=== PATIENT | male | born 1975 | race African-American/Black ===

== ENCOUNTER 2024-10-21 19:43 | Observation (INO) | payer MEDICARE, SELFPAY ==
[2024-10-21] VITALS (34 sets, daily range): BP systolic 99–146; BP diastolic 75–107; PULSE 75–194; TEMP 36.8–37.3; O2SAT 89–96; BMI 32.3; BMI 33.3
--- NOTE | 2024-10-21 19:46 | ECG_ITS ---
[facility] Test Date: 2024-10-21 Pat Name: MARVIN SUAREZ Department: Room: 213 Gender: Male Manager Regional: : 1975 Requested By: [id number] Order Number: [id number] Reading MD: PARAMJIT SQUIRES M.D. Measurements Intervals [place] Rate: 92 P: 57 OR: 140 QRS: 151 QRSD: 90 T: 10 QT: 356 QTc: 406 Interpretive Statements 1100 Sinus rhythm 5120 Possible right ventricular hypertrophy 8003 Consistent with pulmonary disease 9150 abnormal ECG No previous ECG available for comparison Electronically Signed On 10-22-2024 14:36:49 EDT by PARAMJIT SQUIRES M.D.
--- NOTE | 2024-10-21 19:58 | ED_ITS ---
HPI - Chest Pain General Chief Complaint: Chest Pain Stated Complaint: CP Time Seen by Provider: 10/21/24 19:54 Source: patient Mode of arrival: ambulance Limitations: no limitations History of Present Illness HPI narrative: past history of HTN and schizophrenia. Recently moved to this area and does not have any of his medication. has not found new doctor. Normally states norvasc and abilify Was asleep and awakened with chest pain 10/10. Pain associated with dyspnea. Pain has decreased to 7/10. No nausea or abdominal pain. also complains of lower back pain but admits this has been ongoing for several months and he has not been treating this Related Data Home Medications ?Medication ?Instructions ?Recorded ?Confirmed No Known Home Medications 10/21/24 10/21/24 Allergies Allergy/AdvReac Type Severity Reaction Status Date / Time No Known Drug Allergies Allergy Verified 10/21/24 19:54 Review of Systems ROS Status of ROS 10 or more systems reviewed and unremark able except as noted in history and below [facility] Medical History (Updated 10/21/24 @ 22:53 by Christopher Colby MD) Smokes ?F17.200 - Nicotine dependence, unspecified, uncomplicated (ICD-10) Hypertension ?I10 - Essential (primary) hypertension (ICD-10) Social History Little interest or pleasure in doing things: not at all Feeling down, depressed, or hopeless: not at all Exam Constitutional Vital Signs, click to edit/add: Last Vital Signs Temp 99.2 F 10/21/24 19:50 Pulse 98 H 10/21/24 22:20 Resp 31 H 10/21/24 22:20 BP 119/90 10/21/24 22:00 Pulse Ox 96 10/21/24 22:20 O2 Del Method Room Air 10/21/24 19:50 Common normals: no apparent distress, average body habitus, oriented x3, no limitations, healthy appearing, alert and well nourished [facility] Common normals: normocephalic and head/scalp atraumatic Eye Common normals: PERRL, EOMs intact bilaterally and conjunctivae normal Respiratory Common normals: normal respiratory effort, no retractions, no use of accessory muscles and clear to auscultation bilaterally Cardio Common normals: regular rate, regular rhythm, S1 normal heart sound and S2 normal heart sound GI Common normals: Normal to inspection, nondistended, normoactive bowel sounds present, soft to palpation and non-tender Extremity Common normals: normal to inspection and full ROM Neuro Common normals: oriented x3, CN's II-XII intact bilaterally, moves all extremities and no focal motor deficits Psych Appearance: grossly normal Course Vital Signs Vital signs: Vital Signs Temperature 99.2 F 10/21/24 19:50 Pulse Rate 122 H 10/21/24 19:50 Respiratory Rate 24 H 10/21/24 19:50 Blood Pressure 141/102 H 10/21/24 19:50 Pulse Oximetry 96 10/21/24 19:50 Oxygen Delivery Method Room Air 10/21/24 19:50 Temperature 99.2 F 10/21/24 19:50 Pulse Rate 98 H 10/21/24 22:20 Respiratory Rate 31 H 10/21/24 22:20 Blood Pressure 119/90 10/21/24 22:00 Pulse Oximetry 96 10/21/24 22:20 Oxygen Delivery Method Room Air 10/21/24 19:50 MDM - Chest Pain MDM Narrative Medical decision making narrative: presents with acute onset of chest pain that awakened him from sleep and associated with dyspnea. Past history of HTN but has been without because he moved to this area several months ago and has not found new PCP. Also complains of lower back pain for several months and history of schizophrenia for which he normally takes Abilify but has been without this as well serial troponin are normal. Cxray per radiologist is neg. RBS elevated. Patient not aware of history of diabetes but he may be diabetic. labs also demonstrate CKD discussed with the hospitalist and patient accepted for admission Lab Data Labs: Lab Results 10/21/24 10/21/24 Range/Units 20:00 21:54 WBC 11.2 H (4.0-11.0) 10^3/uL RBC 6.47 H (4.70-6.10) 10^6/uL Hgb 17.3 (14.0-18.0) g/dL Hct 54.6 H (42.0-54.0) % MCV 84.4 (80.0-94.0) fL MCH 26.7 (25.9-34.0) pg MCHC 31.7 (29.9-35.2) g/dL RDW 14.4 (11.0-15.0) % Plt Count 268 (150-450) 10^3/uL MPV 9.5 (9.5-13.5) fL Neut % (Auto) 49.6 (43.0-75.0) % Lymph % (Auto) 38.4 (20.5-60.0) % Campbell % (Auto) 8.5 (1.7-12.0) % Eos % (Auto) 2.4 (0.9-7.0) % Baso % (Auto) 0.5 (0.2-2.0) % Neut # (Auto) 5.5 (1.4-6.5) 10^3/uL Lymph # (Auto) 4.3 H (1.2-3.8) 10^3/uL Campbell # (Auto) 1.0 H (0.3-0.8) 10^3/uL Eos # (Auto) 0.3 (0.0-0.7) 10^3/uL Baso # (Auto) 0.1 (0.0-0.1) 10^3/uL Abs Immat Gran (auto) 0.07 H (0.00-0.03) 10^3/uL Imm/Tot Granulo (auto) 0.6 H (0.0-0.5) % D-Dimer 0.25 (<=0.59) mg/L FEU Sodium 138 (136-145) mmol/L Potassium 3.7 (3.5-5.1) mmol/L Chloride 101 (98-107) mmol/L Carbon Dioxide 31.7 (21.0-32.0) mmol/L Anion Gap 9.0 BUN 19.0 H (7.0-18.0) mg/dL Creatinine 1.53 H (0.70-1.30) mg/dL Est GFR ( Amer) 58 L (>=60 mL/min/1.73m^2) Est GFR (Non-Af Amer) 48 L (>=60 mL/min/1.73m^2) BUN/Creatinine Ratio 12.4 Glucose 370 H (74-106) mg/dL Calcium 8.7 (8.5-10.1) mg/dL Troponin I High Sens 10.3 11.3 (4.0-76.1) pg/mL NT-Pro-B Natriuret Pep 13.0 (<=900.0) pg/mL Discharge Plan Discharge Chief Complaint: Chest Pain Clinical Impression: Chest pain, Acute hyperglycemia, CRI (chronic renal insufficiency) Patient Disposition: Admitted as Observation Prescriptions / Home Meds: No Action No Known Home Medications Print Language: [place] Referrals: Physician,Non-Staff, MD [Primary Care Provider] - 1 week
[2024-10-21 20:17] LABS: Basophils Absolute Auto 0.1 10^3/uL (0.0-0.1); Basophils Percent Auto 0.5 % (0.2-2.0); Eosinophils Absolute Auto 0.3 10^3/uL (0.0-0.7); Eosinophils Percent Auto 2.4 % (0.9-7.0); Hematocrit 54.6 % (42.0-54.0); Hemoglobin 17.3 g/dL (14.0-18.0); Immature Granulocytes Abs Auto 0.07 10^3/uL (0.00-0.03); Immature Granulocytes Pct Auto 0.6 % (0.0-0.5); Lymphocytes Absolute Auto 4.3 10^3/uL (1.2-3.8); Lymphocytes Percent Auto 38.4 % (20.5-60.0); Mean Corpuscular HGB Conc 31.7 g/dL (29.9-35.2); Mean Corpuscular Hemoglobin 26.7 pg (25.9-34.0); Mean Corpuscular Volume 84.4 fL (80.0-94.0); Mean Platelet Volume 9.5 fL (9.5-13.5); Monocytes Percent Auto 8.5 % (1.7-12.0); Neutrophils Absolute Auto 5.5 10^3/uL (1.4-6.5); Neutrophils Percent Auto 49.6 % (43.0-75.0); Platelet Count 268 10^3/uL (150-450); Red Blood Count 6.47 10^6/uL (4.70-6.10); Red Cell Distribution Width 14.4 % (11.0-15.0); White Blood Count 11.2 10^3/uL (4.0-11.0)
[2024-10-21] MEDS: NITROGLYCERIN 0.4 MG BOTTLE PO (20:24)
[2024-10-21 20:29] LABS: D Dimer 0.25 mg/L FEU (<=0.59)
[2024-10-21 20:38] LABS: BUN Creatinine Ratio 12.4; Calcium 8.7 mg/dL (8.5-10.1); Carbon Dioxide 31.7 mmol/L (21.0-32.0); Chloride 101 mmol/L (98-107); Estimated GFR (African America 58 (>=60 mL/min/1.73m^2); Estimated GFR (Non-African Ame 48 (>=60 mL/min/1.73m^2); Glucose 370 mg/dL (74-106); Potassium 3.7 mmol/L (3.5-5.1); Sodium 138 mmol/L (136-145); Troponin I High Sensitivity 10.3 pg/mL (4.0-76.1)
[2024-10-21] MEDS: MORPHINE SULFATE 4 MG/ML VIAL IV (21:17)
[2024-10-21 22:31] LABS: Troponin I High Sensitivity 11.3 pg/mL (4.0-76.1)
[2024-10-22] VITALS (9 sets, daily range): BP systolic 124–128; BP diastolic 84–86; PULSE 73–87; TEMP 36.6–36.8; O2SAT 91–93
--- NOTE | 2024-10-22 05:00 | ECG_ITS ---
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 Measurements Intervals [place] Rate: 77 P: 28 [place]: 143 QRS: -67 QRSD: 100 T: 87 QT: 367 QTc: 418 Interpretive Statements SINUS RHYTHM INDETERMINATE AXIS PATTERN CONSISTENT WITH PULMONARY DISEASE LEFT ANTERIOR FASCICULAR BLOCK [QRS AXIS <= -45, QR IN I, RS IN II] NONSPECIFIC T-WAVE ABNORMALITY Compared to ECG 10/21/2024 19:46:05 Indeterminate axis now present Left anterior fascicular block now present T-wave abnormality now present Electronically Signed On 10-22-2024 14:39:30 EDT by PARAMJIT SQUIRES M.D.
[2024-10-22 06:15] LABS: Hematocrit 52.9 % (42.0-54.0); Hemoglobin 16.5 g/dL (14.0-18.0); Mean Corpuscular HGB Conc 31.2 g/dL (29.9-35.2); Mean Corpuscular Hemoglobin 26.6 pg (25.9-34.0); Mean Corpuscular Volume 85.2 fL (80.0-94.0); Mean Platelet Volume 10.1 fL (9.5-13.5); Platelet Count 216 10^3/uL (150-450); Red Blood Count 6.21 10^6/uL (4.70-6.10); Red Cell Distribution Width 14.3 % (11.0-15.0); White Blood Count 11.2 10^3/uL (4.0-11.0)
[2024-10-22 06:38] LABS: Alanine Aminotransferase 31 U/L (16-63); Albumin Globulin Ratio 0.9; Alkaline Phosphatase 90 U/L (46-116); Anion Gap 11.2; Aspartate Amino Transferase 12 U/L (15-37); Bilirubin Total 0.2 mg/dL (0.2-1.0); Calcium 8.5 mg/dL (8.5-10.1); Carbon Dioxide 28.9 mmol/L (21.0-32.0); Chloride 103 mmol/L (98-107); Chol HDL Ratio 7.1; Cholesterol 242 mg/dL (<=200); Estimated GFR (African America >60 (>=60 mL/min/1.73m^2); Estimated GFR (Non-African Ame 52 (>=60 mL/min/1.73m^2); Globulin 3.4 g/dL; Glucose 327 mg/dL (74-106); HDL Cholesterol 34 mg/dL (40-60); Potassium 4.1 mmol/L (3.5-5.1); Sodium 139 mmol/L (136-145); Thyroid Stimulating Hormone 2.159 uIU/mL (0.358-3.740); Total Protein 6.4 g/dL (6.4-8.2); Triglycerides 534 mg/dL (<=150); VLDL CHOLESTEROL 106.8 mg/dL
[2024-10-22 06:40] LABS: LDL Cholesterol Direct 137 mg/dL
[2024-10-22 06:48] LABS: Estimated Average Glucose 209 mg/dL; Glycohemoglobin A1C 8.9 % (4.5-6.2)
[2024-10-22 07:58] LABS: Glucometer 341 mg/dL (74-106)
[2024-10-22] MEDS: INSULIN ASPART 300 UNIT/3 ML PEN SUBQ ×2 (08:38→11:34)
[2024-10-22] MEDS: ASPIRIN 81 MG TABLET.DR PO (08:43)
[2024-10-22 09:44] LABS: Troponin I High Sensitivity 10.3 pg/mL (4.0-76.1)
[2024-10-22] MEDS: ARIPIPRAZOLE 5 MG TABLET 10 MG PO (11:33)
[2024-10-22] MEDS: AMLODIPINE BESYLATE 5 MG TABLET PO (11:33)
[2024-10-22] MEDS: LOSARTAN POTASSIUM 50 MG TABLET PO (11:34)
[2024-10-22] MEDS: METFORMIN HCL 500 MG TABLET PO (11:34)
[2024-10-22 11:37] LABS: Glucometer 221 mg/dL (74-106)
--- NOTE | 2024-10-22 12:31 | PC.NURSE ---
discharge instructions given to pt, verbalized understanding. iv discontinued, tele dc'd. [facility] at bedside for transport.
--- NOTE | 2024-10-22 16:39 | PM.HP ---
HPI H&P: HPI History of Present Illness Chief complaint: CP Narrative: HPI and Hospital Course: 49 y o male with hx of HTN,T2 DM, Mental health illness recently moved to [place] from [place] presented to ED for chest pain. Patient was sleeping when he woke up with mid sternal chest discomfort that lasted for a minute or two. He did not have any symptoms associated with it. He denies cough, fever, SOB, dizziness, palpitations with Chest pain. Patient denies family hx of CAD/premature CAD. He smokes cigarettes and Marijuana. Denies illicit drug use other than marijuana. Patient remained CP free during hospital admission. His d dimer was negative. His tropx 3 were also negative. No acute ischemic changes were noted on EKG. Given patient's risk factors including HTN, T2 DM, Current smoking, he is at high risk of CAD and will benefit from Cardiolyte Lexiscan. He is unable to do exercise stress test due to baseline EKG abnormalities and is unable to run on treadmill due to prior knee pain and knee injury. He ambulates using a walker currently. I ordered outpatient Cardiolyte Lexiscan for him which our case management team will try and schedule for the patient. Since he was chest pain free, and he did not have any evidence of acute coronary syndrome, I felt there was no need for him to stay over the weekend to get his stress test inpatient. I explained this to the patient. He was provided exhaustive education on worrisome signs and symptoms and was instructed to return to ED if he developed chest pain again. Medically stable for discharge. He was given information to contact local PCP office to establish care. He was also prescribed one month supply of his home medications to ensure he had his home medications until he established with a new PCP. Discharge Disposition Home Discharge Diagnosis Chest pain likely due to underlying CAD. No evidence of acute coronary syndrome Discharge Status Stable Over 30 minutes spent on patient's eval, assesment, clinical co ordination and discharge planning. Opioid HPI Opioid Management Most Recent Pain and Opioid Data: Last Pain Scale 3 10/22/24 08:00 10/22/24 Last Pain Assessment 10/22/24 12:00 Last ED Pain Assessment 10/21/24 20:07 Last ORT Total Score 6 10/21/24 23:40 10/21/24 Last ORT Risk Category Moderate Risk 10/21/24 23:40 10/21/24 Review of Systems ROS Status of ROS 10 or more systems reviewed and unremarkable except as noted in history and below [facility] Medical History (Updated 10/23/24 @ 23:03 by Shaikh Miesha MD) HLD (hyperlipidemia) ?E78.5 - Hyperlipidemia, unspecified (ICD-10) Type 2 diabetes mellitus ?E11.9 - Type 2 diabetes mellitus without complications (ICD-10) CKD (chronic kidney disease) stage 3, GFR 30-59 ml/min ?N18.30 - Chronic kidney disease, stage 3 unspecified (ICD-10) Diabetes ?E11.9 - Type 2 diabetes mellitus without complications (ICD-10) Schizophrenia ?F20.9 - Schizophrenia, unspecified (ICD-10) Smokes ?F17.200 - Nicotine dependence, unspecified, uncomplicated (ICD-10) Hypertension ?I10 - Essential (primary) hypertension (ICD-10) Social History (Updated 10/21/24 @ 23:59 by Rima Hahn) Within the past year, how often did you have a drink containing alcohol: never Score interpretation: A score less than 4 is consistent with normal alcohol consumption. Smoking status: Current every day smoker Non-prescribed substance use: cannabis (any form) Non-prescribed substance use details: smokes marijuana Previous occupational history: none Highest level of school completed/degree received: 10th grade Are you now , , , , never or living with a partner: never In a typical week, how many times do you talk on the telephone with family, friends, or neighbors: 3 or more times per week How often do you get together with friends or relatives: 3 or more times per week Little interest or pleasure in doing things: not at all Feeling down, depressed, or hopeless: not at all Feel stressed/tense/nervous/anxious/difficulty sleeping: not at all Do you think of yourself as: straight/heterosexual Gender Identity: male Meds Home Medications and Allergies Home Medications ?Medication ?Instructions ?Recorded ?Confirmed ?Type amlodipine 5 mg tablet 5 mg PO DAILY #30 tabs 10/22/24 Rx aripiprazole 10 mg tablet 10 mg PO DAILY #30 tabs 10/22/24 Rx aspirin 81 mg chewable tablet 81 mg PO DAILY #30 tabs 10/22/24 Rx losartan 50 mg tablet 50 mg PO DAILY #30 tabs 10/22/24 Rx metformin 500 mg tablet 500 mg PO BID #60 tabs 10/22/24 Rx rosuvastatin 5 mg tablet 5 mg PO DAILY #30 tabs 10/22/24 Rx Allergies Allergy/AdvReac Type Severity Reaction Status Date / Time No Known Drug Allergies Allergy Verified 10/21/24 19:54 Exam Constitutional Vital Signs, click to edit/add: Last Vital Signs Temp 97.9 F 10/22/24 08:48 Pulse 85 10/22/24 12:00 Resp 16 10/22/24 08:48 BP 124/84 10/22/24 08:48 Pulse Ox 91 L 10/22/24 08:48 O2 Del Method Room Air 10/22/24 08:48 Documenting provider has reviewed patient's vital signs: yes Common normals: no apparent distress and oriented x3 General appearance: cooperative HENMT Common normals: normocephalic and head/scalp atraumatic Head and scalp: normocephalic and atraumatic Eye Common normals: conjunctivae normal and no scleral icterus Conjunctiva: conjunctiva(e) normal Respiratory Common normals: normal respiratory effort and clear to auscultation bilaterally Effort & inspection: able to speak in complete sentences Auscultation: clear to auscultation bilaterally Cardio Common normals: regular rate, S1 normal heart sound and S2 normal heart sound Rate: regular rate Heart sounds: S1 normal and S2 normal GI Common normals: Normal to inspection, nondistended, normoactive bowel sounds present, soft to palpation, non-tender and no hepatosplenomegaly Palpation: soft and no hepatosplenomegaly Extremity Common normals: no clubbing, cyanosis or edema Neuro Common normals: oriented x3, moves all extremities and no focal motor deficits Psych Common normals: mental status grossly normal, denies hallucinations, denies homicidal ideation and denies suicidal ideation Results Labs Labs: Short CBC 10/21/24 10/22/24 Range/Units 20:00 05:38 WBC 11.2 H 11.2 H (4.0-11.0) 10^3/uL Hgb 17.3 16.5 (14.0-18.0) g/dL Hct 54.6 H 52.9 (42.0-54.0) % Plt Count 268 216 (150-450) 10^3/uL BMP 10/21/24 10/22/24 20:00 05:38 Sodium 138 139 Potassium 3.7 4.1 Chloride 101 103 Carbon Dioxide 31.7 28.9 BUN 19.0 H 20.0 H Creatinine 1.53 H 1.43 H Glucose 370 H 327 H Calcium 8.7 8.5 Liver Function 10/22/24 Range/Units 05:38 Total Bilirubin 0.2 (0.2-1.0) mg/dL AST 12 L (15-37) U/L ALT 31 (16-63) U/L Alkaline Phosphatase 90 (46-116) U/L Albumin 3.0 L (3.4-5.0) g/dL Assessment and Plan Assessment and Plan (1) Chest pain: Qualifiers: Chest pain type: unspecified Qualified Code(s): R07.9 - Chest pain, unspecified (2) CKD (chronic kidney disease) stage 3, GFR 30-59 ml/min: Qualifiers: Chronic kidney disease stage 3 subtype: stage 3a (GFR 45-59) Qualified Code(s): N18.31 - Chronic kidney disease, stage 3a (3) Type 2 diabetes mellitus: Qualifiers: Diabetes mellitus intermediate card tender insulin use: without intermediate card tender use Diabetes mellitus complication status: with kidney complications Chronic kidney disease stage: stage 3 (moderate) Chronic kidney disease stage 3 subtype: stage 3a (GFR 45-59) Diabetes mellitus complication detail: with chronic kidney disease Qualified Code(s): E11.22 - Type 2 diabetes mellitus with diabetic chronic kidney disease; N18.31 - Chronic kidney disease, stage 3a (4) Schizophrenia: Qualifiers: Schizophrenia type: unspecified Qualified Code(s): F20.9 - Schizophrenia, unspecified (5) Hypertension: Qualifiers: Hypertension type: primary hypertension Qualified Code(s): I10 - Essential (primary) hypertension (6) HLD (hyperlipidemia): Qualifiers: Hyperlipidemia type: unspecified Qualified Code(s): E78.5 - Hyperlipidemia, unspecified Plan Patient presented with Chest pain that resolved. Negative Cardiac enzymes and no acute EKG changes. No evidence of ACS. Will need work up for underlying CAD. Ordered Cardiolyte Lexiscan due to risk factors including HTN, T2DM, CKD 3A, HLD, Current smoker. Will arrange for outpatient stress test as not possible over the weekend. Patient educated on worrisome signs and symptoms, instructed to return to ED if he develops chest pain again.
--- NOTE | 2024-10-24 14:57 | CM.DCFOLLOWU ---
Person spoke with: Woody How are you feeling? Much better How is your pain? No pain Did you understand your discharge instructions? Yes Do you have any questions about your discharge instructions? No Were you given any prescriptions at discharge? No Were you able to get your prescriptions filled? N/A Do you understand how to take your medications as ordered? Yes Do you have any questions about your follow up appointment and do you plan to keep your follow up appointment? I will call today and schedule Is there anything else that you would like to discuss? No Questions/Comments/Concerns/Other:
== END 2024-10-22 12:52 | disposition home or self-care (01) ==
LOC: ER 22:53 → MS 10-22 09:24
PROVIDERS: Family Medicine; Registered Nurse; Admitting Provider Internal Medicine; Emergency Provider Internal Medicine; Visit Provider Internal Medicine
DX: R07.9 Chest pain, unspecified (principal); F20.9 Schizophrenia, unspecified; R06.00 Dyspnea, unspecified; M54.50 Low back pain, unspecified; E11.65 Type 2 diabetes mellitus with hyperglycemia; F17.210 Nicotine dependence, cigarettes, uncomplicated; I12.9 Hypertensive chronic kidney disease with stage 1 through stage 4 chronic kidney disease, or unspecified chronic kidney disease; E11.22 Type 2 diabetes mellitus with diabetic chronic kidney disease; E78.5 Hyperlipidemia, unspecified; Z79.84 Long term (current) use of oral hypoglycemic drugs; N18.31 Chronic kidney disease, stage 3a
CPT/HCPCS: 36415; 71045; 80048; 80053; 80061; 82948; 83036; 83721; 83880; 84443; 84484; 85025; 85027; 85378; 93005; 96374; 99285; G0378; J2270

== ENCOUNTER 2025-01-01 08:10 | Inpatient (IN) | payer MEDICARE, SELFPAY ==
[2025-01-01] VITALS (108 sets, daily range): BP systolic 133–160; BP diastolic 86–118; PULSE 58–116; TEMP 36.8; O2SAT 94–99; BMI 33.9; BMI 32.7
--- OUTSIDE RECORDS SUMMARY | 2025-01-01 08:16 | XMS_ITS | CCD ---
Author Organization [facility] Care Team Providers Care [employer] Superintendent Name Role Phone Malia Matamoros MD Emergency Provider [phone] NO FAMILY, PHYSICIAN Primary Care Provider Malia Camacho MD Emergency Provider [phone] NO FAMILY, PHYSICIAN Primary Care Provider Franklin Villeda DO Emergency Provider [phone] VENTURA, Anson Admit Provider [phone] Anson Sutton MD Attending Provider [phone] Unavailable Primary Care Provider Unavailabl e NO FAMILY, PHYSICIAN Primary Care Unavailable Anson Sutton Attending Unavailable Anson Sutton Admitting Unavailable Malia Matamoros Attending Unavailable Malia Matamoros Admitting Unavailable NO FAMILY, PHYSICIAN Primary Care Unavailable NO FAMILY, PHYSICIAN Primary Care Unavailable Robbie Nj Attending Unavailab Robbie Landry Admitting Unavailab MUNIRA Moore Consulting Unavailable SHANNAN WEBER Admitting Unavailable SHANNAN WEBER Attending Unavailable PHYSICIANS, [facility] Consulting Yi LYNN Chapa Primary Care Unavailable NÉSTOR MURRAY Attending Unavailable LYNN MANZO Primary Care Unavailable Medications Current Medications Medication Drug Class(es) Dates Sig (Normalized) Sig (Original) ARIPiprazole 10 mg oral tablet (2 sources) Atypical Antipsychotic Start: 09-09-2024 take 1 tablet by mouth once daily Aripiprazole 10 mg Tablet Active 10 MG PO Daily 12 September 09, 2024 1:00am Start: 09-09-2024 Aripiprazole ( Abilify Maintena) 400 mg suspension,extended rel recon Active 400 MG IM Q28D September 09, 2024 1:00am Due on or about 4/3/25 Completed/Discontinued Medications Medication Drug Class(es) Dates Sig (Normalized) Sig (Original) acetaminophen 325 mg oral tablet (3 sources) Start: 09-05-2024 End: 09-06-2024 take 2 tablets by mouth every six hours as needed for pain Acetaminophen (Tylenol) 325 mg tablet Discontinued 650 MG PO Every 6 hours as needed for pain 30 September 05, 2024 1:00am September 06, 2024 1:30am ibuprofen 600 mg oral tablet (3 sources) Nonsteroidal Anti-inflammatory Drug Start: 09-05-2024 End: 09-06-2024 take 1 tablet by mouth every six hours as needed for pain Ibuprofen 600 mg tablet Discontinued 600 MG PO Q6H as needed for pain 02 12September 05, 2024 1:00am September 06, 2024 1:30am lidocaine 0.05 mg/mg medicated patch (5 sources) Antiarrhythmic, Amide Local Anesthetic Start: 09-05-2024 End: 09-06-2024 apply 1 dose topically once daily Lidocaine (Lidoderm) 5 % adhesive patch,medicated Discontinued 1 PATCH TOPICAL Daily September 05, 2024 1:00am September 06, 2024 1:30am leave on most painful area for up to 12 hrs Problems Problem Classification Problem Date Documented Da te Episodic/Chronic Essential hypertension (3 sources) Hypertensive disorder; Translations: [Essential (primary) hypertension] 09-05-2024 Chronic Genitourinary symptoms and ill-defined conditions (3 sources) Difficulty passing urine; Translations: [Other difficulties with micturition] 09-06-2024 Episodic Mood disorders (4 sources) Bipolar I disorder; Translations: [Bipolar disorder, unspecified] Onset: 09-07-2024 09-07-2024 Chronic Spondylosis; intervertebral disc disorders; other back problems (3 sources) Chronic low back pain; Translations: [Chronic bilateral low back pain] 09-05-2024 Episodic Suicide and intentional self-inflicted injury (6 sources) Suicidal thoughts; Translations: [Suicidal ideations] Onset: 09-07-2024 09-06-2024 Episodic Unclassified (2 sources) Low back pain, unspecified; Translations: [Low back pain, unspecified] Onset: 09-05-2024 Unclassified (1 source) Psychiatric Evaluation Onset: 12-09-2024 Unclassified (1 source) Psych Onset: 12-09-2024 Results Test Name Value Interpretation Reference Range Facility BEDSIDE GLUCOSEon 12-14-2024 Glucose [Mass/Vol] 281 mg/dL [address] Comment on above: Performed By: #### D QUINONEZ #### [facility] ([id number]) [address] [facility] [place] [address] VIR BEDSIDE GLUCOSEon 12-13-2024 Glucose [Mass/Vol] 278 mg/dL [address] Comment on above: Performed By: #### D QUINONEZ #### [facility] ([id number]) [address] [place] [address] VIR Glucose [Mass/Vol] 190 mg/dL [address] Comment on above: Performed By: #### D QUINONEZ #### [facility] ([id number]) [facility] [place] [address] VIR Glucose [Mass/Vol] 326 mg/dL [address] Comment on above: Performed By: #### D QUINONEZ #### [facility] ([id number]) [address] [place] [address] VIR Glucose [Mass/Vol] 265 mg/dL [address] Comment on above: Performed By: #### D QUINONEZ #### [facility] ([id number]) [address] [place] [address] VIR BEDSIDE GLUCOSEon 12-12-2024 Glucose [Mass/Vol] 217 mg/dL [address] Comment on above: Performed By: #### D QUINONEZ #### [facility] ([id number]) [address] [place] [address] VIR Glucose [Mass/Vol] 208 mg/dL [address] Comment on above: Performed By: #### D QUINONEZ #### [facility] ([id number]) [address] [place] [address] VIR Glucose [Mass/Vol] 245 mg/dL High -99 [facility] Comment on above: Performed By: #### D QUINONEZ #### [facility] ([id number]) [address] [place] [address] VIR Glucose [Mass/Vol] 264 mg/dL High 65-99 [facility] Comment on above: Performed By: #### U FEN #### [facility] ([id number]) [address] [place] [address] VIR BEDSIDE GLUCOSEon 12-11-2024 Glucose [Mass/Vol] 184 mg/dL High 65-99 [facility] Comment on above: Performed By: #### U FEN #### [facility] ([id number]) [address] [place] [address] VIR Glucose [Mass/Vol] 96 mg/dL Normal 65-99 [facility] Comment on above: Performed By: #### U FEN #### [facility] ([id number]) [address] [place] [address] VIR Glucose [Mass/Vol] 385 mg/dL High 65-99 [facility] Comment on above: Performed By: #### U FEN #### [facility] ([id number]) [address] [place] [address] VIR BEDSIDE GLUCOSE ???BEDG >^500 Critically high [address] [place] [address] Comment on above: Performed By: #### U FEN #### [facility] ([id number]) [address] [place] [address] VIR GLUCOSE RANDOM OR FASTINGon 12-11-2024 Glucose [Mass/Vol] 512 mg/dL Critically high 65-99 [facility] Comment on above: Performed By: #### U FEN #### [facility] ([id number]) [address] [place] [address] VIR LIPID PROFILEon 12-11-2024 Cholesterol [Mass/Vol] 239 mg/dL High 150-200 [facility] Comment on above: Order Comment: Fenta nyl screening cutoff = 5ng/ml This report is intended for use in clinical monitoring or management of patients. Performed By: #### U FEN #### [facility] ([id number]) [facility] [place] [address] VIR Cholesterol in HDL [Mass/Vol] 31 mg/dL Low >39 [facility] Comment on above: Order Comment: Fenta nyl screening cutoff = 5ng/ml This report is intended for use in clinical monitoring or management of patients. Result Comment: HDL <40 mg/dL - High Risk HDL > or = 40mg/dL- Desirable HDL >60 mg/dL - Negative Risk Performed By: #### U FEN #### [facility] ([id number]) [address] [place] [address] VIR CHOLESTEROL:HDL 7.7 High 1.0-5.0 [facility] Comment on above: Order Comment: Fenta nyl screening cutoff = 5ng/ml This report is intended for use in clinical monitoring or management of patients. Performed By: #### U FEN #### [facility] ([id number]) [facility] [place] [address] VIR Triglyceride [Mass/Vol] 452 mg/dL High 27-150 [facility] Comment on above: Order Comment: Fenta nyl screening cutoff = 5ng/ml This report is intended for use in clinical monitoring or management of patients. Performed By: #### U FEN #### [facility] ([id number]) [address] [place] [address] VIR VERY LOW LIPOPROTEIN 90 mg/dL High 0-30 [facility] Comment on above: Order Comment: Fenta nyl screening cutoff = 5ng/ml This report is intended for use in clinical monitoring or management of patients. Performed By: #### U FEN #### [facility] ([id number]) [facility] [place] [address] VIR RDLDL DIRECT LDLon 5 Cholesterol in LDL [Mass/Vol] 138 mg/dL High <=130 [facility] Comment on above: Result Comment: LDL <100 mg/dL - Desirable LDL 130-159 mg/dL - Borderline High Risk LDL >160 mg/dL - High Risk Performed By: #### U FEN #### [facility] ([id number]) [address] [place] [address] VIR ACETAMINOPHEN LEVELon 2024 Acetaminophen [Mass/Vol] ug/mL Low 10.0-30.0 [facility] Comment on above: Order Comment: Refer ence ranges are for therapeutic limits. Performed By: #### A CETA #### [facility] ([id number]) [address] [place] [address] VIR CBC WITH AUTO DIFFERENTIALon 12-09-2024 CELLAVISION DIFFERENTIAL TYPE MANUAL DIFFERENTIAL Normal [facility] Comment on above: Result Comment: This is an appended report. These results have been appended to a previously preliminary verified report. Performed By: #### C BCA #### [facility] ([id number]) [facility] [place] [address] VIR CELLAVISION LYMPHOCYTES ABSOLUTE COUNT (10*3/UL) BY MANUAL COUNT 4.0 10*3/uL High 1.0-3.5 [facility] Comment on above: Result Comment: This is an appended report. These results have been appended to a previously preliminary verified report. Performed By: #### C BCA #### [facility] ([id number]) [address] [place] [address] VIR CELLAVISION LYMPHOCYTES RELATIVE PERCENT BY MANUAL COUNT 35 % Normal [facility] Comment on above: Result Comment: This is an appended report. These results have been appended to a previously preliminary verified report. Performed By: #### C BCA #### [facility] ([id number]) [address] [place] [address] VIR CELLAVISION MONOCYTES ABSOLUTE COUNT (10*3/UL) IN BLOOD BY MANUAL COUNT 0.9 10*3/uL Normal 0.0-0.9 [facility] Comment on above: Result Comment: This is an appended report. These results have been appended to a previously preliminary verified report. Performed By: #### C BCA #### [facility] ([id number]) [address] [place] [address] VIR CELLAVISION MONOCYTES RELATIVE PERCENT BY MANUAL COUNT 8 % Normal [facility] Comment on above: Result Comment: This is an appended report. These results have been appended to a previously preliminary verified report. Performed By: #### C BCA #### [facility] ([id number]) [address] [place] [address] VIR CELLAVISION NEUTROPHILS ABSOLUTE COUNT BY MANUAL COUNT 6.4 10*3/uL Normal 1.5-6.6 [facility] Comment on above: Result Comment: This is an appended report. These results have been appended to a previously preliminary verified report. Performed By: #### C BCA #### [facility] ([id number]) [address] [place] [address] VIR CELLAVISION NEUTROPHILS RELATIVE PERCENT BY MANUAL COUNT 57 % Normal [facility] Comment on above: Result Comment: This is an appended report. These results have been appended to a previously preliminary verified report. Performed By: #### C BCA #### [facility] ([id number]) [address] [place] [address] VIR CELLAVISION NUCLEATED RED BLOOD CELLS IN BLOOD BY LIGHT MICROSCOPY 1 Normal [facility] Comment on above: Result Comment: This is an appended report. These results have been appended to a previously preliminary verified report. Performed By: #### C BCA #### [facility] ([id number]) [address] [place] [address] VIR CELLAVISION RBC MORPHOLOGY Reviewed Normal [facility] Comment on above: Result Comment: This is an appended report. These results have been appended to a previously preliminary verified report. Performed By: #### C BCA #### [facility] ([id number]) [address] [place] [address] VIR Erythrocyte distribution width (RBC) [Ratio] 14.7 % Normal 11.5-15 [facility] Comment on above: Performed By: #### C BCA #### [facility] ([id number]) [address] [place] [address] VIR Hematocrit (Bld) [Volume fraction] 50.9 % High 39-50 [facility] Comment on above: Performed By: #### C BCA #### [facility] ([id number]) [address] [place] [address] VIR Hemoglobin (Bld) [Mass/Vol] 16.4 g/dL Normal 13-17 [facility] Comment on above: Performed By: #### C BCA #### [facility] ([id number]) [address] [place] [address] VIR MCH (RBC) [Entitic mass] 26.6 pg Low 27-34 [facility] Comment on above: Performed By: #### C BCA #### [facility] ([id number]) [address] [place] [address] VIR MCHC (RBC) [Mass/Vol] 32.2 g/dL Normal 32-36 [facility] Comment on above: Performed By: #### C BCA #### [facility] ([id number]) [address] [place] [address] VIR MCV (RBC) [Entitic vol] 83 fL Normal 80-100 [facility] Comment on above: Performed By: #### C BCA #### [facility] ([id number]) [address] [place] [address] VIR Platelet mean volume (Bld) [Entitic vol] 8.0 fL Normal 7-12 [facility] Comment on above: Performed By: #### C BCA #### [facility] ([id number]) [address] [place] [address] VIR Platelets (Bld) [#/Vol] 251 10*3/uL Normal 150-450 [facility] Comment on above: Performed By: #### C BCA #### [facility] ([id number]) [address] [place] [address] VIR RBC COUNT 6.15 X10E12/L High 4.1-5.7 [facility] Comment on above: Performed By: #### C BCA #### [facility] ([id number]) [address] [facility] [place] [address] VIR WBC (Bld) [#/Vol] 11.3 10*3/uL High 4-11 [facility] Comment on above: Performed By: #### C BCA #### [facility] ([id number]) [address] [facility] [place] [address] VIR COMPREHENSIVE METABOLIC PANE Nadir 12-09-2024 Albumin [Mass/Vol] 3.9 g/dL Normal 3.2-5.3 [facility] Comment on above: Performed By: #### C MP #### [facility] ([id number]) [address] [facility] [place] [address] VIR ALP [Catalytic activity/Vol] 95 U/L Normal 39-130 [facility] Comment on above: Performed By: #### C MP #### [facility] ([id number]) [address] [facility] [place] [address] VIR ALT [Catalytic activity/Vol] 26 U/L Normal <=40 [facility] Comment on above: Performed By: #### C MP #### [facility] ([id number]) [address] [facility] [place] [address] VIR Anion gap [Moles/Vol] 7 mmol/L Normal 5-15 [facility] Comment on above: Performed By: #### C MP #### [facility] ([id number]) [address] [place] [address] VIR AST [Catalytic activity/Vol] 16 U/L Normal <=41 [facility] Comment on above: Performed By: #### C MP #### [facility] ([id number]) [address] [place] [address] VIR Bilirubin [Mass/Vol] 0.5 mg/dL Normal 0.3-1.2 [facility] Comment on above: Performed By: #### C MP #### [facility] ([id number]) [facility] [place] [address] VIR Calcium [Mass/Vol] 9.4 mg/dL Normal 8.5-10.5 [facility] Comment on above: Performed By: #### C MP #### [facility] ([id number]) [address] [place] [address] VIR Chloride [Moles/Vol] 101 mmol/L Normal 98-109 [facility] Comment on above: Performed By: #### C MP #### [facility] ([id number]) [address] [place] [address] VIR CO2 [Moles/Vol] 28 mmol/L Normal 22-32 [facility] Comment on above: Performed By: #### C MP #### [facility] ([id number]) [address] [place] [address] VIR Creatinine [Mass/Vol] 1.38 mg/dL High 0.60-1.30 [facility] Comment on above: Result Comment: METH OD TRACEABLE TO IDMS STANDARD Performed By: #### C MP #### [facility] ([id number]) [facility] [place] [address] VIR GFR/1.73 sq M.predicted among non-blacks MDRD (S/P/Bld) [Vol rate/Area] 62 mL/min/{1.73_m2} Normal >=60 [facility] Comment on above: Result Comment: Repo rted eGFR is based on the CKD-EPI 2020 equation that does not use a race coefficient. Performed By: #### C MP #### [facility] ([id number]) [facility] [place] [address] VIR Glucose [Mass/Vol] 378 mg/dL High 65-99 [facility] Comment on above: Performed By: #### C MP #### [facility] ([id number]) [address] [place] [address] VIR Potassium [Moles/Vol] 3.6 mmol/L Normal 3.5-5.0 [facility] Comment on above: Performed By: #### C MP #### [facility] ([id number]) [address] [facility] [place] [address] VIR Protein [Mass/Vol] 7.0 g/dL Normal 6.0-8.0 [facility] Comment on above: Performed By: #### C MP #### [facility] ([id number]) [facility] [place] [address] VIR Sodium [Moles/Vol] 136 mmol/L Normal 134-146 [facility] Comment on above: Performed By: #### C MP #### [facility] ([id number]) [facility] [place] [address] VIR Urea nitrogen [Mass/Vol] 15 mg/dL Normal 5-23 [facility] Comment on above: Performed By: #### C MP #### [facility] ([id number]) [address] [place] [address] VIR DRUG SCREEN, URINEon 025 DRUG SCREEN, URINE DSU DRUG SCREEN, URINE Cancelled Normal [facility] AMPHETAMINE/METHAMP Positive Abnormal Negative [facility] Comment on above: Order Comment: Confi rmation available upon request. Result Comment: AMPH /METH screening cut off = 1000 ng/mL Performed By: #### D QUINONEZ #### [facility] ([id number]) [facility] [place] [address] VIR BARBITURATES Negative Normal Negative [facility] Comment on above: Order Comment: Confi rmation available upon request. Result Comment: Amee iturates screening cut off value = 200 ng/mL Performed By: #### D QUINONEZ #### [facility] ([id number]) [facility] [place] [address] VIR BENZODIAZEPINES Negative Normal Negative [facility] Comment on above: Order Comment: Confi rmation available upon request. Result Comment: Betito odiazepines screening cut off value = 200 ng/mL Performed By: #### D QUINONEZ #### [facility] ([id number]) [address] [place] [address] VIR CANNABINOIDS Positive Abnormal Negative [facility] Comment on above: Order Comment: Confi rmation available upon request. Result Comment: Amber abinoids/THC screening cut off value = 50 ng/mL Performed By: #### D QUINONEZ #### [facility] ([id number]) [address] [place] [address] VIR COCAINE METABOLITE Negative Normal Negative [facility] Comment on above: Order Comment: Confi rmation available upon request. Result Comment: Coca ine screening cut off value = 300 ng/mL Performed By: #### D QUINONEZ #### [facility] ([id number]) [address] [place] [address] VIR ECSTASY Negative Normal Negative [facility] Comment on above: Order Comment: Confi rmation available upon request. Result Comment: Ecst asy screening cut off value = 500 ng/mL Performed By: #### D QUINONEZ #### [facility] ([id number]) [address] [place] [address] VIR METHADONE Negative Normal Negative [facility] Comment on above: Order Comment: Confi rmation available upon request. Result Comment: Meth adone screening cut off value = 300 ng/mL. Performed By: #### D QUINONEZ #### [facility] ([id number]) [address] [place] [address] VIR OPIATES Negative Normal Negative [facility] Comment on above: Order Comment: Confi rmation available upon request. Result Comment: Opia zuri screening cut off value = 300 ng/mL This test is used for the detection of codeine, hydrocodone (>1000 ng/mL), morphine and hydromorphone (>900 ng/mL) in urine. Performed By: #### D QUINONEZ #### [facility] ([id number]) [address] [place] [address] VIR OXYCODONE Negative Normal Negative [facility] Comment on above: Order Comment: Confi rmation available upon request. Result Comment: Oxyc odone screening cut off value = 300 ng/mL This test is used for the detection of oxycodone and oxymorphone in urine. Performed By: #### D QUINONEZ #### [facility] ([id number]) [facility] [place] [address] VIR PHENCYCLIDINE Negative Normal Negative [facility] Comment on above: Order Comment: Confi rmation available upon request. Result Comment: Phen cyclidine screening cut off value = 25 ng/mL Performed By: #### D QUINONEZ #### [facility] ([id number]) [address] [place] [address] VIR ETHANOLon 12-09-2024 Ethanol [Mass/Vol] mg/dL Normal <=0.080 [facility] Comment on above: Result Comment: This report is intended for use in clinical monitoring or management of patients. Performed By: #### A LCO #### [facility] ([id number]) [address] [place] [address] VIR FENTANYL, URINE QUALITATIVEo n 12-09-2024 FENTANYL, URINE QUAL. Negative Normal Negative [facility] Comment on above: Order Comment: Fenta nyl screening cutoff = 5ng/ml This report is intended for use in clinical monitoring or management of patients. Performed By: #### U FEN #### [facility] ([id number]) [address] [place] [address] VIR HEMOGLOBIN A1Con 12-09-2024 Glucose [Mass/Vol] 309 mg/dL Normal [facility] Comment on above: Performed By: #### U FEN #### [facility] ([id number]) [address] [place] [address] VIR HbA1c (Bld) [Mass fraction] 12.4 % High 4.4-5.6 [facility] Comment on above: Result Comment: ADA Guidelines Result HgbA1c Normal : less than 5.7 % Prediabetes : 5.7 % to 6.4 % Diabetes : > 6.4 % Use with caution in patients with abnormal hemoglobin variants as the half-life of red blood cells and in vivo glycation rates are affected. Performed By: #### U FEN #### [facility] ([id number]) [facility] [place] [address] VIR SALICYLATE LEVELon SALICYLATE <^2.5 Normal 2.0-25.0 [facility] Comment on above: Order Comment: Refer ence ranges are for therapeutic limits. Performed By: #### S ALI #### [facility] ([id number]) [address] [place] [address] VIR T4, FREEon 12-09-2024 Free T4 [Mass/Vol] 0.75 ng/dL Normal 0.61-1.60 [facility] Comment on above: Performed By: #### F T4 #### [facility] ([id number]) [address] [place] [address] VIR TSHon 12-09-2024 TSH 3.69 uIU/mL Normal 0.49-4.67 [facility] Comment on above: Performed By: #### T SH #### [facility] ([id number]) [address] [place] [address] VIR URINALYSISon 12-09-2024 Bilirubin Ql (U) Negative Normal Negative [facility] Comment on above: Order Comment: Urine received without preservative. Delays in transport may affect results. Interpret with caution. A clinical correlation is recommended. Performed By: #### U A #### [facility] ([id number]) [facility] [place] [address] VIR BLOOD/HGB Small Abnormal Negative [facility] Comment on above: Order Comment: Urine received without preservative. Delays in transport may affect results. Interpret with caution. A clinical correlation is recommended. Performed By: #### U A #### [facility] ([id number]) [address] [place] [address] VIR Color (U) Yellow Normal Yellow, Colorless [facility] Comment on above: Order Comment: Urine received without preservative. Delays in transport may affect results. Interpret with caution. A clinical correlation is recommended. Performed By: #### U A #### [facility] ([id number]) [address] [place] [address] VIR Glucose Ql (U) >=1000 mg/dL Abnormal Negative, 250 mg/dL [facility] Comment on above: Order Comment: Urine received without preservative. Delays in transport may affect results. Interpret with caution. A clinical correlation is recommended. Performed By: #### U A #### [facility] ([id number]) [facility] [place] [address] VIR Ketones Ql (U) Negative Normal Negative [facility] Comment on above: Order Comment: Urine received without preservative. Delays in transport may affect results. Interpret with caution. A clinical correlation is recommended. Performed By: #### U A #### [facility] ([id number]) [facility] [place] [address] VIR Leukocyte esterase Test strip Ql (U) Negative Normal Negative [facility] Comment on above: Order Comment: Urine received without preservative. Delays in transport may affect results. Interpret with caution. A clinical correlation is recommended. Performed By: #### U A #### [facility] ([id number]) [facility] [place] [address] VIR Nitrite Ql (U) Negative Normal Negative [facility] Comment on above: Order Comment: Urine received without preservative. Delays in transport may affect results. Interpret with caution. A clinical correlation is recommended. Performed By: #### U A #### [facility] ([id number]) [facility] [place] [address] VIR PH,URINE 6.0 Normal 5.0-8.5 [facility] Comment on above: Order Comment: Urine received without preservative. Delays in transport may affect results. Interpret with caution. A clinical correlation is recommended. Performed By: #### U A #### [facility] ([id number]) [address] [place] [address] VIR Protein Ql (U) Negative Normal Negative [facility] Comment on above: Order Comment: Urine received without preservative. Delays in transport may affect results. Interpret with caution. A clinical correlation is recommended. Performed By: #### U A #### [facility] ([id number]) [address] [place] [address] VIR R.B.CELLS 1 Normal 0-5 [facility] Comment on above: Order Comment: Urine received without preservative. Delays in transport may affect results. Interpret with caution. A clinical correlation is recommended. Performed By: #### U A #### [facility] ([id number]) [facility] [place] [address] VIR Specific gravity (U) [Rel density] 1.015 Normal 1.003-1.035 [facility] Comment on above: Order Comment: Urine received without preservative. Delays in transport may affect results. Interpret with caution. A clinical correlation is recommended. Performed By: #### U A #### [facility] ([id number]) [facility] [place] [address] VIR TURBIDITY Clear Normal Clear [facility] Comment on above: Order Comment: Urine received without preservative. Delays in transport may affect results. Interpret with caution. A clinical correlation is recommended. Performed By: #### U A #### [facility] ([id number]) [address] [place] [address] VIR UROBILINOGEN 0.2 eu/dL Normal 0.2 eu/dL, 1.0 eu/dL [facility] Comment on above: Order Comment: Urine received without preservative. Delays in transport may affect results. Interpret with caution. A clinical correlation is recommended. Performed By: #### U A #### [facility] ([id number]) [address] [place] [address] VIR W.B.CELLS 0 Normal 0-5 [facility] Comment on above: Order Comment: Urine received without preservative. Delays in transport may affect results. Interpret with caution. A clinical correlation is recommended. Performed By: #### U A #### [facility] ([id number]) [address] [place] [address] VIR ECG 12 lead ECGon 09-07-2024 ECG 12 lead ECG [facility] [place] [address] [place], [place] [id number] Electrocardiograph Report Signed Patient: Marvin Suarez MR#: [id number] : 1975 Acct:[id number] Age/Sex: 49 / M ADM Date: 09/07/24 Loc: Room: [address] [place] [address] Type: ADM IN Attending Dr: Anson Sutton MD Ordering Provider: Anson Sutton MD Date of Service: 09/07/2411/27/499 ECG/ECG 12 lead ECG: baseline for psych meds Copies to: Test Reason : Blood Pressure : */* mmHG Vent. Rate : 77 BPM Atrial Rate : 77 BPM P-R Int : 130 ms QRS Dur : 92 ms QT Int : 368 ms P-R-T Axes : 38 -70 70 degrees QTcB Int : 416 ms Normal sinus rhythm Left axis deviation Abnormal ECG No previous ECGs available Confirmed by Kody Ley ([id number]) on 09/07/2024 8:01:49 PM Referred By: Electronically Signed By: Kody Ley Transcribed By: MUS Signed By Koyd Ley MD 09/07/242000 Normal [facility] Alanine aminotransferase [En zymatic activity/volume] in Serum or PlasmaOrdered By: Franklin Anand on 09-06-2024 ALT [Catalytic activity/Vol] Alanine aminotransferase [Enzymatic activity/volume] in Serum or Plasma [facility] Albumin [Mass/volume] in Ser um or Plasma by Bromocresol green (BCG) dye binding methoOrdered By: Franklin Anand on 09-06-2024 Albumin BCG dye [Mass/Vol] Albumin [Mass/volume] in Serum or Plasma by Bromocresol green (BCG) dye binding metho 3.5-5.[address] [facility] Alkaline phosphatase [Enzyma tic activity/volume] in Serum or PlasmaOrdered By: Franklin Anand on 09-06-2024 ALP [Catalytic activity/Vol] Alkaline phosphatase [Enzymatic activity/volume] in Serum or Plasma 34-[address] [facility] Amphetamine Screen Ql (U)Ord ered By: PROVIDER TEMP on 09-06-2024 Amphetamines Ql (U) Amphetamines screen High Negativ e [facility] Appearance of UrineOrdered B y: Franklin Anand on 09-06-2024 Appearance (U) Urine appearance Clear [facility] Aspartate aminotransferase [ Enzymatic activity/volume] in Serum or PlasmaOrdered By: Franklin Anand on 09-06-2024 AST [Catalytic activity/Vol] Aspartate aminotransferase [Enzymatic activity/volume] in Serum or Plasma 13-[address] [facility] Bacteria [Presence] in Urine by AutomatedOrdered By: Franklin Aannd on 09-06-2024 Bacteria Auto Ql (U) Bacteria [Presence] in Urine by Automated None Seen [facility] Barbiturates [Presence] in U rine by Screen methodOrdered By: PROVIDER TEMP on 09-06-2024 Barbiturates Screen Ql (U) Barbiturates [Presence] in Urine by Screen method Negative [facility] Basophils Auto (Bld) [#/Vol] Ordered By: Franklin Anand on 09-06-2024 Basophils (Bld) [#/Vol] Automated basoph il count 0.0-0.[address] [facility] Basophils/100 WBC Auto (Bld) Ordered By: Franklin Anand on 09-06-2024 Basophils/100 WBC (Bld) Automated basophil % . [facility] Benzodiazepines Screen Ql (U )Ordered By: PROVIDER TEMP on 09-06-2024 Benzodiazepines Ql (U) Benzodiazepines [Presence] in Urine by Screen method Negative [facility] Benzoylecgonine [Presence] i n Urine by Screen methodOrdered By: PROVIDER TEMP on 09-06-2024 Benzoylecgonine Screen Ql (U) Benzoylecgonine [Presence] in Urine by Screen method Negative [facility] Bilirubin Test strip Ql (U)O rdered By: Franklin Anand on 09-06-2024 Bilirubin Ql (U) Bilirubin.total [Presence] in Urine by Test strip Negative [facility] Bilirubin.total [Mass/volume ] in Serum or PlasmaOrdered By: Franklin Anand on 09-06-2024 Bilirubin [Mass/Vol] Bilirubin.total [Mass/volume] in Serum or Plasma 0.3-1.[address] [facility] Calcium [Mass/volume] in Ser um or PlasmaOrdered By: Franklin Anand on 09-06-2024 Calcium [Mass/Vol] Calcium [Mass/volume ] in Serum or Plasma 8.6-10.[address] [facility] Cannabinoids [Presence] in U rine by Screen methodOrdered By: KOURTNEY MARCELINO on 09-06-2024 Cannabinoids Screen Ql (U) Cannabinoids [Presence] in Urine by Screen method Negative [facility] Comment on above: These are unconfirme d results and should not be used for legal purposes. Drug Cut-Off Concentration: AMPH 1000 ng/mL AMEE 200 ng/mL BETITO 200 ng/mL COCM 300 ng/mL OP 300 ng/mL PCP 25 ng/mL THC 20 ng/mL Carbon dioxide, total [Moles /volume] in Serum or PlasmaOrdered By: Franklin Anand on 09-06-2024 CO2 [Moles/Vol] Carbon dioxide, tota l [Moles/volume] in Serum or Plasma 21.0-31.[address] [facility] Chloride [Moles/volume] in S darrel or PlasmaOrdered By: Franklin Anand on 09-06-2024 Chloride [Moles/Vol] Chloride [Moles/volume] in Serum or Plasma 98-[address] [facility] Cholesterol [Mass/volume] in Serum or PlasmaOrdered By: Anson Sutton on 09-06-2024 Cholesterol [Mass/Vol] Cholesterol [Mass/volume] in Serum or Plasma 140-[address] [facility] Comment on above: Chol less than 200 m g/dl low riskChol 201-239 mg/dl borderline riskChol 240 mg/dl and greater high risk Cholesterol in HDL [Mass/vol ume] in Serum or PlasmaOrdered By: Anson Sutton on 09-06-2024 Cholesterol in HDL [Mass/Vol] Serum or plasma high density lipoprotein (HDL) cholesterol measurement 23-[address] [facility] Comment on above: HDL CHOL ATP-III CLA SSIFICATION Cardiovascular RiskHDL > or equal to 60 mg/dL LOWHDL < 40 mg/dL HIGH Cholesterol in LDL Calc [Mas s/Vol]Ordered By: Anson Sutton on 09-06-2024 Cholesterol in LDL [Mass/Vol] Cholesterol in LDL [Mass/volume] in Serum or Plasma by calculation High 0-[address] [facility] Comment on above: LDL ATP III CLASSIFI CATIONLDL less than 100 mg/dL OptimalLDL 100-129 mg/dL Near or above optimalLDL 130-159 mg/dL Borderline highLDL 160-189 mg/dL HighLDL greater than 189 mg/dL Very high Cholesterol in VLDL Calc [Ma ss/Vol]Ordered By: Anson Sutton on 09-06-2024 Cholesterol in VLDL [Mass/Vol] Cholesterol in VLDL [Mass/volume] in Serum or Plasma by calculation [facility] Color Auto (U)Ordered By: Alexis Anand on 09-06-2024 Color (U) Color of Urine by Auto Yellow [facility] Comprehensive Metabolic Pane nadir 09-06-2024 Albumin [Mass/Vol] 4.4 g/dL Normal 3.5-5.7 [facility] Comment on above: Performed By: #### C MP, ETOH, SCAN CBC #### [facility] [address] Albumin/Globulin [Mass ratio] 1.5 {ratio} Normal [facility] Comment on above: Performed By: #### C MP, ETOH, SCAN CBC #### [facility] [address] [place] [id number] [place] ALP [Catalytic activity/Vol] 64 U/L Normal 34-104 [facility] Comment on above: Performed By: #### C MP, ETOH, SCAN CBC #### [facility] [address] [place] [id number] [place] ALT [Catalytic activity/Vol] 14 U/L Normal 7-52 [facility] Comment on above: Performed By: #### C MP, ETOH, SCAN CBC #### [facility] [address] [place] [id number] [place] Anion gap [Moles/Vol] 12.8 mmol/L Normal 6.0-15.0 [facility] Comment on above: Performed By: #### C MP, ETOH, SCAN CBC #### [facility] [address] [place] [address] [place] AST [Catalytic activity/Vol] 18 U/L Normal 13-39 [facility] Comment on above: Performed By: #### C MP, ETOH, SCAN CBC #### [facility] [address] [place] [address] [place] Bilirubin [Mass/Vol] 0.7 mg/dL Normal 0.3-1.0 [facility] Comment on above: Performed By: #### C MP, ETOH, SCAN CBC #### [facility] [address] [place] [address] [place] Calcium [Mass/Vol] 9.3 mg/dL Normal 8.6-10.3 [facility] Comment on above: Performed By: #### C MP, ETOH, SCAN CBC #### [place] [address] [place] Chloride [Moles/Vol] 104 mmol/L Normal 98-107 [facility] Comment on above: Performed By: #### C MP, ETOH, SCAN CBC #### [place] [address] [place] CO2 [Moles/Vol] 28.1 mmol/L Normal 21.0-31.0 [facility] Comment on above: Performed By: #### C MP, ETOH, SCAN CBC #### [facility] [address] [place] [address] [place] Creatinine [Mass/Vol] 1.20 mg/dL Normal 0.70-1.30 [facility] Comment on above: Performed By: #### C MP, ETOH, SCAN CBC #### [place] [address] [place] Creatinine Clr Calc Pharmacy 75.84 Normal [facility] Comment on above: Result Comment: PERF ORMED BY: [place] [address] PATHOLOGIST MODEL BUILDER CAROLYN HECK M.D. Performed By: #### C MP, ETOH, SCAN CBC #### [facility] [address] [place] [address] [place] GFR/1.73 sq M.predicted MDRD (S/P/Bld) [Vol rate/Area] mL/min/{1.73_m2} Normal [facility] Comment on above: Performed By: #### C MP, ETOH, SCAN CBC #### [facility] [address] [place] [address] [place] Globulin (S) [Mass/Vol] 2.9 g/dL Normal [facility] Comment on above: Performed By: #### C MP, ETOH, SCAN CBC #### [address] Glucose [Mass/Vol] 97 mg/dL Significant change down 70-100 [facility] Comment on above: Result Comment: [facility] Glucose Reference Range is dependent on time and content of last meal. Glucose of more than 200 mg/dL in a nonstressed, ambulatory subject supports the diagnosis of Diabetes Mellitus. ADA recommended reference range Performed By: #### C MP, ETOH, SCAN CBC #### [address] Potassium [Moles/Vol] 3.9 mmol/L Normal 3.5-5.1 [facility] Comment on above: Performed By: #### C MP, ETOH, SCAN CBC #### [place] [address] [place] Protein [Mass/Vol] 7.3 g/dL Normal 6.4-8.9 [facility] Comment on above: Performed By: #### C MP, ETOH, SCAN CBC #### [facility] [address] [place] [address] [place] Sodium [Moles/Vol] 141 mmol/L Normal 136-145 [facility] Comment on above: Performed By: #### C MP, ETOH, SCAN CBC #### [facility] [address] [place] [address] [place] Urea nitrogen [Mass/Vol] 13 mg/dL Normal 7-25 [facility] Comment on above: Performed By: #### C MP, ETOH, SCAN CBC #### [facility] [address] [place] [id number] [place] Creatinine [Mass/volume] in Serum or PlasmaOrdered By: Franklin Anand on 09-06-2024 Creatinine [Mass/Vol] Creatinine [Mass/volume] in Serum or Plasma 0.70-1.[address] [facility] Dipstick and Microscopicon 0 09-06-2024 Appearance (U) Clear Normal Clear [facility] Comment on above: Order Comment: Name Collection Type:: Clean-Voided Midstream Performed By: #### U RDS, ADDONUAPLUS #### [facility] [address] [place] [address] [place] Bacteria,Urine None Seen Normal None Seen [facility] Comment on above: Order Comment: Name Collection Type:: Clean-Voided Midstream Performed By: #### U RDS, ADDONUAPLUS #### [place] [address] [place] Bilirubin,Urine Negative Normal Negative [facility] Comment on above: Order Comment: Name Collection Type:: Clean-Voided Midstream Performed By: #### U RDS, ADDONUAPLUS #### [place] [address] [place] Color (U) Yellow Normal Yellow [facility] Comment on above: Order Comment: Name Collection Type:: Clean-Voided Midstream Performed By: #### U RDS, ADDONUAPLUS #### [facility] [address] [place], [place] [address] [place] Glucose Ql (U) Normal Normal Normal [facility] Comment on above: Order Comment: Name Collection Type:: Clean-Voided Midstream Performed By: #### U RDS, ADDONUAPLUS #### [facility] [address] [place] [id number] [place] Hyaline Casts,Urine None Normal 0-8 [facility] Comment on above: Order Comment: Name Collection Type:: Clean-Voided Midstream Performed By: #### U RDS, ADDONUAPLUS #### [facility] [address] [place] [id number] [place] Ketones Ql (U) Negative Normal Negative [facility] Comment on above: Order Comment: Name Collection Type:: Clean-Voided Midstream Performed By: #### U RDS, ADDONUAPLUS #### [address] Leukocyte esterase Test strip Ql (U) Negative Normal Negative [facility] Comment on above: Order Comment: Name Collection Type:: Clean-Voided Midstream Performed By: #### U RDS, ADDONUAPLUS #### [place] [address] [place] Mucus,Urine 1+ Critically abnormal [facility] Comment on above: Order Comment: Name Collection Type:: Clean-Voided Midstream Result Comment: PERF ORMED BY: [place] [address] PATHOLOGIST [employer]DEL [employer]DER CAROLYN HECK M.D. Performed By: #### U RDS, ADDONUAPLUS #### [address] Nitrite,Urine Negative Normal Negative [facility] Comment on above: Order Comment: Name Collection Type:: Clean-Voided Midstream Performed By: #### U RDS, ADDONUAPLUS #### [place] [address] [place] Occult Blood,Urine 2+ High Negative [facility] Comment on above: Order Comment: Name Collection Type:: Clean-Voided Midstream Result Comment: PERF ORMED BY: [place] [address] PATHOLOGIST MODEL BUILDER CAROLYN HECK M.D. Performed By: #### U RDS, ADDONUAPLUS #### [place] [address] [place] pH (U) 5.5 [pH] Normal 5.0-9.0 [facility] Comment on above: Order Comment: Name Collection Type:: Clean-Voided Midstream Performed By: #### U RDS, ADDONUAPLUS #### [place] [address] [place] Protein (U) [Mass/Vol] 30 mg/dL High Negative [facility] Comment on above: Order Comment: Name Collection Type:: Clean-Voided Midstream Performed By: #### U RDS, ADDONUAPLUS #### [facility] [address] [place] [address] [place] RBC,Urine Innumerable High 0-4 [facility] Comment on above: Order Comment: Name Collection Type:: Clean-Voided Midstream Performed By: #### U RDS, ADDONUAPLUS #### [place] [address] [place] Specificy [place],Urine 1.030 Normal 1.001-1.030 [facility] Comment on above: Order Comment: Name Collection Type:: Clean-Voided Midstream Performed By: #### U RDS, ADDONUAPLUS #### [address] Urobilinogen,Urine Normal Normal Normal [facility] Comment on above: Order Comment: Name Collection Type:: Clean-Voided Midstream Performed By: #### U RDS, ADDONUAPLUS #### [place] [address] [place] WBC,Urine 10-19 High 0-4 [facility] Comment on above: Order Comment: Name Collection Type:: Clean-Voided Midstream Performed By: #### U RDS, ADDONUAPLUS #### [place] [address] [place] Drug Screen,Urineon 09-07-19 25 Amphetamine Screen,Urine Positive High Negative [facility] Comment on above: Performed By: #### U RDS, ADDONUAPLUS #### [place] [address] [place] Barbiturate Screen,Urine Negative Normal Negative [facility] Comment on above: Performed By: #### U RDS, ADDONUAPLUS #### [place] [address] [place] Benzodiazepines Screen,Urine Negative Normal Negative [facility] Comment on above: Performed By: #### U RDS, ADDONUAPLUS #### [place] [address] [place] Cannabinoid Screen,Urine Negative Normal Negative [facility] Comment on above: Result Comment: Thes e are unconfirmed results and should not be used for legal purposes. Drug Cut-Off Concentration: AMPH 1000 ng/mL AMEE 200 ng/mL BETITO 200 ng/mL COCM 300 ng/mL OP 300 ng/mL PCP 25 ng/mL THC 20 ng/mL PERFORMED BY: [place] [address] PATHOLOGIST MODEL BUILDER CAROLYN HECK M.D. Performed By: #### U RDS, ADDONUAPLUS #### [address] Cocaine Screen,Urine Negative Normal Negative [facility] Comment on above: Performed By: #### U RDS, ADDONUAPLUS #### [address] Opiate Screen,Urine Negative Normal Negative [facility] Comment on above: Performed By: #### U RDS, ADDONUAPLUS #### [address] Phencyclidine Screen,Urine Negative Normal Negative [facility] Comment on above: Performed By: #### U RDS, ADDONUAPLUS #### [address] Eosinophils Auto (Bld) [#/Vo l]Ordered By: Franklin Anand on 09-06-2024 Eosinophils (Bld) [#/Vol] Automated eosinophil count 0.0-0.[address] [facility] Eosinophils/100 WBC Auto (Bl d)Ordered By: Franklin Anand on 09-06-2024 Eosinophils/100 WBC (Bld) Automated eosinophil % . [facility] Epithelial cells.squamous [# /area] in Urine sediment by Automated countOrdered By: KOURTNEY MARCELINO on 09-06-2024 Epithelial cells.squamous Auto (Urine sed) [#/Area] Epithelial cells.squamous [#/area] in Urine sediment by Automated count [facility] Erythrocyte distribution wid th Auto (RBC) [Ratio]Ordered By: Franklin Anand on 09-06-2024 Erythrocyte distribution width (RBC) [Ratio] Erythrocyte distribution width [Ratio] by Automated count High 12.0-14.[address] [facility] Erythrocyte morphology findi ng [Identifier] in BloodOrdered By: Franklin Anand on 09-06-2024 RBC morphology finding Nom (Bld) RBC morphology Normal [facility] Erythrocytes [#/area] in Uri ne sediment by Automated countOrdered By: Franklin Anand on 09-06-2024 RBC Auto (Urine sed) [#/Area] Erythrocytes [#/area] in Urine sediment by Automated count High 0-[address] [facility] Ethanol [Mass/volume] in Ser um or PlasmaOrdered By: Franklin Anand on 09-06-2024 Ethanol [Mass/Vol] Ethanol [Mass/volume ] in Serum or Plasma [facility] Comment on above: Test not performed Ethyl Alcohol Profileon Ethanol [Mass/Vol] mg/dL Normal [facility] Comment on above: Performed By: #### C MP, ETOH, SCAN CBC #### [facility] [address] Percent Ethanol Not performed Normal [facility] Comment on above: Result Comment: PERF ORMED BY: [place] [address] PATHOLOGIST MODEL BUILDER CAROLYN HECK M.D. Performed By: #### C MP, ETOH, SCAN CBC #### [facility] [address] [place] [address] Globulin Calc (S) [Mass/Vol] Ordered By: Franklin Anand on 09-06-2024 Globulin (S) [Mass/Vol] Serum globulin measurement by calculation (mass/volume) [facility] Glucose [Mass/volume] in Ser um or PlasmaOrdered By: Franklin Anand on 09-06-2024 Glucose [Mass/Vol] Glucose [Mass/volume ] in Serum or Plasma Significant change down 70-[address] [facility] Comment on above: Delta: 255 on [id number] recommended reference rangeRandom Glucose Reference Range is dependent on time and content of last meal. Glucose of more than 200 mg/dL in a nonstressed, ambulatory subject supports the diagnosis of Diabetes Mellitus. Glucose [Mass/volume] in Uri ne by Test stripOrdered By: Franklin Anand on 09-06-2024 Glucose Test strip (U) [Mass/Vol] Glucose [Mass/volume] in Urine by Test strip Normal [facility] Hematocrit Auto (Bld) [Volum e fraction]Ordered By: Franklin Anand on 09-06-2024 Hematocrit (Bld) [Volume fraction] Hematocrit [Volume Fraction] of Blood by Automated count High 38.8-50.[address] [facility] Hemoglobin Test strip Ql (U) Ordered By: Franklin Anand on 09-06-2024 Hemoglobin Ql (U) Hemoglobin [Presence ] in Urine by Test strip High Negative [facility] Hemoglobin [Mass/volume] in BloodOrdered By: Franklin Anand on 09-06-2024 Hemoglobin (Bld) [Mass/Vol] Hemoglobin [Mass/volume] in Blood High 13.0-17.[address] [facility] Hyaline casts [#/area] in Ur ine sediment by Automated countOrdered By: Franklin Anand on 09-06-2024 Hyaline casts Auto (Urine sed) [#/Area] Hyaline casts [#/area] in Urine sediment by Automated count 0-[address] [facility] Ketones Test strip Ql (U)Ord ered By: Franklin Anand on 09-06-2024 Ketones Ql (U) Ketones [Presence] i n Urine by Test strip Negative [facility] Leukocyte esterase [Presence ] in Urine by Test stripOrdered By: Franklin Anand on 09-06-2024 Leukocyte esterase Test strip Ql (U) Leukocyte esterase [Presence] in Urine by Test strip Negative [facility] Leukocytes [#/area] in Urine sediment by Automated countOrdered By: Franklin Anand on 09-06-2024 WBC Auto (Urine sed) [#/Area] Leukocytes [#/area] in Urine sediment by Automated count High 0-[address] [facility] Leukocytes [#/volume] correc leeroy for nucleated erythrocytes in Blood by Automated counOrdered By: Franklin Anand on 09-06-2024 WBC corrected for nucl RBC Auto (Bld) [#/Vol] Leukocytes [#/volume] corrected for nucleated erythrocytes in Blood by Automated coun High 4.1-10.[address] [facility] Lipid Panelon 09-06-2024 Cholesterol [Mass/Vol] 180 mg/dL Normal 140-200 [facility] Comment on above: Order Comment: Comme nt use ER blood Result Comment: Chol less than 200 mg/dl low risk Chol 201-239 mg/dl borderline risk Chol 240 mg/dl and greater high risk Performed By: #### B MP, CBC, LIPASE, HEPATIC #### [facility] [address] [id number] [place] Cholesterol in HDL [Mass/Vol] 37 mg/dL Normal 23-92 [facility] Comment on above: Order Comment: Comme nt use ER blood Result Comment: HDL CHOL ATP-III CLASSIFICATION Cardiovascular Risk HDL > or equal to 60 mg/dL LOW HDL < 40 mg/dL HIGH Performed By: #### B MP, CBC, LIPASE, HEPATIC #### [facility] [address] [place] [address] [place] Cholesterol.total/Cecilia sterol in HDL [Mass ratio] 4.9 {ratio} Normal <5.0 [facility] Comment on above: Order Comment: Comme nt use ER blood Performed By: #### B MP, CBC, LIPASE, HEPATIC #### [facility] [address] [id number] [place] LDL Cholesterol,Calculated 111 mg/dL High 0-100 [facility] Comment on above: Order Comment: Comme nt use ER blood Result Comment: LDL ATP III CLASSIFICATION LDL less than 100 mg/dL Optimal LDL 100-129 mg/dL Near or above optimal LDL 130-159 mg/dL Borderline high LDL 160-189 mg/dL High LDL greater than 189 mg/dL Very high Performed By: #### B MP, CBC, LIPASE, HEPATIC #### [facility] [address] [place] [address] [place] Triglyceride w/Reflex 162 mg/dL High 0-149 [facility] Comment on above: Order Comment: Comme nt use ER blood Result Comment: TRIG ATP III CLASSIFICATION TRIG less than 150 mg/dL Normal TRIG 150-199 mg/dL Borderline high TRIG 200-500 mg/dL High TRIG greater than 500 mg/dL Very high Standard traceable to the Center for Disease Conrtrol and Prevention (CDC) test method. Performed By: #### B MP, CBC, LIPASE, HEPATIC #### [facility] [address] VLDL CHOLESTEROL 32 mg/dL Normal [facility] Comment on above: Order Comment: Comme nt use ER blood Performed By: #### B MP, CBC, LIPASE, HEPATIC #### [facility] [address] [id number] [place] Lymphocytes Auto (Bld) [#/Vo l]Ordered By: Franklin Anand on 09-06-2024 Lymphocytes (Bld) [#/Vol] Lymphocytes [#/volume] in Blood by Automated count 1.00-4.[address] [facility] Lymphocytes/100 WBC Auto (Bl d)Ordered By: Franklin Anand on 09-06-2024 Lymphocytes/100 WBC (Bld) Lymphocytes/100 leukocytes in Blood by Automated count . [facility] MCH Auto (RBC) [Entitic mass ]Ordered By: Franklin Anand on 09-06-2024 MCH (RBC) [Entitic mass] MCH [Entitic mass] by Automated count Low 27.5-35.[address] [facility] MCHC Auto (RBC) [Mass/Vol]Or dered By: Franklin Anand on 09-06-2024 MCHC (RBC) [Mass/Vol] MCHC [Mass/volume] by Automated count Low 32.5-35.[address] [facility] MCV Auto (RBC) [Entitic vol] Ordered By: Franklin Anand on 09-06-2024 MCV (RBC) [Entitic vol] MCV [Entitic vol ume] by Automated count Low 83.5-[address] [facility] Monocyte distribution width [Entitic volume] in Blood by AutomatedOrdered By: Franklin Anand on 09-06-2024 Monocyte distribution width Auto (Bld) [Entitic vol] Monocyte distribution width [Entitic volume] in Blood by Automated 0.00-20.[address] [facility] Monocytes Auto (Bld) [#/Vol] Ordered By: Franklin Anand on 09-06-2024 Monocytes (Bld) [#/Vol] Automated blood monocyte count High 0.0-0.[address] [facility] Monocytes/100 WBC Auto (Bld) Ordered By: Franklin Anand on 09-06-2024 Monocytes/100 WBC (Bld) Automated monocyte % . [facility] Mucus [Presence] in Urine by AutomatedOrdered By: Franklin Anand on 09-06-2024 Mucus Auto Ql (U) Mucus [Presence] in Urine by Automated Abnormal [facility] Neutrophils Auto (Bld) [#/Vo l]Ordered By: Franklin Anand on 09-06-2024 Neutrophils (Bld) [#/Vol] Neutrophils [#/volume] in Blood by Automated count 1.8-7.[address] [facility] Neutrophils/100 WBC Auto (Bl d)Ordered By: Franklin Anand on 09-06-2024 Neutrophils/100 WBC (Bld) Automated neutrophil % . [facility] Nitrite Test strip Ql (U)Ord ered By: Franklin Anand on 09-06-2024 Nitrite Ql (U) Nitrite [Presence] i n Urine by Test strip Negative [facility] No Panel InformationOrdered By: Franklin Anand on 09-06-2024 Estimated GFR (CKD-EPI) > 60.0 mL/Min [facility] Creatinine Clearance (Chem 75.[address] [facility] Nucleated erythrocytes [Pres ence] in Blood by Automated countOrdered By: Franklin Anand on 09-06-2024 Nucleated RBC Auto Ql (Bld) Nucleated erythrocytes [Presence] in Blood by Automated count 0-0.[address] [facility] Opiates [Presence] in Urine by Screen methodOrdered By: PROVIDER TEMP on 09-06-2024 Opiates Screen Ql (U) Opiates [Presence] in Urine by Screen method Negative [facility] Phencyclidine Screen Ql (U)O rdered By: PROVIDER TEMP on 09-06-2024 Phencyclidine Ql (U) Phencyclidine [Presence] in Urine by Screen method Negative [facility] Platelet adequacy [Presence] in Blood by Light microscopyOrdered By: Franklin Anand on 09-06-2024 Platelets LM Ql (Bld) Platelet adequacy [Presence] in Blood by Light microscopy Normal [facility] Platelet mean volume Auto (B ld) [Entitic vol]Ordered By: Franklin Anand on 09-06-2024 Platelet mean volume (Bld) [Entitic vol] Platelet mean volume [Entitic volume] in Blood by Automated count 6.6-10.[address] [facility] Platelet morphology finding [Identifier] in BloodOrdered By: Franklin Anand on 09-06-2024 Platelet morphology finding Nom (Bld) Platelet morphology finding [Identifier] in Blood Normal [facility] Platelets Auto (Bld) [#/Vol] Ordered By: Franklin Anand on 09-06-2024 Platelets (Bld) [#/Vol] Platelets [#/vol ume] in Blood by Automated count 150-[address] [facility] Potassium [Moles/volume] in Serum or PlasmaOrdered By: Franklin Anand on 09-06-2024 Potassium [Moles/Vol] Potassium [Moles/volume] in Serum or Plasma 3.5-5.[address] [facility] Protein Test strip (U) [Mass /Vol]Ordered By: Franklin Anand on 09-06-2024 Protein (U) [Mass/Vol] Protein [Mass/vol ume] in Urine by Test strip High Negative [facility] Protein [Mass/volume] in Ser um or PlasmaOrdered By: Franklin Anand on 09-06-2024 Protein [Mass/Vol] Protein [Mass/volume ] in Serum or Plasma 6.4-8.[address] [facility] RBC Auto (Bld) [#/Vol]Ordere d By: Franklin Anand on 09-06-2024 RBC (Bld) [#/Vol] Erythrocytes [#/volume] in Blood by Automated count High 3.90-5.[address] [facility] Scan and CBCon 09-06-2024 Basophils (Bld) [#/Vol] 0.1 10*3/uL Normal 0.0-0.2 [facility] Comment on above: Performed By: #### C MP, ETOH, SCAN CBC #### [facility] [address] [place] [address] [place] Basophils/100 WBC (Bld) 0.8 % Normal . T [facility] Comment on above: Performed By: #### C MP, ETOH, SCAN CBC #### [facility] [address] [id number] [place] Eosinophils (Bld) [#/Vol] 0.4 10*3/uL Normal 0.0-0.45 [facility] Comment on above: Performed By: #### C MP, ETOH, SCAN CBC #### [address] Eosinophils/100 WBC (Bld) 3.3 % Normal . [facility] Comment on above: Performed By: #### C MP, ETOH, SCAN CBC #### [address] Erythrocyte distribution width (RBC) [Ratio] 15.3 % High 12.0-14.8 [facility] Comment on above: Performed By: #### C MP, ETOH, SCAN CBC #### [address] Hematocrit (Bld) [Volume fraction] 53.5 % High 38.8-50.0 [facility] Comment on above: Performed By: #### C MP, ETOH, SCAN CBC #### [address] Hemoglobin (Bld) [Mass/Vol] 17.3 g/dL High 13.0-17.0 [facility] Comment on above: Performed By: #### C MP, ETOH, SCAN CBC #### [address] Lymphocytes (Bld) [#/Vol] 4.6 10*3/uL Normal 1.00-4.8 [facility] Comment on above: Performed By: #### C MP, ETOH, SCAN CBC #### [address] Lymphocytes/100 WBC (Bld) 41.5 % Normal . [facility] Comment on above: Performed By: #### C MP, ETOH, SCAN CBC #### [address] MCH (RBC) [Entitic mass] 26.8 pg Low 27.5-35.2 [facility] Comment on above: Performed By: #### C MP, ETOH, SCAN CBC #### [address] MCV (RBC) [Entitic vol] 83.1 fL Low 83.5-101 [facility] Comment on above: Performed By: #### C MP, ETOH, SCAN CBC #### [address] Mean Corpuscular HGB Conc 32.2 g/dL Low 32.5-35.6 [facility] Comment on above: Performed By: #### C MP, ETOH, SCAN CBC #### [address] Monocytes (Bld) [#/Vol] 0.9 10*3/uL High 0.0-0.8 [facility] Comment on above: Performed By: #### C MP, ETOH, SCAN CBC #### [address] Monocytes/100 WBC (Bld) 18.26 % Normal 0.00-20.00 [facility] Comment on above: Performed By: #### C MP, ETOH, SCAN CBC #### [address] Monocytes/100 WBC (Bld) 8.5 % Normal . [facility] Comment on above: Performed By: #### C MP, ETOH, SCAN CBC #### [address] Neutrophils (Bld) [#/Vol] 5.1 10*3/uL Normal 1.8-7.7 [facility] Comment on above: Performed By: #### C MP, ETOH, SCAN CBC #### [address] Neutrophils/100 WBC (Bld) 45.9 % Normal . [facility] Comment on above: Performed By: #### C MP, ETOH, SCAN CBC #### [address] NRBC% 0.3 /100{WBC} Normal 0-0.5 [facility] Comment on above: Performed By: #### C MP, ETOH, SCAN CBC #### [address] Platelet Estimate Normal Normal Normal [facility] Comment on above: Performed By: #### C MP, ETOH, SCAN CBC #### [address] Platelet mean volume (Bld) [Entitic vol] 8.3 fL Normal 6.6-10.1 [facility] Comment on above: Performed By: #### C MP, ETOH, SCAN CBC #### [address] Platelet Morphology Normal Normal Normal [facility] Comment on above: Result Comment: PERF ORMED BY: [place] [address] PATHOLOGIST [employer]DEL BUILDER CAROLYN HECK M.D. Performed By: #### C MP, ETOH, SCAN CBC #### [address] Platelets (Bld) [#/Vol] 270 10*3/uL Normal 150-450 [facility] Comment on above: Performed By: #### C MP, ETOH, SCAN CBC #### [address] RBC (Bld) [#/Vol] 6.45 10*6/uL High 3.90-5.60 [facility] Comment on above: Performed By: #### C MP, ETOH, SCAN CBC #### [address] RBC morphology finding Nom (Bld) Normal Normal Normal [facility] Comment on above: Performed By: #### C MP, ETOH, SCAN CBC #### [address] WBC (Bld) [#/Vol] 11.1 10*3/uL High 4.1-10.5 [facility] Comment on above: Performed By: #### C MP, ETOH, SCAN CBC #### [address] Serum or plasma albumin/glob ulin mass ratioOrdered By: Franklin Anand on 09-06-2024 Albumin/Globulin [Mass ratio] Serum or plasma albumin/globulin mass ratio [facility] Serum or plasma anion gap de terminationOrdered By: Franklin Anand on 09-06-2024 Anion gap [Moles/Vol] Serum or plasma an ion gap determination 6.0-15.[address] [facility] Serum or plasma total choles terol/high density lipoprotein (HDL) cholesterol mass ratOrdered By: Anson Sutton on 09-06-2024 Cholesterol.total/Cecilia sterol in HDL [Mass ratio] Serum or plasma total cholesterol/high density lipoprotein (HDL) cholesterol mass rat <5.[address] [facility] Sodium [Moles/volume] in Ser um or PlasmaOrdered By: Franklin Anand on 09-06-2024 Sodium [Moles/Vol] Sodium [Moles/volume ] in Serum or Plasma 136-[address] [facility] Specific gravity Test strip (U) [Rel density]Ordered By: Franklin Anand on 09-06-2024 Specific gravity (U) [Rel density] Specific gravity of Urine by Test strip 1.001-1.[address] [facility] Thyroid Stim Hormone w/Rflxo n 09-06-2024 Thyroid Stim Hormone w/Rflx 2.94 u[iU]/mL Normal 0.45-5.33 [facility] Comment on above: Order Comment: Comme nt use ER blood Performed By: #### B MP, CBC, LIPASE, HEPATIC #### [address] Thyrotropin [Units/volume] i n Serum or PlasmaOrdered By: Anson Sutton on 09-06-2024 TSH Qn Thyrotropin [Units/volume] in Serum or Plasma 0.45-5.[address] [facility] Triglyceride [Mass/volume] i n Serum or PlasmaOrdered By: Anson Sutton on 09-06-2024 Triglyceride [Mass/Vol] Triglyceride [Mass/volume] in Serum or Plasma High 0-[address] [facility] Comment on above: TRIG ATP III CLASSIF ICATIONTRIG less than 150 mg/dL NormalTRIG 150-199 mg/dL Borderline highTRIG 200-500 mg/dL High TRIG greater than 500 mg/dL Very highStandard traceable to the Center for Disease Conrtrol and Prevention (CDC) test method. Urea nitrogen [Mass/volume] in Serum or PlasmaOrdered By: Franklin Anand on 09-06-2024 Urea nitrogen [Mass/Vol] Urea nitrogen [Mass/volume] in Serum or Plasma 7-[address] [facility] Urobilinogen Test strip (U) [Mass/Vol]Ordered By: Franklin Anand on 09-06-2024 Urobilinogen (U) [Mass/Vol] Urobilinogen [Mass/volume] in Urine by Test strip Normal [facility] Vitamin D 25 Hydroxy Totalon 09-06-2024 Vitamin D 25 Hydroxy Total 11.3 ng/mL Low 30-100 [facility] Comment on above: Order Comment: Comme nt use ER blood Result Comment: ETIENNE MIN D STATUS 25(OH)VITAMIN D RANGE (ng/mL) Deficient <20 Insufficient 20 to <30 Sufficient 30 to 100 Reference: Glenn Stoddard, Ronaldo MIR, et al. Evaluation,treatment, and prevention of vitamin D deficiency; an Endocrine Society clinical practice guideline. JCEM. 2010; 96(7):1911-. PERFORMED BY: [place] [address] PATHOLOGIST MODEL BUILDER CAROLYN HECK M.D. Performed By: #### B MP, CBC, LIPASE, HEPATIC #### [address] Vitamin D+Metabolites [Mass/ volume] in Serum or PlasmaOrdered By: Anson Sutton on 09-06-2024 Vitamin D+Metabolites [Mass/Vol] Vitamin D+Metabolites [Mass/volume] in Serum or Plasma Low 30-[address] [facility] Comment on above: VITAMIN D STATUS 25( [place])VITAMIN D RANGE (ng/mL) Deficient <20 Insufficient 20 to <30Sufficient 30 to 100Reference: Glenn Stoddard, Ronaldo MIR et al. Evaluation,treatment, and prevention of vitamin D deficiency; an Endocrine Society clinical practice guideline. JCEM. 2010; 96(7):1911-30. WBC Auto (Bld) [#/Vol]Ordere d By: Franklin Anand on 09-06-2024 WBC (Bld) [#/Vol] Leukocytes [#/volume ] in Blood by Automated count High 4.1-10.[address] [facility] pH Test strip (U)Ordered By: Franklin Anand on 09-06-2024 pH (U) pH of Urine by Test strip 5.0-9.[address] [facility] Alanine aminotransferase [En zymatic activity/volume] in Serum or PlasmaOrdered By: Malia Matamoros on 09-05-2024 ALT [Catalytic activity/Vol] Alanine aminotransferase [Enzymatic activity/volume] in Serum or Plasma 7-[address] [facility] Albumin [Mass/volume] in Ser um or Plasma by Bromocresol green (BCG) dye binding methoOrdered By: Malia Matamoros on 09-05-2024 Albumin BCG dye [Mass/Vol] Albumin [Mass/volume] in Serum or Plasma by Bromocresol green (BCG) dye binding metho 3.5-5.[address] [facility] Alkaline phosphatase [Enzyma tic activity/volume] in Serum or PlasmaOrdered By: Malia Matamoros on 09-05-2024 ALP [Catalytic activity/Vol] Alkaline phosphatase [Enzymatic activity/volume] in Serum or Plasma 34-[address] [facility] Aspartate aminotransferase [ Enzymatic activity/volume] in Serum or PlasmaOrdered By: Malia Matamoros on 09-05-2024 AST [Catalytic activity/Vol] Aspartate aminotransferase [Enzymatic activity/volume] in Serum or Plasma 13-[address] [facility] Basic Metabolic Panelon 0 Anion gap [Moles/Vol] 14.2 mmol/L Normal 6.0-15.0 e [facility] Comment on above: Performed By: #### B MP, CBC, LIPASE, HEPATIC #### [facility] [address] Calcium [Mass/Vol] 9.0 mg/dL Normal 8.6-10.3 [facility] Comment on above: Performed By: #### B MP, CBC, LIPASE, HEPATIC #### [facility] [address] [place] [address] [place] Chloride [Moles/Vol] 103 mmol/L Normal 98-107 [facility] Comment on above: Performed By: #### B MP, CBC, LIPASE, HEPATIC #### [facility] [address] CO2 [Moles/Vol] 27.5 mmol/L Normal 21.0-31.0 [facility] Comment on above: Performed By: #### B MP, CBC, LIPASE, HEPATIC #### [facility] [address] [place] [address] [place] Creatinine [Mass/Vol] 1.29 mg/dL Normal 0.70-1.30 [facility] Comment on above: Performed By: #### B MP, CBC, LIPASE, HEPATIC #### [place] [address] [place] Creatinine Clr Calc Pharmacy 70.24 Normal [facility] Comment on above: Performed By: #### B MP, CBC, LIPASE, HEPATIC #### [place] [address] [place] GFR/1.73 sq M.predicted MDRD (S/P/Bld) [Vol rate/Area] mL/min/{1.73_m2} Normal [facility] Comment on above: Performed By: #### B MP, CBC, LIPASE, HEPATIC #### [address] Glucose [Mass/Vol] 255 mg/dL High 70-100 [facility] Comment on above: Result Comment: [place] Glucose Reference Range is dependent on time and content of last meal. Glucose of more than 200 mg/dL in a nonstressed, ambulatory subject supports the diagnosis of Diabetes Mellitus. ADA recommended reference range Performed By: #### B MP, CBC, LIPASE, HEPATIC #### [facility] [address] [place] [address] [place] Potassium [Moles/Vol] 3.7 mmol/L Normal 3.5-5.1 [facility] Comment on above: Performed By: #### B MP, CBC, LIPASE, HEPATIC #### [place] [address] [place] Sodium [Moles/Vol] 141 mmol/L Normal 136-145 [facility] Comment on above: Performed By: #### B MP, CBC, LIPASE, HEPATIC #### [facility] [address] Urea nitrogen [Mass/Vol] 17 mg/dL Normal 7-25 [facility] Comment on above: Performed By: #### B MP, CBC, LIPASE, HEPATIC #### [facility] [address] Basophils Auto (Bld) [#/Vol] Ordered By: Malia Matamoros on 09-05-2024 Basophils (Bld) [#/Vol] Automated basoph il count 0.0-0.[address] [facility] Basophils/100 WBC Auto (Bld) Ordered By: Malia Matamoros on 09-05-2024 Basophils/100 WBC (Bld) Automated basophil % . [facility] Bilirubin.direct [Mass/volum e] in Serum or PlasmaOrdered By: Malia Matamoros on 09-05-2024 Bilirubin.direct [Mass/Vol] Bilirubin.direct [Mass/volume] in Serum or Plasma Low 0.03-0.[address] [facility] Comment on above: If the DBIL is less than 0.1, IBIL is not able to becalculated. Bilirubin.total [Mass/volume ] in Serum or PlasmaOrdered By: Malia Matamoros on 09-05-2024 Bilirubin [Mass/Vol] Bilirubin.total [Mass/volume] in Serum or Plasma 0.3-1.[address] [facility] Calcium [Mass/volume] in Ser um or PlasmaOrdered By: Malia Matamoros on 09-05-2024 Calcium [Mass/Vol] Calcium [Mass/volume ] in Serum or Plasma 8.6-10.[address] [facility] Carbon dioxide, total [Moles /volume] in Serum or PlasmaOrdered By: Malia Matamoros on 09-05-2024 CO2 [Moles/Vol] Carbon dioxide, tota l [Moles/volume] in Serum or Plasma 21.0-31.[address] [facility] Chloride [Moles/volume] in S darrel or PlasmaOrdered By: Malia Matamoros on 09-05-2024 Chloride [Moles/Vol] Chloride [Moles/volume] in Serum or Plasma 98-[address] [facility] Complete Blood Count Auto Di ffon 09-05-2024 Basophils (Bld) [#/Vol] 0.1 10*3/uL Normal 0.0-0.2 [facility] Comment on above: Result Comment: PERF ORMED BY: [place] [address] PATHOLOGIST MODEL BUILDER CAROLYN HECK M.D. Performed By: #### B MP, CBC, LIPASE, HEPATIC #### [address] Basophils/100 WBC (Bld) 1.1 % Normal . T johanna [facility] Comment on above: Performed By: #### B MP, CBC, LIPASE, HEPATIC #### [address] Eosinophils (Bld) [#/Vol] 0.2 10*3/uL Normal 0.0-0.45 [facility] Comment on above: Performed By: #### B MP, CBC, LIPASE, HEPATIC #### [address] Eosinophils/100 WBC (Bld) 1.8 % Normal . [facility] Comment on above: Performed By: #### B MP, CBC, LIPASE, HEPATIC #### [address] Erythrocyte distribution width (RBC) [Ratio] 15.5 % High 12.0-14.8 [facility] Comment on above: Performed By: #### B MP, CBC, LIPASE, HEPATIC #### [address] Hematocrit (Bld) [Volume fraction] 50.4 % High 38.8-50.0 [facility] Comment on above: Performed By: #### B MP, CBC, LIPASE, HEPATIC #### [address] Hemoglobin (Bld) [Mass/Vol] 16.4 g/dL Normal 13.0-17.0 [facility] Comment on above: Performed By: #### B MP, CBC, LIPASE, HEPATIC #### [address] Lymphocytes (Bld) [#/Vol] 3.2 10*3/uL Normal 1.00-4.8 [facility] Comment on above: Performed By: #### B MP, CBC, LIPASE, HEPATIC #### [address] Lymphocytes/100 WBC (Bld) 27.9 % Normal . [facility] Comment on above: Performed By: #### B MP, CBC, LIPASE, HEPATIC #### [address] MCH (RBC) [Entitic mass] 26.9 pg Low 27.5-35.2 [facility] Comment on above: Performed By: #### B MP, CBC, LIPASE, HEPATIC #### [address] MCV (RBC) [Entitic vol] 82.8 fL Low 83.5-101 [facility] Comment on above: Performed By: #### B MP, CBC, LIPASE, HEPATIC #### [address] Mean Corpuscular HGB Conc 32.5 g/dL Normal 32.5-35.6 [facility] Comment on above: Performed By: #### B MP, CBC, LIPASE, HEPATIC #### [address] Monocytes (Bld) [#/Vol] 0.9 10*3/uL High 0.0-0.8 [facility] Comment on above: Performed By: #### B MP, CBC, LIPASE, HEPATIC #### [address] Monocytes/100 WBC (Bld) 16.39 % Normal 0.00-20.00 [facility] Comment on above: Performed By: #### B MP, CBC, LIPASE, HEPATIC #### [address] Monocytes/100 WBC (Bld) 7.8 % Normal . T [facility] Comment on above: Performed By: #### B MP, CBC, LIPASE, HEPATIC #### [address] Neutrophils (Bld) [#/Vol] 7.0 10*3/uL Normal 1.8-7.7 [facility] Comment on above: Performed By: #### B MP, CBC, LIPASE, HEPATIC #### [address] Neutrophils/100 WBC (Bld) 61.4 % Normal . [facility] Comment on above: Performed By: #### B MP, CBC, LIPASE, HEPATIC #### [address] NRBC% 0.1 /100{WBC} Normal 0-0.5 [facility] Comment on above: Performed By: #### B MP, CBC, LIPASE, HEPATIC #### [address] Platelet mean volume (Bld) [Entitic vol] 8.0 fL Normal 6.6-10.1 [facility] Comment on above: Performed By: #### B MP, CBC, LIPASE, HEPATIC #### [address] Platelets (Bld) [#/Vol] 237 10*3/uL Normal 150-450 [facility] Comment on above: Performed By: #### B MP, CBC, LIPASE, HEPATIC #### [address] RBC (Bld) [#/Vol] 6.09 10*6/uL High 3.90-5.60 [facility] Comment on above: Performed By: #### B MP, CBC, LIPASE, HEPATIC #### [address] WBC (Bld) [#/Vol] 11.4 10*3/uL High 4.1-10.5 [facility] Comment on above: Performed By: #### B MP, CBC, LIPASE, HEPATIC #### [facility] [address] Creatinine [Mass/volume] in Serum or PlasmaOrdered By: Malia Matamoros on 09-05-2024 Creatinine [Mass/Vol] Creatinine [Mass/volume] in Serum or Plasma 0.70-1.[address] [facility] Eosinophils Auto (Bld) [#/Vo l]Ordered By: Malia Matamoros on 09-05-2024 Eosinophils (Bld) [#/Vol] Automated eosinophil count 0.0-0.[address] [facility] Eosinophils/100 WBC Auto (Bl d)Ordered By: Malia Matamoros on 09-05-2024 Eosinophils/100 WBC (Bld) Automated eosinophil % . [facility] Erythrocyte distribution wid th Auto (RBC) [Ratio]Ordered By: Malia Matamoros on 09-05-2024 Erythrocyte distribution width (RBC) [Ratio] Erythrocyte distribution width [Ratio] by Automated count High 12.0-14.[address] [facility] Globulin Calc (S) [Mass/Vol] Ordered By: Malia Matamoros on 09-05-2024 Globulin (S) [Mass/Vol] Serum globulin measurement by calculation (mass/volume) [facility] Glucose [Mass/volume] in Ser um or PlasmaOrdered By: Malia Matamoros on 09-05-2024 Glucose [Mass/Vol] Glucose [Mass/volume ] in Serum or Plasma High 70-[address] [facility] Comment on above: ADA recommended refe rence rangeRandom Glucose Reference Range is dependent on time and content of last meal. Glucose of more than 200 mg/dL in a nonstressed, ambulatory subject supports the diagnosis of Diabetes Mellitus. Hematocrit Auto (Bld) [Volum e fraction]Ordered By: Malia Matamoros on 09-05-2024 Hematocrit (Bld) [Volume fraction] Hematocrit [Volume Fraction] of Blood by Automated count High 38.8-50.[address] [facility] Hemoglobin [Mass/volume] in BloodOrdered By: Malia Matamoros on 09-05-2024 Hemoglobin (Bld) [Mass/Vol] Hemoglobin [Mass/volume] in Blood 13.0-17.[address] [facility] Hepatic Panelon 09-05-2024 Albumin [Mass/Vol] 4.1 g/dL Normal 3.5-5.7 [facility] Comment on above: Performed By: #### B MP, CBC, LIPASE, HEPATIC #### [address] Albumin/Globulin [Mass ratio] 1.5 {ratio} Normal [facility] Comment on above: Performed By: #### B MP, CBC, LIPASE, HEPATIC #### [facility] [address] ALP [Catalytic activity/Vol] 62 U/L Normal 34-104 [facility] Comment on above: Performed By: #### B MP, CBC, LIPASE, HEPATIC #### [address] ALT [Catalytic activity/Vol] 13 U/L Normal 7-52 [facility] Comment on above: Performed By: #### B MP, CBC, LIPASE, HEPATIC #### [address] AST [Catalytic activity/Vol] 17 U/L Normal 13-39 [facility] Comment on above: Performed By: #### B MP, CBC, LIPASE, HEPATIC #### [address] Bilirubin [Mass/Vol] 0.3 mg/dL Normal 0.3-1.0 [facility] Comment on above: Performed By: #### B MP, CBC, LIPASE, HEPATIC #### [address] Bilirubin,Indirect 0.3 mg/dL Normal [facility] Comment on above: Performed By: #### B MP, CBC, LIPASE, HEPATIC #### [address] Bilirubin.indirect [Mass/Vol] 0.00 mg/dL Low 0.03-0.18 [facility] Comment on above: Result Comment: If t he DBIL is less than 0.1, IBIL is not able to be calculated. Performed By: #### B MP, CBC, LIPASE, HEPATIC #### [address] Globulin (S) [Mass/Vol] 2.7 g/dL Normal T he [facility] Comment on above: Performed By: #### B MP, CBC, LIPASE, HEPATIC #### [facility] [address] Protein [Mass/Vol] 6.8 g/dL Normal 6.4-8.9 [facility] Comment on above: Performed By: #### B MP, CBC, LIPASE, HEPATIC #### [facility] [address] Leukocytes [#/volume] correc leeroy for nucleated erythrocytes in Blood by Automated counOrdered By: Malia Matamoros on 09-05-2024 WBC corrected for nucl RBC Auto (Bld) [#/Vol] Leukocytes [#/volume] corrected for nucleated erythrocytes in Blood by Automated coun High 4.1-10.[address] [facility] Lipaseon 09-05-2024 Lipase [Catalytic activity/Vol] 68.0 U/L Normal 11.0-82.0 [facility] Comment on above: Result Comment: PERF ORMED BY: [place] [address] PATHOLOGIST MODEL BUILDER CAROLYN HECK M.D. Performed By: #### B MP, CBC, LIPASE, HEPATIC #### [address] Lipase [Enzymatic activity/v olume] in Serum or PlasmaOrdered By: Malia Matamoros on 09-05-2024 Lipase [Catalytic activity/Vol] Lipase [Enzymatic activity/volume] in Serum or Plasma 11.0-82.[address] [facility] Lymphocytes Auto (Bld) [#/Vo l]Ordered By: Malia Matamoros on 09-05-2024 Lymphocytes (Bld) [#/Vol] Lymphocytes [#/volume] in Blood by Automated count 1.00-4.[address] [facility] Lymphocytes/100 WBC Auto (Bl d)Ordered By: Malia Matamoros on 09-05-2024 Lymphocytes/100 WBC (Bld) Lymphocytes/100 leukocytes in Blood by Automated count . [facility] MCH Auto (RBC) [Entitic mass ]Ordered By: Malia Matamoros on 09-05-2024 MCH (RBC) [Entitic mass] MCH [Entitic mass] by Automated count Low 27.5-35.[address] [facility] MCHC Auto (RBC) [Mass/Vol]Or dered By: Malia Matamoros on 09-05-2024 MCHC (RBC) [Mass/Vol] MCHC [Mass/volume] by Automated count 32.5-35.[address] [facility] MCV Auto (RBC) [Entitic vol] Ordered By: Malia Matamoros on 09-05-2024 MCV (RBC) [Entitic vol] MCV [Entitic vol ume] by Automated count Low 83.5-[address] [facility] Monocyte distribution width [Entitic volume] in Blood by AutomatedOrdered By: Malia Matamoros on 09-05-2024 Monocyte distribution width Auto (Bld) [Entitic vol] Monocyte distribution width [Entitic volume] in Blood by Automated 0.00-20.[address] [facility] Monocytes Auto (Bld) [#/Vol] Ordered By: Malia Matamoros on 09-05-2024 Monocytes (Bld) [#/Vol] Automated blood monocyte count High 0.0-0.[address] [facility] Monocytes/100 WBC Auto (Bld) Ordered By: Malia Matamoros on 09-05-2024 Monocytes/100 WBC (Bld) Automated monocyte % . [facility] Neutrophils Auto (Bld) [#/Vo l]Ordered By: Malia Matamoros on 09-05-2024 Neutrophils (Bld) [#/Vol] Neutrophils [#/volume] in Blood by Automated count 1.8-7.[address] [facility] Neutrophils/100 WBC Auto (Bl d)Ordered By: Malia Matamoros on 09-05-2024 Neutrophils/100 WBC (Bld) Automated neutrophil % . [facility] No Panel InformationOrdered By: Malia Matamoros on 09-05-2024 Estimated GFR (CKD-EPI) > 60.0 mL/Min [facility] Creatinine Clearance (Chem 70.[address] [facility] Nucleated erythrocytes [Pres ence] in Blood by Automated countOrdered By: Malia Matamoros on 09-05-2024 Nucleated RBC Auto Ql (Bld) Nucleated erythrocytes [Presence] in Blood by Automated count 0-0.[address] [facility] Platelet mean volume Auto (B ld) [Entitic vol]Ordered By: Malia Matamoros on 09-05-2024 Platelet mean volume (Bld) [Entitic vol] Platelet mean volume [Entitic volume] in Blood by Automated count 6.6-10.[address] [facility] Platelets Auto (Bld) [#/Vol] Ordered By: Malia Matamoros on 09-05-2024 Platelets (Bld) [#/Vol] Platelets [#/vol ume] in Blood by Automated count 150-[address] [facility] Potassium [Moles/volume] in Serum or PlasmaOrdered By: Malia Matamoros on 09-05-2024 Potassium [Moles/Vol] Potassium [Moles/volume] in Serum or Plasma 3.5-5.[address] [facility] Protein [Mass/volume] in Ser um or PlasmaOrdered By: Malia Matamoros on 09-05-2024 Protein [Mass/Vol] Protein [Mass/volume ] in Serum or Plasma 6.4-8.[address] [facility] RBC Auto (Bld) [#/Vol]Ordere d By: Malia Matamoros on 09-05-2024 RBC (Bld) [#/Vol] Erythrocytes [#/volume] in Blood by Automated count High 3.90-5.[address] [facility] Serum or plasma albumin/glob ulin mass ratioOrdered By: Malia Matamoros on 09-05-2024 Albumin/Globulin [Mass ratio] Serum or plasma albumin/globulin mass ratio [facility] Serum or plasma anion gap de terminationOrdered By: Malia Matamoros on 09-05-2024 Anion gap [Moles/Vol] Serum or plasma an ion gap determination 6.0-15.[address] [facility] Serum or plasma non-glucuron idated bilirubin measurement (mass/volume)Ordered By: Malia Matamoros on 09-05-2024 Bilirubin.indirect [Mass/Vol] Serum or plasma non-glucuronidated bilirubin measurement (mass/volume) [facility] Sodium [Moles/volume] in Ser um or PlasmaOrdered By: Malia Matamoros on 09-05-2024 Sodium [Moles/Vol] Sodium [Moles/volume ] in Serum or Plasma 136-[address] [facility] Urea nitrogen [Mass/volume] in Serum or PlasmaOrdered By: Malia Matamoros on 09-05-2024 Urea nitrogen [Mass/Vol] Urea nitrogen [Mass/volume] in Serum or Plasma 01-[address] [facility] WBC Auto (Bld) [#/Vol]Ordere d By: Malia Matamoros on 09-05-2024 WBC (Bld) [#/Vol] Leukocytes [#/volume ] in Blood by Automated count High 4.1-10.[address] [facility] Vital Signs Date Time Vital Sign Value Performing Clinician Faci lity 09-09-2024 07:30-0500 Body temperature 98.2 [degF] Malia Matamoros MD Work Phone: [facility] 09-09-2024 07:30-0500 Diastolic blood pressure 109 mm[Hg] Malia Matamoros MD Work Phone: [facility] 09-09-2024 07:30-0500 Heart rate 70 /min Malia Matamoros MD Work Phone: [facility] 09-09-2024 07:30-0500 Respiratory rate 20 /min Malia Matamoros MD Work Phone: [facility] 09-09-2024 07:30-0500 SaO2% (BldA) [Mass fraction] 96 % Malia Matamoros MD Work Phone: [facility] 09-09-2024 07:30-0500 Systolic blood pressure 168 mm[Hg] Malia Matamoros MD Work Phone: [facility] 09-07-2024 13:54-0500 Body height 165.1 cm Malia Matamoros MD Work Phone: [facility] 09-07-2024 03:24-0500 Body weight 90.46 kg Malia Matamoros MD Work Phone: [facility] 09-07-2024 00:13-0500 Body temperature 98.6 [degF] Malia Matamoros MD Work Phone: [facility] 09-07-2024 00:13-0500 Diastolic blood pressure 84 mm[Hg] Malia Matamoros MD Work Phone: [facility] 09-07-2024 00:13-0500 Heart rate 63 /min Malia Matamoros MD Work Phone: [facility] 09-07-2024 00:13-0500 Respiratory rate 20 /min Malia Matamoros MD Work Phone: [facility] 09-07-2024 00:13-0500 SaO2% (BldA) [Mass fraction] 96 % Malia Matamoros MD Work Phone: [facility] 09-07-2024 00:13-0500 Systolic blood pressure 134 mm[Hg] Malia Matamoros MD Work Phone: [facility] 09-06-2024 16:10-0500 Body height 165.1 cm Malia Matamoros MD Work Phone: [facility] 09-06-2024 16:10-0500 Body weight 91.8 kg Malia Matamoros MD Work Phone: [facility] 09-06-2024 05:00-0500 Diastolic blood pressure 71 mm[Hg] Malai Matamoros MD Work Phone: [facility] 09-06-2024 05:00-0500 Heart rate 75 /min Malia Matamoros MD Work Phone: [facility] 09-06-2024 05:00-0500 Respiratory rate 18 /min Malia Matamoros MD Work Phone: [facility] 09-06-2024 05:00-0500 SaO2% (BldA) [Mass fraction] 97 % Malia Matamoros MD Work Phone: [facility] 09-05-2024 23:24-0500 Body temperature 98.7 [degF] Malia Matamoros MD Work Phone: [facility] 09-05-2024 23:22-0500 Body height 165.1 cm Malia Matamoros MD Work Phone: [facility] 09-05-2024 23:22-0500 Body weight 91 kg Malia Matamoros MD Work Phone: [facility] Encounters Encounter Date Encounter Type Care Provider Facility Start: 12-15-2024 End: 12-15-2024 Emergency department patient visit LYNN MANZO [facility] Start: 12-14-2024 End: 12-14-2024 Emergency department patient visit NÉSTOR MURRAY [facility] Start: 12-09-2024 End: 12-14-2024 Evaluation and management of inpatient MUNIRA CHATMAN [facility] Start: 11-15-2024 End: 11-15-2024 Patient encounter procedure Leelee Centeno [facility] - Food [facility] Start: 09-13-2024 ambulatory PHYSICIAN NO FAMILY Fac ility:[facility] Start: 09-07-2024 Non-patient / Non-visit Malia Matamoros MD Work Phone: [facility] Work Phone: Start: 09-07-2024 End: 09-09-2024 Evaluation and management of inpatient Malia Matamoros MD Work Phone: [address] Work Phone: Start: 09-05-2024 End: 09-06-2024 Emergency department patient visit Malia Matamoros MD Work Phone: [facility] Work Phone: Plan of Treatment Date Care Activity Detail Author Start: 03-06-2025 Influenza vaccination Influenza Vaccine [facility] Start: 02-13-2025 End: 02-13-2025 Patient encounter procedure 02/13/2025 4:00 PM EDT Office Visit [facility] [address] [place] [address] Sarah Angulo, SENIOR PROGRAM MANAGER-LINE APPLIANCE ASSEMBLER [address] [place] [address] [facility] Start: 09-09-[address] [facility] Start: 09-07-2024 Hospital admission [facility] Start: 09-07-[address] [facility] Start: 09-06-[address] [facility] Start: 2023 Administration of varicella zoster vaccine Zoster (Shingles) Vaccine (1 of 2) [facility] Start: 1992 DTaP,Tdap and Td Vaccines (1 - Tdap) DTaP,Tdap and Td Vaccines (1 - Tdap) [facility] Start: 1991 Adult BMI Screening Adult BMI Screening [facility] Start: 1985 Depression Screening Depression Screening [facility] Start: 1985 Tobacco Screening Tobacco Screening [facility] Patient Education [facility] Work Phone: Patient referral [facility] Work Phone: Immunizations Immunization Date Immunization Notes Care Provider Fa cility 09-08-2024 influenza, seasonal, injectable, preservative free Malia Matamoros MD Work Phone: [facility] Payers Date Payer Category Payer Medicare [id number] 2024 Private Health Insurance [id number] 2024 Self-pay 2024 Medicaid [id number] 1975 Unknown [id number] [id number] 1973 Unknown [id number] [id number]. [id number] 1973 Unknown [id number] [id number]. [id number] Unknown [id number] [id number] Unknown [id number] [id number] Unknown [id number] [id number] Social History Date Type Detail Facility Start: 09-05-2024 End: 09-06-2024 Tobacco smoking status NHIS Smoker (finding) [facility] Start: 05-23-2024 End: 09-06-2024 Sex Male (finding) [facility] Start: 1975 Sex Assigned At Male F [facility] Start: 09-07-2024 Tobacco smoking status NHIS Current Heavy tobacco smoker [facility] Tobacco smoking status [facility] Tobacco smoking consumption unknown [facility] Start: 1975 Sex assigned at Not on file P [facility] Gender identity Not on file [facility] Goals Date Patient Goal Desired Activity /State Functional Status Date Assessment Result Facility 09-09-2024 Functional status Patient at Baseline [facility] Work Phone: Mental Status Date Assessment Result Facility 09-09-2024 Cognitive function Cognitive Sta tus Patient at Baseline [facility] Work Phone: Clinical Notes 09-06-2024 to 11-15-2024 Leelee Centeno - 11/15/2024 1:59 PM EDT Note Date & Type Note Facility 11-15-2024 History of Presen t illness Narrative Patient visited the [facility] and received food on 11/15/24. Leelee Jacobo [facility] documented in this encounter [facility] 09-09-2024 Discharge summary Note Date/Time September 09, 2024 1:11 pm [facility] [address] [place] [address] Discharge Summary Signed Patient: Marvin Suarez MR#: [id number] : 1975 Acct:[id number] Age/Sex: 49 / M Adm Date: 5 Loc: Room: [address] [place] [address]: Anson Sutton MD Copies to: Anson Sutton MD NO FAMILY PHYSICIAN~ Providers Date of Discharge: 09/09/24 Discharging Provider: Anson Sutton Primary Care Provider: PHYSICIAN NO FAMILY Discharge Diagnosis (1) Bipolar 1 disorder: (2) Suicidal ideation: Final Diagnosis Final Discharge Diagnosis: Bipolar 1 disorder Summary Hospital Course Hospital course: Mr. Suarez is a 49 year old male with a reported history of bipolar disorder and schizophrenia presents for inpatient admission due to suicidal ideation. Reportedly, patient was having auditory hallucinations with command to cut himself. Patient has been visiting from [place]. Came here to visit about6 weeks ago. He has been off his medications. Patient admits to THC use and doing ice the day prior to admission; UDS positive for amphetamines. At the time of interview, he presented anxious and depressed. He rates his anxiety and depression 4/10. He states that this usually manifests racing thoughts. He denies any AVH or HI. He does report some suicidal ideation. Patientstates that he was previously on Abilify 10 mg daily, but he has not been takingthis. Discussed possibility of long-acting medication and he is interested in this. Past Psych History: bipolar disorder, schizophrenia Previous Psych Hospitalizations: last hospitalization 4-5 years ago Past Suicide attempts: denies suicide attempts, but reports suicidal ideation Family Psych History: patient denies Past Psych Meds: Abilify 10 mg Alcohol and drug use: Patient admits to THC use and doing ice the day prior to admission; UDS positive for amphetamines Living Situation: lives alone Employment: unemployed Patient was restarted on Abilify. He received Abilify Maintena during his hospitalization. He attended groups and socialize with peers appropriately. His hallucinations gradually improved during his hospitalization. His sleep andappetite were normal. He started to become more future oriented and started to deny any hallucinations, paranoid thoughts, or suicidal thoughts. On the day ofdischarge, he reported that he was doing better. He liked the medication and thought that it was working well for him. He stated that he would follow-up with outpatient services and continue his medications. Condition Condition at Discharge: Stable Status at Discharge Cognitive/behavioral status at discharge: Mental Status Exam: Appearance: grossly normal Mental Status: mental status grossly normal Mood: Euthymic mood Affect: Normal affect Speech and Movement: speech normal, movement normal Attitude: cooperative Thought Process: normal Thought Content: Denied hallucinations, no homicidality and no suicidality Insight: Good Judgment: Good Functional status at discharge: uses cane/walker Overall status at discharge: patient is back to baseline Time Spent with Patient Time spent providing/coordinating discharge services (# min): 30 Discharge Plan Discharge Plan Patient Disposition: Home Activity: No Activity Restriction Diet: Regular Additional Instructions: Important Contact Information You can call [facility] at [phone] any time day or night if you have emergent questions or question regarding discharge instructions. If at any time you are feeling an increase inyour psychiatric symptoms, call your physician or behavioral healthcare provider. If any time you have thoughts of harming yourself or others contact one of the following: Call (available 26/01) Crisis Text Line (available 26/01) text 4HOPE to [phone] [facility] Hope Line (available 8 a.m. Midnight) call [phone] ([phone]) Regular Diet No Activity Restrictions Received Abilify Maintena 400mg Injection on 09/08/24. Next dose is due on 10/06/24. Instructions: Bipolar disorder - Discharge instructions, [facility] Instructions, Know your Meds Prescriptions: New aripiprazole 10 mg Tablet 10 mg PO DAILY 12 Days Qty: 12 0RF Abilify Maintena 400 mg suspension,extended rel recon 400 mg IM Q28D Qty: 1 0RF Rx Instructions: Due on or about 10/06/24 Follow Up: [facility] [Other] (Follow-up with the [facility] on Thursday at 9am. The [facility] accepts walk-ins. You will need your insurance information and proof of income. ) [facility] [Other] (Call for any medical needs) Exam Physical Exam Vital Signs: Temp Pulse Resp BP Pulse Ox O2 Del Method 98.2 F 70 20 168/109 H 96 Room Air 09/09/24 07:30 09/09/24 07:30 09/09/24 07:30 09/09/24 07:30 09/09/24 07:30 09/09/24 08:11 Documented By: Anson Sutton MD 09/09/24 1215 Signed By: <Electronically signed by Anson Sutton MD> 09/09/24 1419 [facility] Work Phone: 1(644) 228-832703-07-[address] [address] Discharge Summary Signed Patient: Marvin Suarez MR#: [id number] 330 : 1975 Acct:[id number] Age/Sex: 49 / M Adm Date: 5 Loc: Room: [address] [place] [address]: Anson Sutton MD Copies to: Anson Sutton MD NO FAMILY PHYSICIAN~ Providers Date of Discharge: 09/09/24 Discharging Provider: Anson Sutton Primary Care Provider: PHYSICIAN NO FAMILY Discharge Diagnosis (1) Bipolar 1 disorder: (2) Suicidal ideation: Final Diagnosis Final Discharge Diagnosis: Bipolar 1 disorder Summary Hospital Course Hospital course: Mr. Suarez is a 49 year old male with a reported history of bipolar disorder and schizophrenia presents for inpatient admission due to suicidal ideation. Reportedly, patient was having auditory hallucinations with command to cut himself. Patient has been visiting from [place]. Came here to visit about6 weeks ago. He has been off his medications. Patient admits to THC use and doing ice the day prior to admission; UDS positive for amphetamines. At the time of interview, he presented anxious and depressed. He rates his anxiety and depression 4/10. He states that this usually manifests racing thoughts. He denies any AVH or HI. He does report some suicidal ideation. Patientstates that he was previously on Abilify 10 mg daily, but he has not been takingthis. Discussed possibility of long-acting medication and he is interested in this. Past Psych History: bipolar disorder, schizophrenia Previous Psych Hospitalizations: last hospitalization 4-5 years ago Past Suicide attempts: denies suicide attempts, but reports suicidal ideation Family Psych History: patient denies Past Psych Meds: Abilify 10 mg Alcohol and drug use: Patient admits to THC use and doing ice the day prior to admission; UDS positive for amphetamines Living Situation: lives alone Employment: unemployed Patient was restarted on Abilify. He received Abilify Maintena during his hospitalization. He attended groups and socialize with peers appropriately. His hallucinations gradually improved during his hospitalization. His sleep andappetite were normal. He started to become more future oriented and started to deny any hallucinations, paranoid thoughts, or suicidal thoughts. On the day ofdischarge, he reported that he was doing better. He liked the medication and thought that it was working well for him. He stated that he would follow-up with outpatient services and continue his medications. Condition Condition at Discharge: Stable Status at Discharge Cognitive/behavioral status at discharge: Mental Status Exam: Appearance: grossly normal Mental Status: mental status grossly normal Mood: Euthymic mood Affect: Normal affect Speech and Movement: speech normal, movement normal Attitude: cooperative Thought Process: normal Thought Content: Denied hallucinations, no homicidality and no suicidality Insight: Good Judgment: Good Functional status at discharge: uses cane/walker Overall status at discharge: patient is back to baseline Time Spent with Patient Time spent providing/coordinating discharge services (# min): 30 Discharge Plan Discharge Plan Patient Disposition: Home Activity: No Activity Restriction Diet: Regular Additional Instructions: Important Contact Information You can call [facility] at [phone] any timeday or night if you have emergent questions or question regarding discharge instructions. If at anytime you are feeling an increase inyour psychiatric symptoms, call your physician or behavioral healthcare provider. If any time you have thoughts of harming yourself or others contact one of the following: Call 8-8 (available 26/01) Crisis Text Line (available 26/01) text 4HOPE to [phone] [facility] Hope Line (available 8 a.m. Midnight) call [phone] ([phone]) Regular Diet No Activity Restrictions Received Abilify Maintena 400mg Injection on 09/08/24. Next dose is due on 10/06/24. Instructions: Bipolar disorder - Discharge instructions, [facility] Instructions, Know your Meds Prescriptions: New aripiprazole 10 mg Tablet 10 mg PO DAILY 12 Days Qty: 12 0RF Abilify Maintena 400 mg suspension,extended rel recon 400 mg IM Q28D Qty: 1 0RF Rx Instructions: Due on or about 10/06/24 Follow Up: [facility] [Other] (Follow-up with the [facility] on Thursday at 9am. The [facility] accepts walk-ins. You will need your insurance information and proof of income. ) [facility] [Other] (Call for any medical needs) Exam Physical Exam Vital Signs: Temp Pulse Resp BP Pulse Ox O2 Del Method 98.2 F 70 20 168/109 H 96 Room Air 09/09/24 07:30 09/09/24 07:30 09/09/24 07:30 09/09/24 07:30 09/09/24 07:30 09/09/24 08:11 Documented By: Anson Sutton MD 09/09/245 Signed By: 09/09/[address] [facility]03-06-2025 Progress note Author Anson Sutton [facility] Note Date/Time September 08, 2024 12:5 0pm [facility] [address] [place] [address] Psychiatry Progress Note Signed Patient: Marvin Suarez MR#: [id number] 330 : 1975 Acct:[id number] Age/Sex: 49 / M Adm Date: 5 Loc: 1S Room: [address] [place] [address] Type : ADM IN Attending Dr: Anson Sutton MD Copies to: ~ Date of Service: 09/08/2024 Subjective Subjective Narrative: Mr. Suarez states that he is ok . He states that his appetite and sleep were also ok . Reports depression and anxiety are 3/10. Patient received dose of IM Abilify Maintena 400 mg this morning. Denies any HI, SI, AVH. Mental Status Exam Mental Status: mental status grossly normal Mood: depressed mood Affect: constricted affect Speech and Movement: speech and movement normal and speech clear Attitude: cooperative Thought Process: normal Thought Content: denies AVH, HI, SI Insight: improving Judgment: improving Patient was personally seen by me on the day of the encounter. I reviewed the history and performed the silva elements of the physical examination. I formulated the plan of care and confirmed this with the medical student as notedbelow. Exam Physical Exam Vital Signs: Temp Pulse Resp BP Pulse Ox O2 Del Method 98.0 F 73 18 135/87 95 Room Air 09/07/24 20:25 09/07/24 20:25 09/07/24 20:25 09/07/24 20:25 09/07/24 20:25 09/07/24 20:25 Assessment/Plan Assessment/Plan (1) Bipolar 1 disorder: (2) Suicidal ideation: Plan Patient presents with suicidal ideation and stimulant use. Improving. Continue Abilify 10 mg IM Abilify maintena 400 mg received this morning Vitamin D low at 11.3, recommend supplementation Continue to monitor mental status Encourage group participation and medication compliance Risk, benefits, and alternatives explained Documented By: Anson Sutton MD 09/08/2427 Signed By: <Electronically signed by Anson Sutton MD> 09/08/24 1353 [facility] Work Phone: 1(466) 744-401303-06-2025 [place] [address] Psychiatry Progress Note Signed Patient: Marvin Suarez MR#: [id number] 330 : 1975 Acct:[id number] Age/Sex: 49 / M Adm Date: 5 Loc: Room: [address] [place] [address] Type : ADM IN Attending Dr: Anson Sutton MD Copies to: ~ Date of Service: 09/08/2024 Subjective Subjective Narrative: Mr. Suarez states that he is ok . He states that his appetite and sleep were also ok . Reports depression and anxiety are 3/10. Patient received dose of IM Abilify Maintena 400 mg this morning. Deniesany HI, SI, AVH. Mental Status Exam Mental Status: mental status grossly normal Mood: depressed mood Affect: constricted affect Speech and Movement: speech and movement normal and speech clear Attitude: cooperative Thought Process: normal Thought Content: denies AVH, HI, SI Insight: improving Judgment: improving Patient was personally seen by me on the day of the encounter. I reviewed the history and performedthe silva elements of the physical examination. I formulated the plan of care and confirmed this withthe medical student as notedbelow. Exam Physical Exam Vital Signs: Temp Pulse Resp BP Pulse Ox O2 Del Method 98.0 F 73 18 135/87 95 Room Air 09/07/24 20:25 09/07/24 20:25 09/07/24 20:25 09/07/24 20:25 09/07/24 20:25 09/07/24 20:25 Assessment/Plan Assessment/Plan (1) Bipolar 1 disorder: (2) Suicidal ideation: Plan Patient presents with suicidal ideation and stimulant use. Improving. Continue Abilify 10 mg IM Abilify maintena 400 mg received this morning Vitamin D low at 11.3, recommend supplementation Continue to monitor mental status Encourage group participation and medication compliance Risk, benefits, and alternatives explained Documented By: Anson Sutton MD 09/08/24 0927 Signed By: 09/08/[address] [facility]03-05-2025 History and physical note Author Anson Sutton [facility] Note Date/Time September 07, 2024 2:48 pm [facility] [address] [place] [address] Psychiatry H&P Signed Patient: Marvin Suarez MR#: [id number] 330 : 1975 Acct:[id number] Age/Sex: 49 / M Adm Date: 5 Loc: Room: [address] [place] [address] Type: ADM IN Attending Dr: Anson Sutton MD Copies to: Anson Sutton MD NO FAMILY PHYSICIAN~ Date of Service: 09/07/2024 HPI History of Present Illness History of present illness: Mr. Suarez is a 49 year old male with a reported history of bipolar disorder and schizophrenia presents for inpatient admission due to suicidal ideation. Reportedly, patient was having auditory hallucinations with command to cut himself. Patient has been visiting from [place]. Came here to visit about6 weeks ago. He has been off his medications. Patient admits to THC use and doing ice the day prior to admission; UDS positive for amphetamines. At the time of interview, he presented anxious and depressed. He rates his anxiety and depression 4/10. He states that this usually manifests racing thoughts. He denies any AVH or HI. He does report some suicidal ideation. Patient states that he was previously on Abilify 10 mg daily, but he has not been taking this. Discussed possibility of long-acting medication and he is interested in this. Past Psych History: bipolar disorder, schizophrenia Previous Psych Hospitalizations: last hospitalization 4-5 years ago Past Suicide attempts: denies suicide attempts, but reports suicidal ideation Family Psych History: patient denies Past Psych Meds: Abilify 10 mg Alcohol and drug use: Patient admits to THC use and doing ice the day prior to admission; UDS positive for amphetamines Living Situation: lives alone Employment: unemployed Review of Systems: Constitutional: Denies chills and Denies fever(s) Eyes: Denies change in vision ENT: Denies abnormal hearing Cardiovascular: Denies chest pain Respiratory: Denies chest congestion and Denies cough Gastrointestinal: Denies change in bowel habits Genitourinary: Denies dysuria Musculoskeletal: Denies pain or paresthesias Integumentary/Breasts: Denies dry skin Neurologic: Denies abnormal gait and Denies abnormal movements Psychiatric: Reports depression, anxiety, and suicidal ideation Physical exam: General: not in any acute distress Skin: intact HEENT: head atraumatic, face symmetrical. Pulm: breathing normally without excessive effort Cardio: heart is regular Abdomen: Normal inspection Musculoskeletal: Moves all extremities, normal strength all extremities. Neuro: Pt alert, oriented x3 CN: Normal olfaction CNII: Visual clark intact CNIII,IV,: EOM intact, no nystagmus. CNV: Sensation intact to light touch. CNVII: Raises eyebrows, smile/frown, puff out cheeks symmetrically. CNVIII: Hearing intact bilaterally. CNIX,X: Voice normal, soft palate elevation normal, symmetrical. CNXI: Shoulder shrug strong, equal bilaterally. CNXII: Tongue protrusion midline Mental Status Exam: Mental Status: mental status grossly normal Mood: depressed mood Affect: constricted affect Speech and Movement: speech and movement normal and speech clear Attitude: cooperative Thought Process: normal Thought Content: denies AVH, HI, reported SI Insight: limited Judgment: limited Patient was personally seen by me on the day of the encounter. I reviewed the history and performed the silva elements of the physical examination. I formulated the plan of care and confirmed this with the medical student as notedbellizzy. [facility] Medical History (Updated 09/07/24 @ 10:31 by Janeen Coker) Bipolar 1 disorder HTN (hypertension) Social History Smoking Status: Heavy tobacco smoker Tobacco Type: cigarettes Substance Use Type: Unknown, Marijuana, Amphetamines and Methamphetamine Social History Comments: came to [place] 2 months ago to visit, is highly unhappy where he lives, feels unsafe. Meds Medications and Allergies Allergies No Known Allergies Allergy (Verified 09/06/24 16:12) Home Medications No known home meds 09/07/24 [History Confirmed 09/07/24] Exam Physical Exam Vital Signs: Temp Pulse Resp BP Pulse Ox O2 Del Method 97.9 F 69 20 127/85 95 Room Air 09/07/24 07:30 09/07/24 07:30 09/07/24 07:30 09/07/24 07:30 09/07/24 07:30 09/07/24 07:30 Results - Psychiatry Labs 09/06/24 21:32 09/06/24 21:32 Psychiatry Labs: 09/06/24 09/06/24 17:44 21:32 RBC 6.45 H Hgb 17.3 H Hct 53.5 H MCV 83.1 L MCH 26.8 L MCHC 32.2 L RDW 15.3 H Plt Count 270 MPV 8.3 Sodium 141 Potassium 3.9 Chloride 104 Carbon Dioxide 28.1 Anion Gap 12.8 BUN 13 Creatinine 1.20 Calcium 9.3 Total Bilirubin 0.7 AST 18 ALT 14 Alkaline Phosphatase 64 Total Protein 7.3 Albumin 4.4 Urine Color Yellow Urine Appearance Clear Urine pH 5.5 Ur Specific [place] 1.030 Urine Protein 30 H Urine Glucose (UA) Normal Urine Ketones Negative Urine Occult Blood 2+ H Urine Nitrite Negative Ur Leukocyte Esterase Negative Urine RBC Innumerable H Urine WBC 10-19 H Assessment/Plan (1) Bipolar 1 disorder: (2) Suicidal ideation: Plan Patient presents with suicidal ideation and stimulant use. Restart Abilify 10 mg Given patients noncompliance with medications, discussed long acting injectable.Patient would be willing. Vitamin D low at 11.3, recommend supplementation EKG completed TSH normal Continue to monitor mental status Encourage group participation and medication compliance Risk, benefits, and alternatives explained Documented By: Anson Sutton MD 09/07/24 0953 Signed By: <Electronically signed by Anson Sutton MD> 09/07/24 7005 [facility] Work Phone: 1(193) 432-446303-05-2025 History and physical [address] [address] Psychiatry H&P Signed Patient: Marvin Suarez MR#: [id number] 330 : 1975 Acct:[id number] Age/Sex: 49 / M Adm Date: 5 Loc: 1S Room: [address] [place] [address] Type: ADM IN Attending Dr: Anson Sutton MD Copies to: Anson Sutton MD NO FAMILY PHYSICIAN~ Date of Service: 09/07/2024 HPI History of Present Illness History of present illness: Mr. Suarez is a 49 year old male with a reported history of bipolar disorder and schizophrenia presents for inpatient admission due to suicidal ideation. Reportedly, patient was having auditory hallucinations with command to cut himself. Patient has been visiting from [place]. Came here to visit about6 weeks ago. He has been off his medications. Patient admits to THC use and doing ice the day prior to admission; UDS positive for amphetamines. At the time of interview, he presented anxious and depressed. He rates his anxiety and depression 4/10. He states that this usually manifests racing thoughts. He denies any AVH or HI. He does report some suicidal ideation. Patient states that he was previously on Abilify 10 mg daily, but he has notbeen taking this. Discussed possibility of long-acting medication and he is interested in this. Past Psych History: bipolar disorder, schizophrenia Previous Psych Hospitalizations: last hospitalization 4-5 years ago Past Suicide attempts: denies suicide attempts, but reports suicidal ideation Family Psych History: patient denies Past Psych Meds: Abilify 10 mg Alcohol and drug use: Patient admits to THC use and doing ice the day prior to admission; UDS positive for amphetamines Living Situation: lives alone Employment: unemployed Review of Systems: Constitutional: Denies chills and Denies fever(s) Eyes: Denies change in vision ENT: Denies abnormal hearing Cardiovascular: Denies chest pain Respiratory: Denies chest congestion and Denies cough Gastrointestinal: Denies change in bowel habits Genitourinary: Denies dysuria Musculoskeletal: Denies pain or paresthesias Integumentary/Breasts: Denies dry skin Neurologic: Denies abnormal gait and Denies abnormal movements Psychiatric: Reports depression, anxiety, and suicidal ideation Physical exam: General: not in any acute distress Skin: intact HEENT: head atraumatic, face symmetrical. Pulm: breathing normally without excessive effort Cardio: heart is regular Abdomen: Normal inspection Musculoskeletal: Moves all extremities, normal strength all extremities. Neuro: Pt alert, oriented x3 CN: Normal olfaction CNII: Visual clark intact CNIII,IV,: EOM intact, no nystagmus. CNV: Sensation intact to light touch. CNVII: Raises eyebrows, smile/frown, puff out cheeks symmetrically. CNVIII: Hearing intact bilaterally. CNIX,X: Voice normal, soft palate elevation normal, symmetrical. CNXI: Shoulder shrug strong, equal bilaterally. CNXII: Tongue protrusion midline Mental Status Exam: Mental Status: mental status grossly normal Mood: depressed mood Affect: constricted affect Speech and Movement: speech and movement normal and speech clear Attitude: cooperative Thought Process: normal Thought Content: denies AVH, HI, reported SI Insight: limited Judgment: limited Patient was personally seen by me on the day of the encounter. I reviewed the history and performedthe silva elements of the physical examination. I formulated the plan of care and confirmed this withthe medical student as notedbelow. [facility] Medical History (Updated 09/07/24 @ 10:31 by Janeen Coker) Bipolar 1 disorder HTN (hypertension) Social History Smoking Status: Heavy tobacco smoker Tobacco Type: cigarettes Substance Use Type: Unknown, Marijuana, Amphetamines and Methamphetamine Social History Comments: came to [place] 2 months ago to visit, is highly unhappy where he lives, feels unsafe. Meds Medications and Allergies Allergies No Known Allergies Allergy (Verified 09/06/24 16:12) Home Medications No known home meds 09/07/24 [History Confirmed 09/07/24] Exam Physical Exam Vital Signs: Temp Pulse Resp BP Pulse Ox O2 Del Method 97.9 F 69 20 127/85 95 Room Air 09/07/24 07:30 09/07/24 07:30 09/07/24 07:30 09/07/24 07:30 09/07/24 07:30 09/07/24 07:30 Results - Psychiatry Labs 09/06/24 21:32 09/06/24 21:32 Psychiatry Labs: 09/06/24 09/06/24 17:44 21:32 RBC 6.45 H Hgb 17.3 H Hct 53.5 H MCV 83.1 L MCH 26.8 L MCHC 32.2 L RDW 15.3 H Plt Count 270 MPV 8.3 Sodium 141 Potassium 3.9 Chloride 104 Carbon Dioxide 28.1 Anion Gap 12.8 BUN 13 Creatinine 1.20 Calcium 9.3 Total Bilirubin 0.7 AST 18 ALT 14 Alkaline Phosphatase 64 Total Protein 7.3 Albumin 4.4 Urine Color Yellow Urine Appearance Clear Urine pH 5.5 Ur Specific [place] 1.030 Urine Protein 30 H Urine Glucose (UA) Normal Urine Ketones Negative Urine Occult Blood 2+ H Urine Nitrite Negative Ur Leukocyte Esterase Negative Urine RBC Innumerable H Urine WBC 10-19 H Assessment/Plan (1) Bipolar 1 disorder: (2) Suicidal ideation: Plan Patient presents with suicidal ideation and stimulant use. Restart Abilify 10 mg Given patients noncompliance with medications, discussed long acting injectable.Patient would be willing. Vitamin D low at 11.3, recommend supplementation EKG completed TSH normal Continue to monitor mental status Encourage group participation and medication compliance Risk, benefits, and alternatives explained Documented By: Anson Sutton MD 09/07/24 0913 Signed By: 09/07/[address] [facility]03-05-2025 Evaluation note* Diagnosis Onset Date Resolution Status Admit Date Bipolar 1 disorder acute September 07, 2024 12:39am Suicidal ideation acute September 072024 12:39am [facility] Work Phone: 1(697) 589-595503-04-2025 Hospital Discharge instructions Additional Instructions Please return to emergency department for any new or worrisome symptoms including any numbness, weakness, tingling, worsening pain, difficulty urinating, chest pain, shortness of breath. Follow-up with your family physician within the next 3 to 5 days.[facility] Work Phone: Discharge summary Author Anson Sutton [facility] Note Date/Time September 09, 2024 1:11 pm [facility] [address] [place], [place] [id number] Discharge Summary Signed Patient: Marvin Suarez MR#: [id number] 330 : 1975 Acct:[id number] Age/Sex: 49 / M Adm Date: 5 Loc: 1S Room: [address] [place] [address]: Anson Sutton MD Copies to: Anson Sutton MD NO FAMILY PHYSICIAN~ Providers Date of Discharge: 09/09/24 Discharging Provider: Anson Sutton Primary Care Provider: PHYSICIAN NO FAMILY Discharge Diagnosis (1) Bipolar 1 disorder: (2) Suicidal ideation: Final Diagnosis Final Discharge Diagnosis: Bipolar 1 disorder Summary Hospital Course Hospital course: Mr. Suarez is a 49 year old male with a reported history of bipolar disorder and schizophrenia presents for inpatient admission due to suicidal ideation. Reportedly, patient was having auditory hallucinations with command to cut himself. Patient has been visiting from [place]. Came here to visit about6 weeks ago. He has been off his medications. Patient admits to THC use and doing ice the day prior to admission; UDS positive for amphetamines. At the time of interview, he presented anxious and depressed. He rates his anxiety and depression 4/10. He states that this usually manifests racing thoughts. He denies any AVH or HI. He does report some suicidal ideation. Patientstates that he was previously on Abilify 10 mg daily, but he has not been takingthis. Discussed possibility of long-acting medication and he is interested in this. Past Psych History: bipolar disorder, schizophrenia Previous Psych Hospitalizations: last hospitalization 4-5 years ago Past Suicide attempts: denies suicide attempts, but reports suicidal ideation Family Psych History: patient denies Past Psych Meds: Abilify 10 mg Alcohol and drug use: Patient admits to THC use and doing ice the day prior to admission; UDS positive for amphetamines Living Situation: lives alone Employment: unemployed Patient was restarted on Abilify. He received Abilify Maintena during his hospitalization. He attended groups and socialize with peers appropriately. His hallucinations gradually improved during his hospitalization. His sleep andappetite were normal. He started to become more future oriented and started to deny any hallucinations, paranoid thoughts, or suicidal thoughts. On the day ofdischarge, he reported that he was doing better. He liked the medication and thought that it was working well for him. He stated that he would follow-up with outpatient services and continue his medications. Condition Condition at Discharge: Stable Status at Discharge Cognitive/behavioral status at discharge: Mental Status Exam: Appearance: grossly normal Mental Status: mental status grossly normal Mood: Euthymic mood Affect: Normal affect Speech and Movement: speech normal, movement normal Attitude: cooperative Thought Process: normal Thought Content: Denied hallucinations, no homicidality and no suicidality Insight: Good Judgment: Good Functional status at discharge: uses cane/walker Overall status at discharge: patient is back to baseline Time Spent with Patient Time spent providing/coordinating discharge services (# min): 30 Discharge Plan Discharge Plan Patient Disposition: Home Activity: No Activity Restriction Diet: Regular Additional Instructions: Important Contact Information You can call [facility] at [phone] any time day or night if you have emergent questions or question regarding discharge instructions. If at any time you are feeling an increase inyour psychiatric symptoms, call your physician or behavioral healthcare provider. If any time you have thoughts of harming yourself or others contact one of the following: Call 8-8 (available 26/01) Crisis Text Line (available 26/01) [place] 4HOPE [place] [phone] [facility] Hope Line (available 8 a.m. Midnight) call [phone] ([phone]) Regular Diet No Activity Restrictions Received Abilify Maintena 400mg Injection on 09/08/24. Next dose is due on 10/06/24. Instructions: Bipolar disorder - Discharge instructions, [facility] Instructions, Know your Meds Prescriptions: New aripiprazole 10 mg Tablet 10 mg PO DAILY 12 Days Qty: 12 0RF Abilify Maintena 400 mg suspension,extended rel recon 400 mg IM Q28D Qty: 1 0RF Rx Instructions: Due on or about 10/06/24 Follow Up: [facility] [Other] (Follow-up with the [facility] on Thursday at 9am. [facility] accepts walk-ins. You will need your insurance information and proof of income. ) [facility] [Other] (Call for any medical needs) Exam Physical Exam Vital Signs: Temp Pulse Resp BP Pulse Ox O2 Del Method 98.2 F 70 20 168/109 H 96 Room Air 09/09/24 07:30 09/09/24 07:30 09/09/24 07:30 09/09/24 07:30 09/09/24 07:30 09/09/24 08:11 Documented By: Anson Sutton MD 09/09/24 1215 Signed By: <Electronically signed by Anson Sutton MD> 09/09/24 1411 [facility] Work Phone: Evaluation noteNo assessment information available [facility] Work Phone: Evaluation note* Diagnosis Onset Date Resolution Status Admit Date Suicidal ideation acute September 072024 12:39am [facility] Work Phone: History and physical note Author Anson Sutton [facility] Note Date/Time September 07, 2024 2:48 pm [facility] [address] [place] [address] Psychiatry H&P Signed Patient: Marvin Suarez MR#: [id number] 330 : 1975 Acct:[id number] Age/Sex: 49 / M Adm Date: 5 Loc: Room: [address] [place] [address] Type: ADM IN Attending Dr: Anson Sutton MD Copies to: Anson Sutton MD NO FAMILY PHYSICIAN~ Date of Service: 09/07/2024 HPI History of Present Illness History of present illness: Mr. Suarez is a 49 year old male with a reported history of bipolar disorder and schizophrenia presents for inpatient admission due to suicidal ideation. Reportedly, patient was having auditory hallucinations with command to cut himself. Patient has been visiting from [place]. Came here to visit about6 weeks ago. He has been off his medications. Patient admits to THC use and doing ice the day prior to admission; UDS positive for amphetamines. At the time of interview, he presented anxious and depressed. He rates his anxiety and depression 4/10. He states that this usually manifests racing thoughts. He denies any AVH or HI. He does report some suicidal ideation. Patient states that he was previously on Abilify 10 mg daily, but he has not been taking this. Discussed possibility of long-acting medication and he is interested in this. Past Psych History: bipolar disorder, schizophrenia Previous Psych Hospitalizations: last hospitalization 4-5 years ago Past Suicide attempts: denies suicide attempts, but reports suicidal ideation Family Psych History: patient denies Past Psych Meds: Abilify 10 mg Alcohol and drug use: Patient admits to THC use and doing ice the day prior to admission; UDS positive for amphetamines Living Situation: lives alone Employment: unemployed Review of Systems: Constitutional: Denies chills and Denies fever(s) Eyes: Denies change in vision ENT: Denies abnormal hearing Cardiovascular: Denies chest pain Respiratory: Denies chest congestion and Denies cough Gastrointestinal: Denies change in bowel habits Genitourinary: Denies dysuria Musculoskeletal: Denies pain or paresthesias Integumentary/Breasts: Denies dry skin Neurologic: Denies abnormal gait and Denies abnormal movements Psychiatric: Reports depression, anxiety, and suicidal ideation Physical exam: General: not in any acute distress Skin: intact HEENT: head atraumatic, face symmetrical. Pulm: breathing normally without excessive effort Cardio: heart is regular Abdomen: Normal inspection Musculoskeletal: Moves all extremities, normal strength all extremities. Neuro: Pt alert, oriented x3 CN: Normal olfaction CNII: Visual clark intact CNIII,IV,: EOM intact, no nystagmus. CNV: Sensation intact to light touch. CNVII: Raises eyebrows, smile/frown, puff out cheeks symmetrically. CNVIII: Hearing intact bilaterally. CNIX,X: Voice normal, soft palate elevation normal, symmetrical. CNXI: Shoulder shrug strong, equal bilaterally. CNXII: Tongue protrusion midline Mental Status Exam: Mental Status: mental status grossly normal Mood: depressed mood Affect: constricted affect Speech and Movement: speech and movement normal and speech clear Attitude: cooperative Thought Process: normal Thought Content: denies AVH, HI, reported SI Insight: limited Judgment: limited Patient was personally seen by me on the day of the encounter. I reviewed the history and performed the silva elements of the physical examination. I formulated the plan of care and confirmed this with the medical student as faisal. [facility] Medical History (Updated 09/07/24 @ 10:31 by Janeen Coker) Bipolar 1 disorder HTN (hypertension) Social History Smoking Status: Heavy tobacco smoker Tobacco Type: cigarettes Substance Use Type: Unknown, Marijuana, Amphetamines and Methamphetamine Social History Comments: came to [place] 2 months ago to visit, is highly unhappy where he lives, feels unsafe. Meds Medications and Allergies Allergies No Known Allergies Allergy (Verified 09/06/24 16:12) Home Medications No known home meds 09/07/24 [History Confirmed 09/07/24] Exam Physical Exam Vital Signs: Temp Pulse Resp BP Pulse Ox O2 Del Method 97.9 F 69 20 127/85 95 Room Air 09/07/24 07:30 09/07/24 07:30 09/07/24 07:30 09/07/24 07:30 09/07/24 07:30 09/07/24 07:30 Results - Psychiatry Labs 09/06/24 21:32 09/06/24 21:32 Psychiatry Labs: 09/06/24 09/06/24 17:44 21:32 RBC 6.45 H Hgb 17.3 H Hct 53.5 H MCV 83.1 L MCH 26.8 L MCHC 32.2 L RDW 15.3 H Plt Count 270 MPV 8.3 Sodium 141 Potassium 3.9 Chloride 104 Carbon Dioxide 28.1 Anion Gap 12.8 BUN 13 Creatinine 1.20 Calcium 9.3 Total Bilirubin 0.7 AST 18 ALT 14 Alkaline Phosphatase 64 Total Protein 7.3 Albumin 4.4 Urine Color Yellow Urine Appearance Clear Urine pH 5.5 Ur Specific [place] 1.030 Urine Protein 30 H Urine Glucose (UA) Normal Urine Ketones Negative Urine Occult Blood 2+ H Urine Nitrite Negative Ur Leukocyte Esterase Negative Urine RBC Innumerable H Urine WBC 10-19 H Assessment/Plan (1) Bipolar 1 disorder: (2) Suicidal ideation: Plan Patient presents with suicidal ideation and stimulant use. Restart Abilify 10 mg Given patients noncompliance with medications, discussed long acting injectable.Patient would be willing. Vitamin D low at 11.3, recommend supplementation EKG completed TSH normal Continue to monitor mental status Encourage group participation and medication compliance Risk, benefits, and alternatives explained Documented By: Anson Sutton MD 09/07/24 0913 Signed By: <Electronically signed by Anson Sutton MD> 09/07/24 1541 [facility] Work Phone: Hospital Discharge instructions Additional Instructions Important Contact Information You can call [facility] at [phone] any time day or night if you have emergent questions or question regarding discharge instructions. If at any time you are feeling an increase in your psychiatric symptoms, call your physician or behavioral healthcare provider. If any time you have thoughts of harming yourself or others contact one of the following: Call 98-8 (available 26/01) Crisis Text Line (available 26/01) text 4HOPE to [phone] [facility] Hope Line (available 8 a.m. Midnight) call [phone] ([phone]) Regular Diet No Activity Restrictions Received Abilify Maintena 400mg Injection on 09/08/24. Next dose is due on 10/06/24.[facility] Work Phone: InstructionsNot on filedocumented in this encounter [facility] Author Anson Sutton [facility] Note Date/Time September 08, 2024 12:5 0pm [facility] [address] [place] [address] Psychiatry Progress Note Signed Patient: Marvin Suarez MR#: [id number] 330 : 1975 Acct:[id number] Age/Sex: 49 / M Adm Date: 5 Loc: 1S Room: [address] [place] [address] Type : ADM IN Attending Dr: Anson Sutton MD Copies to: ~ Date of Service: 09/08/2024 Subjective Subjective Narrative: Mr. Suarez states that he is ok . He states that his appetite and sleep were also ok . Reports depression and anxiety are 3/10. Patient received dose of IM Abilify Maintena 400 mg this morning. Denies any HI, SI, AVH. Mental Status Exam Mental Status: mental status grossly normal Mood: depressed mood Affect: constricted affect Speech and Movement: speech and movement normal and speech clear Attitude: cooperative Thought Process: normal Thought Content: denies AVH, HI, SI Insight: improving Judgment: improving Patient was personally seen by me on the day of the encounter. I reviewed the history and performed the silva elements of the physical examination. I formulated the plan of care and confirmed this with the medical student as notedbelow. Exam Physical Exam Vital Signs: Temp Pulse Resp BP Pulse Ox O2 Del Method 98.0 F 73 18 135/87 95 Room Air 09/07/24 20:25 09/07/24 20:25 09/07/24 20:25 09/07/24 20:25 09/07/24 20:25 09/07/24 20:25 Assessment/Plan Assessment/Plan (1) Bipolar 1 disorder: (2) Suicidal ideation: Plan Patient presents with suicidal ideation and stimulant use. Improving. Continue Abilify 10 mg IM Abilify maintena 400 mg received this morning Vitamin D low at 11.3, recommend supplementation Continue to monitor mental status Encourage group participation and medication compliance Risk, benefits, and alternatives explained Documented By: Anson Sutton MD 09/08/24 0927 Signed By: <Electronically signed by Anson Sutton MD> 09/08/24 1350 [facility] Work Phone: Chief Complaint and Reason for Visit Chief Complaint Admit Date back pain September 05, 2024 11:1 7pm Chief Complaint Admit Date back pain September 05, 2024 11:1 7pm mhp September 07, 2024 12:3 9am Reason for Visit Admit Date Suicidal ideation September 07, 2024 12:3 9am Chief Complaint Admit Date back pain September 05, 2024 11:1 7pm mhp September 07, 2024 12:3 9am mhp September 07, 2024 9:13 am Reason for Visit Admit Date Bipolar 1 disorder September 07, 2024 12:3 9am Suicidal ideation September 07, 2024 12:3 9am Advance Directives No Advanced Directives Records Found Advance Directive Response Recorded Date/ Time Advance Directives No September 05 11:29pm Advance Directive Response Recorded Date/ Time Advance Directives No September 06 12:29am Summary Purpose Family History No Family History Records FoundNo Family History Records FoundNo Family History Records Found Additional Source Comments Care Teams (unrecognized sec tion and content) Team Status: Active Member Role Status Dates PHYSICIAN NO FAMILY Primary Care Provider Active Team Status: Inactive Member Role Status Dates Malia Matamoros MD Emergency Provider Active Start: September 05, 2024 End: September 06, 2024 PHYSICIAN NO FAMILY Primary Care Provider Active Start: September 05, 2024 End: September 06, 2024 Team Status: Active Member Role Status Dates PHYSICIAN NO FAMILY Primary Care Provider Active Start: September 07, 2024 Franklin Anand DO Emergency Provider Active Sta rt: September 07, 2024 Anson Sutton MD Admit Provider, Attending Provider Active Start: September 07, 2024 Team Status: Inactive Member Role Status Dates PHYSICIAN NO FAMILY Primary Care Provider Active Start: September 07, 2024 End: September 09, 2024 Franklin Anand DO Emergency Provider Active Sta rt: September 07, 2024 End: September 09, 2024 Anson Sutton MD Admit Provider, Bill buitrago Provider Active Start: September 07, 2024 End: September 09, 2024 Team Status: Active Member Role Status Dates PHYSICIAN NO FAMILY Primary Care Provider Active Start: September 07, 2024 Franklin Anand DO Emergency Provider Active Sta rt: September 07, 2024 Anson Sutton MD Admit Provider, Bill buitrago Provider, Other Provider Active Start: September 07, 2024 Goals (unrecognized section and content) Goals may be documented in a n alternate sectionGoals may be documented in an alternate sectionNot on filedocumented as of this encounter (unrecognized sect ion and content) No Status Records FoundNo Status Records FoundNo Status Records Found INFORMATION SOURCE (unrecogn ized section and content) DATE CREATED AUTHOR 12/03/2024 [facility] DATE CREATED AUTHOR AUTHOR'S ORGANIZ ATION 12/16/2024 [facility] DATE CREATED AUTHOR AUTHOR'S ORGANIZ ATION 12/17/2024 [facility] FOR RECORDS PERTAINING TO PATIENTS WHO ARE OR HAVE BEEN ENROLLED IN A CHEMICAL DEPENDENCY/SUBSTANCEABUSE PROGRAM, SOME INFORMATION MAY BE OMITTED. This clinical summary was aggregated from multiple sources. Caution should be exercised in using it in the provision of clinical care. This summary normalizes information from multiple sources, and as a consequence, information in this document may materially change the coding, format and clinical context of patient data. In addition, data may be omitted in some cases. CLINICAL DECISIONS SHOULD BE BASED ON THE PRIMARY CLINICAL RECORDS. [facility] [employer] provides no warranty or guarantee of the accuracy or completeness of information in this document.
--- NOTE | 2025-01-01 08:21 | ECG_ITS ---
The [facility] Test Date: 2025-01-01 Pat Name: MARVIN SUAREZ Department: Room: - Gender: Male Cell Tender: : 1975 Requested By: [id number] Order Number: [id number] Reading MD: PARAMJIT SQUIRES M.D. Measurements Intervals [place] Rate: 86 P: 43 LA: 148 QRS: 192 QRSD: 92 T: 68 QT: 364 QTc: 408 Interpretive Statements 1100 Sinus rhythm 7300 Indeterminate axis 8003 Consistent with pulmonary disease 9150 abnormal ECG Compared to ECG 10/22/2024 04:32:49 Left anterior fascicular block no longer present T-wave abnormality no longer present Electronically Signed On 01-01-2025 14:00:09 EDT by PARAMJIT SQUIRES M.D.
--- NOTE | 2025-01-01 08:23 | CT_ITS ---
The [address] [address] Patient Name: MARVIN SUAREZ MRN: [id number] date: 1975 Sex: M Assigned Patient Location: ED.MAIN Current Patient Location: ED.MAIN Accession/Order Number: [id number] Exam Date: 01/01/2025 10:03 Report Date: 01/01/2025 10:07 At the request of: ISA ZENG MD Procedure: CT head/brain wo con CT BRAIN WITHOUT CONTRAST: CLINICAL HISTORY: Right hand numbness COMPARISON: None TECHNIQUE: Contiguous axial unenhanced images were obtained through the brain. This CT exam was performed using one or more following dose reduction techniques: Automated exposure control, adjustment of the mA and/or kV according to patient size, or use of iterative reconstruction technique. FINDINGS: There is no evidence of midline shift, intra or extra-axial fluid collection, hemorrhage or CT evidence acute large vascular distribution stroke. Left caudate head/anterior internal capsule hypoattenuation noted suggestive of a stroke, age-indeterminate possibly subacute. Left frontal lobe and posterior MCA distribution stroke along left parietal lobe also likely subacute in age. Right lens not visualized, correlate with surgical history. Visualized paranasal sinuses are clear. No calvarial fractures. The soft tissue swelling identified near the calvarial vertex. CT/CT head/brain wo con IMPRESSION: Hypoattenuation involving the left MCA distribution of the caudate head, left frontal lobe and left parietal lobe suggestive areas of possible subacute stroke, age-indeterminate.. No acute hemorrhage or midline shift. Impression dictated by: Kenny Sanz M.D. 01/01/2025 10:07 AM Dictation Location: [place] [address] Electronically authenticated by: [id number] Y Date: 01/01/2025 10:07
--- NOTE | 2025-01-01 08:24 | CT_ITS ---
The [address] [address] Patient Name: MARVIN SUAREZ MRN: [id number] date: 1975 Sex: M Assigned Patient Location: ED.MAIN Current Patient Location: ED.MAIN Accession/Order Number: [id number] Exam Date: 01/01/2025 10:09 Report Date: 01/01/2025 10:12 At the request of: ISA ZENG MD Procedure: CT cervical spine wo con CT CERVICAL SPINE WITHOUT CONTRAST: CLINICAL HISTORY: Right hand numbness COMPARISON: None TECHNIQUE: Contiguous axial unenhanced images were obtained through the cervical spine. This CT exam was performed using one or more following dose reduction techniques: Automated exposure control, adjustment of the mA and/or kV according to patient size, or use of iterative reconstruction technique. FINDINGS: Straightening of the normal cervical lordosis. There is no evidence of acute fracture or malalignment. There is mild disc space narrowing and endplate osteophytosis notably from C5 through C7. CT/CT cervical spine wo con IMPRESSION: Mild degenerative changes C5-C7. Negative acute fracture malalignment. Impression dictated by: Kenny Sanz M.D. 01/01/2025 10:12 AM Dictation Location: [place] [address] Electronically authenticated by: [id number] Y Date: 01/01/2025 10:12
--- NOTE | 2025-01-01 08:24 | ED.GENADUL1 ---
HPI HPI - General Adult General Chief complaint: Extremity Problem, Nontraumatic Stated complaint: RT HAND PAIN AND NUMBNESS Time Seen by Provider: 01/01/25 08:12 Source: patient Mode of arrival: ambulance History of Present Illness HPI narrative: 49-year-old male presents for numbness in his right hand which he has had for 9 days. It is his whole hand but not including the wrist. Nowhere else on his body is numb. He does not complain of a headache. He has never had this symptom before and it has been continuous. He does not complain of any weakness in the hand. Related Data Previous Rx's �Medication �Instructions �Recorded amlodipine 5 mg tablet 5 mg PO DAILY #30 tabs 10/22/24 aripiprazole 10 mg tablet 10 mg PO DAILY #30 tabs 10/22/24 metformin 500 mg tablet 500 mg PO BID #60 tabs 10/22/24 rosuvastatin 5 mg tablet 5 mg PO DAILY #30 tabs 10/22/24 Allergies Allergy/AdvReac Type Severity Reaction Status Date / Time No Known Drug Allergies Allergy Verified 01/01/25 08:11 Opioid HPI Opioid Management Most Recent Opioid Data: Last Pain Scale 3 10/22/24, 08:00 Last ORT Total Score 6 10/21/24, 23:40 Last ORT Risk Category Moderate Risk 10/21/24, 23:40 Review of Systems ROS Narrative A ten point review of systems is negative except as noted above. [facility] Medical History (Updated 01/01/25 @ 12:05 by Rehan Rodarte MD) CRI (chronic renal insufficiency) �N18.9 - Chronic kidney disease, unspecified (ICD-10) Acute hyperglycemia �R73.9 - Hyperglycemia, unspecified (ICD-10) HLD (hyperlipidemia) �E78.5 - Hyperlipidemia, unspecified (ICD-10) Type 2 diabetes mellitus �E11.9 - Type 2 diabetes mellitus without complications (ICD-10) CKD (chronic kidney disease) stage 3, GFR 30-59 ml/min �N18.30 - Chronic kidney disease, stage 3 unspecified (ICD-10) Diabetes �E11.9 - Type 2 diabetes mellitus without complications (ICD-10) Schizophrenia �F20.9 - Schizophrenia, unspecified (ICD-10) Smokes �F17.200 - Nicotine dependence, unspecified, uncomplicated (ICD-10) Hypertension �I10 - Essential (primary) hypertension (ICD-10) Social History (Updated 10/21/24 @ 23:59 by Rima Hahn) Within the past year, how often did you have a drink containing alcohol: never Score interpretation: A score less than 4 is consistent with normal alcohol consumption. Smoking status: Current every day smoker Non-prescribed substance use: cannabis (any form) Non-prescribed substance use details: smokes marijuana Previous occupational history: none Highest level of school completed/degree received: 10th grade Are you now , , , , never or living with a partner: never In a typical week, how many times do you talk on the telephone with family, friends, or neighbors: 3 or more times per week How often do you get together with friends or relatives: 3 or more times per week Little interest or pleasure in doing things: not at all Feeling down, depressed, or hopeless: not at all Feel stressed/tense/nervous/anxious/difficulty sleeping: not at all Do you think of yourself as: straight/heterosexual Gender Identity: male Exam Narrative Exam Narrative: Nurses note and vital signs reviewed and patient is not hypoxic. General: The patient appears well and in no apparent distress. Patient is resting comfortably on cart. Skin: Warm, dry, no pallor noted. There is no rash noted. Head: Normocephalic, atraumatic Eye: Normal conjunctiva, no drainage Ears, Nose, Mouth, and Throat: oral mucosa is moist. Nares patent. Cardiovascular: Regular Rate and Rhythm Respiratory: Patient is in no distress, no accessory muscle use, lungs are clear to auscultation, no wheezing, rales or rhonchi Back: non-tender, no CVA tenderness bilaterally to percussion. GI: Soft and nontender Musculoskeletal: The patient has no evidence of calf tenderness, no pitting edema, symmetrical pulses noted bilaterally Neurological: A&O x4, normal speech; hand grasp is symmetric and intact as is wrist flexion and extension. Biceps and tricep strength 5 out of 5 and symmetric as well. Cranial nerves II through XII intact. Psychiatric: Cooperative NIH score is 1 Constitutional Vital Signs, click to edit/add: Last Vital Signs Temp 98.2 F 01/01/25 08:14 Pulse 81 01/01/25 09:20 Resp 23 H 01/01/25 08:14 BP 154/118 H 01/01/25 09:02 Pulse Ox 96 01/01/25 09:20 O2 Del Method Room Air 01/01/25 08:14 Course Vital Signs Vital signs: Vital Signs Blood Pressure 156/118 H 01/01/25 08:10 Temperature 98.2 F 01/01/25 08:14 Pulse Rate 81 01/01/25 09:20 Respiratory Rate 23 H 01/01/25 08:14 Blood Pressure 154/118 H 01/01/25 09:02 Pulse Oximetry 96 01/01/25 09:20 Oxygen Delivery Method Room Air 01/01/25 08:14 Medical Decision Making MDM Narrative Medical decision making narrative: The patient presents with right hand numbness and CT indicates subacute stroke. CTA head and neck showed no significant vascular stenosis and shows incidental finding of MCA aneurysm. Case is discussed with stroke team from [facility] who recommends admission here with echo and MRI to be performed. They recommended keeping his systolic blood pressure less than 140. The patient has a history of hypertension and states he ran out of his blood pressure medicine a few days ago. He was given IV labetalol here. Treatment diagnosis and disposition were discussed with the patient. Differential Diagnosis Differential Diagnosis: Stroke, paresthesia, intracerebral hemorrhage Lab Data Lab results reviewed: Yes I reviewed the patient's lab results Labs: Lab Results 01/01/25 Range/Units 08:25 WBC 10.7 (4.0-11.0) 10^3/uL RBC 6.29 H (4.70-6.10) 10^6/uL Hgb 17.1 (14.0-18.0) g/dL Hct 53.1 (42.0-54.0) % MCV 84.4 (80.0-94.0) fL MCH 27.2 (25.9-34.0) pg MCHC 32.2 (29.9-35.2) g/dL RDW 13.2 (11.0-15.0) % Plt Count 258 (150-450) 10^3/uL MPV 9.2 L (9.5-13.5) fL Neut % (Auto) 60.1 (43.0-75.0) % Lymph % (Auto) 28.7 (20.5-60.0) % [place] % (Auto) 8.6 (1.7-12.0) % Eos % (Auto) 1.9 (0.9-7.0) % Baso % (Auto) 0.3 (0.2-2.0) % Neut # (Auto) 6.5 (1.4-6.5) 10^3/uL Lymph # (Auto) 3.1 (1.2-3.8) 10^3/uL [place] # (Auto) 0.9 H (0.3-0.8) 10^3/uL Eos # (Auto) 0.2 (0.0-0.7) 10^3/uL Baso # (Auto) 0.0 (0.0-0.1) 10^3/uL Abs Immat Gran (auto) 0.04 H (0.00-0.03) 10^3/uL Imm/Tot Granulo (auto) 0.4 (0.0-0.5) % Sodium 142 (136-145) mmol/L Potassium 3.2 L (3.5-5.1) mmol/L Chloride 101 (98-107) mmol/L Carbon Dioxide 31.5 (21.0-32.0) mmol/L Anion Gap 12.7 BUN 9.0 (7.0-18.0) mg/dL Creatinine 1.31 H (0.70-1.30) mg/dL Est GFR ( Amer) >60 (>=60 mL/min/1.73m^2) Est GFR (Non-Af Amer) 58 L (>=60 mL/min/1.73m^2) BUN/Creatinine Ratio 6.9 Glucose 242 H (74-106) mg/dL Calcium 8.9 (8.5-10.1) mg/dL Imaging Data CT scan - head: Radiologist's impression: ITS Impressions Head CT 01/01/25 08:23 IMPRESSION: Hypoattenuation involving the left MCA distribution of the caudate head, left frontal lobe and left parietal lobe suggestive areas of possible subacute stroke, age-indeterminate.. No acute hemorrhage or midline shift. Impression dictated by: Kenny Sanz M.D. 01/01/2025 10:07 AM Dictation Location: [place] [address] Electronically authenticated by: [id number] Y Date: 01/01/2025 10:[address] 01/01/25 08:24 IMPRESSION: Mild degenerative changes C5-C7. Negative acute fracture malalignment. Impression dictated by: Kenny Sanz M.D. 01/01/2025 10:12 AM Dictation Location: [employer] Electronically authenticated by: [id number] Y Date: 01/01/2025 10:12 Head CTA 01/01/25 08:58 IMPRESSION: Negative for large vessel occlusion or hemodynamically significant stenosis. 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 Impression dictated by: Kenny Sanz M.D. 01/01/2025 10:40 AM Dictation Location: [employer] Electronically authenticated by: [id number] Y Date: 01/01/2025 10:40 Neck CTA 01/01/25 08:58 IMPRESSION: Negative for large vessel occlusion or hemodynamically significant stenosis. 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 Impression dictated by: Kenny Sanz M.D. 01/01/2025 10:40 AM Dictation Location: [employer] Electronically authenticated by: [id number] Y Date: 01/01/2025 10:40 ECG Data Attestation: I personally reviewed and interpreted this ECG as follows: (EKG on my interpretation shows sinus rhythm with a rate of 86 and no acute) Critical Care Time Critical Care Time Critical Care Time: Yes Total Critical Care Time: 40 Attestation: Due to the high probability of sudden and clinically significant deterioration in the patient's condition he/she required the highest level of my preparedness to intervene urgently I provided critical care time including documentation time, medication orders and management, reevaluation, vital sign assessment, ordering and reviewing of lab tests, ordering and reviewing of x-ray studies, and admission orders. Aggregate critical care time is 40 minutes including only time during which I was engaged in work directly related to his/her care and did not include time spent treating other patients simultaneously. Discharge Plan Discharge Chief Complaint: Extremity Problem, Nontraumatic Clinical Impression: CVA (cerebrovascular accident) Patient Disposition: Admitted As Inpatient Time of Disposition Decision: 12:04 Condition: Fair
[2025-01-01 08:35] LABS: Basophils Percent Auto 0.3 % (0.2-2.0); Eosinophils Absolute Auto 0.2 10^3/uL (0.0-0.7); Eosinophils Percent Auto 1.9 % (0.9-7.0); Hematocrit 53.1 % (42.0-54.0); Hemoglobin 17.1 g/dL (14.0-18.0); Immature Granulocytes Abs Auto 0.04 10^3/uL (0.00-0.03); Immature Granulocytes Pct Auto 0.4 % (0.0-0.5); Lymphocytes Absolute Auto 3.1 10^3/uL (1.2-3.8); Lymphocytes Percent Auto 28.7 % (20.5-60.0); Mean Corpuscular HGB Conc 32.2 g/dL (29.9-35.2); Mean Corpuscular Hemoglobin 27.2 pg (25.9-34.0); Mean Corpuscular Volume 84.4 fL (80.0-94.0); Mean Platelet Volume 9.2 fL (9.5-13.5); Monocytes Absolute Auto 0.9 10^3/uL (0.3-0.8); Monocytes Percent Auto 8.6 % (1.7-12.0); Neutrophils Absolute Auto 6.5 10^3/uL (1.4-6.5); Neutrophils Percent Auto 60.1 % (43.0-75.0); Platelet Count 258 10^3/uL (150-450); Red Blood Count 6.29 10^6/uL (4.70-6.10); Red Cell Distribution Width 13.2 % (11.0-15.0); White Blood Count 10.7 10^3/uL (4.0-11.0)
[2025-01-01 08:48] LABS: Anion Gap 12.7; BUN Creatinine Ratio 6.9; Calcium 8.9 mg/dL (8.5-10.1); Carbon Dioxide 31.5 mmol/L (21.0-32.0); Chloride 101 mmol/L (98-107); Estimated GFR (African America >60 (>=60 mL/min/1.73m^2); Estimated GFR (Non-African Ame 58 (>=60 mL/min/1.73m^2); Glucose 242 mg/dL (74-106); Potassium 3.2 mmol/L (3.5-5.1); Sodium 142 mmol/L (136-145)
--- NOTE | 2025-01-01 08:58 | CT_ITS ---
The [address] [address] Patient Name: MARVIN SUAREZ MRN: [id number] date: 1975 Sex: M Assigned Patient Location: ED.MAIN Current Patient Location: ED.MAIN Accession/Order Number: [id number] Exam Date: 01/01/2025 10:32 Report Date: 01/01/2025 10:40 At the request of: ISA ZENG MD Procedure: CT angio neck CT ANGIOGRAM HEAD AND NECK PERFORMED WITH INTRAVENOUS CONTRAST : CLINICAL HISTORY: Abnormal CT brain COMPARISON: CT head 01/01/2025 TECHNIQUE: CT angiogram images through the head and neck. Evaluation degree of ICA narrowing was performed utilizing NASCET criteria. The common. This CT exam was performed using one or more following dose reduction techniques: Automated exposure control, adjustment of the mA and/or kV according to patient size, or use of iterative reconstruction technique. FINDINGS: Bovine arch. Question flow-related artifact versus distal intimal thickening descending aorta. Aorta is otherwise unremarkable caliber. Carotid arteries are patent with mild plaque both bifurcations. No significant narrowing prior NASCET criteria. Intracranial ICAs are patent. ACAs and MCAs are patent. Left MCA trifurcation aneurysm 6 x 5 mm in size neck measuring 2 mm. Tapered appearance involving the distal MCA vessels to left frontal lobe corresponding to the subacute infarct on recent CT. Similar tapering left posterior MCA vessels corresponding to left parietal subacute infarct. Otherwise no large vessel occlusion. Vertebral arteries are patent and codominant. Intradural vertebral arteries are patent. Basilar artery, basilar artery is patent. Posterior cerebral arteries are patent. CT/CT angio head IMPRESSION: Negative for large vessel occlusion or hemodynamically significant stenosis. 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 Impression dictated by: Kenny Sanz M.D. 01/01/2025 10:40 AM Dictation Location: [place] [address] Electronically authenticated by: [id number] Y Date: 01/01/2025 10:40
--- NOTE | 2025-01-01 08:58 | CT_ITS ---
The [address] [address] Patient Name: MARVIN SUAREZ MRN: [id number] date: 1975 Sex: M Assigned Patient Location: ED.MAIN Current Patient Location: ED.MAIN Accession/Order Number: [id number] Exam Date: 01/01/2025 10:32 Report Date: 01/01/2025 10:40 At the request of: ISA ZENG MD Procedure: CT angio neck CT ANGIOGRAM HEAD AND NECK PERFORMED WITH INTRAVENOUS CONTRAST : CLINICAL HISTORY: Abnormal CT brain COMPARISON: CT head 01/01/2025 TECHNIQUE: CT angiogram images through the head and neck. Evaluation degree of ICA narrowing was performed utilizing NASCET criteria. The common. This CT exam was performed using one or more following dose reduction techniques: Automated exposure control, adjustment of the mA and/or kV according to patient size, or use of iterative reconstruction technique. FINDINGS: Bovine arch. Question flow-related artifact versus distal intimal thickening descending aorta. Aorta is otherwise unremarkable caliber. Carotid arteries are patent with mild plaque both bifurcations. No significant narrowing prior NASCET criteria. Intracranial ICAs are patent. ACAs and MCAs are patent. Left MCA trifurcation aneurysm 6 x 5 mm in size neck measuring 2 mm. Tapered appearance involving the distal MCA vessels to left frontal lobe corresponding to the subacute infarct on recent CT. Similar tapering left posterior MCA vessels corresponding to left parietal subacute infarct. Otherwise no large vessel occlusion. Vertebral arteries are patent and codominant. Intradural vertebral arteries are patent. Basilar artery, basilar artery is patent. Posterior cerebral arteries are patent. CT/CT angio neck IMPRESSION: Negative for large vessel occlusion or hemodynamically significant stenosis. 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 Impression dictated by: Kenny Sanz M.D. 01/01/2025 10:40 AM Dictation Location: [place] [address] Electronically authenticated by: [id number] Y Date: 01/01/2025 10:40
--- NOTE | 2025-01-01 12:06 | XR_ITS ---
The [place] [id number] Patient Name: MARVIN SUAREZ MRN: [id number] date: 1975 Sex: M Assigned Patient Location: ER Current Patient Location: ED.MAIN Accession/Order Number: [id number] Exam Date: 01/01/2025 13:01 Report Date: 01/01/2025 13:03 At the request of: ISA ZENG MD Procedure: XR chest 1V PA CHEST: CLINICAL HISTORY: cva COMPARISON: 10/21/2024 Low lung volumes. Taking this into account, cardiomediastinal is unremarkable size. No airspace disease, effusion or pneumothorax.. XR/XR chest 1V IMPRESSION: Negative acute pleural-parenchymal disease Impression dictated by: Kenny Sanz M.D. 01/01/2025 1:03 PM Dictation Location: [place] [address] Electronically authenticated by: [id number] Y Date: 01/01/2025 13:03
[2025-01-01] MEDS: ASPIRIN 325 MG TABLET PO (12:19)
[2025-01-01] MEDS: LABETALOL HCL 100 MG/20 ML MDV IVP (12:19)
--- OUTSIDE RECORDS SUMMARY | 2025-01-01 13:34 | XMS_ITS | CCD ---
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 Role Phone Malia Matamoros MD Emergency Provider NO FAMILY, PHYSICIAN Primary Care Provider Malia Camacho MD Emergency Provider NO FAMILY, PHYSICIAN Primary Care Provider Franklin Villeda DO Emergency Provider Herman VENTURA, Anson Admit Provider Anson Sutton MD Attending Provider [phone] Unavailable Primary Care Provider Unavailabl e NO FAMILY, PHYSICIAN Primary Care Unavailable Anson Sutton Attending Unavailable Anson Sutton Admitting Unavailable Malia Matamoros Attending Unavailable Malia Matamoros Admitting Unavailable NO FAMILY, PHYSICIAN Primary Care Unavailable NO FAMILY, PHYSICIAN Primary Care Unavailable Robbie Nj Attending Unavailab Robbie Landry Admitting Unavailab MUNIRA Moore Consulting Unavailable SHANNAN WEBER Admitting Unavailable SHANNAN WEBER Attending Unavailable PHYSICIANS, [facility] Consulting Yi LYNN Chapa Primary Care Unavailable [...] BEDSIDE GLUCOSEon 12-14-2024 Glucose [Mass/Vol] 281 mg/dL [address] Comment on above: Performed By: #### D QUINONEZ #### [facility] ([id number]) [address] [place] [address] VIR BEDSIDE GLUCOSEon 12-13-2024 Glucose [Mass/Vol] 278 mg/dL [address] Comment on above: Performed By: #### D QUINONEZ #### [facility] ([id number]) [address] [place] [address] VIR Glucose [Mass/Vol] 190 mg/dL [address] Comment on above: Performed By: #### D QUINONEZ #### [facility] ([id number]) [facility] [place] [address] VIR Glucose [Mass/Vol] 326 mg/dL [address] Comment on above: Performed By: #### D QUINONEZ #### [facility] ([id number]) [address] [place] [address] VIR Glucose [Mass/Vol] 265 mg/dL [address] Comment on above: Performed By: #### D QUINONEZ #### [facility] ([id number]) [address] [place] [address] VIR BEDSIDE GLUCOSEon 12-12-2024 Glucose [Mass/Vol] 217 mg/dL [address] Comment on above: Performed By: #### D QUINONEZ #### [facility] ([id number]) [address] [place] [address] VIR Glucose [Mass/Vol] 208 mg/dL [address] Comment on above: Performed By: #### D QUINONEZ #### [facility] ([id number]) [address] [place] [address] VIR Glucose [Mass/Vol] 245 mg/dL High -99 [facility] Comment on above: Performed By: #### D QUINONEZ #### [facility] ([id number]) [address] [place] [address] VIR Glucose [Mass/Vol] 264 mg/dL High 65-99 [facility] Comment on above: Performed By: #### U FEN #### [facility] ([id number]) [address] [place] [address] VIR BEDSIDE GLUCOSEon 12-11-2024 Glucose [Mass/Vol] 184 mg/dL High 65-99 [facility] Comment on above: Performed By: #### U FEN #### [facility] ([id number]) [address] [place] [address] VIR Glucose [Mass/Vol] 96 mg/dL Normal 65-99 [facility] Comment on above: Performed By: #### U FEN #### [facility] ([id number]) [address] [place] [address] VIR Glucose [Mass/Vol] 385 mg/dL High 65-99 [facility] Comment on above: Performed By: #### U FEN #### [facility] ([id number]) [address] [place] [address] VIR BEDSIDE GLUCOSE ???BEDG >^500 Critically high [address] [place] [address] Comment on above: Performed By: #### U FEN #### [facility] ([id number]) [address] [place] [address] VIR GLUCOSE RANDOM OR FASTINGon 12-11-2024 Glucose [Mass/Vol] 512 mg/dL Critically high 65-99 [facility] Comment on above: Performed By: #### U FEN #### [facility] ([id number]) [address] [place] [address] VIR LIPID PROFILEon 12-11-2024 Cholesterol [Mass/Vol] 239 mg/dL High 150-200 [facility] Comment on above: Order Comment: Fenta nyl screening cutoff = 5ng/ml This report is intended for use in clinical monitoring or management of patients. Performed By: #### U FEN #### [facility] ([id number]) [facility] [place] [address] VIR Cholesterol in HDL [Mass/Vol] 31 mg/dL Low >39 [facility] Comment on above: Order Comment: Fenta nyl screening cutoff = 5ng/ml This report is intended for use in clinical monitoring or management of patients. Result Comment: HDL <40 mg/dL - High Risk HDL > or = 40mg/dL- Desirable HDL >60 mg/dL - Negative Risk Performed By: #### U FEN #### [facility] ([id number]) [address] [place] [address] VIR CHOLESTEROL:HDL 7.7 High 1.0-5.0 [facility] Comment on above: Order Comment: Fenta nyl screening cutoff = 5ng/ml This report is intended for use in clinical monitoring or management of patients. Performed By: #### U FEN #### [facility] ([id number]) [facility] [place] [address] VIR Triglyceride [Mass/Vol] 452 mg/dL High 27-150 P [facility] Comment on above: Order Comment: Fenta nyl screening cutoff = 5ng/ml This report is intended for use in clinical monitoring or management of patients. Performed By: #### U FEN #### [facility] ([id number]) [address] [place] [address] VIR VERY LOW LIPOPROTEIN 90 mg/dL High 0-[address] [facility] Comment on above: Order Comment: Fenta nyl screening cutoff = 5ng/ml This report is intended for use in clinical monitoring or management of patients. Performed By: #### U FEN #### [facility] ([id number]) [facility] [place] [address] VIR RDLDL DIRECT LDLon 5 Cholesterol in LDL [Mass/Vol] 138 mg/dL High <=130 [facility] Comment on above: Result Comment: LDL <100 mg/dL - Desirable LDL 130-159 mg/dL - Borderline High Risk LDL >160 mg/dL - High Risk Performed By: #### U FEN #### [facility] ([id number]) [address] [place] [address] VIR ACETAMINOPHEN LEVELon 2024 Acetaminophen [Mass/Vol] ug/mL Low 10.0-30.0 [facility] Comment on above: Order Comment: Refer ence ranges are for therapeutic limits. Performed By: #### A CETA #### [facility] ([id number]) [address] [place] [address] VIR CBC WITH AUTO DIFFERENTIALon 12-09-2024 CELLAVISION DIFFERENTIAL TYPE MANUAL DIFFERENTIAL Normal [facility] Comment on above: Result Comment: This is an appended report. These results have been appended to a previously preliminary verified report. Performed By: #### C BCA #### [facility] ([id number]) [facility] [place] [address] VIR CELLAVISION LYMPHOCYTES ABSOLUTE COUNT (10*3/UL) BY MANUAL COUNT 4.0 10*3/uL High 1.0-3.5 [facility] Comment on above: Result Comment: This is an appended report. These results have been appended to a previously preliminary verified report. Performed By: #### C BCA #### [facility] ([id number]) [address] [place] [address] VIR CELLAVISION LYMPHOCYTES RELATIVE PERCENT BY MANUAL COUNT 35 % Normal [facility] Comment on above: Result Comment: This is an appended report. These results have been appended to a previously preliminary verified report. Performed By: #### C BCA #### [facility] ([id number]) [address] [place] [address] VIR CELLAVISION MONOCYTES ABSOLUTE COUNT (10*3/UL) IN BLOOD BY MANUAL COUNT 0.9 10*3/uL Normal 0.0-0.9 [facility] Comment on above: Result Comment: This is an appended report. These results have been appended to a previously preliminary verified report. Performed By: #### C BCA #### [facility] ([id number]) [address] [facility] [place] [address] VIR CELLAVISION MONOCYTES RELATIVE PERCENT BY MANUAL COUNT 8 % Normal [facility] Comment on above: Result Comment: This is an appended report. These results have been appended to a previously preliminary verified report. Performed By: #### C BCA #### [facility] ([id number]) [address] [facility] [place] [address] VIR CELLAVISION NEUTROPHILS ABSOLUTE COUNT BY MANUAL COUNT 6.4 10*3/uL Normal 1.5-6.6 [facility] Comment on above: Result Comment: This is an appended report. These results have been appended to a previously preliminary verified report. Performed By: #### C BCA #### [facility] ([id number]) [address] [facility] [place] [address] VIR CELLAVISION NEUTROPHILS RELATIVE PERCENT BY MANUAL COUNT 57 % Normal [facility] Comment on above: Result Comment: This is an appended report. These results have been appended to a previously preliminary verified report. Performed By: #### C BCA #### [facility] ([id number]) [address] [facility] [place] [address] VIR CELLAVISION NUCLEATED RED BLOOD CELLS IN BLOOD BY LIGHT MICROSCOPY 1 Normal [facility] Comment on above: Result Comment: This is an appended report. These results have been appended to a previously preliminary verified report. Performed By: #### C BCA #### [facility] ([id number]) [address] [facility] [place] [address] VIR CELLAVISION RBC MORPHOLOGY Reviewed Normal [facility] Comment on above: Result Comment: This is an appended report. These results have been appended to a previously preliminary verified report. Performed By: #### C BCA #### [facility] ([id number]) [address] [facility] [address] VIR Erythrocyte distribution width (RBC) [Ratio] 14.7 % Normal 11.5-15 [facility] Comment on above: Performed By: #### C BCA #### [facility] ([id number]) [address] [place] [address] VIR Hematocrit (Bld) [Volume fraction] 50.9 % High 39-50 [facility] Comment on above: Performed By: #### C BCA #### [facility] ([id number]) [address] [place] [address] VIR Hemoglobin (Bld) [Mass/Vol] 16.4 g/dL Normal 13-17 [facility] Comment on above: Performed By: #### C BCA #### [facility] ([id number]) [address] [place] [address] VIR MCH (RBC) [Entitic mass] 26.6 pg Low 27-34 [facility] Comment on above: Performed By: #### C BCA #### [facility] ([id number]) [address] [place] [address] VIR MCHC (RBC) [Mass/Vol] 32.2 g/dL Normal 32-36 [facility] Comment on above: Performed By: #### C BCA #### [facility] ([id number]) [address] [place] [address] VIR MCV (RBC) [Entitic vol] 83 fL Normal 80-100 [facility] Comment on above: Performed By: #### C BCA #### [facility] ([id number]) [address] [place] [address] VIR Platelet mean volume (Bld) [Entitic vol] 8.0 fL Normal 7-12 [facility] Comment on above: Performed By: #### C BCA #### [facility] ([id number]) [address] [place] [address] VIR Platelets (Bld) [#/Vol] 251 10*3/uL Normal 150-450 [facility] Comment on above: Performed By: #### C BCA #### [facility] ([id number]) [address] [facility] [place] [address] VIR RBC COUNT 6.15 X10E12/L High 4.1-5.7 [facility] Comment on above: Performed By: #### C BCA #### [facility] ([id number]) [address] [place] [address] VIR WBC (Bld) [#/Vol] 11.3 10*3/uL High 4-11 [facility] Comment on above: Performed By: #### C BCA #### [facility] ([id number]) [address] [place] [address] VIR COMPREHENSIVE METABOLIC PANE Nadir 12-09-2024 Albumin [Mass/Vol] 3.9 g/dL Normal 3.2-5.3 [facility] Comment on above: Performed By: #### C MP #### [facility] ([id number]) [address] [place] [address] VIR ALP [Catalytic activity/Vol] 95 U/L Normal 39-130 [facility] Comment on above: Performed By: #### C MP #### [facility] ([id number]) [address] [place] [address] VIR ALT [Catalytic activity/Vol] 26 U/L Normal <=40 [facility] Comment on above: Performed By: #### C MP #### [facility] ([id number]) [address] [place] [address] VIR Anion gap [Moles/Vol] 7 mmol/L Normal 5-15 [facility] Comment on above: Performed By: #### C MP #### [facility] ([id number]) [address] [facility] [place] [address] VIR AST [Catalytic activity/Vol] 16 U/L Normal <=41 [facility] Comment on above: Performed By: #### C MP #### [facility] ([id number]) [address] [facility] [place] [address] VIR Bilirubin [Mass/Vol] 0.5 mg/dL Normal 0.3-1.[address] [facility] Comment on above: Performed By: #### C MP #### [facility] ([id number]) [facility] [place] [address] VIR Calcium [Mass/Vol] 9.4 mg/dL Normal 8.5-10.5 [facility] Comment on above: Performed By: #### C MP #### [facility] ([id number]) [address] [place] [address] VIR Chloride [Moles/Vol] 101 mmol/L Normal 98-[address] [facility] Comment on above: Performed By: #### C MP #### [facility] ([id number]) [address] [place] [address] VIR CO2 [Moles/Vol] 28 mmol/L Normal 22-32 [facility] Comment on above: Performed By: #### C MP #### [facility] ([id number]) [address] [place] [address] VIR Creatinine [Mass/Vol] 1.38 mg/dL High 0.60-1.30 [facility] Comment on above: Result Comment: METH OD TRACEABLE TO IDMS STANDARD Performed By: #### C MP #### [facility] ([id number]) [facility] [place] [address] VIR GFR/1.73 sq M.predicted among non-blacks MDRD (S/P/Bld) [Vol rate/Area] 62 mL/min/{1.73_m2} Normal >=60 [facility] Comment on above: Result Comment: Repo rted eGFR is based on the CKD-EPI 2020 equation that does not use a race coefficient. Performed By: #### C MP #### [facility] ([id number]) [facility] [place] [address] VIR Glucose [Mass/Vol] 378 mg/dL High 65-99 [facility] Comment on above: Performed By: #### C MP #### [facility] ([id number]) [address] [place] [address] VIR Potassium [Moles/Vol] 3.6 mmol/L Normal 3.5-5.0 [facility] Comment on above: Performed By: #### C MP #### [facility] ([id number]) [address] [place] [address] VIR Protein [Mass/Vol] 7.0 g/dL Normal 6.0-8.0 [facility] Comment on above: Performed By: #### C MP #### [facility] ([id number]) [facility] [place] [address] VIR Sodium [Moles/Vol] 136 mmol/L Normal 134-146 [facility] Comment on above: Performed By: #### C MP #### [facility] ([id number]) [facility] [place] [address] VIR Urea nitrogen [Mass/Vol] 15 mg/dL Normal 5-23 [facility] Comment on above: Performed By: #### C MP #### [facility] ([id number]) [address] [place] [address] VIR DRUG SCREEN, URINEon 025 DRUG SCREEN, URINE DSU DRUG SCREEN, URINE Cancelled Normal [facility] AMPHETAMINE/METHAMP Positive Abnormal Negative [facility] Comment on above: Order Comment: Confi rmation available upon request. Result Comment: AMPH /METH screening cut off = 1000 ng/mL Performed By: #### D QUINONEZ #### [facility] ([id number]) [facility] [place] [address] VIR BARBITURATES Negative Normal Negative [facility] Comment on above: Order Comment: Confi rmation available upon request. Result Comment: Amee iturates screening cut off value = 200 ng/mL Performed By: #### D QUINONEZ #### [facility] ([id number]) [facility] [place] [address] VIR BENZODIAZEPINES Negative Normal Negative [facility] Comment on above: Order Comment: Confi rmation available upon request. Result Comment: Betito odiazepines screening cut off value = 200 ng/mL Performed By: #### D QUINONEZ #### [facility] ([id number]) [address] [place] [address] VIR CANNABINOIDS Positive Abnormal Negative [facility] Comment on above: Order Comment: Confi rmation available upon request. Result Comment: Amber abinoids/THC screening cut off value = 50 ng/mL Performed By: #### D QUINONEZ #### [facility] ([id number]) [address] [place] [address] VIR COCAINE METABOLITE Negative Normal Negative [facility] Comment on above: Order Comment: Confi rmation available upon request. Result Comment: Coca ine screening cut off value = 300 ng/mL Performed By: #### D QUINONEZ #### [facility] ([id number]) [address] [place] [address] VIR ECSTASY Negative Normal Negative [facility] Comment on above: Order Comment: Confi rmation available upon request. Result Comment: Ecst asy screening cut off value = 500 ng/mL Performed By: #### D QUINONEZ #### [facility] ([id number]) [address] [place] [address] VIR METHADONE Negative Normal Negative [facility] Comment on above: Order Comment: Confi rmation available upon request. Result Comment: Meth adone screening cut off value = 300 ng/mL. Performed By: #### D QUINONEZ #### [facility] ([id number]) [address] [place] [address] VIR OPIATES Negative Normal Negative [facility] Comment on above: Order Comment: Confi rmation available upon request. Result Comment: Opia zuri screening cut off value = 300 ng/mL This test is used for the detection of codeine, hydrocodone (>1000 ng/mL), morphine and hydromorphone (>900 ng/mL) in urine. Performed By: #### D QUINONEZ #### [facility] ([id number]) [address] [place] [address] VIR OXYCODONE Negative Normal Negative [facility] Comment on above: Order Comment: Confi rmation available upon request. Result Comment: Oxyc odone screening cut off value = 300 ng/mL This test is used for the detection of oxycodone and oxymorphone in urine. Performed By: #### D QUINONEZ #### [facility] ([id number]) [facility] [place] [address] VIR PHENCYCLIDINE Negative Normal Negative [facility] Comment on above: Order Comment: Confi rmation available upon request. Result Comment: Phen cyclidine screening cut off value = 25 ng/mL Performed By: #### D QUINONEZ #### [facility] ([id number]) [address] [place] [address] VIR ETHANOLon 12-09-2024 Ethanol [Mass/Vol] mg/dL Normal <=0.080 [facility] Comment on above: Result Comment: This report is intended for use in clinical monitoring or management of patients. Performed By: #### A LCO #### [facility] ([id number]) [address] [place] [address] VIR FENTANYL, URINE QUALITATIVEo n 12-09-2024 FENTANYL, URINE QUAL. Negative Normal Negative [facility] Comment on above: Order Comment: Fenta nyl screening cutoff = 5ng/ml This report is intended for use in clinical monitoring or management of patients. Performed By: #### U FEN #### [facility] ([id number]) [address] [place] [address] VIR HEMOGLOBIN A1Con 12-09-2024 Glucose [Mass/Vol] 309 mg/dL Normal [facility] Comment on above: Performed By: #### U FEN #### [facility] ([id number]) [address] [place] [address] VIR HbA1c (Bld) [Mass fraction] 12.4 % High 4.4-5.6 [facility] Comment on above: Result Comment: ADA Guidelines Result HgbA1c Normal : less than 5.7 % Prediabetes : 5.7 % to 6.4 % Diabetes : > 6.4 % Use with caution in patients with abnormal hemoglobin variants as the half-life of red blood cells and in vivo glycation rates are affected. Performed By: #### U FEN #### [facility] ([id number]) [facility] [place] [address] VIR SALICYLATE LEVELon SALICYLATE <^2.5 Normal 2.0-25.0 [facility] Comment on above: Order Comment: Refer ence ranges are for therapeutic limits. Performed By: #### S ALI #### [facility] ([id number]) [address] [place] [address] VIR T4, FREEon 12-09-2024 Free T4 [Mass/Vol] 0.75 ng/dL Normal 0.61-1.60 [facility] Comment on above: Performed By: #### F T4 #### [facility] ([id number]) [address] [place] [address] VIR TSHon 12-09-2024 TSH 3.69 uIU/mL Normal 0.49-4.67 [facility] Comment on above: Performed By: #### T SH #### [facility] ([id number]) [address] [place] [address] VIR URINALYSISon 12-09-2024 Bilirubin Ql (U) Negative Normal Negative [facility] Comment on above: Order Comment: Urine received without preservative. Delays in transport may affect results. Interpret with caution. A clinical correlation is recommended. Performed By: #### U A #### [facility] ([id number]) [facility] [place] [address] VIR BLOOD/HGB Small Abnormal Negative [facility] Comment on above: Order Comment: Urine received without preservative. Delays in transport may affect results. Interpret with caution. A clinical correlation is recommended. Performed By: #### U A #### [facility] ([id number]) [address] [place] [address] VIR Color (U) Yellow Normal Yellow, Colorless [facility] Comment on above: Order Comment: Urine received without preservative. Delays in transport may affect results. Interpret with caution. A clinical correlation is recommended. Performed By: #### U A #### [facility] ([id number]) [address] [place] [address] VIR Glucose Ql (U) >=1000 mg/dL Abnormal Negative, 250 mg/dL [facility] Comment on above: Order Comment: Urine received without preservative. Delays in transport may affect results. Interpret with caution. A clinical correlation is recommended. Performed By: #### U A #### [facility] ([id number]) [facility] [place] [address] VIR Ketones Ql (U) Negative Normal Negative [facility] Comment on above: Order Comment: Urine received without preservative. Delays in transport may affect results. Interpret with caution. A clinical correlation is recommended. Performed By: #### U A #### [facility] ([id number]) [facility] [place] [address] VIR Leukocyte esterase Test strip Ql (U) Negative Normal Negative [facility] Comment on above: Order Comment: Urine received without preservative. Delays in transport may affect results. Interpret with caution. A clinical correlation is recommended. Performed By: #### U A #### [facility] ([id number]) [facility] [place] [address] VIR Nitrite Ql (U) Negative Normal Negative [facility] Comment on above: Order Comment: Urine received without preservative. Delays in transport may affect results. Interpret with caution. A clinical correlation is recommended. Performed By: #### U A #### [facility] ([id number]) [facility] [place] [address] VIR PH,URINE 6.0 Normal 5.0-8.5 [facility] Comment on above: Order Comment: Urine received without preservative. Delays in transport may affect results. Interpret with caution. A clinical correlation is recommended. Performed By: #### U A #### [facility] ([id number]) [address] [place] [address] VIR Protein Ql (U) Negative Normal Negative [facility] Comment on above: Order Comment: Urine received without preservative. Delays in transport may affect results. Interpret with caution. A clinical correlation is recommended. Performed By: #### U A #### [facility] ([id number]) [address] [place] [address] VIR R.B.CELLS 1 Normal 0-5 [facility] Comment on above: Order Comment: Urine received without preservative. Delays in transport may affect results. Interpret with caution. A clinical correlation is recommended. Performed By: #### U A #### [facility] ([id number]) [facility] [place] [address] VIR Specific gravity (U) [Rel density] 1.015 Normal 1.003-1.035 [facility] Comment on above: Order Comment: Urine received without preservative. Delays in transport may affect results. Interpret with caution. A clinical correlation is recommended. Performed By: #### U A #### [facility] ([id number]) [facility] [place] [address] VIR TURBIDITY Clear Normal Clear [facility] Comment on above: Order Comment: Urine received without preservative. Delays in transport may affect results. Interpret with caution. A clinical correlation is recommended. Performed By: #### U A #### [facility] ([id number]) [address] [place] [address] VIR UROBILINOGEN 0.2 eu/dL Normal 0.2 eu/dL, 1.0 eu/dL [facility] Comment on above: Order Comment: Urine received without preservative. Delays in transport may affect results. Interpret with caution. A clinical correlation is recommended. Performed By: #### U A #### [facility] ([id number]) [address] [place] [address] VIR W.B.CELLS 0 Normal 0-5 [facility] Comment on above: Order Comment: Urine received without preservative. Delays in transport may affect results. Interpret with caution. A clinical correlation is recommended. Performed By: #### U A #### [facility] ([id number]) [address] [place] [address] VIR ECG 12 lead ECGon 09-07-2024 ECG 12 lead ECG [facility] [place] [address] [place], [place] [id number] Electrocardiograph Report Signed Patient: Marvin Suarez MR#: [id number] : 1975 Acct:[id number] Age/Sex: 49 / M ADM Date: 09/07/24 Loc: Room: [address] [place] [address] Type: ADM IN Attending Dr: Anson Sutton [...] previous ECGs available Confirmed by Kody Ley ([id number]) on 09/07/2024 8:01:49 PM Referred By: Electronically Signed By: Kody Ley Transcribed By: MUS Signed By Kody Ley MD 09/07/242000 Normal [facility] Alanine aminotransferase [En zymatic activity/volume] in Serum or PlasmaOrdered By: Franklin Anand on 09-06-2024 ALT [Catalytic activity/Vol] Alanine aminotransferase [Enzymatic activity/volume] in Serum or Plasma [facility] Albumin [Mass/volume] in Ser um or Plasma by Bromocresol green (BCG) dye binding methoOrdered By: Franklin Anand on 09-06-2024 Albumin BCG dye [Mass/Vol] Albumin [Mass/volume] in Serum or Plasma by Bromocresol green (BCG) dye binding metho 3.5-5.7 [facility] Alkaline phosphatase [Enzyma tic activity/volume] in Serum or PlasmaOrdered By: Franklin Anand on 09-06-2024 ALP [Catalytic activity/Vol] Alkaline phosphatase [Enzymatic activity/volume] in Serum or Plasma 34-104 [facility] Amphetamine Screen Ql (U)Ord ered By: PROVIDER TEMP on 09-06-2024 Amphetamines Ql (U) Amphetamines screen High Negativ e [facility] Appearance of UrineOrdered B y: Franklin Anand on 09-06-2024 Appearance (U) Urine appearance Clear [facility] Aspartate aminotransferase [ Enzymatic activity/volume] in Serum or PlasmaOrdered By: Franklin Anand on 09-06-2024 AST [Catalytic activity/Vol] Aspartate aminotransferase [Enzymatic activity/volume] in Serum or Plasma 13-39 [facility] Bacteria [Presence] in Urine by AutomatedOrdered By: Franklin Anand on 09-06-2024 Bacteria Auto Ql (U) Bacteria [Presence] in Urine by Automated None Seen [facility] Barbiturates [Presence] in U rine by Screen methodOrdered By: PROVIDER TEMP on 09-06-2024 Barbiturates Screen Ql (U) Barbiturates [Presence] in Urine by Screen method Negative [facility] Basophils Auto (Bld) [#/Vol] Ordered By: Franklin Anand on 09-06-2024 Basophils (Bld) [#/Vol] Automated basoph il count 0.0-0.2 [facility] Basophils/100 WBC Auto (Bld) Ordered By: Franklin Anand on 09-06-2024 Basophils/100 WBC (Bld) Automated basophil % . [facility] Benzodiazepines Screen Ql (U )Ordered By: PROVIDER TEMP on 09-06-2024 Benzodiazepines Ql (U) Benzodiazepines [Presence] in Urine by Screen method Negative [facility] Benzoylecgonine [Presence] i n Urine by Screen methodOrdered By: PROVIDER TEMP on 09-06-2024 Benzoylecgonine Screen Ql (U) Benzoylecgonine [Presence] in Urine by Screen method Negative [facility] Bilirubin Test strip Ql (U)O rdered By: Franklin Anand on 09-06-2024 Bilirubin Ql (U) Bilirubin.total [Presence] in Urine by Test strip Negative [facility] Bilirubin.total [Mass/volume ] in Serum or PlasmaOrdered By: Franklin Anand on 09-06-2024 Bilirubin [Mass/Vol] Bilirubin.total [Mass/volume] in Serum or Plasma 0.3-1.0 [facility] Calcium [Mass/volume] in Ser um or PlasmaOrdered By: Franklin Anand on 09-06-2024 Calcium [Mass/Vol] Calcium [Mass/volume ] in Serum or Plasma 8.6-10.3 [facility] Cannabinoids [Presence] in U rine by Screen methodOrdered By: KOURTNEY MARCELINO on 09-06-2024 Cannabinoids Screen Ql (U) Cannabinoids [Presence] in Urine by Screen method Negative [facility] Comment on above: These are unconfirme d [...] l [Moles/volume] in Serum or Plasma 21.0-31.0 [facility] Chloride [Moles/volume] in S darrel or PlasmaOrdered By: Franklin Anand on 09-06-2024 Chloride [Moles/Vol] Chloride [Moles/volume] in Serum or Plasma 98-107 [facility] Cholesterol [Mass/volume] in Serum or PlasmaOrdered By: Anson Sutton on 09-06-2024 Cholesterol [Mass/Vol] Cholesterol [Mass/volume] in Serum or Plasma 140-200 [facility] Comment on above: Chol less than 200 m g/dl low riskChol 201-239 mg/dl borderline riskChol 240 mg/dl and greater high risk Cholesterol in HDL [Mass/vol ume] in Serum or PlasmaOrdered By: Anson Sutton on 09-06-2024 Cholesterol in HDL [Mass/Vol] Serum or plasma high density lipoprotein (HDL) cholesterol measurement 23-92 [facility] Comment on above: HDL CHOL ATP-III CLA SSIFICATION Cardiovascular RiskHDL > or equal to 60 mg/dL LOWHDL < 40 mg/dL HIGH Cholesterol in LDL Calc [Mas s/Vol]Ordered By: Anson Sutton on 09-06-2024 Cholesterol in LDL [Mass/Vol] Cholesterol in LDL [Mass/volume] in Serum or Plasma by calculation High 0-100 [facility] Comment on above: LDL ATP III CLASSIFI CATIONLDL less than 100 mg/dL OptimalLDL 100-129 mg/dL Near or above optimalLDL 130-159 mg/dL Borderline highLDL 160-189 mg/dL HighLDL greater than 189 mg/dL Very high Cholesterol in VLDL Calc [Ma ss/Vol]Ordered By: Anson Sutton on 09-06-2024 Cholesterol in VLDL [Mass/Vol] Cholesterol in VLDL [Mass/volume] in Serum or Plasma by calculation [facility] Color Auto (U)Ordered By: Alexis Anand on 09-06-2024 Color (U) Color of Urine by Auto Yellow [facility] Comprehensive Metabolic Pane nadir 09-06-2024 Albumin [Mass/Vol] 4.4 g/dL Normal 3.5-5.7 [facility] Comment on above: Performed By: #### C MP, ETOH, SCAN CBC #### [facility] [address] Albumin/Globulin [Mass ratio] 1.5 {ratio} Normal [facility] Comment on above: Performed By: #### C MP, ETOH, SCAN CBC #### [facility] [address] [place] [id number] [place] ALP [Catalytic activity/Vol] 64 U/L Normal 34-104 [facility] Comment on above: Performed By: #### C MP, ETOH, SCAN CBC #### [facility] [address] [place] [phone] [place] ALT [Catalytic activity/Vol] 14 U/L Normal 7-52 [facility] Comment on above: Performed By: #### C MP, ETOH, SCAN CBC #### [facility] [address] [place] [phone] [place] Anion gap [Moles/Vol] 12.8 mmol/L Normal 6.0-15.0 [facility] Comment on above: Performed By: #### C MP, ETOH, SCAN CBC #### [facility] [address] [place] [address] [place] AST [Catalytic activity/Vol] 18 U/L Normal 13-39 [facility] Comment on above: Performed By: #### C MP, ETOH, SCAN CBC #### [facility] [address] [place] [address] [place] Bilirubin [Mass/Vol] 0.7 mg/dL Normal 0.3-1.0 [facility] Comment on above: Performed By: #### C MP, ETOH, SCAN CBC #### [facility] [address] [place] [address] [place] Calcium [Mass/Vol] 9.3 mg/dL Normal 8.6-10.3 [facility] Comment on above: Performed By: #### C MP, ETOH, SCAN CBC #### [place] [address] [place] Chloride [Moles/Vol] 104 mmol/L Normal 98-107 [facility] Comment on above: Performed By: #### C MP, ETOH, SCAN CBC #### [place] [address] [place] CO2 [Moles/Vol] 28.1 mmol/L Normal 21.0-31.0 [facility] Comment on above: Performed By: #### C MP, ETOH, SCAN CBC #### [facility] [address] [place] [address] [place] Creatinine [Mass/Vol] 1.20 mg/dL Normal 0.70-1.30 [facility] Comment on above: Performed By: #### C MP, ETOH, SCAN CBC #### [place] [address] [place] Creatinine Clr Calc Pharmacy 75.84 Normal [facility] Comment on above: Result Comment: PERF ORMED BY: [place] [address] PATHOLOGIST AUDITOR/QUALITY CAROLYN HECK M.D. Performed By: #### C MP, ETOH, SCAN CBC #### [facility] [address] [place] [address] [place] GFR/1.73 sq M.predicted MDRD (S/P/Bld) [Vol rate/Area] mL/min/{1.73_m2} Normal [facility] Comment on above: Performed By: #### C MP, ETOH, SCAN CBC #### [facility] [address] [place] [address] [place] Globulin (S) [Mass/Vol] 2.9 g/dL Normal [facility] Comment on above: Performed By: #### C MP, ETOH, SCAN CBC #### [address] Glucose [Mass/Vol] 97 mg/dL Significant change down 70-100 [facility] Comment on above: Result Comment: [facility] Glucose Reference Range is dependent on time and content of last meal. Glucose of more than 200 mg/dL in a nonstressed, ambulatory subject supports the diagnosis of Diabetes Mellitus. ADA recommended reference range Performed By: #### C MP, ETOH, SCAN CBC #### [address] Potassium [Moles/Vol] 3.9 mmol/L Normal 3.5-5.1 [facility] Comment on above: Performed By: #### C MP, ETOH, SCAN CBC #### [place] [address] [place] Protein [Mass/Vol] 7.3 g/dL Normal 6.4-8.9 [facility] Comment on above: Performed By: #### C MP, ETOH, SCAN CBC #### [facility] [address] [place] [address] [place] Sodium [Moles/Vol] 141 mmol/L Normal 136-145 [facility] Comment on above: Performed By: #### C MP, ETOH, SCAN CBC #### [facility] [address] [place] [address] [place] Urea nitrogen [Mass/Vol] 13 mg/dL Normal 7-25 [facility] Comment on above: Performed By: #### C MP, ETOH, SCAN CBC #### [facility] [address] [place] [phone] [place] Creatinine [Mass/volume] in Serum or PlasmaOrdered By: Franklin Anand on 09-06-2024 Creatinine [Mass/Vol] Creatinine [Mass/volume] in Serum or Plasma 0.70-1.30 [facility] Dipstick and Microscopicon 0 09-06-2024 Appearance (U) Clear Normal Clear [facility] Comment on above: Order Comment: Name Collection Type:: Clean-Voided Midstream Performed By: #### U RDS, ADDONUAPLUS #### [facility] [address] [place] [address] [place] Bacteria,Urine None Seen Normal None Seen [facility] Comment on above: Order Comment: Name Collection Type:: Clean-Voided Midstream Performed By: #### U RDS, ADDONUAPLUS #### [place] [address] [place] Bilirubin,Urine Negative Normal Negative [facility] Comment on above: Order Comment: Name Collection Type:: Clean-Voided Midstream Performed By: #### U RDS, ADDONUAPLUS #### [place] [address] [place] Color (U) Yellow Normal Yellow [facility] Comment on above: Order Comment: Name Collection Type:: Clean-Voided Midstream Performed By: #### U RDS, ADDONUAPLUS #### [facility] [address] [place], [place] [id number] [place] Glucose Ql (U) Normal Normal Normal [facility] Comment on above: Order Comment: Name Collection Type:: Clean-Voided Midstream Performed By: #### U RDS, ADDONUAPLUS #### [facility] [address] [place] [phone] [place] Hyaline Casts,Urine None Normal 0-8 [facility] Comment on above: Order Comment: Name Collection Type:: Clean-Voided Midstream Performed By: #### U RDS, ADDONUAPLUS #### [facility] [address] [place] [phone] [place] Ketones Ql (U) Negative Normal Negative [facility] Comment on above: Order Comment: Name Collection Type:: Clean-Voided Midstream Performed By: #### U RDS, ADDONUAPLUS #### [address] Leukocyte esterase Test strip Ql (U) Negative Normal Negative [facility] Comment on above: Order Comment: Name Collection Type:: Clean-Voided Midstream Performed By: #### U RDS, ADDONUAPLUS #### [place] [address] [place] Mucus,Urine 1+ Critically abnormal [facility] Comment on above: Order Comment: Name Collection Type:: Clean-Voided Midstream Result Comment: PERF ORMED BY: [place] [address] PATHOLOGIST AUDITOR/QUALITY CAROLYN HECK M.D. Performed By: #### U RDS, ADDONUAPLUS #### [address] Nitrite,Urine Negative Normal Negative [facility] Comment on above: Order Comment: Name Collection Type:: Clean-Voided Midstream Performed By: #### U RDS, ADDONUAPLUS #### [place] [address] [place] Occult Blood,Urine 2+ High Negative [facility] Comment on above: Order Comment: Name Collection Type:: Clean-Voided Midstream Result Comment: PERF ORMED BY: [place] [address] PATHOLOGIST AUDITOR/QUALITY CAROLYN HECK M.D. Performed By: #### U RDS, ADDONUAPLUS #### [place] [address] [place] pH (U) 5.5 [pH] Normal 5.0-9.0 [facility] Comment on above: Order Comment: Name Collection Type:: Clean-Voided Midstream Performed By: #### U RDS, ADDONUAPLUS #### [place] [address] [place] Protein (U) [Mass/Vol] 30 mg/dL High Negative [facility] Comment on above: Order Comment: Name Collection Type:: Clean-Voided Midstream Performed By: #### U RDS, ADDONUAPLUS #### [facility] [address] [place] [address] [place] RBC,Urine Innumerable High 0-4 [facility] Comment on above: Order Comment: Name Collection Type:: Clean-Voided Midstream Performed By: #### U RDS, ADDONUAPLUS #### [place] [address] [place] Specificy [place],Urine 1.030 Normal 1.001-1.030 [facility] Comment on above: Order Comment: Name Collection Type:: Clean-Voided Midstream Performed By: #### U RDS, ADDONUAPLUS #### [address] Urobilinogen,Urine Normal Normal Normal [facility] Comment on above: Order Comment: Name Collection Type:: Clean-Voided Midstream Performed By: #### U RDS, ADDONUAPLUS #### [place] [address] [place] WBC,Urine 10-19 High 0-4 [facility] Comment on above: Order Comment: Name Collection Type:: Clean-Voided Midstream Performed By: #### U RDS, ADDONUAPLUS #### [place] [address] [place] Drug Screen,Urineon 09-07-19 25 Amphetamine Screen,Urine Positive High Negative [facility] Comment on above: Performed By: #### U RDS, ADDONUAPLUS #### [place] [address] [place] Barbiturate Screen,Urine Negative Normal Negative [facility] Comment on above: Performed By: #### U RDS, ADDONUAPLUS #### [place] [address] [place] Benzodiazepines Screen,Urine Negative Normal Negative [facility] Comment on above: Performed By: #### U RDS, ADDONUAPLUS #### [place] [address] [place] Cannabinoid Screen,Urine Negative Normal Negative [facility] Comment on above: Result Comment: Thes e are unconfirmed results and should not be used for legal purposes. Drug Cut-Off Concentration: AMPH 1000 ng/mL AMEE 200 ng/mL BETITO 200 ng/mL COCM 300 ng/mL OP 300 ng/mL PCP 25 ng/mL THC 20 ng/mL PERFORMED BY: [place] [address] PATHOLOGIST AUDITOR/QUALITY CAROLYN HECK M.D. Performed By: #### U RDS, ADDONUAPLUS #### [address] Cocaine Screen,Urine Negative Normal Negative [facility] Comment on above: Performed By: #### U RDS, ADDONUAPLUS #### [address] Opiate Screen,Urine Negative Normal Negative [facility] Comment on above: Performed By: #### U RDS, ADDONUAPLUS #### [address] Phencyclidine Screen,Urine Negative Normal Negative [facility] Comment on above: Performed By: #### U RDS, ADDONUAPLUS #### [address] Eosinophils Auto (Bld) [#/Vo l]Ordered By: Franklin Anand on 09-06-2024 Eosinophils (Bld) [#/Vol] Automated eosinophil count 0.0-0.45 [facility] Eosinophils/100 WBC Auto (Bl d)Ordered By: Franklin Anand on 09-06-2024 Eosinophils/100 WBC (Bld) Automated eosinophil % . [facility] Epithelial cells.squamous [# /area] in Urine sediment by Automated countOrdered By: KOURTNEY MARCELINO on 09-06-2024 Epithelial cells.squamous Auto (Urine sed) [#/Area] Epithelial cells.squamous [#/area] in Urine sediment by Automated count [facility] Erythrocyte distribution wid th Auto (RBC) [Ratio]Ordered By: Franklin Anand on 09-06-2024 Erythrocyte distribution width (RBC) [Ratio] Erythrocyte distribution width [Ratio] by Automated count High 12.0-14.8 [facility] Erythrocyte morphology findi ng [Identifier] in BloodOrdered By: Franklin Anand on 09-06-2024 RBC morphology finding Nom (Bld) RBC morphology Normal [facility] Erythrocytes [#/area] in Uri ne sediment by Automated countOrdered By: Franklin Anand on 09-06-2024 RBC Auto (Urine sed) [#/Area] Erythrocytes [#/area] in Urine sediment by Automated count High 0-4 [facility] Ethanol [Mass/volume] in Ser um or PlasmaOrdered By: Franklin Anand on 09-06-2024 Ethanol [Mass/Vol] Ethanol [Mass/volume ] in Serum or Plasma [facility] Comment on above: Test not performed Ethyl Alcohol Profileon Ethanol [Mass/Vol] mg/dL Normal [facility] Comment on above: Performed By: #### C MP, ETOH, SCAN CBC #### [facility] [address] Percent Ethanol Not performed Normal [facility] Comment on above: Result Comment: PERF ORMED BY: [place] [address] PATHOLOGIST AUDITOR/QUALITY CAROLYN HECK M.D. Performed By: #### C MP, ETOH, SCAN CBC #### [facility] [address] [place] [address] Globulin Calc (S) [Mass/Vol] Ordered By: Franklin Anand on 09-06-2024 Globulin (S) [Mass/Vol] Serum globulin measurement by calculation (mass/volume) [facility] Glucose [Mass/volume] in Ser um or PlasmaOrdered By: Franklin Anand on 09-06-2024 Glucose [Mass/Vol] Glucose [Mass/volume ] in Serum or Plasma Significant change down 70-100 [facility] Comment on above: Delta: 255 on 25-2338ADA [...] [Mass/volume] in Urine by Test strip Normal [facility] Hematocrit Auto (Bld) [Volum e fraction]Ordered By: Franklin Anand on 09-06-2024 Hematocrit (Bld) [Volume fraction] Hematocrit [Volume Fraction] of Blood by Automated count High 38.8-50.0 [facility] Hemoglobin Test strip Ql (U) Ordered By: Franklin Anand on 09-06-2024 Hemoglobin Ql (U) Hemoglobin [Presence ] in Urine by Test strip High Negative [facility] Hemoglobin [Mass/volume] in BloodOrdered By: Franklin Anand on 09-06-2024 Hemoglobin (Bld) [Mass/Vol] Hemoglobin [Mass/volume] in Blood High 13.0-17.0 [facility] Hyaline casts [#/area] in Ur ine sediment by Automated countOrdered By: Franklin Anand on 09-06-2024 Hyaline casts Auto (Urine sed) [#/Area] Hyaline casts [#/area] in Urine sediment by Automated count 0-8 [facility] Ketones Test strip Ql (U)Ord ered By: Franklin Anand on 09-06-2024 Ketones Ql (U) Ketones [Presence] i n Urine by Test strip Negative [facility] Leukocyte esterase [Presence ] in Urine by Test stripOrdered By: Franklin Anand on 09-06-2024 Leukocyte esterase Test strip Ql (U) Leukocyte esterase [Presence] in Urine by Test strip Negative [facility] Leukocytes [#/area] in Urine sediment by Automated countOrdered By: Franklin Anand on 09-06-2024 WBC Auto (Urine sed) [#/Area] Leukocytes [#/area] in Urine sediment by Automated count High 0-4 [facility] Leukocytes [#/volume] correc leeroy for nucleated erythrocytes in Blood by Automated counOrdered By: Franklin Anand on 09-06-2024 WBC corrected for nucl RBC Auto (Bld) [#/Vol] Leukocytes [#/volume] corrected for nucleated erythrocytes in Blood by Automated coun High 4.1-10.5 [facility] Lipid Panelon 09-06-2024 Cholesterol [Mass/Vol] 180 mg/dL Normal 140-200 [facility] Comment on above: Order Comment: Comme nt use ER blood Result Comment: Chol less than 200 mg/dl low risk Chol 201-239 mg/dl borderline risk Chol 240 mg/dl and greater high risk Performed By: #### B MP, CBC, LIPASE, HEPATIC #### [facility] [address] [place] [phone] [place] Cholesterol in HDL [Mass/Vol] 37 mg/dL Normal 23-92 [facility] Comment on above: Order Comment: Comme nt use ER blood Result Comment: HDL CHOL ATP-III CLASSIFICATION Cardiovascular Risk HDL > or equal to 60 mg/dL LOW HDL < 40 mg/dL HIGH Performed By: #### B MP, CBC, LIPASE, HEPATIC #### [facility] [address] [place] [address] [place] Cholesterol.total/Cecilia sterol in HDL [Mass ratio] 4.9 {ratio} Normal <5.0 [facility] Comment on above: Order Comment: Comme nt use ER blood Performed By: #### B MP, CBC, LIPASE, HEPATIC #### [facility] [address] [place] [phone] [place] LDL Cholesterol,Calculated 111 mg/dL High 0-100 [facility] Comment on above: Order Comment: Comme nt use ER blood Result Comment: LDL ATP III CLASSIFICATION LDL less than 100 mg/dL Optimal LDL 100-129 mg/dL Near or above optimal LDL 130-159 mg/dL Borderline high LDL 160-189 mg/dL High LDL greater than 189 mg/dL Very high Performed By: #### B MP, CBC, LIPASE, HEPATIC #### [facility] [address] [place] [address] [place] Triglyceride w/Reflex 162 mg/dL High 0-149 [facility] Comment on above: Order Comment: Comme nt use ER blood Result Comment: TRIG ATP III CLASSIFICATION TRIG less than 150 mg/dL Normal TRIG 150-199 mg/dL Borderline high TRIG 200-500 mg/dL High TRIG greater than 500 mg/dL Very high Standard traceable to the Center for Disease Conrtrol and Prevention (CDC) test method. Performed By: #### B MP, CBC, LIPASE, HEPATIC #### [facility] [address] VLDL CHOLESTEROL 32 mg/dL Normal [facility] Comment on above: Order Comment: Comme nt use ER blood Performed By: #### B MP, CBC, LIPASE, HEPATIC #### [facility] [address] [place] [id number] [place] Lymphocytes Auto (Bld) [#/Vo l]Ordered By: Franklin Anand on 09-06-2024 Lymphocytes (Bld) [#/Vol] Lymphocytes [#/volume] in Blood by Automated count 1.00-4.8 [facility] Lymphocytes/100 WBC Auto (Bl d)Ordered By: Franklin Anand on 09-06-2024 Lymphocytes/100 WBC (Bld) Lymphocytes/100 leukocytes in Blood by Automated count . [facility] MCH Auto (RBC) [Entitic mass ]Ordered By: Franklin Anand on 09-06-2024 MCH (RBC) [Entitic mass] MCH [Entitic mass] by Automated count Low 27.5-35.2 [facility] MCHC Auto (RBC) [Mass/Vol]Or dered By: Franklin Anand on 09-06-2024 MCHC (RBC) [Mass/Vol] MCHC [Mass/volume] by Automated count Low 32.5-35.6 [facility] MCV Auto (RBC) [Entitic vol] Ordered By: Franklin Anand on 09-06-2024 MCV (RBC) [Entitic vol] MCV [Entitic vol ume] by Automated count Low 83.5-101 [facility] Monocyte distribution width [Entitic volume] in Blood by AutomatedOrdered By: Franklin Anand on 09-06-2024 Monocyte distribution width Auto (Bld) [Entitic vol] Monocyte distribution width [Entitic volume] in Blood by Automated 0.00-20.00 [facility] Monocytes Auto (Bld) [#/Vol] Ordered By: Franklin Anand on 09-06-2024 Monocytes (Bld) [#/Vol] Automated blood monocyte count High 0.0-0.8 [facility] Monocytes/100 WBC Auto (Bld) Ordered By: Franklin Anand on 09-06-2024 Monocytes/100 WBC (Bld) Automated monocyte % . [facility] Mucus [Presence] in Urine by AutomatedOrdered By: Franklin Anand on 09-06-2024 Mucus Auto Ql (U) Mucus [Presence] in Urine by Automated Abnormal [facility] Neutrophils Auto (Bld) [#/Vo l]Ordered By: Franklin Anand on 09-06-2024 Neutrophils (Bld) [#/Vol] Neutrophils [#/volume] in Blood by Automated count 1.8-7.7 [facility] Neutrophils/100 WBC Auto (Bl d)Ordered By: Franklin Anand on 09-06-2024 Neutrophils/100 WBC (Bld) Automated neutrophil % . [facility] Nitrite Test strip Ql (U)Ord ered By: Franklin Anand on 09-06-2024 Nitrite Ql (U) Nitrite [Presence] i n Urine by Test strip Negative [facility] No Panel InformationOrdered By: Fraknlin Anand on 09-06-2024 Estimated GFR (CKD-EPI) > 60.0 mL/Min [facility] Creatinine Clearance (Chem 75.84 [facility] Nucleated erythrocytes [Pres ence] in Blood by Automated countOrdered By: Franklin Anand on 09-06-2024 Nucleated RBC Auto Ql (Bld) Nucleated erythrocytes [Presence] in Blood by Automated count 0-0.5 [facility] Opiates [Presence] in Urine by Screen methodOrdered By: PROVIDER TEMP on 09-06-2024 Opiates Screen Ql (U) Opiates [Presence] in Urine by Screen method Negative [facility] Phencyclidine Screen Ql (U)O rdered By: PROVIDER TEMP on 09-06-2024 Phencyclidine Ql (U) Phencyclidine [Presence] in Urine by Screen method Negative [facility] Platelet adequacy [Presence] in Blood by Light microscopyOrdered By: Franklin Anand on 09-06-2024 Platelets LM Ql (Bld) Platelet adequacy [Presence] in Blood by Light microscopy Normal [facility] Platelet mean volume Auto (B ld) [Entitic vol]Ordered By: Franklin Anand on 09-06-2024 Platelet mean volume (Bld) [Entitic vol] Platelet mean volume [Entitic volume] in Blood by Automated count 6.6-10.1 [facility] Platelet morphology finding [Identifier] in BloodOrdered By: Franklin Anand on 09-06-2024 Platelet morphology finding Nom (Bld) Platelet morphology finding [Identifier] in Blood Normal [facility] Platelets Auto (Bld) [#/Vol] Ordered By: Franklin Anand on 09-06-2024 Platelets (Bld) [#/Vol] Platelets [#/vol ume] in Blood by Automated count 150-450 [facility] Potassium [Moles/volume] in Serum or PlasmaOrdered By: Franklin Anand on 09-06-2024 Potassium [Moles/Vol] Potassium [Moles/volume] in Serum or Plasma 3.5-5.1 [facility] Protein Test strip (U) [Mass /Vol]Ordered By: Franklin Anand on 09-06-2024 Protein (U) [Mass/Vol] Protein [Mass/vol ume] in Urine by Test strip High Negative [facility] Protein [Mass/volume] in Ser um or PlasmaOrdered By: Franklin Anand on 09-06-2024 Protein [Mass/Vol] Protein [Mass/volume ] in Serum or Plasma 6.4-8.9 [facility] RBC Auto (Bld) [#/Vol]Ordere d By: Franklin Anand on 09-06-2024 RBC (Bld) [#/Vol] Erythrocytes [#/volume] in Blood by Automated count High 3.90-5.60 [facility] Scan and CBCon 09-06-2024 Basophils (Bld) [#/Vol] 0.1 10*3/uL Normal 0.0-0.2 [facility] Comment on above: Performed By: #### C MP, ETOH, SCAN CBC #### [facility] [address] [place] [address] [place] Basophils/100 WBC (Bld) 0.8 % Normal . [facility] Comment on above: Performed By: #### C MP, ETOH, SCAN CBC #### [facility] [address] [place] [id number] [place] Eosinophils (Bld) [#/Vol] 0.4 10*3/uL Normal 0.0-0.45 [facility] Comment on above: Performed By: #### C MP, ETOH, SCAN CBC #### [address] Eosinophils/100 WBC (Bld) 3.3 % Normal . [facility] Comment on above: Performed By: #### C MP, ETOH, SCAN CBC #### [address] Erythrocyte distribution width (RBC) [Ratio] 15.3 % High 12.0-14.8 [facility] Comment on above: Performed By: #### C MP, ETOH, SCAN CBC #### [address] Hematocrit (Bld) [Volume fraction] 53.5 % High 38.8-50.0 [facility] Comment on above: Performed By: #### C MP, ETOH, SCAN CBC #### [address] Hemoglobin (Bld) [Mass/Vol] 17.3 g/dL High 13.0-17.0 [facility] Comment on above: Performed By: #### C MP, ETOH, SCAN CBC #### [address] Lymphocytes (Bld) [#/Vol] 4.6 10*3/uL Normal 1.00-4.8 [facility] Comment on above: Performed By: #### C MP, ETOH, SCAN CBC #### [address] Lymphocytes/100 WBC (Bld) 41.5 % Normal . [facility] Comment on above: Performed By: #### C MP, ETOH, SCAN CBC #### [address] MCH (RBC) [Entitic mass] 26.8 pg Low 27.5-35.2 [facility] Comment on above: Performed By: #### C MP, ETOH, SCAN CBC #### [address] MCV (RBC) [Entitic vol] 83.1 fL Low 83.5-101 [facility] Comment on above: Performed By: #### C MP, ETOH, SCAN CBC #### [address] Mean Corpuscular HGB Conc 32.2 g/dL Low 32.5-35.6 [facility] Comment on above: Performed By: #### C MP, ETOH, SCAN CBC #### [address] Monocytes (Bld) [#/Vol] 0.9 10*3/uL High 0.0-0.8 [facility] Comment on above: Performed By: #### C MP, ETOH, SCAN CBC #### [address] Monocytes/100 WBC (Bld) 18.26 % Normal 0.00-20.00 [facility] Comment on above: Performed By: #### C MP, ETOH, SCAN CBC #### [address] Monocytes/100 WBC (Bld) 8.5 % Normal . [facility] Comment on above: Performed By: #### C MP, ETOH, SCAN CBC #### [address] Neutrophils (Bld) [#/Vol] 5.1 10*3/uL Normal 1.8-7.7 [facility] Comment on above: Performed By: #### C MP, ETOH, SCAN CBC #### [address] Neutrophils/100 WBC (Bld) 45.9 % Normal . [facility] Comment on above: Performed By: #### C MP, ETOH, SCAN CBC #### [address] NRBC% 0.3 /100{WBC} Normal 0-0.5 [facility] Comment on above: Performed By: #### C MP, ETOH, SCAN CBC #### [address] Platelet Estimate Normal Normal Normal [facility] Comment on above: Performed By: #### C MP, ETOH, SCAN CBC #### [address] Platelet mean volume (Bld) [Entitic vol] 8.3 fL Normal 6.6-10.1 [facility] Comment on above: Performed By: #### C MP, ETOH, SCAN CBC #### [address] Platelet Morphology Normal Normal Normal [facility] Comment on above: Result Comment: PERF ORMED BY: [place] [address] PATHOLOGIST AUDITOR/QUALITY CAROLYN HECK M.D. Performed By: #### C MP, ETOH, SCAN CBC #### [address] Platelets (Bld) [#/Vol] 270 10*3/uL Normal 150-450 [facility] Comment on above: Performed By: #### C MP, ETOH, SCAN CBC #### [address] RBC (Bld) [#/Vol] 6.45 10*6/uL High 3.90-5.60 [facility] Comment on above: Performed By: #### C MP, ETOH, SCAN CBC #### [address] RBC morphology finding Nom (Bld) Normal Normal Normal [facility] Comment on above: Performed By: #### C MP, ETOH, SCAN CBC #### [address] WBC (Bld) [#/Vol] 11.1 10*3/uL High 4.1-10.5 [facility] Comment on above: Performed By: #### C MP, ETOH, SCAN CBC #### [address] Serum or plasma albumin/glob ulin mass ratioOrdered By: Franklin Anand on 09-06-2024 Albumin/Globulin [Mass ratio] Serum or plasma albumin/globulin mass ratio [facility] Serum or plasma anion gap de terminationOrdered By: Franklin Anand on 09-06-2024 Anion gap [Moles/Vol] Serum or plasma an ion gap determination 6.0-15.0 [facility] Serum or plasma total choles terol/high density lipoprotein (HDL) cholesterol mass ratOrdered By: Anson Sutton on 09-06-2024 Cholesterol.total/Cecilia sterol in HDL [Mass ratio] Serum or plasma total cholesterol/high density lipoprotein (HDL) cholesterol mass rat <5.0 [facility] Sodium [Moles/volume] in Ser um or PlasmaOrdered By: Franklin Anand on 09-06-2024 Sodium [Moles/Vol] Sodium [Moles/volume ] in Serum or Plasma 136-145 [facility] Specific gravity Test strip (U) [Rel density]Ordered By: Franklin Anand on 09-06-2024 Specific gravity (U) [Rel density] Specific gravity of Urine by Test strip 1.001-1.030 [facility] Thyroid Stim Hormone w/Rflxo n 09-06-2024 Thyroid Stim Hormone w/Rflx 2.94 u[iU]/mL Normal 0.45-5.33 [facility] Comment on above: Order Comment: Comme nt use ER blood Performed By: #### B MP, CBC, LIPASE, HEPATIC #### [address] Thyrotropin [Units/volume] i n Serum or PlasmaOrdered By: Anson Sutton on 09-06-2024 TSH Qn Thyrotropin [Units/volume] in Serum or Plasma 0.45-5.33 [facility] Triglyceride [Mass/volume] i n Serum or PlasmaOrdered By: Anson Sutton on 09-06-2024 Triglyceride [Mass/Vol] Triglyceride [Mass/volume] in Serum or Plasma High 0-149 [facility] Comment on above: TRIG ATP III CLASSIF ICATIONTRIG less than 150 mg/dL NormalTRIG 150-199 mg/dL Borderline highTRIG 200-500 mg/dL High TRIG greater than 500 mg/dL Very highStandard traceable to the Center for Disease Conrtrol and Prevention (CDC) test method. Urea nitrogen [Mass/volume] in Serum or PlasmaOrdered By: Franklin Anand on 09-06-2024 Urea nitrogen [Mass/Vol] Urea nitrogen [Mass/volume] in Serum or Plasma 7-25 [facility] Urobilinogen Test strip (U) [Mass/Vol]Ordered By: Franklin Anand on 09-06-2024 Urobilinogen (U) [Mass/Vol] Urobilinogen [Mass/volume] in Urine by Test strip Normal [facility] Vitamin D 25 Hydroxy Totalon 09-06-2024 Vitamin D 25 Hydroxy Total 11.3 ng/mL Low 30-100 [facility] Comment on above: Order Comment: Comme nt use ER blood Result Comment: ETIENNE MIN D STATUS 25(OH)VITAMIN D RANGE (ng/mL) Deficient <20 Insufficient 20 to <30 Sufficient 30 to 100 Reference: Glenn Stoddard, Ronaldo MIR, et al. Evaluation,treatment, and prevention of vitamin D deficiency; an Endocrine Society clinical practice guideline. JCEM. 2010; 96(7):1911-. PERFORMED BY: [place] [address] PATHOLOGIST AUDITOR/QUALITY CAROLYN HECK M.D. Performed By: #### B MP, CBC, LIPASE, HEPATIC #### [address] Vitamin D+Metabolites [Mass/ volume] in Serum or PlasmaOrdered By: Anson Sutton on 09-06-2024 Vitamin D+Metabolites [Mass/Vol] Vitamin D+Metabolites [Mass/volume] in Serum or Plasma Low 30-100 [facility] Comment on above: VITAMIN D STATUS 25( [...] in Blood by Automated count High 4.1-10.5 [facility] pH Test strip (U)Ordered By: Franklin Anand on 09-06-2024 pH (U) pH of Urine by Test strip 5.0-9.0 [facility] Alanine aminotransferase [En zymatic activity/volume] in Serum or PlasmaOrdered By: Malia Matamoros on 09-05-2024 ALT [Catalytic activity/Vol] Alanine aminotransferase [Enzymatic activity/volume] in Serum or Plasma 7-52 [facility] Albumin [Mass/volume] in Ser um or Plasma by Bromocresol green (BCG) dye binding methoOrdered By: Malia Matamoros on 09-05-2024 Albumin BCG dye [Mass/Vol] Albumin [Mass/volume] in Serum or Plasma by Bromocresol green (BCG) dye binding metho 3.5-5.7 [facility] Alkaline phosphatase [Enzyma tic activity/volume] in Serum or PlasmaOrdered By: Malia Matamoros on 09-05-2024 ALP [Catalytic activity/Vol] Alkaline phosphatase [Enzymatic activity/volume] in Serum or Plasma 34-104 [facility] Aspartate aminotransferase [ Enzymatic activity/volume] in Serum or PlasmaOrdered By: Malia Matamoros on 09-05-2024 AST [Catalytic activity/Vol] Aspartate aminotransferase [Enzymatic activity/volume] in Serum or Plasma 13-39 [facility] Basic Metabolic Panelon 0 Anion gap [Moles/Vol] 14.2 mmol/L Normal 6.0-15.0 [facility] Comment on above: Performed By: #### B MP, CBC, LIPASE, HEPATIC #### [facility] [address] Calcium [Mass/Vol] 9.0 mg/dL Normal 8.6-10.3 [facility] Comment on above: Performed By: #### B MP, CBC, LIPASE, HEPATIC #### [facility] [address] [place] [address] [place] Chloride [Moles/Vol] 103 mmol/L Normal 98-107 [facility] Comment on above: Performed By: #### B MP, CBC, LIPASE, HEPATIC #### [facility] [address] CO2 [Moles/Vol] 27.5 mmol/L Normal 21.0-31.0 [facility] Comment on above: Performed By: #### B MP, CBC, LIPASE, HEPATIC #### [facility] [address] [place] [address] [place] Creatinine [Mass/Vol] 1.29 mg/dL Normal 0.70-1.30 [facility] Comment on above: Performed By: #### B MP, CBC, LIPASE, HEPATIC #### [place] [address] [place] Creatinine Clr Calc Pharmacy 70.24 Normal [facility] Comment on above: Performed By: #### B MP, CBC, LIPASE, HEPATIC #### [place] [address] [place] GFR/1.73 sq M.predicted MDRD (S/P/Bld) [Vol rate/Area] mL/min/{1.73_m2} Normal [facility] Comment on above: Performed By: #### B MP, CBC, LIPASE, HEPATIC #### [address] Glucose [Mass/Vol] 255 mg/dL High 70-100 [facility] Comment on above: Result Comment: [place] Glucose Reference Range is dependent on time and content of last meal. Glucose of more than 200 mg/dL in a nonstressed, ambulatory subject supports the diagnosis of Diabetes Mellitus. ADA recommended reference range Performed By: #### B MP, CBC, LIPASE, HEPATIC #### [facility] [address] [place] [address] [place] Potassium [Moles/Vol] 3.7 mmol/L Normal 3.5-5.1 [facility] Comment on above: Performed By: #### B MP, CBC, LIPASE, HEPATIC #### [place] [address] [place] Sodium [Moles/Vol] 141 mmol/L Normal 136-145 [facility] Comment on above: Performed By: #### B MP, CBC, LIPASE, HEPATIC #### [facility] [address] Urea nitrogen [Mass/Vol] 17 mg/dL Normal 7-25 [facility] Comment on above: Performed By: #### B MP, CBC, LIPASE, HEPATIC #### [facility] [address] Basophils Auto (Bld) [#/Vol] Ordered By: Malia Matamoros on 09-05-2024 Basophils (Bld) [#/Vol] Automated basoph il count 0.0-0.2 [facility] Basophils/100 WBC Auto (Bld) Ordered By: Malia Matamoros on 09-05-2024 Basophils/100 WBC (Bld) Automated basophil % . [facility] Bilirubin.direct [Mass/volum e] in Serum or PlasmaOrdered By: Malia Matamoros on 09-05-2024 Bilirubin.direct [Mass/Vol] Bilirubin.direct [Mass/volume] in Serum or Plasma Low 0.03-0.18 [facility] Comment on above: If the DBIL is less than 0.1, IBIL is not able to becalculated. Bilirubin.total [Mass/volume ] in Serum or PlasmaOrdered By: Malia Matamoros on 09-05-2024 Bilirubin [Mass/Vol] Bilirubin.total [Mass/volume] in Serum or Plasma 0.3-1.0 [facility] Calcium [Mass/volume] in Ser um or PlasmaOrdered By: Malia Matamoros on 09-05-2024 Calcium [Mass/Vol] Calcium [Mass/volume ] in Serum or Plasma 8.6-10.3 [facility] Carbon dioxide, total [Moles /volume] in Serum or PlasmaOrdered By: Malia Matamoros on 09-05-2024 CO2 [Moles/Vol] Carbon dioxide, tota l [Moles/volume] in Serum or Plasma 21.0-31.0 [facility] Chloride [Moles/volume] in S darrel or PlasmaOrdered By: Malia Matamoros on 09-05-2024 Chloride [Moles/Vol] Chloride [Moles/volume] in Serum or Plasma 98-107 [facility] Complete Blood Count Auto Di ffon 09-05-2024 Basophils (Bld) [#/Vol] 0.1 10*3/uL Normal 0.0-0.2 [facility] Comment on above: Result Comment: PERF ORMED BY: [place] [address] PATHOLOGIST AUDITOR/QUALITY CAROLYN HECK M.D. Performed By: #### B MP, CBC, LIPASE, HEPATIC #### [address] Basophils/100 WBC (Bld) 1.1 % Normal . [facility] Comment on above: Performed By: #### B MP, CBC, LIPASE, HEPATIC #### [address] Eosinophils (Bld) [#/Vol] 0.2 10*3/uL Normal 0.0-0.45 [facility] Comment on above: Performed By: #### B MP, CBC, LIPASE, HEPATIC #### [address] Eosinophils/100 WBC (Bld) 1.8 % Normal . [facility] Comment on above: Performed By: #### B MP, CBC, LIPASE, HEPATIC #### [address] Erythrocyte distribution width (RBC) [Ratio] 15.5 % High 12.0-14.8 [facility] Comment on above: Performed By: #### B MP, CBC, LIPASE, HEPATIC #### [address] Hematocrit (Bld) [Volume fraction] 50.4 % High 38.8-50.0 [facility] Comment on above: Performed By: #### B MP, CBC, LIPASE, HEPATIC #### [address] Hemoglobin (Bld) [Mass/Vol] 16.4 g/dL Normal 13.0-17.0 [facility] Comment on above: Performed By: #### B MP, CBC, LIPASE, HEPATIC #### [address] Lymphocytes (Bld) [#/Vol] 3.2 10*3/uL Normal 1.00-4.8 [facility] Comment on above: Performed By: #### B MP, CBC, LIPASE, HEPATIC #### [address] Lymphocytes/100 WBC (Bld) 27.9 % Normal . [facility] Comment on above: Performed By: #### B MP, CBC, LIPASE, HEPATIC #### [address] MCH (RBC) [Entitic mass] 26.9 pg Low 27.5-35.2 [facility] Comment on above: Performed By: #### B MP, CBC, LIPASE, HEPATIC #### [address] MCV (RBC) [Entitic vol] 82.8 fL Low 83.5-101 [facility] Comment on above: Performed By: #### B MP, CBC, LIPASE, HEPATIC #### [address] Mean Corpuscular HGB Conc 32.5 g/dL Normal 32.5-35.6 [facility] Comment on above: Performed By: #### B MP, CBC, LIPASE, HEPATIC #### [address] Monocytes (Bld) [#/Vol] 0.9 10*3/uL High 0.0-0.8 [facility] Comment on above: Performed By: #### B MP, CBC, LIPASE, HEPATIC #### [address] Monocytes/100 WBC (Bld) 16.39 % Normal 0.00-20.00 [facility] Comment on above: Performed By: #### B MP, CBC, LIPASE, HEPATIC #### [address] Monocytes/100 WBC (Bld) 7.8 % Normal . [facility] Comment on above: Performed By: #### B MP, CBC, LIPASE, HEPATIC #### [address] Neutrophils (Bld) [#/Vol] 7.0 10*3/uL Normal 1.8-7.7 [facility] Comment on above: Performed By: #### B MP, CBC, LIPASE, HEPATIC #### [address] Neutrophils/100 WBC (Bld) 61.4 % Normal . [facility] Comment on above: Performed By: #### B MP, CBC, LIPASE, HEPATIC #### [address] NRBC% 0.1 /100{WBC} Normal 0-0.5 [facility] Comment on above: Performed By: #### B MP, CBC, LIPASE, HEPATIC #### [address] Platelet mean volume (Bld) [Entitic vol] 8.0 fL Normal 6.6-10.1 [facility] Comment on above: Performed By: #### B MP, CBC, LIPASE, HEPATIC #### [address] Platelets (Bld) [#/Vol] 237 10*3/uL Normal 150-450 [facility] Comment on above: Performed By: #### B MP, CBC, LIPASE, HEPATIC #### [address] RBC (Bld) [#/Vol] 6.09 10*6/uL High 3.90-5.60 [facility] Comment on above: Performed By: #### B MP, CBC, LIPASE, HEPATIC #### [address] WBC (Bld) [#/Vol] 11.4 10*3/uL High 4.1-10.5 [facility] Comment on above: Performed By: #### B MP, CBC, LIPASE, HEPATIC #### [facility] [address] Creatinine [Mass/volume] in Serum or PlasmaOrdered By: Malia Matamoros on 09-05-2024 Creatinine [Mass/Vol] Creatinine [Mass/volume] in Serum or Plasma 0.70-1.30 [facility] Eosinophils Auto (Bld) [#/Vo l]Ordered By: Malia Matamoros on 09-05-2024 Eosinophils (Bld) [#/Vol] Automated eosinophil count 0.0-0.45 [facility] Eosinophils/100 WBC Auto (Bl d)Ordered By: Malia Matamoros on 09-05-2024 Eosinophils/100 WBC (Bld) Automated eosinophil % . [facility] Erythrocyte distribution wid th Auto (RBC) [Ratio]Ordered By: Malia Matamoros on 09-05-2024 Erythrocyte distribution width (RBC) [Ratio] Erythrocyte distribution width [Ratio] by Automated count High 12.0-14.8 [facility] Globulin Calc (S) [Mass/Vol] Ordered By: Malia Matamoros on 09-05-2024 Globulin (S) [Mass/Vol] Serum globulin measurement by calculation (mass/volume) [facility] Glucose [Mass/volume] in Ser um or PlasmaOrdered By: Malia Matamoros on 09-05-2024 Glucose [Mass/Vol] Glucose [Mass/volume ] in Serum or Plasma High 70-100 [facility] Comment on above: ADA recommended refe rence rangeRandom Glucose Reference Range is dependent on time and content of last meal. Glucose of more than 200 mg/dL in a nonstressed, ambulatory subject supports the diagnosis of Diabetes Mellitus. Hematocrit Auto (Bld) [Volum e fraction]Ordered By: Malia Matamoros on 09-05-2024 Hematocrit (Bld) [Volume fraction] Hematocrit [Volume Fraction] of Blood by Automated count High 38.8-50.0 [facility] Hemoglobin [Mass/volume] in BloodOrdered By: Malia Matamoros on 09-05-2024 Hemoglobin (Bld) [Mass/Vol] Hemoglobin [Mass/volume] in Blood 13.0-17.0 [facility] Hepatic Panelon 09-05-2024 Albumin [Mass/Vol] 4.1 g/dL Normal 3.5-5.7 [facility] Comment on above: Performed By: #### B MP, CBC, LIPASE, HEPATIC #### [address] Albumin/Globulin [Mass ratio] 1.5 {ratio} Normal [facility] Comment on above: Performed By: #### B MP, CBC, LIPASE, HEPATIC #### [facility] [address] ALP [Catalytic activity/Vol] 62 U/L Normal 34-104 [facility] Comment on above: Performed By: #### B MP, CBC, LIPASE, HEPATIC #### [address] ALT [Catalytic activity/Vol] 13 U/L Normal 7-52 [facility] Comment on above: Performed By: #### B MP, CBC, LIPASE, HEPATIC #### [address] AST [Catalytic activity/Vol] 17 U/L Normal 13-39 [facility] Comment on above: Performed By: #### B MP, CBC, LIPASE, HEPATIC #### [address] Bilirubin [Mass/Vol] 0.3 mg/dL Normal 0.3-1.0 [facility] Comment on above: Performed By: #### B MP, CBC, LIPASE, HEPATIC #### [address] Bilirubin,Indirect 0.3 mg/dL Normal [facility] Comment on above: Performed By: #### B MP, CBC, LIPASE, HEPATIC #### [address] Bilirubin.indirect [Mass/Vol] 0.00 mg/dL Low 0.03-0.18 [facility] Comment on above: Result Comment: If t he DBIL is less than 0.1, IBIL is not able to be calculated. Performed By: #### B MP, CBC, LIPASE, HEPATIC #### [address] Globulin (S) [Mass/Vol] 2.7 g/dL Normal [facility] Comment on above: Performed By: #### B MP, CBC, LIPASE, HEPATIC #### [facility] [address] Protein [Mass/Vol] 6.8 g/dL Normal 6.4-8.9 [facility] Comment on above: Performed By: #### B MP, CBC, LIPASE, HEPATIC #### [facility] [address] Leukocytes [#/volume] correc leeroy for nucleated erythrocytes in Blood by Automated counOrdered By: Malia Matamoros on 09-05-2024 WBC corrected for nucl RBC Auto (Bld) [#/Vol] Leukocytes [#/volume] corrected for nucleated erythrocytes in Blood by Automated coun High 4.1-10.5 [facility] Lipaseon 09-05-2024 Lipase [Catalytic activity/Vol] 68.0 U/L Normal 11.0-82.0 [facility] Comment on above: Result Comment: PERF ORMED BY: [place] [address] PATHOLOGIST AUDITOR/QUALITY CAROLYN HECK M.D. Performed By: #### B MP, CBC, LIPASE, HEPATIC #### [address] Lipase [Enzymatic activity/v olume] in Serum or PlasmaOrdered By: Malia Matamoros on 09-05-2024 Lipase [Catalytic activity/Vol] Lipase [Enzymatic activity/volume] in Serum or Plasma 11.0-82.0 [facility] Lymphocytes Auto (Bld) [#/Vo l]Ordered By: Malia Matamoros on 09-05-2024 Lymphocytes (Bld) [#/Vol] Lymphocytes [#/volume] in Blood by Automated count 1.00-4.8 [facility] Lymphocytes/100 WBC Auto (Bl d)Ordered By: Malia Matamoros on 09-05-2024 Lymphocytes/100 WBC (Bld) Lymphocytes/100 leukocytes in Blood by Automated count . [facility] MCH Auto (RBC) [Entitic mass ]Ordered By: Malia Matamoros on 09-05-2024 MCH (RBC) [Entitic mass] MCH [Entitic mass] by Automated count Low 27.5-35.2 [facility] MCHC Auto (RBC) [Mass/Vol]Or dered By: Malia Matamoros on 09-05-2024 MCHC (RBC) [Mass/Vol] MCHC [Mass/volume] by Automated count 32.5-35.6 [facility] MCV Auto (RBC) [Entitic vol] Ordered By: Malia Matamoros on 09-05-2024 MCV (RBC) [Entitic vol] MCV [Entitic vol ume] by Automated count Low 83.5-101 [facility] Monocyte distribution width [Entitic volume] in Blood by AutomatedOrdered By: Malia Matamoros on 09-05-2024 Monocyte distribution width Auto (Bld) [Entitic vol] Monocyte distribution width [Entitic volume] in Blood by Automated 0.00-20.00 [facility] Monocytes Auto (Bld) [#/Vol] Ordered By: Malia Matamoros on 09-05-2024 Monocytes (Bld) [#/Vol] Automated blood monocyte count High 0.0-0.8 [facility] Monocytes/100 WBC Auto (Bld) Ordered By: Malia Matamoros on 09-05-2024 Monocytes/100 WBC (Bld) Automated monocyte % . [facility] Neutrophils Auto (Bld) [#/Vo l]Ordered By: Malia Matamoros on 09-05-2024 Neutrophils (Bld) [#/Vol] Neutrophils [#/volume] in Blood by Automated count 1.8-7.7 [facility] Neutrophils/100 WBC Auto (Bl d)Ordered By: Malia Matamoros on 09-05-2024 Neutrophils/100 WBC (Bld) Automated neutrophil % . [facility] No Panel InformationOrdered By: Malia Matamoros on 09-05-2024 Estimated GFR (CKD-EPI) > 60.0 mL/Min [facility] Creatinine Clearance (Chem 70.24 [facility] Nucleated erythrocytes [Pres ence] in Blood by Automated countOrdered By: Malia Matamoros on 09-05-2024 Nucleated RBC Auto Ql (Bld) Nucleated erythrocytes [Presence] in Blood by Automated count 0-0.5 [facility] Platelet mean volume Auto (B ld) [Entitic vol]Ordered By: Malia Matamoros on 09-05-2024 Platelet mean volume (Bld) [Entitic vol] Platelet mean volume [Entitic volume] in Blood by Automated count 6.6-10.1 [facility] Platelets Auto (Bld) [#/Vol] Ordered By: Malia Matamoros on 09-05-2024 Platelets (Bld) [#/Vol] Platelets [#/vol ume] in Blood by Automated count 150-450 [facility] Potassium [Moles/volume] in Serum or PlasmaOrdered By: Malia Matamoros on 09-05-2024 Potassium [Moles/Vol] Potassium [Moles/volume] in Serum or Plasma 3.5-5.1 [facility] Protein [Mass/volume] in Ser um or PlasmaOrdered By: Malia Matamroos on 09-05-2024 Protein [Mass/Vol] Protein [Mass/volume ] in Serum or Plasma 6.4-8.9 [facility] RBC Auto (Bld) [#/Vol]Ordere d By: Malia Matamoros on 09-05-2024 RBC (Bld) [#/Vol] Erythrocytes [#/volume] in Blood by Automated count High 3.90-5.60 [facility] Serum or plasma albumin/glob ulin mass ratioOrdered By: Malia Matamoros on 09-05-2024 Albumin/Globulin [Mass ratio] Serum or plasma albumin/globulin mass ratio [facility] Serum or plasma anion gap de terminationOrdered By: Malia Matamoros on 09-05-2024 Anion gap [Moles/Vol] Serum or plasma an ion gap determination 6.0-15.0 [facility] Serum or plasma non-glucuron idated bilirubin measurement (mass/volume)Ordered By: Malia Matamoros on 09-05-2024 Bilirubin.indirect [Mass/Vol] Serum or plasma non-glucuronidated bilirubin measurement (mass/volume) [facility] Sodium [Moles/volume] in Ser um or PlasmaOrdered By: Malia Matamoros on 09-05-2024 Sodium [Moles/Vol] Sodium [Moles/volume ] in Serum or Plasma 136-145 [facility] Urea nitrogen [Mass/volume] in Serum or PlasmaOrdered By: Malia Matamoros on 09-05-2024 Urea nitrogen [Mass/Vol] Urea nitrogen [Mass/volume] in Serum or Plasma 01-27 [facility] WBC Auto (Bld) [#/Vol]Ordere d By: Malia Matamoros on 09-05-2024 WBC (Bld) [#/Vol] Leukocytes [#/volume ] in Blood by Automated count High 4.1-10.5 [facility] Vital Signs Date Time Vital Sign Value Performing Clinician Faci lity 09-09-2024 07:30-0500 Body temperature 98.2 [degF] Malia Matamoros MD Work Phone: [facility] 09-09-2024 07:30-0500 Diastolic blood pressure 109 mm[Hg] Malia Matamoros MD Work Phone: [facility] 09-09-2024 07:30-0500 Heart rate 70 /min Malia Matamoros MD Work Phone: [facility] 09-09-2024 07:30-0500 Respiratory rate 20 /min Malia Matamoros MD Work Phone: [facility] 09-09-2024 07:30-0500 SaO2% (BldA) [Mass fraction] 96 % Malia Matamoros MD Work Phone: [facility] 09-09-2024 07:30-0500 Systolic blood pressure 168 mm[Hg] Malia Matamoros MD Work Phone: [facility] 09-07-2024 13:54-0500 Body height 165.1 cm Malia Matamoros MD Work Phone: [facility] 09-07-2024 03:24-0500 Body weight 90.46 kg Malia Matamoros MD Work Phone: [facility] 09-07-2024 00:13-0500 Body temperature 98.6 [degF] Malia Matamoros MD Work Phone: [facility] 09-07-2024 00:13-0500 Diastolic blood pressure 84 mm[Hg] Malia Matamoros MD Work Phone: [facility] 09-07-2024 00:13-0500 Heart rate 63 /min Malia Matamoros MD Work Phone: [facility] 09-07-2024 00:13-0500 Respiratory rate 20 /min Malia Matamoros MD Work Phone: [facility] 09-07-2024 00:13-0500 SaO2% (BldA) [Mass fraction] 96 % Malia Matamoros MD Work Phone: [facility] 09-07-2024 00:13-0500 Systolic blood pressure 134 mm[Hg] Malia Matamoros MD Work Phone: [facility] 09-06-2024 16:10-0500 Body height 165.1 cm Malia Matamoros MD Work Phone: [facility] 09-06-2024 16:10-0500 Body weight 91.8 kg Malia Matamoros MD Work Phone: [facility] 09-06-2024 05:00-0500 Diastolic blood pressure 71 mm[Hg] Malia Matamoros MD Work Phone: [facility] 09-06-2024 05:00-0500 Heart rate 75 /min Malia Matamoros MD Work Phone: [facility] 09-06-2024 05:00-0500 Respiratory rate 18 /min Malia Matamoros MD Work Phone: [facility] 09-06-2024 05:00-0500 SaO2% (BldA) [Mass fraction] 97 % Malia Matamoros MD Work Phone: [facility] 09-05-2024 23:24-0500 Body temperature 98.7 [degF] Malia Matamoros MD Work Phone: [facility] 09-05-2024 23:22-0500 Body height 165.1 cm Malia Matamoros MD Work Phone: [facility] 09-05-2024 23:22-0500 Body weight 91 kg Malia Matamoros MD Work Phone: [facility] Encounters Encounter Date Encounter Type Care Provider Facility Start: 12-15-2024 End: 12-15-2024 Emergency department patient visit LYNN MANZO [facility] Start: 12-14-2024 End: 12-14-2024 Emergency department patient visit NÉTSOR MURRAY [facility] Start: 12-09-2024 End: 12-14-2024 Evaluation and management of inpatient MUNIRA CHATMAN [facility] Start: 11-15-2024 End: 11-15-2024 Patient encounter procedure Leelee Centeno [facility] Start: 09-13-2024 ambulatory PHYSICIAN NO FAMILY Fac ility:[facility] Start: 09-07-2024 Non-patient / Non-visit Malia Matamoros MD Work Phone: [facility] Work Phone: Start: 09-07-2024 End: 09-09-2024 Evaluation and management of inpatient Malia Matamoros MD Work Phone: [address] Work Phone: Start: 09-05-2024 End: 09-06-2024 Emergency department patient visit Malia Matamoros MD Work Phone: [facility] Work Phone: Plan of Treatment Date Care Activity Detail Author Start: 03-06-2025 Influenza vaccination Influenza Vaccine [facility] Start: 02-13-2025 End: 02-13-2025 Patient encounter procedure 02/13/2025 4:00 PM EDT Office Visit [facility] [address] [place] [address] Sarah Angulo, [employer] OPERATOR [address] [place] [address] [facility] Start: 09-09-2024 [facility] Start: 09-07-2024 Hospital admission [facility] Start: 09-07-2024 [facility] Start: 09-06-2024 [facility] Start: 2023 Administration of varicella zoster vaccine Zoster (Shingles) Vaccine (1 of 2) [facility] Start: 1992 DTaP,Tdap and Td Vaccines (1 - Tdap) DTaP,Tdap and Td Vaccines (1 - Tdap) [facility] Start: 1991 Adult BMI Screening Adult BMI Screening [facility] Start: 1985 Depression Screening Depression Screening [facility] Start: 1985 Tobacco Screening Tobacco Screening [facility] Patient Education [facility] Work Phone: Patient referral [facility] Work Phone: Immunizations Immunization Date Immunization Notes Care Provider Fa cility 09-08-2024 influenza, seasonal, injectable, preservative free Malia Matamoros MD Work Phone: [facility] Payers Date Payer Category Payer Medicare [id number] 2024 Private Health Insurance [id number] 2024 Self-pay 2024 Medicaid [id number] 1975 Unknown [id number] 2.16. [id number] 1975 Unknown [id number] 2.16. [id number] 1975 Unknown [id number] 2.16. [id number] Unknown [id number] 2.16.8 [id number] Unknown [id number] [id number] Unknown [id number] [id number] Social History Date Type Detail Facility Start: 09-05-2024 End: 09-06-2024 Tobacco smoking status NHIS Smoker (finding) [facility] Start: 05-23-2024 End: 09-06-2024 Sex Male (finding) [facility] Start: 1975 Sex Assigned At Male F [facility] Start: 09-07-2024 Tobacco smoking status NHIS Current Heavy tobacco smoker [facility] Tobacco smoking status [facility] Tobacco smoking consumption unknown [facility] Start: 1975 Sex assigned at Not on file P [facility] Gender identity Not on file [facility] Goals Date Patient Goal Desired Activity /State Functional Status Date Assessment Result Facility 09-09-2024 Functional status Patient at Baseline [facility] Work Phone: Mental Status Date Assessment Result Facility 09-09-2024 Cognitive function Cognitive Sta tus Patient at Baseline [facility] Work Phone: Clinical Notes 09-06-2024 to 11-15-2024 Leelee Centeno - 11/15/2024 1:59 PM EDT Note Date & Type Note Facility 11-15-2024 History of Presen t illness Narrative Patient visited the [facility] and received food on 11/15/24. Leelee Jacobo [facility] documented in this encounter [facility] 09-09-2024 Discharge summary Note Date/Time September 09, 2024 1:11 pm [facility] [address] [place] [address] Discharge Summary Signed Patient: Marvin Suarez MR#: [id number] 330 : 1975 Acct:[id number] Age/Sex: 49 / M Adm Date: 5 Loc: Room: [address] [place] [address]: Anson Sutton MD Copies to: [...] cut himself. Patient has been visiting from [place]. Came here to visit about6 weeks ago. [...] Instructions: Important Contact Information You can call [facility] at [phone] any time day or night if you have emergent questions or question regarding discharge instructions. If at any time you are feeling an increase inyour psychiatric symptoms, call your physician or behavioral healthcare provider. If any time you have thoughts of harming yourself or others contact one of the following: Call (available 26/01) Crisis Text Line (available 26/01) text 4HOPE to [phone] [facility] Hope Line (available 8 a.m. Midnight) call [phone] ([phone]) Regular Diet No Activity Restrictions Received Abilify Maintena 400mg Injection on 09/08/24. Next dose is due on 10/06/24. Instructions: Bipolar disorder - Discharge instructions, [facility] Inst[facility], Know your Meds Prescriptions: New aripiprazole 10 mg Tablet 10 mg PO DAILY 12 Days Qty: 12 0RF Abilify Maintena 400 mg suspension,extended rel recon 400 mg IM Q28D Qty: 1 0RF Rx Instructions: Due on or about 10/06/24 Follow Up: [facility] [Other] (Follow-up with the [facility] on Thursday at 9am. The [facility] accepts walk-ins. You will need your insurance information and proof of income. ) [facility] [Other] (Call for any medical needs) Exam Physical Exam Vital Signs: Temp Pulse Resp BP Pulse Ox O2 Del Method 98.2 F 70 20 168/109 H 96 Room Air 09/09/24 07:30 09/09/24 07:30 09/09/24 07:30 09/09/24 07:30 09/09/24 07:30 09/09/24 08:11 Documented By: Anson Sutton MD 09/09/24 1215 Signed By: <Electronically signed by Anson Sutton MD> 09/09/24 1417 [facility] Work Phone: 1(873) 127-414603-07-[address] [address] Discharge Summary Signed Patient: Marvin Suarez MR#: [id number] 330 : 1975 Acct:[id number] Age/Sex: 49 / M Adm Date: 5 Loc: Room: [address] [place] [address]: Anson Sutton MD Copies to: [...] cut himself. Patient has been visiting from [place]. Came here to visit about6 weeks ago. [...] Instructions: Important Contact Information You can call [facility] at [phone] any timeday or night if you have emergent questions or question regarding discharge instructions. If at anytime you are feeling an increase inyour psychiatric symptoms, call your physician or behavioral healthcare provider. If any time you have thoughts of harming yourself or others contact one of the following: Call 8-8 (available 26/01) Crisis Text Line (available 26/01) text 4HOPE to [phone] [facility] Hope Line (available 8 a.m. Midnight) call [phone] ([phone]) Regular Diet No Activity Restrictions Received Abilify Maintena 400mg Injection on 09/08/24. Next dose is due on 10/06/24. Instructions: Bipolar disorder - Discharge instructions, [facility] Instructions, Know your Meds Prescriptions: New aripiprazole 10 mg Tablet 10 mg PO DAILY 12 Days Qty: 12 0RF Abilify Maintena 400 mg suspension,extended rel recon 400 mg IM Q28D Qty: 1 0RF Rx Instructions: Due on or about 10/06/24 Follow Up: [facility] [Other] (Follow-up with the [facility] on Thursday at 9am. The [facility] accepts walk-ins. You will need your insurance information and proof of income. ) [facility] [Other] (Call for any medical needs) Exam Physical Exam Vital Signs: Temp Pulse Resp BP Pulse Ox O2 Del Method 98.2 F 70 20 168/109 H 96 Room Air 09/09/24 07:30 09/09/24 07:30 09/09/24 07:30 09/09/24 07:30 09/09/24 07:30 09/09/24 08:11 Documented By: Anson Sutton MD 09/09/245 Signed By: 09/09/24 1411 [facility]03-06-2025 Progress note Author Anson Sutton [facility] Note Date/Time September 08, 2024 12:5 0pm [facility] [address] [place] [address] Psychiatry Progress Note Signed Patient: Marvin Suarez MR#: [id number] 330 : 1975 Acct:[id number] Age/Sex: 49 / M Adm Date: 5 Loc: 1S Room: [address] [place] [address] Type : ADM IN Attending Dr: Anson [...] <Electronically signed by Anson Sutton MD> 09/08/24 1356 [facility] Work Phone: 1(578) 829-668403-06-2025 [place] [address] Psychiatry Progress Note Signed Patient: Marvin Suarez MR#: [id number] 330 : 1975 Acct:[id number] Age/Sex: 49 / M Adm Date: 5 Loc: Room: [address] [place] [address] Type : ADM IN Attending Dr: Anson [...] MD 09/08/24 0927 Signed By: 09/08/24 1350 [facility]03-05-2025 History and physical note Author Anson Sutton [facility] Note Date/Time September 07, 2024 2:48 pm [facility] [address] [place] [address] Psychiatry H&P Signed Patient: Marvin Suarez MR#: [id number] 330 : 1975 Acct:[id number] Age/Sex: 49 / M Adm Date: 5 Loc: Room: [address] [place] [address] Type: ADM IN Attending Dr: Anson Sutton [...] cut himself. Patient has been visiting from [place]. Came here to visit about6 weeks ago. [...] this with the medical student as notedbellizzy. [facility] Medical History (Updated 09/07/24 @ 10:31 by Janeen Coker) Bipolar 1 disorder HTN (hypertension) Social History Smoking Status: Heavy tobacco smoker Tobacco Type: cigarettes Substance Use Type: Unknown, Marijuana, Amphetamines and Methamphetamine Social History Comments: came to [place] 2 months ago to visit, is highly [...] Appearance Clear Urine pH 5.5 Ur Specific [place] 1.030 Urine Protein 30 H Urine Glucose [...] explained Documented By: Anson Sutton MD 09/07/24 0965 Signed By: <Electronically signed by Anson Sutton MD> 09/07/24 9570 [facility] Work Phone: 1(307) 771-966303-05-2025 History and physical [address] [address] Psychiatry H&P Signed Patient: Marvin Suarez MR#: [id number] 330 : 1975 Acct:[id number] Age/Sex: 49 / M Adm Date: 5 Loc: 1S Room: [address] [place] [address] Type: ADM IN Attending Dr: Anson Sutton [...] cut himself. Patient has been visiting from [place]. Came here to visit about6 weeks ago. [...] confirmed this withthe medical student as notedbelow. [facility] Medical History (Updated 09/07/24 @ 10:31 by Janeen Coker) Bipolar 1 disorder HTN (hypertension) Social History Smoking Status: Heavy tobacco smoker Tobacco Type: cigarettes Substance Use Type: Unknown, Marijuana, Amphetamines and Methamphetamine Social History Comments: came to [place] 2 months ago to visit, is highly [...] Appearance Clear Urine pH 5.5 Ur Specific [place] 1.030 Urine Protein 30 H Urine Glucose [...] MD 09/07/24 0913 Signed By: 09/07/24 1548 [facility]03-05-2025 Evaluation note* Diagnosis Onset Date Resolution Status Admit Date Bipolar 1 disorder acute September 07, 2024 12:39am Suicidal ideation acute September 072024 12:39am [facility] Work Phone: 1(937) 959-687703-04-2025 Hospital Discharge instructions Additional Instructions Please return to emergency department for any new or worrisome symptoms including any numbness, weakness, tingling, worsening pain, difficulty urinating, chest pain, shortness of breath. Follow-up with your family physician within the next 3 to 5 days.[facility] Work Phone: Discharge summary Author Anson Sutton [facility] Note Date/Time September 09, 2024 1:11 pm [facility] [address] [place], [place] [id number] Discharge Summary Signed Patient: Marvin Suarez MR#: [id number] 330 : 1975 Acct:[id number] Age/Sex: 49 / M Adm Date: 5 Loc: 1S Room: [address] [place] [address]: Anson Sutton MD Copies to: [...] cut himself. Patient has been visiting from [place]. Came here to visit about6 weeks ago. [...] Instructions: Important Contact Information You can call [facility] at [phone] any time day or night if you have emergent questions or question regarding discharge instructions. If at any time you are feeling an increase inyour psychiatric symptoms, call your physician or behavioral healthcare provider. If any time you have thoughts of harming yourself or others contact one of the following: Call 8-8 (available 26/01) Crisis Text Line (available 26/01) text 4HOPE to [phone] [facility] Hope Line (available 8 a.m. Midnight) call [phone] ([phone]) Regular Diet No Activity Restrictions Received Abilify Maintena 400mg Injection on 09/08/24. Next dose is due on 10/06/24. Instructions: Bipolar disorder - Discharge instructions, [facility], Know your Meds Prescriptions: New aripiprazole 10 mg Tablet 10 mg PO DAILY 12 Days Qty: 12 0RF Abilify Maintena 400 mg suspension,extended rel recon 400 mg IM Q28D Qty: 1 0RF Rx Instructions: Due on or about 10/06/24 Follow Up: [facility] [Other] (Follow-up with the [facility] on Thursday at 9am. The [facility] accepts walk-ins. You will need your insurance information and proof of income. ) [facility] [Other] (Call for any medical needs) Exam Physical Exam Vital Signs: Temp Pulse Resp BP Pulse Ox O2 Del Method 98.2 F 70 20 168/109 H 96 Room Air 09/09/24 07:30 09/09/24 07:30 09/09/24 07:30 09/09/24 07:30 09/09/24 07:30 09/09/24 08:11 Documented By: Anson Sutton MD 09/09/24 1215 Signed By: <Electronically signed by Anson Sutton MD> 09/09/24 1411 [facility] Work Phone: Evaluation noteNo assessment information available [facility] Work Phone: Evaluation note* Diagnosis Onset Date Resolution Status Admit Date Suicidal ideation acute September 072024 12:39am [facility] Work Phone: History and physical note Author Anson Sutton [facility] Note Date/Time September 07, 2024 2:48 pm [facility] [address] [place] [address] Psychiatry H&P Signed Patient: Marvin Suarez MR#: [id number] 330 : 1975 Acct:[id number] Age/Sex: 49 / M Adm Date: 5 Loc: Room: [address] [place] [address] Type: ADM IN Attending Dr: Anson Sutton [...] cut himself. Patient has been visiting from [place]. Came here to visit about6 weeks ago. [...] this with the medical student as faisal. [facility] Medical History (Updated 09/07/24 @ 10:31 by Janeen Coker) Bipolar 1 disorder HTN (hypertension) Social History Smoking Status: Heavy tobacco smoker Tobacco Type: cigarettes Substance Use Type: Unknown, Marijuana, Amphetamines and Methamphetamine Social History Comments: came to [place] 2 months ago to visit, is highly [...] Appearance Clear Urine pH 5.5 Ur Specific [place] 1.030 Urine Protein 30 H Urine Glucose [...] <Electronically signed by Anson Sutton MD> 09/07/24 1546 [facility] Work Phone: Hospital Discharge instructions Additional Instructions Important Contact Information You can call [facility] at [phone] any time day or night if you have emergent questions or question regarding discharge instructions. If at any time you are feeling an increase in your psychiatric symptoms, call your physician or behavioral healthcare provider. If any time you have thoughts of harming yourself or others contact one of the following: Call 98-8 (available 26/01) Crisis Text Line (available 26/01) text 4HOPE to [phone] [facility] Hope Line (available 8 a.m. Midnight) call [phone] ([phone]) Regular Diet No Activity Restrictions Received Abilify Maintena 400mg Injection on 09/08/24. Next dose is due on 10/06/24.[facility] Work Phone: InstructionsNot on filedocumented in this encounter [facility] Author Anson Sutton [facility] Note Date/Time September 08, 2024 12:5 0pm [facility] [address] [place] [address] Psychiatry Progress Note Signed Patient: Marvin Suarez MR#: [id number] 330 : 1975 Acct:[id number] Age/Sex: 49 / M Adm Date: 5 Loc: 1S Room: [address] [place] [address] Type : ADM IN Attending Dr: Anson [...] signed by Anson Sutton MD> 09/08/24 1350 [facility] Work Phone: Chief Complaint and Reason for [...] and content) DATE CREATED AUTHOR 12/03/2024 [facility] DATE CREATED AUTHOR AUTHOR'S ORGANIZ ATION 12/16/2024 [facility] DATE CREATED AUTHOR AUTHOR'S ORGANIZ ATION 12/17/2024 [facility] FOR RECORDS PERTAINING TO PATIENTS WHO ARE [...] BE BASED ON THE PRIMARY CLINICAL RECORDS. [facility] [employer] provides no warranty or guarantee of the accuracy or completeness of information in this document.
[2025-01-01 15:02] LABS: Magnesium 1.6 mg/dL (1.8-2.4)
[2025-01-01] MEDS: CARVEDILOL 6.25 MG TABLET PO ×2 (15:03→21:04)
[2025-01-01] MEDS: 0.9 % SODIUM CHLORIDE 1,000 ML 75 ML IV (15:07)
[2025-01-01 15:09] LABS: Troponin I High Sensitivity 8.8 pg/mL (4.0-76.1)
[2025-01-01] MEDS: AMLODIPINE BESYLATE 5 MG TABLET PO (16:13)
[2025-01-01] MEDS: ARIPIPRAZOLE 5 MG TABLET 10 MG PO (16:13)
[2025-01-01 17:50] LABS: Glucometer 280 mg/dL (74-106)
[2025-01-01] MEDS: INSULIN ASPART 300 UNIT/3 ML PEN SUBQ ×2 (17:51→21:42)
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
[2025-01-01] MEDS: POTASSIUM CHLORIDE 10 MEQ ER TABLET PO (21:04)
[2025-01-01] MEDS: MAGNESIUM OXIDE 400 MG TABLET PO (21:04)
[2025-01-01 21:26] LABS: Glucometer 152 mg/dL (74-106)
[2025-01-02] VITALS (62 sets, daily range): BP systolic 115–134; BP diastolic 69–101; PULSE 54–72; TEMP 36.5–36.7; O2SAT 95–96
[2025-01-02] MEDS: 0.9 % SODIUM CHLORIDE 1,000 ML 75 ML IV (03:45)
[2025-01-02 04:45] LABS: Bilirubin Urine NEGATIVE (NEGATIVE); Blood Urine SMALL (NEGATIVE); Clarity Urine CLEAR (CLEAR); Color Urine YELLOW (YELLOW); Glucose Urine UA NEGATIVE (NEGATIVE); Ketones Urine NEGATIVE (NEGATIVE); Leukocyte Esterase Urine NEGATIVE (NEGATIVE); Nitrite Urine NEGATIVE (NEGATIVE); Protein Urine TRACE mg/dL (NEG/TRACE); Specific Gravity Urine 1.025 (1.005-1.025)
[2025-01-02 04:56] LABS: Amphetamine Screen Urine POSITIVE (NEGATIVE); Barbiturates Screen Urine NEGATIVE (NEGATIVE); Benzodiazepines Screen Urine NEGATIVE (NEGATIVE); Buprenorphine Screen Urine NEGATIVE (NEGATIVE); Cannabinoid Screen Urine POSITIVE (NEGATIVE); Cocaine Screen Urine NEGATIVE (NEGATIVE); Methadone Screen Urine NEGATIVE (NEGATIVE); Methamphetamines Screen Urine POSITIVE (NEGATIVE); Opiate Screen Urine NEGATIVE (NEGATIVE); Oxycodone Screen Urine NEGATIVE (NEGATIVE); Phencyclidine Screen Urine NEGATIVE (NEGATIVE); Tricyclic Antidepressant Urine NEGATIVE (NEGATIVE)
[2025-01-02 05:04] LABS: Bacteria Urine TRACE #/HPF (NONE SEEN); Cast Seen? NONE SEEN #/LPF (NONE SEEN); Crystals Seen? None Seen #/HPF (None Seen); Mucus Urine TRACE (NONE SEEN); RBC Urine 0-2 #/HPF (0-2); Squamous Epithelial Cell Urine FEW #/LPF (NONE/RARE); WBC Urine 0-2 #/HPF (NONE SEEN)
[2025-01-02 05:50] LABS: Basophils Percent Auto 0.4 % (0.2-2.0); Eosinophils Absolute Auto 0.3 10^3/uL (0.0-0.7); Eosinophils Percent Auto 3.2 % (0.9-7.0); Hematocrit 48.5 % (42.0-54.0); Hemoglobin 15.5 g/dL (14.0-18.0); Immature Granulocytes Abs Auto 0.06 10^3/uL (0.00-0.03); Immature Granulocytes Pct Auto 0.6 % (0.0-0.5); Lymphocytes Absolute Auto 3.8 10^3/uL (1.2-3.8); Lymphocytes Percent Auto 36.7 % (20.5-60.0); Mean Corpuscular Hemoglobin 27.1 pg (25.9-34.0); Mean Corpuscular Volume 84.9 fL (80.0-94.0); Mean Platelet Volume 9.8 fL (9.5-13.5); Monocytes Absolute Auto 0.8 10^3/uL (0.3-0.8); Neutrophils Absolute Auto 5.2 10^3/uL (1.4-6.5); Neutrophils Percent Auto 51.1 % (43.0-75.0); Platelet Count 243 10^3/uL (150-450); Red Blood Count 5.71 10^6/uL (4.70-6.10); Red Cell Distribution Width 13.3 % (11.0-15.0); White Blood Count 10.2 10^3/uL (4.0-11.0)
--- NOTE | 2025-01-02 06:00 | CA_ITS ---
Patient Name: MARVIN SUAREZ MR#: [id number] : 1975 Exam Date: 01/02/2025 Ordering Doctor: DR AGUSTIN GOMEZ . ECHOCARDIOGRAM REPORT PROCEDURE: CA ECHO DOPPLER COMPLETE INDICATIONS: CVA, , smoker, chronic kidney disease, diabetes, hypertension COMPARISON: None. DESCRIPTION: COMPLETE ECHOCARDIOGRAM Real-time transthoracic echocardiography with 2D, M-mode, spectral and color flow Doppler performed. QUALITY: Technical quality was good. LEFT VENTRICLE: Normal chamber size. Thickened septal wall. Moderate concentric hypertrophy. Systolic function is normal. LV EF: Normal left ventricular ejection fraction, (65-70%). DIASTOLIC: Diastolic function is indeterminate. ATRIAL SEPTUM: Visually appears intact by color Doppler. LEFT ATRIUM: Normal chamber size. RIGHT ATRIUM: Normal chamber size. RIGHT VENTRICLE: Normal chamber size. Normal systolic function. TRICUSPID VALVE: Normal mobility and thickness. No stenosis with no regurgitation. Unable to assess right-sided pressures due to lack of measurable tricuspid regurgitation. MITRAL VALVE: Normal mobility and thickness. No evidence of mitral valve stenosis. There is no mitral annular calcification. No mitral regurgitation. AORTIC VALVE: Normal trileaflet appearance. Thickened aortic valve. Normal leaflet mobility. No evidence of aortic valve stenosis. No aortic regurgitation. AORTIC ROOT: Normal diameter and appearance. PULMONIC VALVE: Normal thickness and mobility. No stenosis. No regurgitation. PERICARDIUM: No evidence of pericardial effusion. IVC: Collapses with inspiration. IVC is normal in size. PLEURA: CONCLUSION: 1. Moderate concentric left ventricular hypertrophy with normal systolic function. LVEF is estimated at 65 to 70%. 2. Normal right ventricular size and systolic function. 3. No significant valvular dysfunction. 4. Unable to assess right-sided pressures due to lack of measurable tricuspid regurgitation. Adult Echocardiography Procedure Report Left Ventricle LVEDD (3.7 - 5.6 cm): 4.77 cm LVESD (2.2 - 4.0 cm): 2.79 cm LVIVS thickness (0.6 - 1.2 cm): 1.48 cm LVPW thickness (0.5 - 1.0 cm): 0.90 cm e': 0.09 m/s E - e': 7.60 LVOT Max Gradient: 5.08 mm[Hg] LVOT Area (cm2): 1.13 m/s Peak Velocity (LVOT): 1.13 m/s LVOT Diameter 2.27 cm Left Ventricular Ejection Fraction: 65-70 % Left Atrium LA Volume Index (2D A2C): 23.02 ml/m2 Left Atrium Systolic Dimension: 3.60 cm Mitral Valve MV E to A Ratio: 1.09 Mitral Valve A-Wave Peak Velocity: 0.64 m/s Mitral Valve E-Wave Peak Velocity: 0.70 m/s Right Ventricle Aorta AO Root Diam: 3.41 cm Aortic Valve AoV Area (Peak Bryce): 4.23 cm2, 4.23 cm2 Peak Velocity(Antegrade Flow): 1.08 m/s Peak Gradient(Antegrade Flow): 4.68 mm[Hg] Tricuspid Valve Pulmonic Valve Mean Gradient: 1.94 mm[Hg] Mean Velocity: 0.65 m/s Peak Velocity: 1.01 m/s, 1.01 m/s Peak Gradient: 4.10 mm[Hg], 4.10 mm[Hg] Right Atrium Right Atrium Systolic Pressure: 24.57 ml, 24.57 ml Dictated by: Kody Sebastian M.D. on 01/02/2025 at 17:20 Approved by: Kody Sebastian M.D. on 01/02/2025 at 17:25
--- NOTE | 2025-01-02 06:00 | MR_ITS ---
The [address] [address] Patient Name: MARVIN SUAREZ MRN: [id number] date: 1975 Sex: M Assigned Patient Location: [place] Current Patient Location: [place] Accession/Order Number: [id number] Exam Date: 01/02/2025 11:05 Report Date: 01/02/2025 11:16 At the request of: AGUSTIN GOMEZ MD Procedure: MR head/brain wo con EXAMINATION: MRI OF THE BRAIN WITHOUT CONTRAST CLINICAL HISTORY: Acute onset right-sided weakness COMPARISON: 01/01/2025 CT TECHNIQUE: Multiecho, multiplanar imaging of the brain was performed without enhancement. There is motion artifact. The ventricles are normal in size and position. Areas of increased T2 and FLAIR signal are present within the left frontal, parietal and occipital cortex. There is also increased signal at the caudate head and periventricular white matter on the left side. These sites show associated restricted diffusion compatible with recent infarction. Restricted diffusion also traverses the splenium of the corpus callosum which may also be ischemic. There are no extra-axial collections or significant mass effect. Mild maxillary mucosal thickening is present, left greater than right. MR/MR head/brain wo con IMPRESSION: RECENT MULTIFOCAL INFARCTS ON THE LEFT AND INVOLVING THE SPLENIUM OF THE CORPUS CALLOSUM. Impression dictated by: Henna Huston M.D. 01/02/2025 11:16 AM Dictation Location: [place] [address] Electronically authenticated by: [id number] Y Date: 01/02/2025 11:16
[2025-01-02 06:01] LABS: Anion Gap 12.6; BUN Creatinine Ratio 11.8; Calcium 8.4 mg/dL (8.5-10.1); Carbon Dioxide 30.3 mmol/L (21.0-32.0); Chloride 105 mmol/L (98-107); Estimated GFR (African America >60 (>=60 mL/min/1.73m^2); Estimated GFR (Non-African Ame >60 (>=60 mL/min/1.73m^2); Glucose 219 mg/dL (74-106); Potassium 3.9 mmol/L (3.5-5.1); Sodium 144 mmol/L (136-145)
--- NOTE | 2025-01-02 06:45 | P.PN_ITS ---
Exam Constitutional Vital Signs, click to edit/add: Last Vital Signs Temp 97.7 F 01/02/25 06:00 Pulse 61 01/02/25 06:00 Resp 14 01/02/25 06:00 BP 134/101 H 01/02/25 06:00 Pulse Ox 95 01/02/25 06:00 O2 Del Method Room Air 01/02/25 06:00 Progress Note: Objective Labs Labs: Short CBC 01/01/25 01/02/25 Range/Units 08:25 05:17 WBC 10.7 10.2 (4.0-11.0) 10^3/uL Hgb 17.1 15.5 (14.0-18.0) g/dL Hct 53.1 48.5 (42.0-54.0) % Plt Count 258 243 (150-450) 10^3/uL BMP 01/01/25 01/02/25 08:25 05:17 Sodium 142 144 Potassium 3.2 L 3.9 Chloride 101 105 Carbon Dioxide 31.5 30.3 BUN 9.0 13.0 Creatinine 1.31 H 1.10 Glucose 242 H 219 H Calcium 8.9 8.4 L Urine 01/02/25 Range/Units 04:30 Urine Color Yellow (YELLOW) Urine Clarity Clear (CLEAR) Urine pH 6.0 (5.0-9.0) Ur Specific [place] 1.025 (1.005-1.025) Urine Protein Trace (NEG/TRACE) mg/dL Urine Glucose (UA) Negative (NEGATIVE) mg/dL Progress Note: A&P Assessment and Plan (1) CVA (cerebrovascular accident): (2) CRI (chronic renal insufficiency): (3) Acute hyperglycemia: (4) HLD (hyperlipidemia): Qualifiers: Hyperlipidemia type: unspecified Qualified Code(s): E78.5 - Hyperlipidemia, unspecified (5) Type 2 diabetes mellitus: Qualifiers: Diabetes mellitus long term care pharmacist insulin use: without care home use Diabetes mellitus complication status: with kidney complications Diabetes mellitus complication detail: with chronic kidney disease Chronic kidney disease stage: stage 3 (moderate) Chronic kidney disease stage 3 subtype: stage 3a (GFR 45-59) Qualified Code(s): E11.22 - Type 2 diabetes mellitus with diabetic chronic kidney disease; N18.31 - Chronic kidney disease, stage 3a (6) CKD (chronic kidney disease) stage 3, GFR 30-59 ml/min: Qualifiers: Chronic kidney disease stage 3 subtype: stage 3a (GFR 45-59) Qualified Code(s): N18.31 - Chronic kidney disease, stage 3a (7) Diabetes: (8) Schizophrenia: Qualifiers: Schizophrenia type: unspecified Qualified Code(s): F20.9 - Schizophrenia, unspecified (9) Smokes: (10) Hypertension: Qualifiers: Hypertension type: primary hypertension Qualified Code(s): I10 - Essential (primary) hypertension Plan Admission findings: Sinus tachycardia, uncontrolled hypertension, mild respiratory distress secondary to subacute stroke, CTA head and neck was negative, no progression of symptoms while he has been in the emergency room or up on the medical surgical floor Subacute stroke-MRI scan in the morning, aspirin started tonight as recommended by telestroke team, check echocardiogram as well Uncontrolled hypertension-adding back his home medications plus low-dose carvedilol Poorly controlled diabetes mellitus-insulin sliding scale plus starting his home medications Schizophrenia-maintain home medications Hypercholesterolemia restarting home medications Hypomagnesemia-supplement Hypokalemia-supplement Admission status: Patient mated to the inpatient service, medically necessary treatment is more than likely going to span 2 midnights. So inpatient status �
--- NOTE | 2025-01-02 08:15 | CM.NOTE ---
Rounds made with Dr. Britt, awaiting MRI and echo. Possible discharge to home this afternoon after testing completed. Pt will need to f/u with neurology. Pt does not have PCP but would like to follow with a PCP in [place]. Med surg edge stitcher will contact Dr. Xiong's office to see if will accept pt for follow up.
[2025-01-02] MEDS: CARVEDILOL 6.25 MG TABLET 12.5 MG PO (08:22)
[2025-01-02] MEDS: POTASSIUM CHLORIDE 10 MEQ ER TABLET PO (08:22)
[2025-01-02] MEDS: MAGNESIUM OXIDE 400 MG TABLET PO (08:22)
[2025-01-02] MEDS: ASPIRIN 81 MG TABLET.DR 162 MG PO (08:22)
[2025-01-02] MEDS: AMLODIPINE BESYLATE 5 MG TABLET PO (08:22)
[2025-01-02] MEDS: INSULIN ASPART 300 UNIT/3 ML PEN SUBQ ×2 (08:22→11:32)
[2025-01-02] MEDS: ARIPIPRAZOLE 5 MG TABLET 10 MG PO (08:22)
[2025-01-02 08:30] LABS: Glucometer 214 mg/dL (74-106)
--- NOTE | 2025-01-02 09:33 | P.DS_ITS ---
DS: Providers Provider Date of admission: 01/01/25 13:22 Primary care physician: Non-Staff Physician, Consults: 01/01/25 11:23 Consult to Telestroke Routine Reason for consultation: Right hand numbness 01/01/25 14:34 Consult to Pharmacy Routine Consulting Provider: Reason for consultation: Please [place] me when Med Rec is Updated Has provider been notified: No Occupational Therapy Eval and Treat Routine Reason for consultation: Only if needed for Rehab Has provider been notified: No Physical Therapy Eval and Treat Routine Reason for consultation: Eval and Treat Has provider been notified: No DS: Diagnosis Discharge Diagnosis (1) CVA (cerebrovascular accident): (2) CRI (chronic renal insufficiency): (3) Acute hyperglycemia: (4) HLD (hyperlipidemia): Qualifiers: Hyperlipidemia type: unspecified Qualified Code(s): E78.5 - Hyperlipidemia, unspecified (5) Type 2 diabetes mellitus: Qualifiers: Diabetes mellitus termite helper insulin use: without group home use Diabetes mellitus complication status: with kidney complications Diabetes mellitus complication detail: with chronic kidney disease Chronic kidney disease stage: stage 3 (moderate) Chronic kidney disease stage 3 subtype: stage 3a (GFR 45-59) Qualified Code(s): E11.22 - Type 2 diabetes mellitus with diabetic chronic kidney disease; N18.31 - Chronic kidney disease, stage 3a (6) CKD (chronic kidney disease) stage 3, GFR 30-59 ml/min: Qualifiers: Chronic kidney disease stage 3 subtype: stage 3a (GFR 45-59) Qualified Code(s): N18.31 - Chronic kidney disease, stage 3a (7) Diabetes: (8) Schizophrenia: Qualifiers: Schizophrenia type: unspecified Qualified Code(s): F20.9 - Schizophrenia, unspecified (9) Smokes: (10) Hypertension: Qualifiers: Hypertension type: primary hypertension Qualified Code(s): I10 - Essential (primary) hypertension Plan Admission findings: Sinus tachycardia, uncontrolled hypertension, mild respiratory distress secondary to subacute stroke, CTA head and neck was negative, no progression of symptoms while he has been in the emergency room or up on the medical surgical floor Subacute stroke-neurological evaluation improving at the time of discharge Uncontrolled hypertension-much improved from admission at discharge Poorly controlled diabetes mellitus-improving Schizophrenia-maintain home medications Hypercholesterolemia restarting home medications Hypomagnesemia-supplement Hypokalemia-supplement Methamphetamine use-encouraged abstinence Admission status: Patient admitted the inpatient service, medically necessary treatment is more than likely going to span 2 midnights. So inpatient status DS: Summary Hospital Course Hospital Course: Patient admitted from the ER with acute onset of right sided hand weakness. No dysarthria no right leg weakness this mostly focused on the right hand, CT shows subacute stroke, MRI scan and echocardiogram are pending, assuming those showed no significant change from expected he can be discharged home in improving condition. Medications see list. Follow-up with his PCP closely for improved blood pressure and diabetes control. Time Spent with Patient Time attestation: Total time spent providing and/or coordinating discharge services: Exam Constitutional Vital Signs, click to edit/add: Last Vital Signs Temp 97.7 F 01/02/25 06:00 Pulse 67 01/02/25 07:54 Resp 17 01/02/25 07:50 BP 125/100 H 01/02/25 07:38 Pulse Ox 95 01/02/25 06:00 O2 Del Method Room Air 01/02/25 06:00 Documenting provider has reviewed patient's vital signs: yes Common normals: no apparent distress Chest Common normals: inspection of chest normal Respiratory Common normals: normal respiratory effort and no retractions Cardio Common normals: regular rate, regular rhythm and no murmurs GI Common normals: Normal to inspection, nondistended, normoactive bowel sounds present and soft to palpation Extremity Common normals: normal to inspection (Decreased fisher quahog strength right sided, patient right-handed) DS: Data Data Completed and Pending Labs on day of discharge: Labs from last 24 hours 01/02/25 01/02/25 01/02/25 08:19 05:17 04:30 WBC 10.2 RBC 5.71 Hgb 15.5 Hct 48.5 MCV 84.9 MCH 27.1 MCHC 32.0 RDW 13.3 Plt Count 243 MPV 9.8 Neut % (Auto) 51.1 Lymph % (Auto) 36.7 Wallace % (Auto) 8.0 Eos % (Auto) 3.2 Baso % (Auto) 0.4 Neut # (Auto) 5.2 Lymph # (Auto) 3.8 Wallace # (Auto) 0.8 Eos # (Auto) 0.3 Baso # (Auto) 0.0 Abs Immat Gran (auto) 0.06 H Imm/Tot Granulo (auto) 0.6 H Sodium 144 Potassium 3.9 Chloride 105 Carbon Dioxide 30.3 Anion Gap 12.6 BUN 13.0 Creatinine 1.10 Est GFR ( Amer) >60 Est GFR (Non-Af Amer) >60 BUN/Creatinine Ratio 11.8 Glucose 219 H Calcium 8.4 L Magnesium Troponin I High Sens NT-Pro-B Natriuret Pep Urine Color Yellow Urine Clarity Clear Urine pH 6.0 Ur Specific Rozel 1.025 Urine Protein Trace Urine Glucose (UA) Negative Urine Ketones Negative Urine Occult Blood Small A Urine Nitrite Negative Urine Bilirubin Negative Urine Urobilinogen 1.0 Ur Leukocyte Esterase Negative Urine RBC 0-2 Urine WBC 0-2 A Ur Squamous Epith Cells Few A Urine Crystals None seen Urine Bacteria Trace A Urine Casts None seen Urine Mucus Trace A Urine Opiates Screen Negative Ur Buprenorphine Scrn Negative Ur Oxycodone Screen Negative Urine Methadone Screen Negative Ur Barbiturates Screen Negative U Tricyclic Antidepress Negative Ur Phencyclidine Scrn Negative Ur Amphetamines Screen Positive A U Methamphetamines Scrn Positive A U Benzodiazepines Scrn Negative Urine Cocaine Screen Negative U Cannabinoids Screen Positive A POC Glucose 214 H 01/01/25 01/01/25 01/01/25 21:24 17:39 08:25 WBC RBC Hgb Hct MCV MCH MCHC RDW Plt Count MPV Neut % (Auto) Lymph % (Auto) Wallace % (Auto) Eos % (Auto) Baso % (Auto) Neut # (Auto) Lymph # (Auto) Wallace # (Auto) Eos # (Auto) Baso # (Auto) Abs Immat Gran (auto) Imm/Tot Granulo (auto) Sodium Potassium Chloride Carbon Dioxide Anion Gap BUN Creatinine Est GFR ( Amer) Est GFR (Non-Af Amer) BUN/Creatinine Ratio Glucose Calcium Magnesium 1.6 L Troponin I High Sens 8.8 NT-Pro-B Natriuret Pep 41.0 Urine Color Urine Clarity Urine pH Ur Specific [place]ozel Urine Protein Urine Glucose (UA) Urine Ketones Urine Occult Blood Urine Nitrite Urine Bilirubin Urine Urobilinogen Ur Leukocyte Esterase Urine RBC Urine WBC Ur Squamous Epith Cells Urine Crystals Urine Bacteria Urine Casts Urine Mucus Urine Opiates Screen Ur Buprenorphine Scrn Ur Oxycodone Screen Urine Methadone Screen Ur Barbiturates Screen U Tricyclic Antidepress Ur Phencyclidine Scrn Ur Amphetamines Screen U Methamphetamines Scrn U Benzodiazepines Scrn Urine Cocaine Screen U Cannabinoids Screen POC Glucose 152 H 280 H Discharge Plan Discharge Disposition: Home, Self-Care Condition: Fair Discharge Medications: New aspirin 81 mg Tablet,Delayed Release (Dr/Ec) 162 mg PO QD Qty: 60 11RF carvedilol [Coreg] 12.5 mg tablet 12.5 mg PO BID Qty: 60 11RF Rx Instructions: must administer with a meal/food Continued metformin 500 mg tablet 500 mg PO BID Qty: 60 0RF amlodipine 5 mg tablet 5 mg PO DAILY Qty: 30 0RF aripiprazole 10 mg tablet 10 mg PO DAILY Qty: 30 0RF rosuvastatin 5 mg tablet 5 mg PO DAILY Qty: 30 0RF Print Language: Israeli Forms: Portal Instructions
[2025-01-02 11:31] LABS: Glucometer 187 mg/dL (74-106)
--- NOTE | 2025-01-02 12:11 | CM.NOTE ---
Important Message From Medicare discussed with pt, pt verbalizes understanding and signs paper. Original given to pt and copy placed in pt's chart.
--- NOTE | 2025-01-02 13:18 | SWNOTE1 ---
Pt's nurse let SW and I know pt will need transportation home. I stopped by pt's room to ask if he will be able to let himself inside the home, pt voiced yes. Called [employer] to set up transportation and they can pickup between 2-2:30. SW notified nurse of pickup time.
--- NOTE | 2025-01-02 13:44 | PC.NURSE ---
discharge instructions reviewed with pt, verbalized understanding. belongings packed by pt. awaiting ride.
--- NOTE | 2025-01-04 14:46 | CM.DCFOLLOWU ---
01/04-1st attempt. No answer
--- NOTE | 2025-01-05 10:54 | CM.DCFOLLOWU ---
2nd attempt 01/05/25, no answer
--- NOTE | 2025-01-09 11:19 | CM.DCFOLLOWU ---
3rd attempt 01/09/25, no answer
== END 2025-01-02 13:56 | disposition home or self-care (01) | DRG 66 ==
LOC: ER 13:01 → MS 13:32
PROVIDERS: Admitting Provider Family Medicine; Emergency Provider Emergency Medicine; Visit Provider Family Medicine
DX: I63.9 Cerebral infarction, unspecified (principal); E11.65 Type 2 diabetes mellitus with hyperglycemia; E11.22 Type 2 diabetes mellitus with diabetic chronic kidney disease; N18.31 Chronic kidney disease, stage 3a; F20.9 Schizophrenia, unspecified; I12.9 Hypertensive chronic kidney disease with stage 1 through stage 4 chronic kidney disease, or unspecified chronic kidney disease; F17.200 Nicotine dependence, unspecified, uncomplicated; E78.00 Pure hypercholesterolemia, unspecified; E83.42 Hypomagnesemia; E87.6 Hypokalemia; F15.90 Other stimulant use, unspecified, uncomplicated; Z79.899 Other long term (current) drug therapy; Z79.84 Long term (current) use of oral hypoglycemic drugs; R20.0 Anesthesia of skin; I67.1 Cerebral aneurysm, nonruptured; F31.9 Bipolar disorder, unspecified; R29.701 NIHSS score 1
CPT/HCPCS: 36415; 70450; 70496; 70498; 70551; 71045; 72125; 80048; 80307; 81001; 82948; 83735; 83880; 84484; 85025; 87040; 93005; 93270; 93306; 94667; 94668; 94761; 96374; 97161; 97165; 99285; J1290; Q9967

== ENCOUNTER 2025-02-02 10:02 | Observation (INO) | payer MEDICARE, MEDICAID, SELFPAY ==
[2025-02-02] VITALS (26 sets, daily range): BP systolic 127–152; BP diastolic 85–116; PULSE 59–141; TEMP 36.6–37.3; O2SAT 92–98; BMI 32.3; BMI 33.2
--- NOTE | 2025-02-02 10:06 | CT_ITS ---
The [address] [address] Patient Name: MARVIN SUAREZ MRN: [id number] date: 1975 Sex: M Assigned Patient Location: ED.MAIN Current Patient Location: ED.MAIN Accession/Order Number: [id number] Exam Date: 02/02/2025 10:36 Report Date: 02/02/2025 10:38 At the request of: KWAKU OGDEN MD Procedure: CT head/brain wo con CT head/brain wo con 02/02/2025 10:25 AM SIGNS AND SYMPTOMS: ^numbness hx of stroke ( 2 days old numbness of rt TECHNIQUE:Multi-detector CT axial slices of the brain were obtained without IV contrast. CT was performed with one or more of the following dose reduction techniques: Automated exposure control, adjustment of the mA and/or kV according to patient size, or use of iterative reconstruction technique. COMPARISON: 01/02/2025 FINDINGS: There is no shift of the midline structures, acute intracranial bleeding, mass effects, or evidence of acute ischemia. Areas of cortical edema are redemonstrated in the left MCA territory most notably in the posterior left parietal lobe consistent with a subacute ischemic infarct. Atherosclerotic changes are noted in the intracranial segments of the internal carotid arteries and V4 segments of the vertebral arteries. The ventricular system is normal in size. The brainstem and the cerebellum are unremarkable. The visualized intraorbital contents, the visualized paranasal sinuses, and the infratemporal soft tissues show no acute abnormality. The osseous structures in the skull base and the calvarium show no abnormality. CT/CT head/brain wo con IMPRESSION: No acute intracranial pathology. Areas of cortical edema are redemonstrated in the left MCA territory most notably in the posterior left parietal lobe consistent with a subacute ischemic infarct. Impression dictated by: Ramirez Coleman M.D. 02/02/2025 10:38 AM Dictation Location: [place] [address] Electronically authenticated by: [id number] Y Date: 02/02/2025 10:38
--- NOTE | 2025-02-02 10:06 | ECG_ITS ---
The [facility] Test Date: 2025-02-02 Pat Name: MARVIN SUAREZ Department: Room: - Gender: Male First Officer: : 1975 Requested By: Order Number: [id number] Reading MD: PARAMJIT SQUIRES M.D. Measurements Intervals [place] Rate: 83 P: 33 UT: 138 QRS: 167 QRSD: 92 T: 60 QT: 374 QTc: 414 Interpretive Statements 1100 Sinus rhythm 7300 Indeterminate axis 8003 Consistent with pulmonary disease 9150 abnormal ECG Compared to ECG 01/01/2025 08:13:05 No significant changes Electronically Signed On 02-02-2025 21:02:21 EDT by PARAMJIT SQUIRES M.D.
--- NOTE | 2025-02-02 10:08 | ED_ITS ---
HPI HPI - General Adult General Chief complaint: Extremity Problem, Nontraumatic Stated complaint: ARM NUMBNESS Time Seen by Provider: 02/02/25 10:03 Source: patient Mode of arrival: ambulance Limitations: no limitations History of Present Illness HPI narrative: The patient have history of hypertension and diabetes type 2 with a recent history of almost 1 month ago being diagnosed with a stroke, patient is coming to the ER with a complaint of weakness in the right upper extremity that got worse over the last 3 days. Will be evaluated the patient almost a month ago for the same problem it was for right hand weakness 2 but according to the patient this is getting worse. There was no difficulty speaking no headache no nausea no vomiting no other complaint. No history of recent fall or trauma But he mentioned that exactly 3 days ago which is Thursday morning he woke up to find that his left arm is more weak, he mentioned that the numbness at that time was only limited to the right hand now it is limited to the right elbow Related Data Previous Rx's ?Medication ?Instructions ?Recorded amlodipine 5 mg tablet 5 mg PO DAILY #30 tabs 10/22 aripiprazole 10 mg tablet 10 mg PO DAILY #30 tabs 10/04 03/30 metformin 500 mg tablet 500 mg PO BID #60 tabs 10/22 rosuvastatin 5 mg tablet 5 mg PO DAILY #30 tabs 10/22 aspirin 81 mg tablet,delayed 162 mg (2 x 81 mg) PO QD #60 tabs 01/02/25 release carvedilol 12.5 mg tablet (Coreg) 12.5 mg PO BID #60 t abs 01/02/25 Allergies Allergy/AdvReac Type Severity Reaction Status Date / Time No Known Drug Allergies Allergy Verified 02/02/25 10:04 Opioid HPI Opioid Management Most Recent Opioid Data: Last Pain Scale 2 01/02/25, 09:23 Last Pain Intensity 0 01/02/25, 09:23 Last ORT Total Score 2 01/01/25, 13:33 Last ORT Risk Category Low Risk 01/01/25, 13:33 Ur Phencyclidine Scrn, (NEGATIVE) Negative , 04:30 Review of Systems ROS Status of ROS 10 or more systems reviewed and unremark able except as noted in history and below [facility] Medical History (Updated 02/02/25 @ 12:36 by Giovana Miller MD) CVA (cerebrovascular accident) ?I63.9 - Cerebral infarction, unspecified (ICD-10) CRI (chronic renal insufficiency) ?N18.9 - Chronic kidney disease, unspecified (ICD-10) Acute hyperglycemia ?R73.9 - Hyperglycemia, unspecified (ICD-10) HLD (hyperlipidemia) ?E78.5 - Hyperlipidemia, unspecified (ICD-10) Type 2 diabetes mellitus ?E11.9 - Type 2 diabetes mellitus without complications (ICD-10) CKD (chronic kidney disease) stage 3, GFR 30-59 ml/min ?N18.30 - Chronic kidney disease, stage 3 unspecified (ICD-10) Diabetes ?E11.9 - Type 2 diabetes mellitus without complications (ICD-10) Schizophrenia ?F20.9 - Schizophrenia, unspecified (ICD-10) Smokes ?F17.200 - Nicotine dependence, unspecified, uncomplicated (ICD-10) Hypertension ?I10 - Essential (primary) hypertension (ICD-10) Social History (Updated 10/21/24 @ 23:59 by Rima Hahn) Within the past year, how often did you have a drink containing alcohol: never Score interpretation: A score less than 4 is consistent with normal alcohol consumption. Smoking status: Current every day smoker Non-prescribed substance use: cannabis (any form) Non-prescribed substance use details: smokes marijuana Previous occupational history: none Highest level of school completed/degree received: 10th grade Are you now , , , , never or living with a partner: never In a typical week, how many times do you talk on the telephone with family, friends, or neighbors: 3 or more times per week How often do you get together with friends or relatives: 3 or more times per week Little interest or pleasure in doing things: not at all Feeling down, depressed, or hopeless: not at all Feel stressed/tense/nervous/anxious/difficulty sleeping: not at all Do you think of yourself as: straight/heterosexual Gender Identity: male Exam Narrative Exam Narrative: Nurses notes and vital signs reviewed and patient is not hypoxic. General: Well-appearing and in no apparent distress. Skin: Warm, dry, no pallor noted. No rash. Head: Normocephalic, atraumatic. Neck: Supple, non-tender. Eye: Pupils are equal, round and EOMI. No scleral icterus. Ears, Nose, Mouth, and Throat: TM are clear, no nasal mucosal hypertrophy. Oral mucosa is moist, no posterior oropharynx erythema, uvula is mid-line Cardiovascular: Regular Rate and Rhythm without murmur, gallop or rub. Respiratory: No accessory muscle use or respiratory distress. Lungs are clear to auscultation, no wheezing, rales or rhonchi Chest Wall: no tenderness Back: No midline thoracic or lumbar vertebral tenderness. No CVA tenderness Musculoskeletal: normal ROM, no calf or popliteal tenderness, no lower extremity edema/swelling GI: Abdomen is soft, non-distended. Normal bowel sounds. No masses appreciated. No tenderness to palpation. No rebound, guarding, or rigidity noted. Psychiatric: Cooperative and interactive. Normal mood and affect. Neurological exam: A&O x4. No cranial nerve dysfunction observed although the re is a mild facial droop to the left side when the patient smile no truncal ataxia. 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 left in addition to the flexion on the right arm bicep and tricep both showed weakness compared to the left There is numbness in the right elbow down to the hand on the right side compared to the left according to the patient NIH score is 4 and the patient last known well was more than 72 hours ago Constitutional Vital Signs, click to edit/add: Last Vital Signs Temp 98.4 F 02/02/25 10:04 Pulse 66 02/02/25 11:40 Resp 15 02/02/25 11:40 BP 127/89 02/02/25 11:15 Pulse Ox 95 02/02/25 11:40 O2 Del Method Room Air 02/02/25 10:24 Course Vital Signs Vital signs: Vital Signs Temperature 98.4 F 02/02/25 10:04 Pulse Rate 88 02/02/25 10:04 Respiratory Rate 24 H 02/02/25 10:04 Blood Pressure 146/100 H 02/02/25 10:04 Pulse Oximetry 96 02/02/25 10:04 Oxygen Delivery Method Room Air 02/02/25 10:04 Temperature 98.4 F 02/02/25 10:04 Pulse Rate 66 02/02/25 11:40 Respiratory Rate 15 02/02/25 11:40 Blood Pressure 127/89 02/02/25 11:15 Pulse Oximetry 95 02/02/25 11:40 Oxygen Delivery Method Room Air 02/02/25 10:24 Medical Decision Making MDM Narrative Medical decision making narrative: The patient EKG showing sinus rhythm with a heart rate of [address] elevation or depression The patient CBC and chemistry shows chronic kidney disease with a creatinine 1.5 which was seen before and his previous workup Magnesium is 1.6 and the patient blood sugar is above 300 It was noted that the patient is only using metformin for his diabetes control and he have a last A1c done in October that was 8.6 It was also noted that the patient score upon arrival today was 4 and there was some drift in the right upper and lower extremity and weak handgrip which not clear if it was there before or just getting worse The patient CAT scan of the head shows subacute stroke changes that were discussed with the teleneurologist and after reviewing give the patient MRI and workup done at the end of last month the patient was recommended by the teleneurologist to be admitted for observation and repeating the MRI and possibly EEG I did discuss the case with and he agrees with above-mentioned plan Lab Data Labs: Lab Results 02/02/25 Range/Units 10:17 WBC 9.7 (4.0-11.0) 10^3/uL RBC 6.33 H (4.70-6.10) 10^6/uL Hgb 17.4 (14.0-18.0) g/dL Hct 53.3 (42.0-54.0) % MCV 84.2 (80.0-94.0) fL MCH 27.5 (25.9-34.0) pg MCHC 32.6 (29.9-35.2) g/dL RDW 14.4 (11.0-15.0) % Plt Count 239 (150-450) 10^3/uL MPV 9.6 (9.5-13.5) fL Neut % (Auto) 51.0 (43.0-75.0) % Lymph % (Auto) 35.0 (20.5-60.0) % [place]field % (Auto) 9.3 (1.7-12.0) % Eos % (Auto) 3.6 (0.9-7.0) % Baso % (Auto) 0.6 (0.2-2.0) % Neut # (Auto) 5.0 (1.4-6.5) 10^3/uL Lymph # (Auto) 3.4 (1.2-3.8) 10^3/uL Garfield # (Auto) 0.9 H (0.3-0.8) 10^3/uL Eos # (Auto) 0.4 (0.0-0.7) 10^3/uL Baso # (Auto) 0.1 (0.0-0.1) 10^3/uL Abs Immat Gran (auto) 0.05 H (0.00-0.03) 10^3/uL Imm/Tot Granulo (auto) 0.5 (0.0-0.5) % PT 10.0 (9.0-11.6) sec INR 0.94 Sodium 138 (136-145) mmol/L Potassium 4.2 (3.5-5.1) mmol/L Chloride 100 (98-107) mmol/L Carbon Dioxide 29.1 (21.0-32.0) mmol/L Anion Gap 13.1 BUN 17.0 (7.0-18.0) mg/dL Creatinine 1.51 H (0.70-1.30) mg/dL Est GFR ( Amer) 59 L (>=60 mL/min/1.73m^2) Est GFR (Non-Af Amer) 49 L (>=60 mL/min/1.73m^2) BUN/Creatinine Ratio 11.3 Glucose 390 H (74-106) mg/dL Calcium 8.9 (8.5-10.1) mg/dL Magnesium 1.6 L (1.8-2.4) mg/dL Total Bilirubin 0.5 (0.2-1.0) mg/dL AST 15 (15-37) U/L ALT 40 (16-63) U/L Alkaline Phosphatase 107 (46-116) U/L Troponin I High Sens 4.9 (4.0-76.1) pg/mL Total Protein 7.5 (6.4-8.2) g/dL Albumin 3.4 (3.4-5.0) g/dL Globulin 4.1 g/dL Albumin/Globulin Ratio 0.8 Discharge Plan Discharge Chief Complaint: Extremity Problem, Nontraumatic Clinical Impression: Stroke-like symptom, Hyperglycemia, Hypomagnesemia Stroke Qualifiers: CVA mechanism: unspecified Qualified Code(s): I63.9 - Cerebral infarction, unspecified Patient Disposition: Admitted as Observation Time of Disposition Decision: 12:35 Condition: Good
[2025-02-02 10:24] LABS: Hematocrit 53.3 % (42.0-54.0); Hemoglobin 17.4 g/dL (14.0-18.0); Immature Granulocytes Abs Auto 0.05 10^3/uL (0.00-0.03); Immature Granulocytes Pct Auto 0.5 % (0.0-0.5); Lymphocytes Absolute Auto 3.4 10^3/uL (1.2-3.8); Mean Corpuscular HGB Conc 32.6 g/dL (29.9-35.2); Mean Corpuscular Hemoglobin 27.5 pg (25.9-34.0); Mean Corpuscular Volume 84.2 fL (80.0-94.0); Platelet Count 239 10^3/uL (150-450); Red Blood Count 6.33 10^6/uL (4.70-6.10); White Blood Count 9.7 10^3/uL (4.0-11.0)
--- OUTSIDE RECORDS SUMMARY | 2025-02-02 10:25 | XMS_ITS | CCD ---
Author Organization [facility] Inform ion Partnership [facility] Care Team Providers Care Calibrator Barometers Name Role Phone Malia Matamoros MD Emergency Provider [phone] NO FAMILY, PHYSICIAN Primary Care Provider Malia Camacho MD Emergency Provider [phone] NO FAMILY, PHYSICIAN Primary Care Provider Franklin Villeda DO Emergency Provider Anson Sutton MD Admit Provider [phone] Anson Sutton MD Attending Provider Unavailable Primary Care Provider Unavailabl e NO FAMILY, PHYSICIAN Primary Care Unavailable Anson Sutton Attending Unavailable Anson Sutton Admitting Unavailable Malia Matamoros Attending Unavailable Malia Matamoros Admitting Unavailable NO FAMILY, PHYSICIAN Primary Care Unavailable NO FAMILY, PHYSICIAN Primary Care Unavailable Robbie Nj Attending Unavailab Robbie Landry Admitting Unavailab MUNIRA Moore Consulting Unavailable SHANNAN WEBER Admitting Unavailable SHANNAN WEBER Attending Unavailable PHYSICIANS, [facility] Consulting Yi LYNN Chapa Primary Care Unavailable NÉSTOR MURRAY Attending Unavailable LYNN MANZO Primary Care Unavailable Medications Current Medications Medication Drug Class(es) Dates Sig (Normalized) Sig (Original) [id number] 200 actuat albuterol 0.09 mg/actuat metered dose inhaler (1 source) beta2-Adrenergic Agonist take 2 puff(s) by inhalation every six hours as needed for wheezing albuterol (PROVENTIL HFA;VENTOLIN HFA) 90 mcg/actuation inhaler Inhale 2 puffs every 6 (six) hours as needed for wheezing or shortness of breath. Active amLODIPine 5 mg oral tablet (1 source) Dihydropyridine Calcium Channel Manasa take 1 tablet by mouth once daily as needed amLODIPine (NORVASC) 5 mg tablet Take 1 tablet (5 mg total) by mouth daily as needed. Active ARIPiprazole 10 mg oral tablet (3 sources) Atypical Antipsychotic Start: 12-14-2024 take 1 tablet by mouth in the morning ARIPiprazole (ABILIFY) 10 mg tablet Take 1 tablet (10 mg total) by mouth in the morning. 15 tablet 1 12/14/2024 Active Start: 09-09-2024 take 1 tablet by olivia th once daily Aripiprazole 10 mg Tablet Active 10 MG PO Daily 06 16September 09, 2024 1:00am Start: 09-09-2024 Aripiprazole ( Abilify Maintena) 400 mg suspension,extended rel recon Active 400 MG IM Q28D September 09, 2024 1:00am Due on or about 10/06/24 atorvastatin 40 mg oral tablet (1 source) HMG-CoA Reductase Inhibitor Start: 12-14-2024 take 1 tablet by mouth once daily atorvastatin (LIPITOR) 40 mg tablet Take 1 tablet (40 mg total) by mouth nightly. 15 tablet 1 12/14/2024 Active FLUoxetine 20 mg oral capsule (1 source) Serotonin Reuptake Inhibitor Start: 12-14-2024 take 1 capsule by mouth in the morning FLUoxetine (PROzac) 20 mg capsule Take 1 capsule (20 mg total) by mouth in the morning. 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 15 tablet 1 12/14/2024 Active lisinopril 40 mg oral tablet (1 source) Angiotensin Converting Enzyme Inhibitor take 1 tablet by mouth in the morning lisinopriL (PRINIVIL,ZESTRI L) 40 mg tablet Take 1 tablet (40 mg total) by mouth in the morning. Active metFORMIN hydrochloride 500 mg oral tablet (1 source) Biguanide take 1 tablet by mouth in the morning, then take 1 tablet by mouth at bedtime metFORMIN (GLUCOPHAGE) 500 mg tablet Take 1 tablet (500 mg total) by mouth in the morning and 1 tablet (500 mg total) before bedtime. Active 24 hr nicotine 0.875 mg/hr transdermal system (1 source) Cholinergic Nicotinic Agonist Start: 12-14-2024 apply 1 dose transdermal route every hour in the morning nicotine (NICODERM CQ) 21 mg/[address] 1 patch on the skin in the morning. 14 patch 12/14/2024 Active tiotropium 0.018 mg inhalation powder (1 source) Anticholinergic take 1 capsule by inhalation once in the morning tiotropium (SPIRIVA) 18 mcg per inhalation capsule Place 1 capsule into inhaler and inhale in the morning. Active Completed/Discontinued Medications Medication Drug Class(es) Dates Sig (Normalized) Sig (Original) acetaminophen 325 mg oral tablet (3 sources) Start: 09-05-2024 End: 09-06-2024 take 2 tablets by mouth every six hours as needed for pain Acetaminophen (Tylenol) 325 mg tablet Discontinued 650 MG PO Every 6 hours as needed for pain 02 12September 05, 2024 1:00am September 06, 2024 1:30am ibuprofen 600 mg oral tablet (3 sources) Nonsteroidal Anti-inflammatory Drug Start: 09-05-2024 End: 09-06-2024 take 1 tablet by mouth every six hours as needed for pain Ibuprofen 600 mg tablet Discontinued 600 MG PO Q6H as needed for pain 30 September 05, 2024 1:00am September 06, 2024 1:30am lidocaine 0.05 mg/mg medicated patch (5 sources) Antiarrhythmic, Amide Local Anesthetic Start: 09-05-2024 End: 09-06-2024 apply 1 dose topically once daily Lidocaine (Lidoderm) 5 % adhesive patch,medicated Discontinued 1 PATCH TOPICAL Daily 15 September 05, 2024 1:00am September 06, 2024 1:30am leave on most painful area for up to 12 hrs Problems Active Problems Problem Classification Problem Date Documented Date Episodic/Chronic Acute cerebrovascular disease (1 source) Acute cerebrovascular disease Onset: 01-01-2025 Alcohol-related disorders (1 source) Alcohol abuse; Translations: [Alcohol abuse, uncomplicated] Onset: 12-10-2024 12-10-2024 Chronic Essential hypertension (3 sources) Hypertensive disorder; Translations: [Essential (primary) hypertension] 09-05-2024 Chronic Genitourinary symptoms and ill-defined conditions (3 sources) Difficulty passing urine; Translations: [Other difficulties with micturition] 09-06-2024 Episodic Mood disorders (5 sources) Bipolar I disorder; Translations: [Bipolar disorder, unspecified] Onset: 09-07-2024 09-07-2024 Chronic Residual codes; unclassified (1 source) Pain, unspecified; Translations: [Pain, unspecified] Onset: 01-03-2025 Episodic Spondylosis; intervertebral disc disorders; other back problems (3 sources) Chronic low back pain; Translations: [Chronic bilateral low back pain] 09-05-2024 Episodic Substance-related disorders (2 sources) Cannabis dependence; Translations: [Cannabis dependence, uncomplicated] Onset: 12-10-2024 12-10-2024 Chronic Unclassified (2 sources) Low back pain, unspecified; Translations: [Low back pain, unspecified] Onset: 09-05-2024 Unclassified (1 source) Psychiatric Evaluation Onset: 12-09-2024 Unclassified (1 source) Psych Onset: 12-09-2024 Past or Other Problems Problem Classification Problem Date Documented Da te Episodic/Chronic Suicide and intentional self-inflicted injury (7 sources) Suicidal thoughts; Translations: [Suicidal ideations] Onset: 09-07-2024 Resolved: 12-14-2024 09-06-2024 Episodic Results Test Name Value Interpretation Reference Range Facility BEDSIDE GLUCOSEon 12-14-2024 Glucose [Mass/Vol] 281 mg/dL High 65-99 [facility] Comment on above: Performed By: #### D QUINONEZ #### [facility] ([id number]) [address] [place] [address] VIR BEDSIDE GLUCOSEon 12-13-2024 Glucose [Mass/Vol] 278 mg/dL High 65-99 [facility] Comment on above: Performed By: #### D QUINONEZ #### [facility] ([id number]) [address] [place] [address] VIR Glucose [Mass/Vol] 190 mg/dL High 65-99 [facility] Comment on above: Performed By: #### D QUINONEZ #### [facility] ([id number]) [address] [place] [address] VIR Glucose [Mass/Vol] 326 mg/dL High 65-99 [facility] Comment on above: Performed By: #### D QUINONEZ #### [facility] ([id number]) [address] [place] [address] VIR Glucose [Mass/Vol] 265 mg/dL High 65-99 [facility] Comment on above: Performed By: #### D QUINONEZ #### [facility] ([id number]) [address] [place] [address] VIR BEDSIDE GLUCOSEon 12-12-2024 Glucose [Mass/Vol] 217 mg/dL High -[address] [place] [address] Comment on above: Performed By: #### D QUINONEZ #### [facility] ([id number]) [address] [place] [address] VIR Glucose [Mass/Vol] 208 mg/dL High -[address] [place] [address] Comment on above: Performed By: #### D QUINONEZ #### [facility] ([id number]) [address] [place] [address] VIR Glucose [Mass/Vol] 245 mg/dL High -[address] [place] [address] Comment on above: Performed By: #### D QUINONEZ #### [facility] ([id number]) [address] [place] [address] VIR Glucose [Mass/Vol] 264 mg/dL High 65-99 [facility] Comment on above: Performed By: #### U FEN #### [facility] ([id number]) [address] [place] [address] VIR BEDSIDE GLUCOSEon 12-11-2024 Glucose [Mass/Vol] 184 mg/dL High [address] [place] [address] Comment on above: Performed By: #### U FEN #### [facility] ([id number]) [address] [place] [address] VIR Glucose [Mass/Vol] 96 mg/dL Normal 65-[address] [place] [address] Comment on above: Performed By: #### U FEN #### [facility] ([id number]) [address] [place] [address] VIR Glucose [Mass/Vol] 385 mg/dL High [address] [place] [address] Comment on above: Performed By: #### U FEN #### [facility] ([id number]) [address] [place] [address] VIR BEDSIDE GLUCOSE ???BEDG >^500 Critically high [address] [place] [address] Comment on above: Performed By: #### U FEN #### [facility] ([id number]) [address] [place] [address] VIR GLUCOSE RANDOM OR FASTINGon 12-11-2024 Glucose [Mass/Vol] 512 mg/dL Critically high [address] [place] [address] Comment on above: Performed By: #### U FEN #### [facility] ([id number]) [facility] [place] [address] VIR LIPID PROFILEon 12-11-2024 Cholesterol [Mass/Vol] 239 mg/dL High 150-200 [facility] Comment on above: Order Comment: Fenta nyl screening cutoff = 5ng/ml This report is intended for use in clinical monitoring or management of patients. Performed By: #### U FEN #### [facility] ([id number]) [address] [place] [address] VIR Cholesterol in HDL [Mass/Vol] 31 mg/dL Low >39 [facility] Comment on above: Order Comment: Fenta nyl screening cutoff = 5ng/ml This report is intended for use in clinical monitoring or management of patients. Result Comment: HDL <40 mg/dL - High Risk HDL > or = 40mg/dL- Desirable HDL >60 mg/dL - Negative Risk Performed By: #### U FEN #### [facility] ([id number]) [address] [place] [address] VIR CHOLESTEROL:HDL 7.7 High 1.0-5.0 [facility] Comment on above: Order Comment: Fenta nyl screening cutoff = 5ng/ml This report is intended for use in clinical monitoring or management of patients. Performed By: #### U FEN #### [facility] ([id number]) [facility] [place] [address] VIR Triglyceride [Mass/Vol] 452 mg/dL High 27-150 [facility] Comment on above: Order Comment: Fenta nyl screening cutoff = 5ng/ml This report is intended for use in clinical monitoring or management of patients. Performed By: #### U FEN #### [facility] ([id number]) [address] [place] [address] VIR VERY LOW LIPOPROTEIN 90 mg/dL High 0-30 [facility] Comment on above: Order Comment: Fenta nyl screening cutoff = 5ng/ml This report is intended for use in clinical monitoring or management of patients. Performed By: #### U FEN #### [facility] ([id number]) [address] [place] [address] VIR RDLDL DIRECT LDLon Cholesterol in LDL [Mass/Vol] 138 mg/dL High <=130 [facility] Comment on above: Result Comment: LDL <100 mg/dL - Desirable LDL 130-159 mg/dL - Borderline High Risk LDL >160 mg/dL - High Risk Performed By: #### U FEN #### [facility] ([id number]) [address] [place] [address] VIR ACETAMINOPHEN LEVELon 2024 Acetaminophen [Mass/Vol] ug/mL Low 10.0-30.0 [facility] Comment on above: Order Comment: Refer ence ranges are for therapeutic limits. Performed By: #### A CETA #### [facility] ([id number]) [address] [place] [address] VIR CBC WITH AUTO DIFFERENTIALon 12-09-2024 CELLAVISION DIFFERENTIAL TYPE MANUAL DIFFERENTIAL Normal [facility] Comment on above: Result Comment: This is an appended report. These results have been appended to a previously preliminary verified report. Performed By: #### C BCA #### [facility] ([id number]) [address] [facility] [address] VIR CELLAVISION LYMPHOCYTES ABSOLUTE COUNT (10*3/UL) BY MANUAL COUNT 4.0 10*3/uL High 1.0-3.5 [facility] Comment on above: Result Comment: This is an appended report. These results have been appended to a previously preliminary verified report. Performed By: #### C BCA #### [facility] ([id number]) [address] [place] [address] VIR CELLAVISION LYMPHOCYTES RELATIVE PERCENT BY MANUAL COUNT 35 % Normal [facility] Comment on above: Result Comment: This is an appended report. These results have been appended to a previously preliminary verified report. Performed By: #### C BCA #### [facility] ([id number]) [address] [facility] [address] VIR CELLAVISION MONOCYTES ABSOLUTE COUNT (10*3/UL) IN BLOOD BY MANUAL COUNT 0.9 10*3/uL Normal 0.0-0.9 [facility] Comment on above: Result Comment: This is an appended report. These results have been appended to a previously preliminary verified report. Performed By: #### C BCA #### [facility] ([id number]) [facility] [place] [address] VIR CELLAVISION MONOCYTES RELATIVE PERCENT BY MANUAL COUNT 8 % Normal [facility] Comment on above: Result Comment: This is an appended report. These results have been appended to a previously preliminary verified report. Performed By: #### C BCA #### [facility] ([id number]) [address] [place] [address] VIR CELLAVISION NEUTROPHILS ABSOLUTE COUNT BY MANUAL COUNT 6.4 10*3/uL Normal 1.5-6.6 [facility] Comment on above: Result Comment: This is an appended report. These results have been appended to a previously preliminary verified report. Performed By: #### C BCA #### [facility] ([id number]) [address] [place] [address] VIR CELLAVISION NEUTROPHILS RELATIVE PERCENT BY MANUAL COUNT 57 % Normal [facility] Comment on above: Result Comment: This is an appended report. These results have been appended to a previously preliminary verified report. Performed By: #### C BCA #### [facility] ([id number]) [facility] [place] [address] VIR CELLAVISION NUCLEATED RED BLOOD CELLS IN BLOOD BY LIGHT MICROSCOPY 1 Normal [facility] Comment on above: Result Comment: This is an appended report. These results have been appended to a previously preliminary verified report. Performed By: #### C BCA #### [facility] ([id number]) [address] [place] [address] VIR CELLAVISION RBC MORPHOLOGY Reviewed Normal [facility] Comment on above: Result Comment: This is an appended report. These results have been appended to a previously preliminary verified report. Performed By: #### C BCA #### [facility] ([id number]) [facility] [place] [address] VIR Erythrocyte distribution width (RBC) [Ratio] 14.7 % Normal 11.5-15 [facility] Comment on above: Performed By: #### C BCA #### [facility] ([id number]) [facility] [place] [address] VIR Hematocrit (Bld) [Volume fraction] 50.9 % High 39-50 [facility] Comment on above: Performed By: #### C BCA #### [facility] ([id number]) [facility] [place] [address] VIR Hemoglobin (Bld) [Mass/Vol] 16.4 g/dL Normal 13-17 [facility] Comment on above: Performed By: #### C BCA #### [facility] ([id number]) [facility] [place] [address] VIR MCH (RBC) [Entitic mass] 26.6 pg Low 27-34 [facility] Comment on above: Performed By: #### C BCA #### [facility] ([id number]) [address] [place] [address] VIR MCHC (RBC) [Mass/Vol] 32.2 g/dL Normal 32-36 [facility] Comment on above: Performed By: #### C BCA #### [facility] ([id number]) [address] [place] [address] VIR MCV (RBC) [Entitic vol] 83 fL Normal 80-100 [facility] Comment on above: Performed By: #### C BCA #### [facility] ([id number]) [address] [place] [address] VIR Platelet mean volume (Bld) [Entitic vol] 8.0 fL Normal 7-12 [facility] Comment on above: Performed By: #### C BCA #### [facility] ([id number]) [address] [place] [address] VIR Platelets (Bld) [#/Vol] 251 10*3/uL Normal 150-450 [facility] Comment on above: Performed By: #### C BCA #### [facility] ([id number]) [facility] [place] [address] VIR RBC COUNT 6.15 X10E12/L High 4.1-5.7 [facility] Comment on above: Performed By: #### C BCA #### [facility] ([id number]) [facility] [place] [address] VIR WBC (Bld) [#/Vol] 11.3 10*3/uL High 4-11 [facility] Comment on above: Performed By: #### C BCA #### [facility] ([id number]) [facility] [place] [address] VIR COMPREHENSIVE METABOLIC PANE Nadir 12-09-2024 Albumin [Mass/Vol] 3.9 g/dL Normal 3.2-5.3 [facility] Comment on above: Performed By: #### C MP #### [facility] ([id number]) [address] [facility] [address] VIR ALP [Catalytic activity/Vol] 95 U/L Normal 39-130 [facility] Comment on above: Performed By: #### C MP #### [facility] ([id number]) [address] [facility] [address] VIR ALT [Catalytic activity/Vol] 26 U/L Normal <=40 [facility] Comment on above: Performed By: #### C MP #### [facility] ([id number]) [address] [facility] [address] VIR Anion gap [Moles/Vol] 7 mmol/L Normal 5-15 [facility] Comment on above: Performed By: #### C MP #### [facility] ([id number]) [address] [facility] [address] VIR AST [Catalytic activity/Vol] 16 U/L Normal <=41 [facility] Comment on above: Performed By: #### C MP #### [facility] ([id number]) [address] [facility] [address] VIR Bilirubin [Mass/Vol] 0.5 mg/dL Normal 0.3-1.2 [facility] Comment on above: Performed By: #### C MP #### [facility] ([id number]) [address] [facility] [address] VIR Calcium [Mass/Vol] 9.4 mg/dL Normal 8.5-10.5 [facility] Comment on above: Performed By: #### C MP #### [facility] ([id number]) [address] [facility] [address] VIR Chloride [Moles/Vol] 101 mmol/L Normal 98-109 [facility] Comment on above: Performed By: #### C MP #### [facility] ([id number]) [address] [facility] [address] VIR CO2 [Moles/Vol] 28 mmol/L Normal 22-32 [facility] Comment on above: Performed By: #### C MP #### [facility] ([id number]) [address] [place] [address] VIR Creatinine [Mass/Vol] 1.38 mg/dL High 0.60-1.30 [facility] Comment on above: Result Comment: METH OD TRACEABLE TO IDMS STANDARD Performed By: #### C MP #### [facility] ([id number]) [address] [place] [address] VIR GFR/1.73 sq M.predicted among non-blacks MDRD (S/P/Bld) [Vol rate/Area] 62 mL/min/{1.73_m2} Normal >=60 [facility] Comment on above: Result Comment: Repo rted eGFR is based on the CKD-EPI 2020 equation that does not use a race coefficient. Performed By: #### C MP #### [facility] ([id number]) [address] [place] [address] VIR Glucose [Mass/Vol] 378 mg/dL High 65-99 [facility] Comment on above: Performed By: #### C MP #### [facility] ([id number]) [address] [place] [address] VIR Potassium [Moles/Vol] 3.6 mmol/L Normal 3.5-5.0 [facility] Comment on above: Performed By: #### C MP #### [facility] ([id number]) [address] [place] [address] VIR Protein [Mass/Vol] 7.0 g/dL Normal 6.0-8.0 [facility] Comment on above: Performed By: #### C MP #### [facility] ([id number]) [address] [place] [address] VIR Sodium [Moles/Vol] 136 mmol/L Normal 134-146 [facility] Comment on above: Performed By: #### C MP #### [facility] ([id number]) [address] [place] [address] VIR Urea nitrogen [Mass/Vol] 15 mg/dL Normal 5-23 [facility] Comment on above: Performed By: #### C MP #### [facility] ([id number]) [address] [place] [address] VIR DRUG SCREEN, URINEon 025 DRUG SCREEN, URINE DSU DRUG SCREEN, URINE Cancelled Normal [facility] AMPHETAMINE/METHAMP Positive Abnormal Negative [facility] Comment on above: Order Comment: Confi rmation available upon request. Result Comment: AMPH /METH screening cut off = 1000 ng/mL Performed By: #### D QUINONEZ #### [facility] ([id number]) [address] [place] [address] VIR BARBITURATES Negative Normal Negative [facility] Comment on above: Order Comment: Confi rmation available upon request. Result Comment: Amee iturates screening cut off value = 200 ng/mL Performed By: #### D QUINONEZ #### [facility] ([id number]) [address] [place] [address] VIR BENZODIAZEPINES Negative Normal Negative [facility] Comment on above: Order Comment: Confi rmation available upon request. Result Comment: Betito odiazepines screening cut off value = 200 ng/mL Performed By: #### D QUINONEZ #### [facility] ([id number]) [address] [place] [address] VIR CANNABINOIDS Positive Abnormal Negative [facility] Comment on above: Order Comment: Confi rmation available upon request. Result Comment: Amber abinoids/THC screening cut off value = 50 ng/mL Performed By: #### D QUINONEZ #### [facility] ([id number]) [address] [place] [address] VIR COCAINE METABOLITE Negative Normal Negative [facility] Comment on above: Order Comment: Confi rmation available upon request. Result Comment: Coca ine screening cut off value = 300 ng/mL Performed By: #### D QUINONEZ #### [facility] ([id number]) [facility] [place] [address] VIR ECSTASY Negative Normal Negative [facility] Comment on above: Order Comment: Confi rmation available upon request. Result Comment: Ecst asy screening cut off value = 500 ng/mL Performed By: #### D QUINONEZ #### [facility] ([id number]) [address] [place] [address] VIR METHADONE Negative Normal Negative [facility] Comment on above: Order Comment: Confi rmation available upon request. Result Comment: Meth adone screening cut off value = 300 ng/mL. Performed By: #### D QUINONEZ #### [facility] ([id number]) [address] [place] [address] VIR OPIATES Negative Normal Negative [facility] Comment on above: Order Comment: Confi rmation available upon request. Result Comment: Opia zuri screening cut off value = 300 ng/mL This test is used for the detection of codeine, hydrocodone (>1000 ng/mL), morphine and hydromorphone (>900 ng/mL) in urine. Performed By: #### D QUINOENZ #### [facility] ([id number]) [address] [place] [address] VIR OXYCODONE Negative Normal Negative [facility] Comment on above: Order Comment: Confi rmation available upon request. Result Comment: Oxyc odone screening cut off value = 300 ng/mL This test is used for the detection of oxycodone and oxymorphone in urine. Performed By: #### D QUINONEZ #### [facility] ([id number]) [address] [place] [address] VIR PHENCYCLIDINE Negative Normal Negative [facility] Comment on above: Order Comment: Confi rmation available upon request. Result Comment: Phen cyclidine screening cut off value = 25 ng/mL Performed By: #### D QUINONEZ #### [facility] ([id number]) [address] [place] [address] VIR ETHANOLon 12-09-2024 Ethanol [Mass/Vol] mg/dL Normal <=0.080 [facility] Comment on above: Result Comment: This report is intended for use in clinical monitoring or management of patients. Performed By: #### A LCO #### [facility] ([id number]) [address] [place] [address] VIR FENTANYL, URINE QUALITATIVEo n 12-09-2024 FENTANYL, URINE QUAL. Negative Normal Negative [facility] Comment on above: Order Comment: Fenta nyl screening cutoff = 5ng/ml This report is intended for use in clinical monitoring or management of patients. Performed By: #### U FEN #### [facility] ([id number]) [address] [place] [address] VIR HEMOGLOBIN A1Con 12-09-2024 Glucose [Mass/Vol] 309 mg/dL Normal [facility] Comment on above: Performed By: #### U FEN #### [facility] ([id number]) [facility] [place] [address] VIR HbA1c (Bld) [Mass fraction] 12.4 % High 4.4-5.6 [facility] Comment on above: Result Comment: ADA Guidelines Result HgbA1c Normal : less than 5.7 % Prediabetes : 5.7 % to 6.4 % Diabetes : > 6.4 % Use with caution in patients with abnormal hemoglobin variants as the half-life of red blood cells and in vivo glycation rates are affected. Performed By: #### U FEN #### [facility] ([id number]) [address] [place] [address] VIR SALICYLATE LEVELon SALICYLATE <^2.5 Normal 2.0-25.0 [facility] Comment on above: Order Comment: Refer ence ranges are for therapeutic limits. Performed By: #### S ALI #### [facility] ([id number]) [address] [place] [address] VIR T4, FREEon 12-09-2024 Free T4 [Mass/Vol] 0.75 ng/dL Normal 0.61-1.60 [facility] Comment on above: Performed By: #### F T4 #### [facility] ([id number]) [address] [place] [address] VIR TSHon 12-09-2024 TSH 3.69 uIU/mL Normal 0.49-4.67 [facility] Comment on above: Performed By: #### T SH #### [facility] ([id number]) [address] [place] [address] 61675 VIR URINALYSISon 12-09-2024 Bilirubin Ql (U) Negative Normal Negative [facility] Comment on above: Order Comment: Urine received without preservative. Delays in transport may affect results. Interpret with caution. A clinical correlation is recommended. Performed By: #### U A #### [facility] ([id number]) [address] [place] [address] VIR BLOOD/HGB Small Abnormal Negative [facility] Comment on above: Order Comment: Urine received without preservative. Delays in transport may affect results. Interpret with caution. A clinical correlation is recommended. Performed By: #### U A #### [facility] ([id number]) [address] [place] [address] VIR Color (U) Yellow Normal Yellow, Colorless [facility] Comment on above: Order Comment: Urine received without preservative. Delays in transport may affect results. Interpret with caution. A clinical correlation is recommended. Performed By: #### U A #### [facility] ([id number]) [address] [place] [address] VIR Glucose Ql (U) >=1000 mg/dL Abnormal Negative, 250 mg/dL [facility] Comment on above: Order Comment: Urine received without preservative. Delays in transport may affect results. Interpret with caution. A clinical correlation is recommended. Performed By: #### U A #### [facility] ([id number]) [address] [place] [address]98 VIR Ketones Ql (U) Negative Normal Negative [facility] Comment on above: Order Comment: Urine received without preservative. Delays in transport may affect results. Interpret with caution. A clinical correlation is recommended. Performed By: #### U A #### [facility] ([id number]) [address] [place] [address] 10845 VIR Leukocyte esterase Test strip Ql (U) Negative Normal Negative [facility] Comment on above: Order Comment: Urine received without preservative. Delays in transport may affect results. Interpret with caution. A clinical correlation is recommended. Performed By: #### U A #### [facility] ([id number]) [address] [place] [address] 47296 VIR Nitrite Ql (U) Negative Normal Negative [facility] Comment on above: Order Comment: Urine received without preservative. Delays in transport may affect results. Interpret with caution. A clinical correlation is recommended. Performed By: #### U A #### [facility] ([id number]) [address] [place] [address] 82213 VIR PH,URINE 6.0 Normal 5.0-8.5 [facility] Comment on above: Order Comment: Urine received without preservative. Delays in transport may affect results. Interpret with caution. A clinical correlation is recommended. Performed By: #### U A #### [facility] ([id number]) [address] [place] [address] 39037 VIR Protein Ql (U) Negative Normal Negative [facility] Comment on above: Order Comment: Urine received without preservative. Delays in transport may affect results. Interpret with caution. A clinical correlation is recommended. Performed By: #### U A #### [facility] ([id number]) [address] [place] [address] 15173 VIR R.B.CELLS 1 Normal 0-5 [facility] Comment on above: Order Comment: Urine received without preservative. Delays in transport may affect results. Interpret with caution. A clinical correlation is recommended. Performed By: #### U A #### [facility] ([id number]) [address] [place] [address] [place] [address] VIR Specific gravity (U) [Rel density] 1.015 Normal 1.003-1.035 [facility] Comment on above: Order Comment: Urine received without preservative. Delays in transport may affect results. Interpret with caution. A clinical correlation is recommended. Performed By: #### U A #### [facility] ([id number]) [address] [place] [address] VIR TURBIDITY Clear Normal Clear [facility] Comment on above: Order Comment: Urine received without preservative. Delays in transport may affect results. Interpret with caution. A clinical correlation is recommended. Performed By: #### U A #### [facility] ([id number]) [facility] [place] [address] VIR UROBILINOGEN 0.2 eu/dL Normal 0.2 eu/dL, 1.0 eu/dL [facility] Comment on above: Order Comment: Urine received without preservative. Delays in transport may affect results. Interpret with caution. A clinical correlation is recommended. Performed By: #### U A #### [facility] ([id number]) [facility] [place] [address] VIR W.B.CELLS 0 Normal 0-5 [facility] Comment on above: Order Comment: Urine received without preservative. Delays in transport may affect results. Interpret with caution. A clinical correlation is recommended. Performed By: #### U A #### [facility] ([id number]) [facility] [place] [address] VIR ECG 12 lead ECGon 09-07-2024 ECG 12 lead ECG [facility] [place] [address] [place] [address] Electrocardiograph Report Signed Patient: Woody Hernandez MR#: [id number] : 1975 Acct:[id number] Age/Sex: 49 / M ADM Date: 09/07/24 Loc: Room: [address] [place] [address] Type: ADM IN Attending Dr: Anson Sutton [...] previous ECGs available Confirmed by Kody Ley ([id number]) on 09/07/2024 8:01:49 PM Referred By: Electronically Signed By: Kody Lye Transcribed By: MUS Signed By Kody Ley MD 09/07/242000 Normal [facility] Alanine aminotransferase [En zymatic activity/volume] in Serum or PlasmaOrdered By: Franklin Anand on 09-06-2024 ALT [Catalytic activity/Vol] Alanine aminotransferase [Enzymatic activity/volume] in Serum or Plasma 7-52 [facility] Albumin [Mass/volume] in Ser um or Plasma by Bromocresol green (BCG) dye binding methoOrdered By: Franklin Anand on 09-06-2024 Albumin BCG dye [Mass/Vol] Albumin [Mass/volume] in Serum or Plasma by Bromocresol green (BCG) dye binding metho 3.5-5.7 [facility] Alkaline phosphatase [Enzyma tic activity/volume] in Serum or PlasmaOrdered By: Franklin Anand on 09-06-2024 ALP [Catalytic activity/Vol] Alkaline phosphatase [Enzymatic activity/volume] in Serum or Plasma 34-104 [facility] Amphetamine Screen Ql (U)Ord ered By: PROVIDER TEMP on 09-06-2024 Amphetamines Ql (U) Amphetamines screen High Negativ e [facility] Appearance of UrineOrdered B y: Franklin Anand on 09-06-2024 Appearance (U) Urine appearance Clear [facility] Aspartate aminotransferase [ Enzymatic activity/volume] in Serum or PlasmaOrdered By: Franklin Anand on 09-06-2024 AST [Catalytic activity/Vol] Aspartate aminotransferase [Enzymatic activity/volume] in Serum or Plasma 13-39 [facility] Bacteria [Presence] in Urine by AutomatedOrdered By: Franklin Anand on 09-06-2024 Bacteria Auto Ql (U) Bacteria [Presence] in Urine by Automated None Seen [facility] Barbiturates [Presence] in U rine by Screen methodOrdered By: PROVIDER TEMP on 09-06-2024 Barbiturates Screen Ql (U) Barbiturates [Presence] in Urine by Screen method Negative [facility] Basophils Auto (Bld) [#/Vol] Ordered By: Franklin Anand on 09-06-2024 Basophils (Bld) [#/Vol] Automated basoph il count 0.0-0.2 [facility] Basophils/100 WBC Auto (Bld) Ordered By: Franklin Anand on 09-06-2024 Basophils/100 WBC (Bld) Automated basophil % . [facility] Benzodiazepines Screen Ql (U )Ordered By: PROVIDER TEMP on 09-06-2024 Benzodiazepines Ql (U) Benzodiazepines [Presence] in Urine by Screen method Negative [facility] Benzoylecgonine [Presence] i n Urine by Screen methodOrdered By: PROVIDER TEMP on 09-06-2024 Benzoylecgonine Screen Ql (U) Benzoylecgonine [Presence] in Urine by Screen method Negative [facility] Bilirubin Test strip Ql (U)O rdered By: Franklin Anand on 09-06-2024 Bilirubin Ql (U) Bilirubin.total [Presence] in Urine by Test strip Negative [facility] Bilirubin.total [Mass/volume ] in Serum or PlasmaOrdered By: Franklin Anand on 09-06-2024 Bilirubin [Mass/Vol] Bilirubin.total [Mass/volume] in Serum or Plasma 0.3-1.0 [facility] Calcium [Mass/volume] in Ser um or PlasmaOrdered By: Franklin Anand on 09-06-2024 Calcium [Mass/Vol] Calcium [Mass/volume ] in Serum or Plasma 8.6-10.3 [facility] Cannabinoids [Presence] in U rine by Screen methodOrdered By: PROVIDER TEMP on 09-06-2024 Cannabinoids Screen Ql (U) Cannabinoids [Presence] in Urine by Screen method Negative [facility] Comment on above: These are unconfirme d [...] l [Moles/volume] in Serum or Plasma 21.0-31.0 [facility] Chloride [Moles/volume] in S darrel or PlasmaOrdered By: Franklin Anand on 09-06-2024 Chloride [Moles/Vol] Chloride [Moles/volume] in Serum or Plasma 98-107 [facility] Cholesterol [Mass/volume] in Serum or PlasmaOrdered By: Anson Sutton on 09-06-2024 Cholesterol [Mass/Vol] Cholesterol [Mass/volume] in Serum or Plasma 140-200 [facility] Comment on above: Chol less than 200 m g/dl low riskChol 201-239 mg/dl borderline riskChol 240 mg/dl and greater high risk Cholesterol in HDL [Mass/vol ume] in Serum or PlasmaOrdered By: Anson Sutton on 09-06-2024 Cholesterol in HDL [Mass/Vol] Serum or plasma high density lipoprotein (HDL) cholesterol measurement 23-92 [facility] Comment on above: HDL CHOL ATP-III CLA SSIFICATION Cardiovascular RiskHDL > or equal to 60 mg/dL LOWHDL < 40 mg/dL HIGH Cholesterol in LDL Calc [Mas s/Vol]Ordered By: Anson Sutton on 09-06-2024 Cholesterol in LDL [Mass/Vol] Cholesterol in LDL [Mass/volume] in Serum or Plasma by calculation High 0-100 [facility] Comment on above: LDL ATP III CLASSIFI CATIONLDL less than 100 mg/dL OptimalLDL 100-129 mg/dL Near or above optimalLDL 130-159 mg/dL Borderline highLDL 160-189 mg/dL HighLDL greater than 189 mg/dL Very high Cholesterol in VLDL Calc [Ma ss/Vol]Ordered By: Anson Sutton on 09-06-2024 Cholesterol in VLDL [Mass/Vol] Cholesterol in VLDL [Mass/volume] in Serum or Plasma by calculation [facility] Color Auto (U)Ordered By: Alexis Anand on 09-06-2024 Color (U) Color of Urine by Auto Yellow [facility] Comprehensive Metabolic Pane nadir 09-06-2024 Albumin [Mass/Vol] 4.4 g/dL Normal 3.5-5.7 [facility] Comment on above: Performed By: #### C MP, ETOH, SCAN CBC #### [facility] [address] [place] [id number] [place] Albumin/Globulin [Mass ratio] 1.5 {ratio} Normal [facility] Comment on above: Performed By: #### C MP, ETOH, SCAN CBC #### [facility] [address] [place] [id number] [place] ALP [Catalytic activity/Vol] 64 U/L Normal 34-104 [facility] Comment on above: Performed By: #### C MP, ETOH, SCAN CBC #### [facility] [address] [place] [address] [place] ALT [Catalytic activity/Vol] 14 U/L Normal 7-52 [facility] Comment on above: Performed By: #### C MP, ETOH, SCAN CBC #### [facility] [address] [place] [id number] [place] Anion gap [Moles/Vol] 12.8 mmol/L Normal 6.0-15.0 [facility] Comment on above: Performed By: #### C MP, ETOH, SCAN CBC #### [facility] [address] [place] [id number] [place] AST [Catalytic activity/Vol] 18 U/L Normal 13-39 [facility] Comment on above: Performed By: #### C MP, ETOH, SCAN CBC #### [facility] [address] [place] [id number] [place] Bilirubin [Mass/Vol] 0.7 mg/dL Normal 0.3-1.0 [facility] Comment on above: Performed By: #### C MP, ETOH, SCAN CBC #### [facility] [address] [place] [id number] [place] Calcium [Mass/Vol] 9.3 mg/dL Normal 8.6-10.3 [facility] Comment on above: Performed By: #### C MP, ETOH, SCAN CBC #### [address] Chloride [Moles/Vol] 104 mmol/L Normal 98-107 [facility] Comment on above: Performed By: #### C MP, ETOH, SCAN CBC #### [address] CO2 [Moles/Vol] 28.1 mmol/L Normal 21.0-31.0 [facility] Comment on above: Performed By: #### C MP, ETOH, SCAN CBC #### [address] Creatinine [Mass/Vol] 1.20 mg/dL Normal 0.70-1.30 [facility] Comment on above: Performed By: #### C MP, ETOH, SCAN CBC #### [address] Creatinine Clr Calc Pharmacy 75.84 Normal [facility] Comment on above: Result Comment: PERF ORMED BY: [place] [address] PATHOLOGIST LINEMAN CAROLYN HECK M.D. Performed By: #### C MP, ETOH, SCAN CBC #### [address] GFR/1.73 sq M.predicted MDRD (S/P/Bld) [Vol rate/Area] mL/min/{1.73_m2} Normal [facility] Comment on above: Performed By: #### C MP, ETOH, SCAN CBC #### [place] [address] [place] Globulin (S) [Mass/Vol] 2.9 g/dL Normal [facility] Comment on above: Performed By: #### C MP, ETOH, SCAN CBC #### [address] Glucose [Mass/Vol] 97 mg/dL Significant change down 70-100 [facility] Comment on above: Result Comment: [facility] Glucose Reference Range is dependent on time and content of last meal. Glucose of more than 200 mg/dL in a nonstressed, ambulatory subject supports the diagnosis of Diabetes Mellitus. ADA recommended reference range Performed By: #### C MP, ETOH, SCAN CBC #### [facility] [address] [place] [address] [place] Potassium [Moles/Vol] 3.9 mmol/L Normal 3.5-5.1 [facility] Comment on above: Performed By: #### C MP, ETOH, SCAN CBC #### [facility] [address] [place] [address] [place] Protein [Mass/Vol] 7.3 g/dL Normal 6.4-8.9 [facility] Comment on above: Performed By: #### C MP, ETOH, SCAN CBC #### [facility] [address] Sodium [Moles/Vol] 141 mmol/L Normal 136-145 [facility] Comment on above: Performed By: #### C MP, ETOH, SCAN CBC #### [facility] [address] [place] [address] [place] Urea nitrogen [Mass/Vol] 13 mg/dL Normal 7-25 [facility] Comment on above: Performed By: #### C MP, ETOH, SCAN CBC #### [place] [address] [place] Creatinine [Mass/volume] in Serum or PlasmaOrdered By: Franklin Anand on 09-06-2024 Creatinine [Mass/Vol] Creatinine [Mass/volume] in Serum or Plasma 0.70-1.30 [facility] Dipstick and Microscopicon 0 09-06-2024 Appearance (U) Clear Normal Clear [facility] Comment on above: Order Comment: Name Collection Type:: Clean-Voided Midstream Performed By: #### U RDS, ADDONUAPLUS #### [place] [address] [place] Bacteria,Urine None Seen Normal None Seen [facility] Comment on above: Order Comment: Name Collection Type:: Clean-Voided Midstream Performed By: #### U RDS, ADDONUAPLUS #### [place] [id number] [place] Bilirubin,Urine Negative Normal Negative [facility] Comment on above: Order Comment: Name Collection Type:: Clean-Voided Midstream Performed By: #### U RDS, ADDONUAPLUS #### [address] Color (U) Yellow Normal Yellow [facility] Comment on above: Order Comment: Name Collection Type:: Clean-Voided Midstream Performed By: #### U RDS, ADDONUAPLUS #### [address] Glucose Ql (U) Normal Normal Normal [facility] Comment on above: Order Comment: Name Collection Type:: Clean-Voided Midstream Performed By: #### U RDS, ADDONUAPLUS #### [address] Hyaline Casts,Urine None Normal 0-8 [facility] Comment on above: Order Comment: Name Collection Type:: Clean-Voided Midstream Performed By: #### U RDS, ADDONUAPLUS #### [address] Ketones Ql (U) Negative Normal Negative [facility] Comment on above: Order Comment: Name Collection Type:: Clean-Voided Midstream Performed By: #### U RDS, ADDONUAPLUS #### [address] Leukocyte esterase Test strip Ql (U) Negative Normal Negative [facility] Comment on above: Order Comment: Name Collection Type:: Clean-Voided Midstream Performed By: #### U RDS, ADDONUAPLUS #### [place] [address] [place] Mucus,Urine 1+ Critically abnormal [facility] Comment on above: Order Comment: Name Collection Type:: Clean-Voided Midstream Result Comment: PERF ORMED BY: [place] [address] PATHOLOGIST LINEMAN CAROLYN HECK M.D. Performed By: #### U RDS, ADDONUAPLUS #### [place] [address] [place] Nitrite,Urine Negative Normal Negative [facility] Comment on above: Order Comment: Name Collection Type:: Clean-Voided Midstream Performed By: #### U RDS, ADDONUAPLUS #### [address] Occult Blood,Urine 2+ High Negative [facility] Comment on above: Order Comment: Name Collection Type:: Clean-Voided Midstream Result Comment: PERF ORMED BY: [place] [address] PATHOLOGIST LINEMAN CAROLYN HECK M.D. Performed By: #### U RDS, ADDONUAPLUS #### [address] pH (U) 5.5 [pH] Normal 5.0-9.0 [facility] Comment on above: Order Comment: Name Collection Type:: Clean-Voided Midstream Performed By: #### U RDS, ADDONUAPLUS #### [address] Protein (U) [Mass/Vol] 30 mg/dL High Negative [facility] Comment on above: Order Comment: Name Collection Type:: Clean-Voided Midstream Performed By: #### U RDS, ADDONUAPLUS #### [place] [address] [place] RBC,Urine Innumerable High 0-4 [facility] Comment on above: Order Comment: Name Collection Type:: Clean-Voided Midstream Performed By: #### U RDS, ADDONUAPLUS #### [place] [address] [place] Specificy Rentz,Urine 1.030 Normal 1.001-1.030 [facility] Comment on above: Order Comment: Name Collection Type:: Clean-Voided Midstream Performed By: #### U RDS, ADDONUAPLUS #### [address] Urobilinogen,Urine Normal Normal Normal [facility] Comment on above: Order Comment: Name Collection Type:: Clean-Voided Midstream Performed By: #### U RDS, ADDONUAPLUS #### [place] [address] [place] WBC,Urine 10-19 High 0-4 [facility] Comment on above: Order Comment: Name Collection Type:: Clean-Voided Midstream Performed By: #### U RDS, ADDONUAPLUS #### [place] [address] [place] Drug Screen,Urineon 09-07-19 25 Amphetamine Screen,Urine Positive High Negative [facility] Comment on above: Performed By: #### U RDS, ADDONUAPLUS #### [address] Barbiturate Screen,Urine Negative Normal Negative [facility] Comment on above: Performed By: #### U RDS, ADDONUAPLUS #### [address] Benzodiazepines Screen,Urine Negative Normal Negative [facility] Comment on above: Performed By: #### U RDS, ADDONUAPLUS #### [address] Cannabinoid Screen,Urine Negative Normal Negative [facility] Comment on above: Result Comment: Thes e are unconfirmed results and should not be used for legal purposes. Drug Cut-Off Concentration: AMPH 1000 ng/mL AMEE 200 ng/mL BETITO 200 ng/mL COCM 300 ng/mL OP 300 ng/mL PCP 25 ng/mL THC 20 ng/mL PERFORMED BY: [place] [address] PATHOLOGIST LINEMAN CAROLYN HECK M.D. Performed By: #### U RDS, ADDONUAPLUS #### [address] Cocaine Screen,Urine Negative Normal Negative [facility] Comment on above: Performed By: #### U RDS, ADDONUAPLUS #### [address] Opiate Screen,Urine Negative Normal Negative [facility] Comment on above: Performed By: #### U RDS, ADDONUAPLUS #### [facility] [address] Phencyclidine Screen,Urine Negative Normal Negative [facility] Comment on above: Performed By: #### U RDS, ADDONUAPLUS #### [facility] [address] [place] [address] [place] Eosinophils Auto (Bld) [#/Vo l]Ordered By: Franklin Anand on 09-06-2024 Eosinophils (Bld) [#/Vol] Automated eosinophil count 0.0-0.45 [facility] Eosinophils/100 WBC Auto (Bl d)Ordered By: Franklin Anand on 09-06-2024 Eosinophils/100 WBC (Bld) Automated eosinophil % . [facility] Epithelial cells.squamous [# /area] in Urine sediment by Automated countOrdered By: KOURTNEY TEMP on 09-06-2024 Epithelial cells.squamous Auto (Urine sed) [#/Area] Epithelial cells.squamous [#/area] in Urine sediment by Automated count [facility] Erythrocyte distribution wid th Auto (RBC) [Ratio]Ordered By: Franklin Anand on 09-06-2024 Erythrocyte distribution width (RBC) [Ratio] Erythrocyte distribution width [Ratio] by Automated count High 12.0-14.8 [facility] Erythrocyte morphology findi ng [Identifier] in BloodOrdered By: Franklin Anand on 09-06-2024 RBC morphology finding Nom (Bld) RBC morphology Normal [facility] Erythrocytes [#/area] in Uri ne sediment by Automated countOrdered By: Franklin Anand on 09-06-2024 RBC Auto (Urine sed) [#/Area] Erythrocytes [#/area] in Urine sediment by Automated count High 0-4 [facility] Ethanol [Mass/volume] in Ser um or PlasmaOrdered By: Franklin Anand on 09-06-2024 Ethanol [Mass/Vol] Ethanol [Mass/volume ] in Serum or Plasma [facility] Comment on above: Test not performed Ethyl Alcohol Profileon Ethanol [Mass/Vol] mg/dL Normal [facility] Comment on above: Performed By: #### C MP, ETOH, SCAN CBC #### [facility] [address] Percent Ethanol Not performed Normal [facility] Comment on above: Result Comment: PERF ORMED BY: [facility] [address] [place] [address] PATHOLOGIST LINEMAN CAROLYN HECK M.D. Performed By: #### C MP, ETOH, SCAN CBC #### [facility] [address] Globulin Calc (S) [Mass/Vol] Ordered By: Franklin Anand on 09-06-2024 Globulin (S) [Mass/Vol] Serum globulin measurement by calculation (mass/volume) [facility] Glucose [Mass/volume] in Ser um or PlasmaOrdered By: Franklin Anand on 09-06-2024 Glucose [Mass/Vol] Glucose [Mass/volume ] in Serum or Plasma Significant change down 70-100 [facility] Comment on above: Delta: 255 on [id number] recommended reference rangeRandom Glucose Reference Range is dependent on time and content of last meal. Glucose of more than 200 mg/dL in a nonstressed, ambulatory subject supports the diagnosis of Diabetes Mellitus. Glucose [Mass/volume] in Uri ne by Test stripOrdered By: Franklin Anand on 09-06-2024 Glucose Test strip (U) [Mass/Vol] Glucose [Mass/volume] in Urine by Test strip Normal [facility] Hematocrit Auto (Bld) [Volum e fraction]Ordered By: Franklin Anand on 09-06-2024 Hematocrit (Bld) [Volume fraction] Hematocrit [Volume Fraction] of Blood by Automated count High 38.8-50.0 [facility] Hemoglobin Test strip Ql (U) Ordered By: Franklin Anand on 09-06-2024 Hemoglobin Ql (U) Hemoglobin [Presence ] in Urine by Test strip High Negative [facility] Hemoglobin [Mass/volume] in BloodOrdered By: Franklin Anand on 09-06-2024 Hemoglobin (Bld) [Mass/Vol] Hemoglobin [Mass/volume] in Blood High 13.0-17.0 [facility] Hyaline casts [#/area] in Ur ine sediment by Automated countOrdered By: Franklin Anand on 09-06-2024 Hyaline casts Auto (Urine sed) [#/Area] Hyaline casts [#/area] in Urine sediment by Automated count 0-8 [facility] Ketones Test strip Ql (U)Ord ered By: Franklin Anand on 09-06-2024 Ketones Ql (U) Ketones [Presence] i n Urine by Test strip Negative [facility] Leukocyte esterase [Presence ] in Urine by Test stripOrdered By: Franklin Anand on 09-06-2024 Leukocyte esterase Test strip Ql (U) Leukocyte esterase [Presence] in Urine by Test strip Negative [facility] Leukocytes [#/area] in Urine sediment by Automated countOrdered By: Franklin Anand on 09-06-2024 WBC Auto (Urine sed) [#/Area] Leukocytes [#/area] in Urine sediment by Automated count High 0-4 [facility] Leukocytes [#/volume] correc leeroy for nucleated erythrocytes in Blood by Automated counOrdered By: Franklin Anand on 09-06-2024 WBC corrected for nucl RBC Auto (Bld) [#/Vol] Leukocytes [#/volume] corrected for nucleated erythrocytes in Blood by Automated coun High 4.1-10.5 [facility] Lipid Panelon 09-06-2024 Cholesterol [Mass/Vol] 180 mg/dL Normal 140-200 [facility] Comment on above: Order Comment: Comme nt use ER blood Result Comment: Chol less than 200 mg/dl low risk Chol 201-239 mg/dl borderline risk Chol 240 mg/dl and greater high risk Performed By: #### B MP, CBC, LIPASE, HEPATIC #### [facility] [address] [place] [address] [place] Cholesterol in HDL [Mass/Vol] 37 mg/dL Normal 23-92 [facility] Comment on above: Order Comment: Comme nt use ER blood Result Comment: HDL CHOL ATP-III CLASSIFICATION Cardiovascular Risk HDL > or equal to 60 mg/dL LOW HDL < 40 mg/dL HIGH Performed By: #### B MP, CBC, LIPASE, HEPATIC #### [facility] [address] [place] [address] [place] Cholesterol.total/Cecilia sterol in HDL [Mass ratio] 4.9 {ratio} Normal <5.0 [facility] Comment on above: Order Comment: Comme nt use ER blood Performed By: #### B MP, CBC, LIPASE, HEPATIC #### [facility] [address] LDL Cholesterol,Calculated 111 mg/dL High 0-100 The [...] #### B MP, CBC, LIPASE, HEPATIC #### [facility] [address] Triglyceride w/Reflex 162 mg/dL High 0-149 The [...] #### B MP, CBC, LIPASE, HEPATIC #### [facility] [address] VLDL CHOLESTEROL 32 mg/dL Normal [facility] Comment on above: Order Comment: Comme nt use ER blood Performed By: #### B MP, CBC, LIPASE, HEPATIC #### [facility] [address] [place] [address] [place] Lymphocytes Auto (Bld) [#/Vo l]Ordered By: Franklin Anand on 09-06-2024 Lymphocytes (Bld) [#/Vol] Lymphocytes [#/volume] in Blood by Automated count 1.00-4.8 [facility] Lymphocytes/100 WBC Auto (Bl d)Ordered By: Franklin Anand on 09-06-2024 Lymphocytes/100 WBC (Bld) Lymphocytes/100 leukocytes in Blood by Automated count . [facility] MCH Auto (RBC) [Entitic mass ]Ordered By: Franklin Anand on 09-06-2024 MCH (RBC) [Entitic mass] MCH [Entitic mass] by Automated count Low 27.5-35.2 [facility] MCHC Auto (RBC) [Mass/Vol]Or dered By: Franklin Anand on 09-06-2024 MCHC (RBC) [Mass/Vol] MCHC [Mass/volume] by Automated count Low 32.5-35.6 [facility] MCV Auto (RBC) [Entitic vol] Ordered By: Franklin Anand on 09-06-2024 MCV (RBC) [Entitic vol] MCV [Entitic vol ume] by Automated count Low 83.5-101 [facility] Monocyte distribution width [Entitic volume] in Blood by AutomatedOrdered By: Franklin Anand on 09-06-2024 Monocyte distribution width Auto (Bld) [Entitic vol] Monocyte distribution width [Entitic volume] in Blood by Automated 0.00-20.00 [facility] Monocytes Auto (Bld) [#/Vol] Ordered By: Franklin Anand on 09-06-2024 Monocytes (Bld) [#/Vol] Automated blood monocyte count High 0.0-0.8 [facility] Monocytes/100 WBC Auto (Bld) Ordered By: Franklin Anand on 09-06-2024 Monocytes/100 WBC (Bld) Automated monocyte % . [facility] Mucus [Presence] in Urine by AutomatedOrdered By: Franklin Anand on 09-06-2024 Mucus Auto Ql (U) Mucus [Presence] in Urine by Automated Abnormal [facility] Neutrophils Auto (Bld) [#/Vo l]Ordered By: Franklin Anand on 09-06-2024 Neutrophils (Bld) [#/Vol] Neutrophils [#/volume] in Blood by Automated count 1.8-7.7 [facility] Neutrophils/100 WBC Auto (Bl d)Ordered By: Franklin Anand on 09-06-2024 Neutrophils/100 WBC (Bld) Automated neutrophil % . [facility] Nitrite Test strip Ql (U)Ord ered By: Franklin Anand on 09-06-2024 Nitrite Ql (U) Nitrite [Presence] i n Urine by Test strip Negative [facility] No Panel InformationOrdered By: Franklin Anand on 09-06-2024 Estimated GFR (CKD-EPI) > 60.0 mL/Min [facility] Creatinine Clearance (Chem 75.84 [facility] Nucleated erythrocytes [Pres ence] in Blood by Automated countOrdered By: Franklin Anand on 09-06-2024 Nucleated RBC Auto Ql (Bld) Nucleated erythrocytes [Presence] in Blood by Automated count 0-0.5 [facility] Opiates [Presence] in Urine by Screen methodOrdered By: PROVIDER TEMP on 09-06-2024 Opiates Screen Ql (U) Opiates [Presence] in Urine by Screen method Negative [facility] Phencyclidine Screen Ql (U)O rdered By: PROVIDER TEMP on 09-06-2024 Phencyclidine Ql (U) Phencyclidine [Presence] in Urine by Screen method Negative [facility] Platelet adequacy [Presence] in Blood by Light microscopyOrdered By: Franklin Anand on 09-06-2024 Platelets LM Ql (Bld) Platelet adequacy [Presence] in Blood by Light microscopy Normal [facility] Platelet mean volume Auto (B ld) [Entitic vol]Ordered By: Franklin Anand on 09-06-2024 Platelet mean volume (Bld) [Entitic vol] Platelet mean volume [Entitic volume] in Blood by Automated count 6.6-10.1 [facility] Platelet morphology finding [Identifier] in BloodOrdered By: Franklin Anand on 09-06-2024 Platelet morphology finding Nom (Bld) Platelet morphology finding [Identifier] in Blood Normal [facility] Platelets Auto (Bld) [#/Vol] Ordered By: Franklin Anand on 09-06-2024 Platelets (Bld) [#/Vol] Platelets [#/vol ume] in Blood by Automated count 150-450 [facility] Potassium [Moles/volume] in Serum or PlasmaOrdered By: Franklin Anand on 09-06-2024 Potassium [Moles/Vol] Potassium [Moles/volume] in Serum or Plasma 3.5-5.1 [facility] Protein Test strip (U) [Mass /Vol]Ordered By: Franklin Anand on 09-06-2024 Protein (U) [Mass/Vol] Protein [Mass/vol ume] in Urine by Test strip High Negative [facility] Protein [Mass/volume] in Ser um or PlasmaOrdered By: Franklin Anand on 09-06-2024 Protein [Mass/Vol] Protein [Mass/volume ] in Serum or Plasma 6.4-8.9 [facility] RBC Auto (Bld) [#/Vol]Ordere d By: Franklin Anand on 09-06-2024 RBC (Bld) [#/Vol] Erythrocytes [#/volume] in Blood by Automated count High 3.90-5.60 [facility] Scan and CBCon 09-06-2024 Basophils (Bld) [#/Vol] 0.1 10*3/uL Normal 0.0-0.2 [facility] Comment on above: Performed By: #### C MP, ETOH, SCAN CBC #### [facility] [address] [place] [address] [place] Basophils/100 WBC (Bld) 0.8 % Normal . [facility] Comment on above: Performed By: #### C MP, ETOH, SCAN CBC #### [facility] [address] [place] [address] [place] Eosinophils (Bld) [#/Vol] 0.4 10*3/uL Normal 0.0-0.45 [facility] Comment on above: Performed By: #### C MP, ETOH, SCAN CBC #### [facility] [address] [place] [address] [place] Eosinophils/100 WBC (Bld) 3.3 % Normal . [facility] Comment on above: Performed By: #### C MP, ETOH, SCAN CBC #### [facility] [address] Erythrocyte distribution width (RBC) [Ratio] 15.3 % High 12.0-14.8 [facility] Comment on above: Performed By: #### C MP, ETOH, SCAN CBC #### [facility] [address] Hematocrit (Bld) [Volume fraction] 53.5 % High 38.8-50.0 [facility] Comment on above: Performed By: #### C MP, ETOH, SCAN CBC #### [address] Hemoglobin (Bld) [Mass/Vol] 17.3 g/dL High 13.0-17.0 [facility] Comment on above: Performed By: #### C MP, ETOH, SCAN CBC #### [address] Lymphocytes (Bld) [#/Vol] 4.6 10*3/uL Normal 1.00-4.8 [facility] Comment on above: Performed By: #### C MP, ETOH, SCAN CBC #### [address] Lymphocytes/100 WBC (Bld) 41.5 % Normal . [facility] Comment on above: Performed By: #### C MP, ETOH, SCAN CBC #### [address] MCH (RBC) [Entitic mass] 26.8 pg Low 27.5-35.2 [facility] Comment on above: Performed By: #### C MP, ETOH, SCAN CBC #### [address] MCV (RBC) [Entitic vol] 83.1 fL Low 83.5-101 [facility] Comment on above: Performed By: #### C MP, ETOH, SCAN CBC #### [address] Mean Corpuscular HGB Conc 32.2 g/dL Low 32.5-35.6 [facility] Comment on above: Performed By: #### C MP, ETOH, SCAN CBC #### [address] Monocytes (Bld) [#/Vol] 0.9 10*3/uL High 0.0-0.8 [facility] Comment on above: Performed By: #### C MP, ETOH, SCAN CBC #### [place] [address] [place] Monocytes/100 WBC (Bld) 18.26 % Normal 0.00-20.00 [facility] Comment on above: Performed By: #### C MP, ETOH, SCAN CBC #### [place] [address] [place] Monocytes/100 WBC (Bld) 8.5 % Normal . [facility] Comment on above: Performed By: #### C MP, ETOH, SCAN CBC #### [place] [address] [place] Neutrophils (Bld) [#/Vol] 5.1 10*3/uL Normal 1.8-7.7 [facility] Comment on above: Performed By: #### C MP, ETOH, SCAN CBC #### [address] Neutrophils/100 WBC (Bld) 45.9 % Normal . [facility] Comment on above: Performed By: #### C MP, ETOH, SCAN CBC #### [address] NRBC% 0.3 /100{WBC} Normal 0-0.5 [facility] Comment on above: Performed By: #### C MP, ETOH, SCAN CBC #### [address] Platelet Estimate Normal Normal Normal [facility] Comment on above: Performed By: #### C MP, ETOH, SCAN CBC #### [address] Platelet mean volume (Bld) [Entitic vol] 8.3 fL Normal 6.6-10.1 [facility] Comment on above: Performed By: #### C MP, ETOH, SCAN CBC #### [address] Platelet Morphology Normal Normal Normal [facility] Comment on above: Result Comment: PERF ORMED BY: [place] [address] PATHOLOGIST LINEMAN CAROLYN HECK M.D. Performed By: #### C MP, ETOH, SCAN CBC #### [facility] [address] [place] [address] [place] Platelets (Bld) [#/Vol] 270 10*3/uL Normal 150-450 [facility] Comment on above: Performed By: #### C MP, ETOH, SCAN CBC #### [facility] [address] RBC (Bld) [#/Vol] 6.45 10*6/uL High 3.90-5.60 [facility] Comment on above: Performed By: #### C MP, ETOH, SCAN CBC #### [facility] [address] RBC morphology finding Nom (Bld) Normal Normal Normal [facility] Comment on above: Performed By: #### C MP, ETOH, SCAN CBC #### [facility] [address] WBC (Bld) [#/Vol] 11.1 10*3/uL High 4.1-10.5 [facility] Comment on above: Performed By: #### C MP, ETOH, SCAN CBC #### [facility] [address] Serum or plasma albumin/glob ulin mass ratioOrdered By: Franklin Anand on 09-06-2024 Albumin/Globulin [Mass ratio] Serum or plasma albumin/globulin mass ratio [facility] Serum or plasma anion gap de terminationOrdered By: Franklin Anand on 09-06-2024 Anion gap [Moles/Vol] Serum or plasma an ion gap determination 6.0-15.0 [facility] Serum or plasma total choles terol/high density lipoprotein (HDL) cholesterol mass ratOrdered By: Anson Sutton on 09-06-2024 Cholesterol.total/Cecilia sterol in HDL [Mass ratio] Serum or plasma total cholesterol/high density lipoprotein (HDL) cholesterol mass rat <5.0 [facility] Sodium [Moles/volume] in Ser um or PlasmaOrdered By: Franklin Anand on 09-06-2024 Sodium [Moles/Vol] Sodium [Moles/volume ] in Serum or Plasma 136-145 [facility] Specific gravity Test strip (U) [Rel density]Ordered By: Franklin Anand on 09-06-2024 Specific gravity (U) [Rel density] Specific gravity of Urine by Test strip 1.001-1.030 [facility] Thyroid Stim Hormone w/Rflxo n 09-06-2024 Thyroid Stim Hormone w/Rflx 2.94 u[iU]/mL Normal 0.45-5.33 [facility] Comment on above: Order Comment: Comme nt use ER blood Performed By: #### B MP, CBC, LIPASE, HEPATIC #### [address] Thyrotropin [Units/volume] i n Serum or PlasmaOrdered By: Anson Sutton on 09-06-2024 TSH Qn Thyrotropin [Units/volume] in Serum or Plasma 0.45-5.33 [facility] Triglyceride [Mass/volume] i n Serum or PlasmaOrdered By: Anson Sutton on 09-06-2024 Triglyceride [Mass/Vol] Triglyceride [Mass/volume] in Serum or Plasma High 0-149 [facility] Comment on above: TRIG ATP III CLASSIF ICATIONTRIG less than 150 mg/dL NormalTRIG 150-199 mg/dL Borderline highTRIG 200-500 mg/dL High TRIG greater than 500 mg/dL Very highStandard traceable to the Center for Disease Conrtrol and Prevention (CDC) test method. Urea nitrogen [Mass/volume] in Serum or PlasmaOrdered By: Franklin Anand on 09-06-2024 Urea nitrogen [Mass/Vol] Urea nitrogen [Mass/volume] in Serum or Plasma 7-25 [facility] Urobilinogen Test strip (U) [Mass/Vol]Ordered By: Franklin Anand on 09-06-2024 Urobilinogen (U) [Mass/Vol] Urobilinogen [Mass/volume] in Urine by Test strip Normal [facility] Vitamin D 25 Hydroxy Totalon 09-06-2024 Vitamin [...] Society clinical practice guideline. JCEM. 2010; 96(7):1911-30. PERFORMED BY: [facility] [address] [place] [address] PATHOLOGIST LINEMAN CAROLYN HECK M.D. Performed By: #### B MP, CBC, LIPASE, HEPATIC #### [facility] [address] Vitamin D+Metabolites [Mass/ volume] in Serum or PlasmaOrdered By: Anson Sutton on 09-06-2024 Vitamin D+Metabolites [Mass/Vol] Vitamin D+Metabolites [Mass/volume] in Serum or Plasma Low 30-100 [facility] Comment on above: VITAMIN D STATUS 25( OH)VITAMIN D RANGE (ng/mL) Deficient <20 Insufficient 20 to <30Sufficient 30 to 100Reference: Glenn Stoddard, Ronaldo MIR, et al. Evaluation,treatment, and prevention of vitamin D deficiency; an Endocrine Society clinical practice guideline. JCEM. 2010; 96(7):1911-30. WBC Auto (Bld) [#/Vol]Ordere d By: Franklin Anand on 09-06-2024 WBC (Bld) [#/Vol] Leukocytes [#/volume ] in Blood by Automated count High 4.1-10.5 [facility] pH Test strip (U)Ordered By: Franklin Anand on 09-06-2024 pH (U) pH of Urine by Test strip 5.0-9.0 [facility] Alanine aminotransferase [En zymatic activity/volume] in Serum or PlasmaOrdered By: Malia Matamoros on 09-05-2024 ALT [Catalytic activity/Vol] Alanine aminotransferase [Enzymatic activity/volume] in Serum or Plasma [facility] Albumin [Mass/volume] in Ser um or Plasma by Bromocresol green (BCG) dye binding methoOrdered By: Malia Matamoros on 09-05-2024 Albumin BCG dye [Mass/Vol] Albumin [Mass/volume] in Serum or Plasma by Bromocresol green (BCG) dye binding metho 3.5-5.7 [facility] Alkaline phosphatase [Enzyma tic activity/volume] in Serum or PlasmaOrdered By: Malia Matamoros on 09-05-2024 ALP [Catalytic activity/Vol] Alkaline phosphatase [Enzymatic activity/volume] in Serum or Plasma 34-104 [facility] Aspartate aminotransferase [ Enzymatic activity/volume] in Serum or PlasmaOrdered By: Malia Matamoros on 09-05-2024 AST [Catalytic activity/Vol] Aspartate aminotransferase [Enzymatic activity/volume] in Serum or Plasma 13-39 [facility] Basic Metabolic Panelon Anion gap [Moles/Vol] 14.2 mmol/L Normal 6.0-15.0 [facility] Comment on above: Performed By: #### B MP, CBC, LIPASE, HEPATIC #### [facility] [address] [place] [id number] [place] Calcium [Mass/Vol] 9.0 mg/dL Normal 8.6-10.3 [facility] Comment on above: Performed By: #### B MP, CBC, LIPASE, HEPATIC #### [facility] [address] [place] [id number] [place] Chloride [Moles/Vol] 103 mmol/L Normal 98-107 [facility] Comment on above: Performed By: #### B MP, CBC, LIPASE, HEPATIC #### [facility] [address] [place] [address] [place] CO2 [Moles/Vol] 27.5 mmol/L Normal 21.0-31.0 [facility] Comment on above: Performed By: #### B MP, CBC, LIPASE, HEPATIC #### [facility] [address] [place] [address] [place] Creatinine [Mass/Vol] 1.29 mg/dL Normal 0.70-1.30 [facility] Comment on above: Performed By: #### B MP, CBC, LIPASE, HEPATIC #### [facility] [address] [place] [id number] [place] Creatinine Clr Calc Pharmacy 70.24 Normal [facility] Comment on above: Performed By: #### B MP, CBC, LIPASE, HEPATIC #### [facility] [address] [place] [address] [place] GFR/1.73 sq M.predicted MDRD (S/P/Bld) [Vol rate/Area] mL/min/{1.73_m2} Normal [facility] Comment on above: Performed By: #### B MP, CBC, LIPASE, HEPATIC #### [facility] [address] [place] [address] [place] Glucose [Mass/Vol] 255 mg/dL High 70-100 [facility] Comment on above: Result Comment: [facility] Glucose Reference Range is dependent on time and content of last meal. Glucose of more than 200 mg/dL in a nonstressed, ambulatory subject supports the diagnosis of Diabetes Mellitus. ADA recommended reference range Performed By: #### B MP, CBC, LIPASE, HEPATIC #### [facility] [address] Potassium [Moles/Vol] 3.7 mmol/L Normal 3.5-5.1 [facility] Comment on above: Performed By: #### B MP, CBC, LIPASE, HEPATIC #### [facility] [address] [place] [address] [place] Sodium [Moles/Vol] 141 mmol/L Normal 136-145 [facility] Comment on above: Performed By: #### B MP, CBC, LIPASE, HEPATIC #### [facility] [address] [place] [address] [place] Urea nitrogen [Mass/Vol] 17 mg/dL Normal 7-25 [facility] Comment on above: Performed By: #### B MP, CBC, LIPASE, HEPATIC #### [facility] [address] [place] [address] [place] Basophils Auto (Bld) [#/Vol] Ordered By: Malia Matamoros on 09-05-2024 Basophils (Bld) [#/Vol] Automated basoph il count 0.0-0.2 [facility] Basophils/100 WBC Auto (Bld) Ordered By: Malia Matamoros on 09-05-2024 Basophils/100 WBC (Bld) Automated basophil % . [facility] Bilirubin.direct [Mass/volum e] in Serum or PlasmaOrdered By: Malia Matamoros on 09-05-2024 Bilirubin.direct [Mass/Vol] Bilirubin.direct [Mass/volume] in Serum or Plasma Low 0.03-0.18 [facility] Comment on above: If the DBIL is less than 0.1, IBIL is not able to becalculated. Bilirubin.total [Mass/volume ] in Serum or PlasmaOrdered By: Malia Matamoros on 09-05-2024 Bilirubin [Mass/Vol] Bilirubin.total [Mass/volume] in Serum or Plasma 0.3-1.0 [facility] Calcium [Mass/volume] in Ser um or PlasmaOrdered By: Malia Matamoros on 09-05-2024 Calcium [Mass/Vol] Calcium [Mass/volume ] in Serum or Plasma 8.6-10.3 [facility] Carbon dioxide, total [Moles /volume] in Serum or PlasmaOrdered By: Malia Matamoros on 09-05-2024 CO2 [Moles/Vol] Carbon dioxide, tota l [Moles/volume] in Serum or Plasma 21.0-31.0 [facility] Chloride [Moles/volume] in S darrel or PlasmaOrdered By: Malia Matamoros on 09-05-2024 Chloride [Moles/Vol] Chloride [Moles/volume] in Serum or Plasma 98-107 [facility] Complete Blood Count Auto Di ffon 09-05-2024 Basophils (Bld) [#/Vol] 0.1 10*3/uL Normal 0.0-0.2 [facility] Comment on above: Result Comment: PERF ORMED BY: [address] [place] [address] PATHOLOGIST LINEMAN CAROLYN HECK M.D. Performed By: #### B MP, CBC, LIPASE, HEPATIC #### [facility] [address] [place] [address] [place] Basophils/100 WBC (Bld) 1.1 % Normal . [facility] Comment on above: Performed By: #### B MP, CBC, LIPASE, HEPATIC #### [facility] [address] [place] [address] [place] Eosinophils (Bld) [#/Vol] 0.2 10*3/uL Normal 0.0-0.45 [facility] Comment on above: Performed By: #### B MP, CBC, LIPASE, HEPATIC #### [address] Eosinophils/100 WBC (Bld) 1.8 % Normal . [facility] Comment on above: Performed By: #### B MP, CBC, LIPASE, HEPATIC #### [address] Erythrocyte distribution width (RBC) [Ratio] 15.5 % High 12.0-14.8 [facility] Comment on above: Performed By: #### B MP, CBC, LIPASE, HEPATIC #### [address] Hematocrit (Bld) [Volume fraction] 50.4 % High 38.8-50.0 [facility] Comment on above: Performed By: #### B MP, CBC, LIPASE, HEPATIC #### [address] Hemoglobin (Bld) [Mass/Vol] 16.4 g/dL Normal 13.0-17.0 [facility] Comment on above: Performed By: #### B MP, CBC, LIPASE, HEPATIC #### [address] Lymphocytes (Bld) [#/Vol] 3.2 10*3/uL Normal 1.00-4.8 [facility] Comment on above: Performed By: #### B MP, CBC, LIPASE, HEPATIC #### [address] Lymphocytes/100 WBC (Bld) 27.9 % Normal . [facility] Comment on above: Performed By: #### B MP, CBC, LIPASE, HEPATIC #### [address] MCH (RBC) [Entitic mass] 26.9 pg Low 27.5-35.2 [facility] Comment on above: Performed By: #### B MP, CBC, LIPASE, HEPATIC #### [address] MCV (RBC) [Entitic vol] 82.8 fL Low 83.5-101 [facility] Comment on above: Performed By: #### B MP, CBC, LIPASE, HEPATIC #### [address] Mean Corpuscular HGB Conc 32.5 g/dL Normal 32.5-35.6 [facility] Comment on above: Performed By: #### B MP, CBC, LIPASE, HEPATIC #### [address] Monocytes (Bld) [#/Vol] 0.9 10*3/uL High 0.0-0.8 [facility] Comment on above: Performed By: #### B MP, CBC, LIPASE, HEPATIC #### [address] Monocytes/100 WBC (Bld) 16.39 % Normal 0.00-20.00 [facility] Comment on above: Performed By: #### B MP, CBC, LIPASE, HEPATIC #### [address] Monocytes/100 WBC (Bld) 7.8 % Normal . [facility] Comment on above: Performed By: #### B MP, CBC, LIPASE, HEPATIC #### [address] Neutrophils (Bld) [#/Vol] 7.0 10*3/uL Normal 1.8-7.7 [facility] Comment on above: Performed By: #### B MP, CBC, LIPASE, HEPATIC #### [place] [address] [place] Neutrophils/100 WBC (Bld) 61.4 % Normal . [facility] Comment on above: Performed By: #### B MP, CBC, LIPASE, HEPATIC #### [place] [address] [place] NRBC% 0.1 /100{WBC} Normal 0-0.5 [facility] Comment on above: Performed By: #### B MP, CBC, LIPASE, HEPATIC #### [facility] [address] Platelet mean volume (Bld) [Entitic vol] 8.0 fL Normal 6.6-10.1 [facility] Comment on above: Performed By: #### B MP, CBC, LIPASE, HEPATIC #### [facility] [address] Platelets (Bld) [#/Vol] 237 10*3/uL Normal 150-450 [facility] Comment on above: Performed By: #### B MP, CBC, LIPASE, HEPATIC #### [address] RBC (Bld) [#/Vol] 6.09 10*6/uL High 3.90-5.60 [facility] Comment on above: Performed By: #### B MP, CBC, LIPASE, HEPATIC #### [address] WBC (Bld) [#/Vol] 11.4 10*3/uL High 4.1-10.5 [facility] Comment on above: Performed By: #### B MP, CBC, LIPASE, HEPATIC #### [address] Creatinine [Mass/volume] in Serum or PlasmaOrdered By: Malia Matamoros on 09-05-2024 Creatinine [Mass/Vol] Creatinine [Mass/volume] in Serum or Plasma 0.70-1.30 [facility] Eosinophils Auto (Bld) [#/Vo l]Ordered By: Malia Matamoros on 09-05-2024 Eosinophils (Bld) [#/Vol] Automated eosinophil count 0.0-0.45 [facility] Eosinophils/100 WBC Auto (Bl d)Ordered By: Malia Matamoros on 09-05-2024 Eosinophils/100 WBC (Bld) Automated eosinophil % . [facility] Erythrocyte distribution wid th Auto (RBC) [Ratio]Ordered By: Malia Matamoros on 09-05-2024 Erythrocyte distribution width (RBC) [Ratio] Erythrocyte distribution width [Ratio] by Automated count High 12.0-14.8 [facility] Globulin Calc (S) [Mass/Vol] Ordered By: Malia Matamoros on 09-05-2024 Globulin (S) [Mass/Vol] Serum globulin measurement by calculation (mass/volume) [facility] Glucose [Mass/volume] in Ser um or PlasmaOrdered By: Malia Matamoros on 09-05-2024 Glucose [Mass/Vol] Glucose [Mass/volume ] in Serum or Plasma High 70-100 [facility] Comment on above: ADA recommended refe rence rangeRandom Glucose Reference Range is dependent on time and content of last meal. Glucose of more than 200 mg/dL in a nonstressed, ambulatory subject supports the diagnosis of Diabetes Mellitus. Hematocrit Auto (Bld) [Volum e fraction]Ordered By: Malia Matamoros on 09-05-2024 Hematocrit (Bld) [Volume fraction] Hematocrit [Volume Fraction] of Blood by Automated count High 38.8-50.0 [facility] Hemoglobin [Mass/volume] in BloodOrdered By: Malia Matamoros on 09-05-2024 Hemoglobin (Bld) [Mass/Vol] Hemoglobin [Mass/volume] in Blood 13.0-17.0 [facility] Hepatic Panelon 09-05-2024 Albumin [Mass/Vol] 4.1 g/dL Normal 3.5-5.7 [facility] Comment on above: Performed By: #### B MP, CBC, LIPASE, HEPATIC #### [facility] [address] [place] [id number] [facility] Albumin/Globulin [Mass ratio] 1.5 {ratio} Normal [facility] Comment on above: Performed By: #### B MP, CBC, LIPASE, HEPATIC #### [facility] [address] [place] [id number] [place] ALP [Catalytic activity/Vol] 62 U/L Normal 34-104 [facility] Comment on above: Performed By: #### B MP, CBC, LIPASE, HEPATIC #### [facility] [address] [place] [id number] [facility] ALT [Catalytic activity/Vol] 13 U/L Normal 7-52 [facility] Comment on above: Performed By: #### B MP, CBC, LIPASE, HEPATIC #### [facility] [address] AST [Catalytic activity/Vol] 17 U/L Normal 13-39 [facility] Comment on above: Performed By: #### B MP, CBC, LIPASE, HEPATIC #### [facility] [address] Bilirubin [Mass/Vol] 0.3 mg/dL Normal 0.3-1.0 [facility] Comment on above: Performed By: #### B MP, CBC, LIPASE, HEPATIC #### [facility] [address] Bilirubin,Indirect 0.3 mg/dL Normal [facility] Comment on above: Performed By: #### B MP, CBC, LIPASE, HEPATIC #### [address] Bilirubin.indirect [Mass/Vol] 0.00 mg/dL Low 0.03-0.18 [facility] Comment on above: Result Comment: If [facility] DBIL is less than 0.1, IBIL is not able to be calculated. Performed By: #### B MP, CBC, LIPASE, HEPATIC #### [address] Globulin (S) [Mass/Vol] 2.7 g/dL Normal [facility] Comment on above: Performed By: #### B MP, CBC, LIPASE, HEPATIC #### [address] Protein [Mass/Vol] 6.8 g/dL Normal 6.4-8.9 [facility] Comment on above: Performed By: #### B MP, CBC, LIPASE, HEPATIC #### [address] Leukocytes [#/volume] correc leeroy for nucleated erythrocytes in Blood by Automated counOrdered By: Malia Matamoros on 09-05-2024 WBC corrected for nucl RBC Auto (Bld) [#/Vol] Leukocytes [#/volume] corrected for nucleated erythrocytes in Blood by Automated coun High 4.1-10.5 [facility] Lipaseon 09-05-2024 Lipase [Catalytic activity/Vol] 68.0 U/L Normal 11.0-82.0 [facility] Comment on above: Result Comment: PERF ORMED BY: [facility] [address] [place] [address] PATHOLOGIST LINEMAN CAROLYN HECK M.D. Performed By: #### B MP, CBC, LIPASE, HEPATIC #### [address] Lipase [Enzymatic activity/v olume] in Serum or PlasmaOrdered By: Malia Matamoros on 09-05-2024 Lipase [Catalytic activity/Vol] Lipase [Enzymatic activity/volume] in Serum or Plasma 11.0-82.0 [facility] Lymphocytes Auto (Bld) [#/Vo l]Ordered By: Malia Matamoros on 09-05-2024 Lymphocytes (Bld) [#/Vol] Lymphocytes [#/volume] in Blood by Automated count 1.00-4.8 [facility] Lymphocytes/100 WBC Auto (Bl d)Ordered By: Malia Matamoros on 09-05-2024 Lymphocytes/100 WBC (Bld) Lymphocytes/100 leukocytes in Blood by Automated count . [facility] MCH Auto (RBC) [Entitic mass ]Ordered By: Malia Matamoros on 09-05-2024 MCH (RBC) [Entitic mass] MCH [Entitic mass] by Automated count Low 27.5-35.2 [facility] MCHC Auto (RBC) [Mass/Vol]Or dered By: Malia Matamoros on 09-05-2024 MCHC (RBC) [Mass/Vol] MCHC [Mass/volume] by Automated count 32.5-35.6 [facility] MCV Auto (RBC) [Entitic vol] Ordered By: Malia Matamoros on 09-05-2024 MCV (RBC) [Entitic vol] MCV [Entitic vol ume] by Automated count Low 83.5-101 [facility] Monocyte distribution width [Entitic volume] in Blood by AutomatedOrdered By: Malia Matamoros on 09-05-2024 Monocyte distribution width Auto (Bld) [Entitic vol] Monocyte distribution width [Entitic volume] in Blood by Automated 0.00-20.00 [facility] Monocytes Auto (Bld) [#/Vol] Ordered By: Malia Matamoros on 09-05-2024 Monocytes (Bld) [#/Vol] Automated blood monocyte count High 0.0-0.8 [facility] Monocytes/100 WBC Auto (Bld) Ordered By: Malia Matamoros on 09-05-2024 Monocytes/100 WBC (Bld) Automated monocyte % . [facility] Neutrophils Auto (Bld) [#/Vo l]Ordered By: Malia Matamoros on 09-05-2024 Neutrophils (Bld) [#/Vol] Neutrophils [#/volume] in Blood by Automated count 1.8-7.7 [facility] Neutrophils/100 WBC Auto (Bl d)Ordered By: Malia Matamoros on 09-05-2024 Neutrophils/100 WBC (Bld) Automated neutrophil % . [facility] No Panel InformationOrdered By: Malia Matamoros on 09-05-2024 Estimated GFR (CKD-EPI) > 60.0 mL/Min [facility] Creatinine Clearance (Chem 70.24 [facility] Nucleated erythrocytes [Pres ence] in Blood by Automated countOrdered By: Malia Matamoros on 09-05-2024 Nucleated RBC Auto Ql (Bld) Nucleated erythrocytes [Presence] in Blood by Automated count 0-0.5 [facility] Platelet mean volume Auto (B ld) [Entitic vol]Ordered By: Malia Matamoros on 09-05-2024 Platelet mean volume (Bld) [Entitic vol] Platelet mean volume [Entitic volume] in Blood by Automated count 6.6-10.1 [facility] Platelets Auto (Bld) [#/Vol] Ordered By: Malia Matamoros on 09-05-2024 Platelets (Bld) [#/Vol] Platelets [#/vol ume] in Blood by Automated count 150-450 [facility] Potassium [Moles/volume] in Serum or PlasmaOrdered By: Malia Matamoros on 09-05-2024 Potassium [Moles/Vol] Potassium [Moles/volume] in Serum or Plasma 3.5-5.1 [facility] Protein [Mass/volume] in Ser um or PlasmaOrdered By: Malia Matamoros on 09-05-2024 Protein [Mass/Vol] Protein [Mass/volume ] in Serum or Plasma 6.4-8.9 [facility] RBC Auto (Bld) [#/Vol]Ordere d By: Malia Matamoros on 09-05-2024 RBC (Bld) [#/Vol] Erythrocytes [#/volume] in Blood by Automated count High 3.90-5.60 [facility] Serum or plasma albumin/glob ulin mass ratioOrdered By: Malia Matamoros on 09-05-2024 Albumin/Globulin [Mass ratio] Serum or plasma albumin/globulin mass ratio [facility] Serum or plasma anion gap de terminationOrdered By: Malia Matamoros on 09-05-2024 Anion gap [Moles/Vol] Serum or plasma an ion gap determination 6.0-15.0 [facility] Serum or plasma non-glucuron idated bilirubin measurement (mass/volume)Ordered By: Malia Matamoros on 09-05-2024 Bilirubin.indirect [Mass/Vol] Serum or plasma non-glucuronidated bilirubin measurement (mass/volume) [facility] Sodium [Moles/volume] in Ser um or PlasmaOrdered By: Malia Matamoros on 09-05-2024 Sodium [Moles/Vol] Sodium [Moles/volume ] in Serum or Plasma 136-145 [facility] Urea nitrogen [Mass/volume] in Serum or PlasmaOrdered By: Malia Matamoros on 09-05-2024 Urea nitrogen [Mass/Vol] Urea nitrogen [Mass/volume] in Serum or Plasma 7-25 [facility] WBC Auto (Bld) [#/Vol]Ordere d By: Malia Matamoros on 09-05-2024 WBC (Bld) [#/Vol] Leukocytes [#/volume ] in Blood by Automated count High 4.1-10.5 [facility] Vital Signs Date Time Vital Sign Value Performing Clinician Faci lity 09-09-2024 07:30-0500 Body temperature 98.2 [degF] Malia Matamoros MD Work Phone: [facility] 09-09-2024 07:30-0500 Diastolic blood pressure 109 mm[Hg] Malia Matamoros MD Work Phone: [facility] 09-09-2024 07:30-0500 Heart rate 70 /min Malia Matamoros MD Work Phone: [facility] 09-09-2024 07:30-0500 Respiratory rate 20 /min Malia Matamoros MD Work Phone: [facility] 09-09-2024 07:30-0500 SaO2% (BldA) [Mass fraction] 96 % Malia Matamoros MD Work Phone: [facility] 09-09-2024 07:30-0500 Systolic blood pressure 168 mm[Hg] Malia Matamoros MD Work Phone: [facility] 09-07-2024 13:54-0500 Body height 165.1 cm Malia Matamoros MD Work Phone: [facility] 09-07-2024 03:24-0500 Body weight 90.46 kg Malia Matamoros MD Work Phone: [facility] 09-07-2024 00:13-0500 Body temperature 98.6 [degF] Malia Matamoros MD Work Phone: [facility] 09-07-2024 00:13-0500 Diastolic blood pressure 84 mm[Hg] Malia Matamoros MD Work Phone: [facility] 09-07-2024 00:13-0500 Heart rate 63 /min Malia Matamoros MD Work Phone: [facility] 09-07-2024 00:13-0500 Respiratory rate 20 /min Malia Matamoros MD Work Phone: [facility] 09-07-2024 00:13-0500 SaO2% (BldA) [Mass fraction] 96 % Malia Matamoros MD Work Phone: [facility] 09-07-2024 00:13-0500 Systolic blood pressure 134 mm[Hg] Malia Matamoros MD Work Phone: [facility] 09-06-2024 16:10-0500 Body height 165.1 cm Malia Matamoros MD Work Phone: [facility] 09-06-2024 16:10-0500 Body weight 91.8 kg Malia Matamoros MD Work Phone: [facility] 09-06-2024 05:00-0500 Diastolic blood pressure 71 mm[Hg] Malia Matamoros MD Work Phone: [facility] 09-06-2024 05:00-0500 Heart rate 75 /min Malia Matamoros MD Work Phone: [facility] 09-06-2024 05:00-0500 Respiratory rate 18 /min Malia Matamoros MD Work Phone: [facility] 09-06-2024 05:00-0500 SaO2% (BldA) [Mass fraction] 97 % Malia Matamoros MD Work Phone: [facility] 09-05-2024 23:24-0500 Body temperature 98.7 [degF] Malia Matamoros MD Work Phone: [facility] 09-05-2024 23:22-0500 Body height 165.1 cm Malia Matamoros MD Work Phone: [facility] 09-05-2024 23:22-0500 Body weight 91 kg Malia Matamoros MD Work Phone: [facility] Encounters Encounter Date Encounter Type Care Provider Facility Start: 01-03-2025 ambulatory [facility] Start: 01-02-2025 End: 01-17-2025 Telephone encounter Makenna Kulkarni RN [facility] Department of [facility] Start: 01-01-2025 End: 01-08-2025 Emergency department patient visit [facility] Start: 12-15-2024 End: 12-15-2024 Emergency department patient visit LYNN MANZO [facility] Start: 12-14-2024 End: 12-14-2024 Emergency department patient visit NÉSTOR MURRAY [facility] Start: 12-09-2024 End: 12-14-2024 Evaluation and management of inpatient MUNIRA CHATMAN [facility] Start: 11-15-2024 End: 11-15-2024 Patient encounter procedure Leelee Centeno [facility] Start: 09-13-2024 ambulatory PHYSICIAN TARAH BRIDGES Fac ility:[facility] Start: 09-07-2024 Non-patient / Non-visit Malia Matamoros MD Work Phone: [facility] Work Phone: Start: 09-07-2024 End: 09-09-2024 Evaluation and management of inpatient Malia Matamoros MD Work Phone: [facility] Work Phone: Start: 09-05-2024 End: 09-06-2024 Emergency department patient visit Malia Matamoros MD Work Phone: [facility] Work Phone: Plan of Treatment Date Care Activity Detail Author Start: 12-09-2025 Adult BMI Screening Adult BMI Screening [facility] Start: 12-09-2025 Tobacco Screening Tobacco Screening [facility] Start: 03-06-2025 Influenza vaccination Influenza Vaccine [facility] Start: 02-13-2025 End: 02-13-2025 Patient encounter procedure 02/13/2025 4:00 PM EDT Office Visit [facility] [address] [place] [id number] Sarah Angulo, EDUCATION AND TRAINING COORDINATOR-RESERVOIR ENGINEER [address] [place] [id number] [facility] Start: 09-09-2024 [facility] Start: 09-07-2024 Hospital admission [facility] Start: 09-07-2024 [facility] Start: 09-06-2024 [facility] Start: 2023 Administration of varicella zoster vaccine Zoster (Shingles) Vaccine (1 of 2) [facility] Start: 1992 DTaP,Tdap and Td Vaccines (1 - Tdap) DTaP,Tdap and Td Vaccines (1 - Tdap) [facility] Start: 1991 Adult BMI Follow Up Plan Adult BMI Follow Up Plan [facility] Start: 1991 Adult BMI Screening Adult BMI Screening [facility] Start: 1985 Depression Screening Depression Screening [facility] Start: 1985 Tobacco Screening Tobacco Screening [facility] Start: 1973 Tobacco Counseling Tobacco Counseling [facility] Patient Education [facility] Work Phone: Patient referral [facility] Work Phone: Immunizations Immunization Date Immunization Notes Care Provider Fa cili 09-08-2024 influenza, seasonal, injectable, preservative free Malia Matamoros MD Work Phone: [facility] 09-08-2024 influenza virus vaccine, unspecified formulation Makenna Kulkarni RN [facility] Payers Date Payer Category Payer Medicare [id number] 2024 Self-pay 2024 Medicare [facility] [id number] 2024 Private Health Insurance [id number] 2024 Medicaid MEDICAID [facility] [id number] 2024 Medicaid [id number] 1975 Unknown [id number]. 2.128 1973 Unknown [id number] [id number]. 2.175 1973 Unknown [id number] [id number]. 2.175 1973 Unknown [id number] [id number]. 2.128 1973 Unknown [id number] [id number]. 2.128 1973 Unknown [id number] [id number]. 2.1285 1973 Unknown [id number] [id number]. 2.1285 1973 Unknown [id number] 2.840.1.710595.3.579. 2.128 1973 Unknown [id number] [id number]. 2.128 1973 Unknown [id number] [id number]. 2.1286 Unknown [id number] [id number]. 2.531 Unknown [id number] [id number]. 2.531 Unknown [id number]. 2.531 Social History Date Type Detail Facility Start: 09-05-2024 End: 09-06-2024 Tobacco smoking status NHIS Smoker (finding) [facility] Start: 05-23-2024 End: 09-06-2024 Sex Male (finding) [facility] Start: 1975 Sex Assigned At Male [facility] Start: 09-07-2024 Tobacco smoking stat [facility] Current Heavy tobacco smoker [facility] Tobacco smoking stat [facility] Tobacco smoking consumption unknown [facility] Start: 1975 Sex assigned at Not on file [facility] Start: 12-09-2024 Gender identity Not on file [facility] Start: 12-09-2024 Tobacco smoking stat [facility] tobacco [facility] History of tobacco use Cigarette Smoker P [facility] Start: 12-09-2024 Tobacco use and exposure Smokeless tobacco non-user [facility] Start: 12-10-2024 Alcoholic beverage intake Current drinker of alcohol (finding) [facility] Start: 12-09-2024 History of Social function [facility] Start: 12-09-2024 Alcohol Comment socially [facility] Goals Date Patient Goal Desired Activity /State Functional Status Date Assessment Result Facility 09-09-2024 Functional status Patient at Baseline [facility] Work Phone: Mental Status Date Assessment Result Facility 09-09-2024 Cognitive function Cognitive Sta tus Patient at Baseline [facility] Work Phone: Clinical Notes 09-06-2024 to 01-02-2025 Telephone Encounter - Makenna Kulkarni RN - 01/02/2025 1:40 PM EDTTelephone Encounter - Malia Monaco - 01/02/2025 1:40 PM EDTTelephone Encounter - Malia Monaco - 01/02/2025 1:40 PM EDT Note Date & Type Note Facility 01-02-2025 Miscellaneous Notes Formattin g of this note might be different from the original. Patient seen via telemedicine at [facility] with Dr. Ordaz. Patient needs 4-5 week follow up tele appt and then we will plan to do dsa with Dr. Vanessa after the appt. Please call to schedule. Called patient and no answer, mailbox is full Called patient an no answer, vm is still full Called patients brother and left VM documented in this encounter [facility] 01-02-2025 Telephone encount er Note Patient seen via telemedicine at [facility] with Dr. Ordaz. Patient needs 4-5 week follow up tele appt and then we will plan to do dsa with Dr. Vanessa after the appt. Please call to schedule. [facility] 01-02-2025 Telephone encount er Note Called patient and no answer, mailbox is full [facility] 01-02-2025 Telephone encount er Note Called patient an no answer, vm is still full Called patients brother and left VM [facility] 11-15-2024 History of Presen t illness Narrative Patient visited the [facility] and received food on 11/15/24. [place] [facility] documented in this encounter [facility] 09-09-2024 Discharge summary Note Date/Time September 09, 2024 1:11 pm [facility] [address] [place] [address] Discharge Summary Signed Patient: Woody Hernandez MR#: [id number] 330 : 1975 Acct:[id number] Age/Sex: 49 / M Adm Date: 5 Loc: 1S Room: 2X0697-[address]: Anson Sutton MD Copies to: Anson Sutton MD NO FAMILY PHYSICIAN~ Providers Date of Discharge: 09/09/24 Discharging Provider: Anson Sutton Primary Care Provider: PHYSICIAN NO FAMILY Discharge Diagnosis (1) Bipolar 1 disorder: (2) Suicidal ideation: Final Diagnosis Final Discharge Diagnosis: Bipolar 1 disorder Summary Hospital Course Hospital course: Mr. Hernnadez is a 49 year old male with a reported history of bipolar disorder and schizophrenia presents for inpatient admission due to suicidal ideation. Reportedly, patient was having auditory hallucinations with command to cut himself. Patient has been visiting from [place]. Came here to visit about6 weeks ago. [...] Instructions: Important Contact Information You can call [facility] at [phone] any time day or night if you have emergent questions or question regarding discharge instructions. If at any time you are feeling an increase inyour psychiatric symptoms, call your physician or behavioral healthcare provider. If any time you have thoughts of harming yourself or others contact one of the following: Call 88 (available 26/01) Crisis Text Line (available 26/01) text 4HOPE to [phone] [facility] Hope Line (available 8 a.m. Midnight) call [phone] ([phone]) Regular Diet No Activity Restrictions Received Abilify Maintena 400mg Injection on 09/08/24. Next dose is due on 10/06/24. Instructions: Bipolar disorder - Discharge instructions, [facility], Know your Meds Prescriptions: New aripiprazole 10 mg Tablet 10 mg PO DAILY 12 Days Qty: 12 0RF Abilify Maintena 400 mg suspension,extended rel recon 400 mg IM Q28D Qty: 1 0RF Rx Instructions: Due on or about 10/06/24 Follow Up: [facility] [Other] (Follow-up with the [facility] on Thursday at 9am. The [facility] accepts walk-ins. You will need your insurance information and proof of income. ) [facility] [Other] (Call for any medical needs) Exam Physical Exam Vital Signs: Temp Pulse Resp BP Pulse Ox O2 Del Method 98.2 F 70 20 168/109 H 96 Room Air 09/09/24 07:30 09/09/24 07:30 09/09/24 07:30 09/09/24 07:30 09/09/24 07:30 09/09/24 08:11 Documented By: Anson Sutton MD 09/09/24 1215 Signed By: <Electronically signed by Anson Sutton MD> 09/09/24 [facility] Work Phone: 1(693) 209-174903-07-2025 [place] [id number] Discharge Summary Signed Patient: Woody Hernandez MR#: [id number] 330 : 1975 Acct:[id number] Age/Sex: 49 / M Adm Date: 5 Loc: 1S Room: [address] [place] [address]: Anson Sutton MD Copies to: Anson Sutton MD NO FAMILY PHYSICIAN~ Providers Date of Discharge: 09/09/24 Discharging Provider: Anson Sutton Primary Care Provider: PHYSICIAN NO FAMILY Discharge Diagnosis (1) Bipolar 1 disorder: (2) Suicidal ideation: Final Diagnosis Final Discharge Diagnosis: Bipolar 1 disorder Summary Hospital Course Hospital course: Mr. Hernandez is a 49 year old male with a reported history of bipolar disorder and schizophrenia presents for inpatient admission due to suicidal ideation. Reportedly, patient was having auditory hallucinations with command to cut himself. Patient has been visiting from [place]. Came here to visit about6 weeks ago. [...] Instructions: Important Contact Information You can call [facility] at [phone] any timeday or night if you have emergent questions or question regarding discharge instructions. If at anytime you are feeling an increase inyour psychiatric symptoms, call your physician or behavioral healthcare provider. If any time you have thoughts of harming yourself or others contact one of the following: Call 8-8 (available 26/01) Crisis Text Line (available 26/01) text 4HOPE to [phone] [facility] Hope Line (available 8 a.m. Midnight) call [phone] ([phone]) Regular Diet No Activity Restrictions Received Abilify Maintena 400mg Injection on 09/08/24. Next dose is due on 10/06/24. Instructions: Bipolar disorder - Discharge instructions, [facility] Inst[facility], Know your Meds Prescriptions: New aripiprazole 10 mg Tablet 10 mg PO DAILY 12 Days Qty: 12 0RF Abilify Maintena 400 mg suspension,extended rel recon 400 mg IM Q28D Qty: 1 0RF Rx Instructions: Due on or about 10/06/24 Follow Up: [facility] [Other] (Follow-up with the [facility] on Thursday at 9am. The [facility] accepts walk-ins. You will need your insurance information and proof of income. ) [facility] [Other] (Call for any medical needs) Exam Physical Exam Vital Signs: Temp Pulse Resp BP Pulse Ox O2 Del Method 98.2 F 70 20 168/109 H 96 Room Air 09/09/24 07:30 09/09/24 07:30 09/09/24 07:30 09/09/24 07:30 09/09/24 07:30 09/09/24 08:11 Documented By: Anson Sutton MD 09/09/241214 Signed By: 09/09/24 [facility]03-06-2025 Progress note Author Anson Sutton [facility] Note Date/Time September 08, 2024 12:5 0pm [facility] ENTER [address] [place] [address] Psychiatry Progress Note Signed Patient: Woody Hernandez MR#: [id number] 330 : 1975 Acct:[id number] Age/Sex: 49 / M Adm Date: 5 Loc: 1S Room: [address] [place] [address] Type : ADM IN Attending Dr: Anson Sutton MD Copies to: ~ Date of Service: 09/08/2024 Subjective Subjective Narrative: Mr. Hernandez states that he is ok . He [...] <Electronically signed by Anson Sutton MD> 09/08/24 0377 [facility] Work Phone: 1(760) 206-816603-06-2025 [place] [address] Psychiatry Progress Note Signed Patient: Woody Hernandez MR#: [id number] 330 : 1975 Acct:[id number] Age/Sex: 49 / M Adm Date: 5 Loc: Room: [address] [place] [address] Type : ADM IN Attending Dr: Anson Sutton MD Copies to: ~ Date of Service: 09/08/2024 Subjective Subjective Narrative: Mr. Hernandez states that he is ok . He [...] MD 09/08/24 0927 Signed By: 09/08/24 1350 [facility]03-05-2025 History and physical note Author Anson Sutton [facility] Note Date/Time September 07, 2024 2:48 pm [facility] EN[facility] [address] [place] [address] Psychiatry H&P Signed Patient: Woody Hernandez MR#: [id number] 330 : 1975 Acct:[id number] Age/Sex: 49 / M Adm Date: 5 Loc: Room: [address] [place] [address] Type: ADM IN Attending Dr: Anson Sutton MD Copies to: Anson Sutton MD NO FAMILY PHYSICIAN~ Date of Service: 09/07/2024 HPI History of Present Illness History of present illness: Mr. Hernandez is a 49 year old male with a reported history of bipolar disorder and schizophrenia presents for inpatient admission due to suicidal ideation. Reportedly, patient was having auditory hallucinations with command to cut himself. Patient has been visiting from [place]. Came here to visit about6 weeks ago. [...] this with the medical student as notedbellizzy. [facility] Medical History (Updated 09/07/24 @ 10:31 by Janeen Coker) Bipolar 1 disorder HTN (hypertension) Social History Smoking Status: Heavy tobacco smoker Tobacco Type: cigarettes Substance Use Type: Unknown, Marijuana, Amphetamines and Methamphetamine Social History Comments: came to [place] 2 months ago to visit, is highly [...] Appearance Clear Urine pH 5.5 Ur Specific Rentz 1.030 Urine Protein 30 H Urine Glucose [...] explained Documented By: Anson Sutton MD 09/07/24 0903 Signed By: <Electronically signed by Anson Sutton MD> 09/07/24 1297 [facility] Work Phone: 1(964) 889-672203-05-2025 [place] [address] Psychiatry H&P Signed Patient: Woody Hernandez MR#: [id number] 330 : 1975 Acct:[id number] Age/Sex: 49 / M Adm Date: 5 Loc: 1S Room: [address] [place] [address] Type: ADM IN Attending Dr: Anson Sutton MD Copies to: Anson Sutton MD NO FAMILY PHYSICIAN~ Date of Service: 09/07/2024 HPI History of Present Illness History of present illness: Mr. Hernandez is a 49 year old male with a reported history of bipolar disorder and schizophrenia presents for inpatient admission due to suicidal ideation. Reportedly, patient was having auditory hallucinations with command to cut himself. Patient has been visiting from [place]. Came here to visit about6 weeks ago. [...] and confirmed this withthe medical student as notedbellizzy. [facility] Medical History (Updated 09/07/24 @ 10:31 by Janeen Coker) Bipolar 1 disorder HTN (hypertension) Social History Smoking Status: Heavy tobacco smoker Tobacco Type: cigarettes Substance Use Type: Unknown, Marijuana, Amphetamines and Methamphetamine Social History Comments: came to [place] 2 months ago to visit, is highly [...] Appearance Clear Urine pH 5.5 Ur Specific Rentz 1.030 Urine Protein 30 H Urine Glucose [...] MD 09/07/24 0913 Signed By: 09/07/24 1548 [facility]03-05-2025 Evaluation note* Diagnosis Onset Date Resolution Status Admit Date Bipolar 1 disorder acute September 07, 2024 12:39am Suicidal ideation acute September 072024 12:39am [facility] Work Phone: 1(381) 593-305103-04-2025 Hospital Discharge instructions Additional Instructions Please return to emergency department for any new or worrisome symptoms including any numbness, weakness, tingling, worsening pain, difficulty urinating, chest pain, shortness of breath. Follow-up with your family physician within the next 3 to 5 days.[facility] Work Phone: Discharge summary Author Anson Sutton [facility] Note Date/Time September 09, 2024 1:11 pm [facility] [address] [place] [address] Discharge Summary Signed Patient: Woody Hernandez MR#: [id number] 330 : 1975 Acct:[id number] Age/Sex: 49 / M Adm Date: 5 Loc: Room: [address] [place] [address]: Anson Sutton MD Copies to: Anson Sutton MD NO FAMILY PHYSICIAN~ Providers Date of Discharge: 09/09/24 Discharging Provider: Anson Sutton Primary Care Provider: PHYSICIAN NO FAMILY Discharge Diagnosis (1) Bipolar 1 disorder: (2) Suicidal ideation: Final Diagnosis Final Discharge Diagnosis: Bipolar 1 disorder Summary Hospital Course Hospital course: Mr. Hernandez is a 49 year old male with a reported history of bipolar disorder and schizophrenia presents for inpatient admission due to suicidal ideation. Reportedly, patient was having auditory hallucinations with command to cut himself. Patient has been visiting from [place]. Came here to visit about6 weeks ago. [...] Instructions: Important Contact Information You can call [facility] at [phone] any time day or night if you have emergent questions or question regarding discharge instructions. If at any time you are feeling an increase inyour psychiatric symptoms, call your physician or behavioral healthcare provider. If any time you have thoughts of harming yourself or others contact one of the following: Call (available 26/01) Crisis Text Line (available 26/01) text 4HOPE to [phone] [facility] Hope Line (available 8 a.m. Midnight) call [phone] ([phone]) Regular Diet No Activity Restrictions Received Abilify Maintena 400mg Injection on 09/08/24. Next dose is due on 10/06/24. Instructions: Bipolar disorder - Discharge instructions, [facility] Inst[facility], Know your Meds Prescriptions: New aripiprazole 10 mg Tablet 10 mg PO DAILY 12 Days Qty: 12 0RF Abilify Maintena 400 mg suspension,extended rel recon 400 mg IM Q28D Qty: 1 0RF Rx Instructions: Due on or about 10/06/24 Follow Up: [facility] [Other] (Follow-up with the [facility] on Thursday at 9am. The [facility] accepts walk-ins. You will need your insurance information and proof of income. ) [facility] [Other] (Call for any medical needs) Exam Physical Exam Vital Signs: Temp Pulse Resp BP Pulse Ox O2 Del Method 98.2 F 70 20 168/109 H 96 Room Air 09/09/24 07:30 09/09/24 07:30 09/09/24 07:30 09/09/24 07:30 09/09/24 07:30 09/09/24 08:11 Documented By: Anson Sutton MD 09/09/24 1215 Signed By: <Electronically signed by Anson Sutton MD> 09/09/24 1411 [facility] Work Phone: Evaluation noteNo assessment information available [facility] Work Phone: Evaluation note* Diagnosis Onset Date Resolution Status Admit Date Suicidal ideation acute September 072024 12:39am [facility] Work Phone: History and physical note Author Anson Sutton [facility] Note Date/Time September 07, 2024 2:48 pm [facility] ENTER [address] [place] [address] Psychiatry H&P Signed Patient: Woody Hernandez MR#: [id number] 330 : 1975 Acct:[id number] Age/Sex: 49 / M Adm Date: 5 Loc: Room: [address] [place] [address] Type: ADM IN Attending Dr: Anson Sutton MD Copies to: Anson Sutton MD NO FAMILY PHYSICIAN~ Date of Service: 09/07/2024 HPI History of Present Illness History of present illness: Mr. Hernandez is a 49 year old male with a reported history of bipolar disorder and schizophrenia presents for inpatient admission due to suicidal ideation. Reportedly, patient was having auditory hallucinations with command to cut himself. Patient has been visiting from [place]. Came here to visit about6 weeks ago. [...] this with the medical student as notedbellizzy. [facility] Medical History (Updated 09/07/24 @ 10:31 by Janeen Coker) Bipolar 1 disorder HTN (hypertension) Social History Smoking Status: Heavy tobacco smoker Tobacco Type: cigarettes Substance Use Type: Unknown, Marijuana, Amphetamines and Methamphetamine Social History Comments: came to [place] 2 months ago to visit, is highly [...] Appearance Clear Urine pH 5.5 Ur Specific Rentz 1.030 Urine Protein 30 H Urine Glucose [...] Risk, benefits, and alternatives explained Documented By: Asnon Sutton MD 09/07/24 0973 Signed By: <Electronically signed by Anson Sutton MD> 09/07/24 7560 [facility] Work Phone: Hospital Discharge instructions Additional Instructions Important Contact Information You can call [facility] at [phone] any time day or night if you have emergent questions or question regarding discharge instructions. If at any time you are feeling an increase in your psychiatric symptoms, call your physician or behavioral healthcare provider. If any time you have thoughts of harming yourself or others contact one of the following: Call 8-8 (available 26/01) Crisis Text Line (available 26/01) text 4HOPE to [phone] [facility] Hope Line (available 8 a.m. Midnight) call [phone] ([phone]) Regular Diet No Activity Restrictions Received Abilify Maintena 400mg Injection on 09/08/24. Next dose is due on 10/06/24.[facility] Work Phone: InstructionsNot on filedocumented in this encounter [facility] System[facility]ructionsNot on filedocumented in this encounter [facility] Author Anson Sutton [facility] Note Date/Time September 08, 2024 12:5 0pm [facility] EN[facility] [address] [place] [address] Psychiatry Progress Note Signed Patient: Woody Hernandez MR#: [id number] 330 : 1975 Acct:[id number] Age/Sex: 49 / M Adm Date: 5 Loc: Room: [address] [place] [address] Type : ADM IN Attending Dr: Anson Sutton MD Copies to: ~ Date of Service: 09/08/2024 Subjective Subjective Narrative: Mr. Hernandez states that he is ok . He [...] <Electronically signed by Anson Sutton MD> 09/08/24 1351 [facility] Work Phone: Chief Complaint and Reason [...] September 07, 2024 12:3 9am Advance Directives Advance Directive Response Recorded Date/ Time Advance Directives No September 05 11:29pm Advance Directive Response Recorded Date/ Time Advance Directives No September 06 12:29am Date Activated Date Inactivated Comments 12/10/2024 2:21 PM 12/14/2024 12:13 PM Summary Purpose Family History No Family History [...] Active Start: September 07, 2024 Franklin Anand , DO Emergency Provider Active Sta rt: September 07, 2024 Anson Sutton MD Admit Provider, Attending Provider Active Start: September 07, 2024 Team Status: Inactive Member Role Status Dates PHYSICIAN NO FAMILY Primary Care Provider Active Start: September 07, 2024 End: September 09, 2024 Franklin Anand , DO Emergency Provider Active Sta rt: September 07, 2024 End: September 09, 2024 Anson Sutton MD Admit Provider, Atte nding Provider Active Start: September 07, 2024 End: September 09, 2024 Team Status: Active Member Role Status Dates PHYSICIAN NO FAMILY Primary Care Provider Active Start: September 07, 2024 Franklin Anand , DO Emergency Provider Active Sta rt: September 07, 2024 Anson Sutton MD Admit Provider, Atte nding Provider, Other Provider Active Start: September 07, 2024 Goals (unrecognized section and content) Goals may be documented in a n alternate sectionGoals may be documented in an alternate sectionNot on filedocumented as of this encounterNot on filedocumented as of this encounter (unrecognized sect ion and content) No Status Records FoundNo Status Records FoundNo Status Records FoundNo Status Records Found INFORMATION SOURCE (unrecogn ized section and content) DATE CREATED AUTHOR 12/03/2024 [facility] DATE CREATED AUTHOR AUTHOR'S ORGANIZ ATION 12/16/2024 [facility] DATE CREATED AUTHOR AUTHOR'S ORGANIZ ATION 12/17/[address] [facility] DATE CREATED AUTHOR AUTHOR'S ORGANIZ ATION 01/08/2025 [facility] FOR RECORDS PERTAINING TO PATIENTS WHO ARE [...] BE BASED ON THE PRIMARY CLINICAL RECORDS. [facility]. provides no warranty or guarantee of the accuracy or completeness of information in this document.
[2025-02-02 10:39] LABS: INR 0.94; Prothrombin Time 10.0 sec (9.0-11.6)
[2025-02-02 10:42] LABS: Alanine Aminotransferase 40 U/L (16-63); Albumin Globulin Ratio 0.8; Albumin Level 3.4 g/dL (3.4-5.0); Alkaline Phosphatase 107 U/L (46-116); Anion Gap 13.1; Aspartate Amino Transferase 15 U/L (15-37); Blood Urea Nitrogen 17.0 mg/dL (7.0-18.0); Calcium 8.9 mg/dL (8.5-10.1); Carbon Dioxide 29.1 mmol/L (21.0-32.0); Chloride 100 mmol/L (98-107); Estimated GFR (African America 59 (>=60 mL/min/1.73m^2); Estimated GFR (Non-African Ame 49 (>=60 mL/min/1.73m^2); Globulin 4.1 g/dL; Glucose 390 mg/dL (74-106); Magnesium 1.6 mg/dL (1.8-2.4); Potassium 4.2 mmol/L (3.5-5.1); Sodium 138 mmol/L (136-145); Total Protein 7.5 g/dL (6.4-8.2)
[2025-02-02] MEDS: 0.9 % SODIUM CHLORIDE 1,000 ML 1000 ML IV (11:12)
--- NOTE | 2025-02-02 12:32 | MR_ITS ---
The [address] [address] Patient Name: MARVIN SUAREZ MRN: [id number] date: 1975 Sex: M Assigned Patient Location: [place] Current Patient Location: [place] Accession/Order Number: [id number] Exam Date: 02/02/2025 14:18 Report Date: 02/02/2025 14:25 At the request of: MICAH ERICKSON MD Procedure: MR head/brain wo con EXAMINATION: MRI OF THE BRAIN WITHOUT CONTRAST CLINICAL HISTORY: subacute CVA with worsening symptoms COMPARISON: MRI brain 01/02/2025 TECHNIQUE: Multiecho, multiplanar imaging of the brain was performed without enhancement. FINDINGS: Suboptimal evaluation due to motion. Once again demonstrated are multiple areas of subacute infarction involving the left cerebral hemisphere including the left basal ganglia and splenium of the corpus callosum similar in distribution to the prior study. Predominant volume of ischemia seen involving the left parietal lobe with surrounding edema. There is associated abnormal T2 and T2 FLAIR imaging. This appears to be superimposed on cortical atrophy and moderate chronic microvascular ischemic changes. No new areas of restriction are seen. There is associated blooming artifact on the T2 Star imaging suggestive of underlying blood products/microhemorrhage. No significant midline shift. Posterior fossa appears unremarkable. Intraorbital contents appear unremarkable. No significant paranasal sinus disease is seen. MR/MR head/brain wo con IMPRESSION: OVERALL, NO SIGNIFICANT CHANGE IN BRAIN FINDINGS COMPARED TO THE PRIOR MRI FROM 01/02/2025. AREAS OF SUBACUTE INFARCTION IS SEEN INVOLVING THE LEFT CEREBRAL HEMISPHERE PREDOMINANTLY INVOLVING THE LEFT PARIETAL LOBE BUT ALSO SEEN INVOLVING THE SPLENIUM OF THE CORPUS CALLOSUM WELL LEFT BASAL GANGLIA. THERE ARE ASSOCIATED AREAS OF MICROHEMORRHAGE.. Impression dictated by: Garret Thapa Jr., D.O. 02/02/2025 2:25 PM Dictation Location: [place] [address] Electronically authenticated by: [id number] Date: 02/02/2025 14:25
[2025-02-02 12:58] LABS: Cholesterol 286 mg/dL (<=200); HDL Cholesterol 26 mg/dL (40-60); Triglycerides 975 mg/dL (<=150); VLDL CHOLESTEROL 195.0 mg/dL
--- NOTE | 2025-02-02 14:08 | P.IMHP_ITS ---
Internal Medicine - H&P: HPI History of Present Illness Chief complaint: ARM NUMBNESS STROKE HYGLYCEMIA HYPOMAGNESMIA Narrative: This is 49-year-old male with past medical history of CKD, CVA recent on December 2024, type 2 diabetes, hyperlipidemia, schizophrenia, tobacco use, hypertension, noncompliance with medical management here for worsening right hand numbness and weakness. Patient was recent admitted to our facility in December 2024 and he was admitted for right hand/arm weakness, at the time his MRI of the brain showed recent multifocal infarct in the left involving the splenium of the corpus callosum. His echo was also done on showed moderate concentric LVH with normal systolic function EF of 65 to 70% with normal right ventricular size and systolic function with no significant valvular dysfunction. He was discharged on aspirin and metformin given that his A1c was around 8. Patient comes back today as he states that his numbness never went away it involved his right hand and over this few days ago and worse in traveling up his arm. He denies any neck pain. He also mentioned that he has been having issues with his handgrip which was weak on my exam as well. He denies any headache any other new weakness. He denies any nausea or vomiting or fever or chills or chest pain or SOB or BETTENCOURT. Patient was related since his last admission and attributes that to left knee/ankle pain and does not say anything about weakness there. Patient denies any pulling of the eyes, drooling of the saliva. On this admission, CT head without contrast showed no acute intracranial pathology but showed areas of cortical edema Stalin demonstrated a left MCA territory most notable in the posterior left parietal lobe consistent with a subacute ischemic infarct. CBC was not remarkable. CMP did show creatinine of 1.51 comparable to CKD. His glucose was 390 and magnesium was 1.6. INR was 0. 94. In the ED patient received 1 L of NS bolus ED staff reached out to the stroke team in [facility], spoke with Dr. Mcmahon, who recommended after reviewing the imaging and clinical picture recommended referring the patient to observation repeating the MRI and possible EEG. Review of Systems ROS Status of ROS 10 or more systems reviewed and unremark able except as noted in history and below [facility] Medical History (Updated 02/02/25 @ 14:16 by Carlos Christopher MD) CVA (cerebrovascular accident) ?I63.9 - Cerebral infarction, unspecified (ICD-10) CRI (chronic renal insufficiency) ?N18.9 - Chronic kidney disease, unspecified (ICD-10) Acute hyperglycemia ?R73.9 - Hyperglycemia, unspecified (ICD-10) HLD (hyperlipidemia) ?E78.5 - Hyperlipidemia, unspecified (ICD-10) Type 2 diabetes mellitus ?E11.9 - Type 2 diabetes mellitus without complications (ICD-10) CKD (chronic kidney disease) stage 3, GFR 30-59 ml/min ?N18.30 - Chronic kidney disease, stage 3 unspecified (ICD-10) Diabetes ?E11.9 - Type 2 diabetes mellitus without complications (ICD-10) Schizophrenia ?F20.9 - Schizophrenia, unspecified (ICD-10) Smokes ?F17.200 - Nicotine dependence, unspecified, uncomplicated (ICD-10) Hypertension ?I10 - Essential (primary) hypertension (ICD-10) Social History (Updated 10/21/24 @ 23:59 by Rima Hahn) Within the past year, how often did you have a drink containing alcohol: never Score interpretation: A score less than 4 is consistent with normal alcohol consumption. Smoking status: Current every day smoker Non-prescribed substance use: cannabis (any form) Non-prescribed substance use details: smokes marijuana Previous occupational history: none Highest level of school completed/degree received: 10th grade Are you now , , , , never or living with a partner: never In a typical week, how many times do you talk on the telephone with family, friends, or neighbors: 3 or more times per week How often do you get together with friends or relatives: 3 or more times per week Little interest or pleasure in doing things: not at all Feeling down, depressed, or hopeless: not at all Feel stressed/tense/nervous/anxious/difficulty sleeping: not at all Do you think of yourself as: straight/heterosexual Gender Identity: male Meds Home Medications and Allergies Home Medications ?Medication ?Instructions ?Recorded ?Confirmed ?Type amlodipine 5 mg tablet 5 mg PO DAILY #30 tabs 10/2202/02/25 Rx aripiprazole 10 mg tablet 10 mg PO DAILY #30 tabs 10/0402/02/25 Rx metformin 500 mg tablet 500 mg PO BID #60 tabs 10/2202/02/25 Rx rosuvastatin 5 mg tablet 5 mg PO DAILY #30 tabs 10/2202/02/25 Rx aspirin 81 mg tablet,delayed 162 mg (2 x 81 mg) PO QD #60 tabs 01/02/25 02/02/25 Rx release carvedilol 12.5 mg tablet (Coreg) 12.5 mg PO BID #60 t abs 01/02/25 02/02/25 Rx Allergies Allergy/AdvReac Type Severity Reaction Status Date / Time No Known Drug Allergies Allergy Verified 02/02/25 10:04 Exam Narrative Exam Narrative: General: 49-year-old male appears older than stated age, disheveled, not in acute distress with his flat affect. Cooperative. Not in pain Skin: Warm, dry, no pallor noted. No rash Head: Normocephalic, atraumatic Neck: Supple, non-tender Eye: Pupils are equal, round and EOMI. No scleral icterus Ears, Nose, Mouth, and Throat: TM are clear, no nasal mucosal hypertrophy. Ora l mucosa is moist, no posterior oropharynx erythema, uvula is mid-line Cardiovascular: Regular Rate and Rhythm without murmur, gallop or rub Respiratory: No accessory muscle use or respiratory distress, Lungs are clear to auscultation, no wheezing, rales or rhonchi, Chest Wall: no tenderness Back: No midline thoracic or lumbar vertebral tenderness. No CVA tenderness Musculoskeletal: normal ROM, no calf or popliteal tenderness, no lower extremity edema/swelling GI: Abdomen is soft, non-distended. Normal bowel sounds. No masses appreciated No tenderness to palpation. No rebound, guarding, or rigidity noted Neurological exam: A&O x4. Patient does have weak right hand manager utilization review, he does have numbness from his right manager utilization review towards his right elbow. I do not appreciate any facial droop. Also cranial nerves II to XII are intact. Lower extremities did not show any acute focal weakness. He states that he use a rollator because of left knee pain no cranial nerve dysfunction observed although there is a mild facial droop to the left side when the patient smile no truncal ataxia. Constitutional Vital Signs, click to edit/add: Last Vital Signs Temp 99.2 F 02/02/25 13:43 Pulse 59 L 02/02/25 13:55 Resp 16 02/02/25 13:43 BP 149/116 H 02/02/25 13:43 Pulse Ox 95 02/02/25 13:43 O2 Del Method Room Air 02/02/25 13:43 Internal Medicine - H&P: Reslt Labs Labs: Short CBC 02/02/25 Range/Units 10:17 WBC 9.7 (4.0-11.0) 10^3/uL Hgb 17.4 (14.0-18.0) g/dL Hct 53.3 (42.0-54.0) % Plt Count 239 (150-450) 10^3/uL BMP 02/02/25 10:17 Sodium 138 Potassium 4.2 Chloride 100 Carbon Dioxide 29.1 BUN 17.0 Creatinine 1.51 H Glucose 390 H Calcium 8.9 Liver Function 02/02/25 Range/Units 10:17 Total Bilirubin 0.5 (0.2-1.0) mg/dL AST 15 (15-37) U/L ALT 40 (16-63) U/L Alkaline Phosphatase 107 (46-116) U/L Albumin 3.4 (3.4-5.0) g/dL Assessment and Plan Assessment and Plan (1) Hypomagnesemia: (2) Stroke-like symptom: (3) CVA (cerebrovascular accident): Plan Subacute CVA, ruling out recurrent CVA Right-sided hand weakness as well as right hand numbness likely in the setting of an old CVA Hypertension, dyslipidemia, type 2 diabetes, with questionable compliance Tobacco use - Admit patient to medical floor with telemetry for observation under hospitalist service - Continue patient's aspirin 162 mg p.o. daily first dose now - Start atorvastatin 40 mg nightly first dose now - Neurology team from [facility] are aware of the patient they will be on consult - Ordered repeat MRI brain without contrast as well as EEG - PT/OT eval - Patient passed bedside swallow evaluation -Discussed the plan with the pt, extensively counseled him on smoking cessation. He states he was trying to quit. Also states that he has been taking his medication as prescribed. If the MRI is negative I may order CT cervical spine without contrast.
[2025-02-02] MEDS: MAGNESIUM SULFATE/D5W 1 GM/100 ML PREMIX IV (14:57)
[2025-02-02] MEDS: ASPIRIN 81 MG TABLET.DR 162 MG PO (17:04)
[2025-02-02] MEDS: ATORVASTATIN CALCIUM 40 MG TABLET PO (21:45)
[2025-02-03] VITALS (7 sets, daily range): BP systolic 134–161; BP diastolic 82–105; PULSE 58–73; TEMP 36.6–37; O2SAT 91–94
[2025-02-03 05:36] LABS: Hematocrit 51.1 % (42.0-54.0); Hemoglobin 16.3 g/dL (14.0-18.0); Immature Granulocytes Abs Auto 0.06 10^3/uL (0.00-0.03); Immature Granulocytes Pct Auto 0.6 % (0.0-0.5); Lymphocytes Absolute Auto 3.8 10^3/uL (1.2-3.8); Mean Corpuscular HGB Conc 31.9 g/dL (29.9-35.2); Mean Corpuscular Hemoglobin 27.0 pg (25.9-34.0); Mean Corpuscular Volume 84.7 fL (80.0-94.0); Platelet Count 197 10^3/uL (150-450); Red Blood Count 6.03 10^6/uL (4.70-6.10); White Blood Count 9.9 10^3/uL (4.0-11.0)
[2025-02-03 06:00] LABS: Alanine Aminotransferase 31 U/L (16-63); Albumin Globulin Ratio 0.9; Albumin Level 3.1 g/dL (3.4-5.0); Alkaline Phosphatase 89 U/L (46-116); Anion Gap 12.9; Aspartate Amino Transferase 16 U/L (15-37); Blood Urea Nitrogen 17.0 mg/dL (7.0-18.0); Calcium 8.7 mg/dL (8.5-10.1); Carbon Dioxide 28.8 mmol/L (21.0-32.0); Chloride 104 mmol/L (98-107); Estimated GFR (African America >60 (>=60 mL/min/1.73m^2); Estimated GFR (Non-African Ame >60 (>=60 mL/min/1.73m^2); Globulin 3.5 g/dL; Glucose 262 mg/dL (74-106); Magnesium 1.9 mg/dL (1.8-2.4); Potassium 3.7 mmol/L (3.5-5.1); Sodium 142 mmol/L (136-145); Total Protein 6.6 g/dL (6.4-8.2)
[2025-02-03] MEDS: LOSARTAN POTASSIUM 50 MG TABLET PO (09:00)
[2025-02-03] MEDS: HYDROCHLOROTHIAZIDE 25 MG TABLET PO (09:00)
--- NOTE | 2025-02-03 09:37 | PT.DAILY ---
Physical Therapy Daily Note PT Daily Note/Assess Start: 02/03/25 09:32 Freq: Status: Active Protocol: Document 02/03/25 09:15 XANDER (Rec: 02/03/25 09:37 XANDER [id number]) Physical Therapy Daily Note/Assessment Time In/Time Out Time In 09:15 Time Out 09:35 Subjective Subjective Patient is up and sitting in rollator upon PT entering room. Patient reports that R hand is working better and feeling better today. Anxious to see doctor and go home. Therapeutic Activity Time Therapeutic Activity 15 Minutes (minutes) Therapeutic Activity 1 Units Therapeutic Activity Treatment Chair Transfer Standby Assistance Ability Therapeutic Activity Gait 150' with 4WW CGA at R hand. Patient demonstrates Comments weakness in R hand with holding walker but is able to hold/analog ic design architect walker for entire distance of ambulation. No R toe stub with gait observed. Gait 5'x2 without AD in room SBA. Ascend and Descend 8 inch step 5x with B UE support, no LOB. Total Physical Therapy Time Total Therapy 15 Minutes Total Physical 1 Therapy Units Summary Daily Note Summary Patient demonstrated improved ability with both gait and steps today. Demonstrates weakness in R hand but is able to hold onto walker without assistance today. Patient demonstrated good safety with step B UE support . Would recommend OP PT at discharge to improve overall strength faye. with R LE. Patient was sitting in rollator with all needs met and call light in reach post RX.
--- NOTE | 2025-02-03 10:15 | SWNOTE1 ---
Medicare Outpatient Observation Notice reviewed and discussed with patient. Pt. verbalized understanding and signed the form. Original given to patient and copy placed in patient?s chart.
--- NOTE | 2025-02-03 10:17 | SWNOTE1 ---
SW met with pt to discuss dc needs. Pt voiced he lives at home with family. After discussion with nurse, he lives with brother. Pt uses a rollator at home. He voiced he worked with physical therapy and felt it went well. He does have several steps to go up and down, 10 steps at least, in the home. SW and pt spoke about home health and outpt therapy. Initially SNF was recommended by OT, but pt has worked with physical therapy 2x and one recommendation was home and the other was outpatient therapy. Pt voiced he had HH in past [place] He would have to use his insurance for transportation to get to outpatient therapy. He lives in [place] and would want to use outpt in [place]. SW to discuss with physician and nurse. Pt is unsure if he is discharging today. Pt voiced he has no other needs at this time. SW to stop back in.
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
--- NOTE | 2025-02-03 11:20 | SWNOTE1 ---
SW spoke to Dr. Conklin. Pt will be discharged today. Pt has not been picking up his prescriptions, wants to know if [facility] delivers, SW to check. Pt does not drive and his brother works a lot. SW asked physician about HH coming, physician is alright with this. SW to set up. Pt will likely need ride home as well. Physician also wants follow up with Neurology. SW let skiver machine operator know about follow up with Neurology. UCHE spoke with pt and he has no preference on HH company and he is alright with SW calling his brother. SW sent referral to [facility].
--- NOTE | 2025-02-03 11:49 | SWNOTE1 ---
No phone number listed for pt's brother, and he did not give a designated advocate. SW called [facility] and they do not do home deliveries. They do a program for $10 that would be like door dash and someone will pickup driver order and drop off to patient, but pt would be charged $10 and need a card on file. SW to check with pt. SW asked [facility] who they had listed as PCP. They had Dr. Britt and Dr. Whiteside. SW called Dr. Britt's office and pt was a no show and they will not take pt back. UCHE called Dr. Xiong's office and he is not seen there, but do have on file [facility]. SW called there and pt had called there in past but they are not taking pt's anymore. She had a speciality doctor listed. SW called [facility] and had to leave message.
--- NOTE | 2025-02-03 12:09 | SWNOTE1 ---
[facility] is able to accept, but need following physician.
--- NOTE | 2025-02-03 13:17 | SWNOTE1 ---
UCHE received a call back from [facility] and the [place] office and currently not taking new patients. SW asked if she knew of anyone, she voiced [place] office, but pt does not drive. UCHE attempted to call Dr. Xiong's office back, but they are closed for the day. SW unsure of any other physicians who would be able to take pt at this time. UCHE has message out to pt's brother to see if he knows who his most recent physician was.
--- NOTE | 2025-02-03 13:43 | SWNOTE1 ---
SW updated Dr. Conklin in regards SW not being able to find a PCP and also HH will not start care without PCP. SW to offer pt outpt therapy.
--- NOTE | 2025-02-03 13:45 | SWNOTE1 ---
[facility] reached back out and they voiced they can still see as they have [facility]. SW asked what service that was, waiting to hear back.
--- NOTE | 2025-02-03 13:47 | SWNOTE1 ---
Jerman will be using [facility] to follow pt. He will have telehealth visit and they will sign home health care orders. They can also transition to his PCP if needed. SW let nurse and Dr. Conklin aware.
--- NOTE | 2025-02-03 13:52 | SWNOTE1 ---
UCHE spoke to Jade, legal secretary, and neurology office closed today. We will follow up on Thursday to get patient an apt scheduled.
--- NOTE | 2025-02-03 13:54 | SWNOTE1 ---
UCHE faxed CRF to [facility]. UCHE updated Dr. Conklin.
--- NOTE | 2025-02-03 13:57 | SWNOTE1 ---
UCHE has attemtped to call pt's brother 2x, had to leave voicemail. UCHE called and set up trips for transportation and they will be here between 3:00-3:30. UCHE notified nurse. UCHE upated patient in regards to trips and [facility].
--- NOTE | 2025-02-06 12:02 | SWNOTE1 ---
UCHE called [facility] to schedule a follow up apt for pt. They are able to get pt in on 04/03/25 at 12:30 in [place]. UCHE placed information on pt's discharge. SW to call pt. UCHE also faxed over requested records for continuation of care to [facility].
--- NOTE | 2025-02-06 12:17 | CM.DCFOLLOWU ---
1st attempt 02/06/25, no answer
--- NOTE | 2025-02-07 09:05 | CM.DCFOLLOWU ---
2nd attempt 02/07/25, no answer
== END 2025-02-03 15:15 | disposition home health service (06) ==
LOC: ER 12:35 → MS 13:39
PROVIDERS: Admitting Provider Student in an Organized Health Care Education/Training Program; Emergency Provider Emergency Medicine; Visit Provider Student in an Organized Health Care Education/Training Program
DX: I69.351 Hemiplegia and hemiparesis following cerebral infarction affecting right dominant side (principal); I12.9 Hypertensive chronic kidney disease with stage 1 through stage 4 chronic kidney disease, or unspecified chronic kidney disease; N18.30 Chronic kidney disease, stage 3 unspecified; F17.210 Nicotine dependence, cigarettes, uncomplicated; E83.42 Hypomagnesemia; E11.65 Type 2 diabetes mellitus with hyperglycemia; Z79.82 Long term (current) use of aspirin; Z79.84 Long term (current) use of oral hypoglycemic drugs; E78.5 Hyperlipidemia, unspecified; F15.11 Other stimulant abuse, in remission; T38.3X6A Underdosing of insulin and oral hypoglycemic [antidiabetic] drugs, initial encounter; Z91.148 Patient's other noncompliance with medication regimen for other reason
CPT/HCPCS: 36415; 70450; 70551; 80053; 80061; 83721; 83735; 84484; 85025; 85610; 93005; 95819; 96365; 97163; 97165; 97530; 99285; G0378; J3475

== ENCOUNTER 2025-02-28 11:48 | Inpatient (IN) | payer MEDICARE, MEDICAID, SELFPAY ==
[2025-02-28] VITALS (29 sets, daily range): BP systolic 128–179; BP diastolic 79–111; PULSE 58–87; TEMP 37.2–37.8; O2SAT 89–99; BMI 32.3; BMI 32.7
--- NOTE | 2025-02-28 12:20 | XR_ITS ---
[address] [address] Patient Name: MARVIN SUAREZ MRN: [id number] date: 1975 Sex: M Assigned Patient Location: ER Current Patient Location: ER Accession/Order Number: [id number] Exam Date: 02/28/2025 13:37 Report Date: 02/28/2025 14:06 At the request of: LEEANNA CAMARENA DO Procedure: XR chest 2V Plain film chest 2 view HISTORY: Abdominal pain for 3 days. Cough. COMPARISON: None FINDINGS: SUPPORT DEVICES: None POSTSURGICAL CHANGES: None HEART: Within normal limits PULMONARY RHYS: Within normal limits MEDIASTINUM: Unremarkable LUNGS AND PLEURA: No acute lung process, pleural effusion or pneumothorax identified. Moderate right hemidiaphragm elevation, unchanged BONY STRUCTURES: Intact ADDITIONAL FINDINGS None XR/XR chest 2V IMPRESSION: No acute process. Impression dictated by: Mendez Wynn M.D. 02/28/2025 2:06 PM Dictation Location: [place] Electronically authenticated by: [id number] Y Date: 02/28/2025 14:06
--- NOTE | 2025-02-28 12:20 | ECG_ITS ---
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
[2025-02-28] MEDS: MORPHINE SULFATE 4 MG/ML VIAL IV (12:36)
[2025-02-28 12:40] LABS: Hematocrit 51.7 % (42.0-54.0); Hemoglobin 16.3 g/dL (14.0-18.0); Immature Granulocytes Abs Auto 0.05 10^3/uL (0.00-0.03); Immature Granulocytes Pct Auto 0.5 % (0.0-0.5); Lymphocytes Absolute Auto 1.7 10^3/uL (1.2-3.8); Mean Corpuscular HGB Conc 31.5 g/dL (29.9-35.2); Mean Corpuscular Hemoglobin 26.6 pg (25.9-34.0); Mean Corpuscular Volume 84.5 fL (80.0-94.0); Platelet Count 237 10^3/uL (150-450); Red Blood Count 6.12 10^6/uL (4.70-6.10); White Blood Count 10.2 10^3/uL (4.0-11.0)
--- OUTSIDE RECORDS SUMMARY | 2025-02-28 12:46 | XMS_ITS | CCD ---
Author Organization [facility] Care Team Providers Care Export Agent Name Role Phone Malia Matamoros MD Emergency Provider NO FAMILY, PHYSICIAN Primary Care Provider Malia Camacho MD Emergency Provider NO FAMILY, PHYSICIAN Primary Care Provider Franklin Villeda DO Emergency Provider Anson Sutton MD Admit Provider Anson Sutton MD Attending Provider Unavailable Primary Care Provider Unavailabl e NO FAMILY, PHYSICIAN Primary Care Unavailable Anson Sutton Attending Unavailable Anson Sutton Admitting Unavailable Malia Matamoros Attending Unavailable Malia Matamoros Admitting Unavailable NO FAMILY, PHYSICIAN Primary Care Unavailable NO FAMILY, PHYSICIAN Primary Care Unavailable Robbie Nj Attending Unavailab Robbie Landry Admitting Unavailab LYNN Monteiro Primary Care Unavailable NÉSTOR MURRAY Attending Unavailable LYNN MANZO Primary Care Unavailable MUNIRA CHATMAN Consulting Unavailable SHANNAN WEBER Admitting Unavailable SHANNAN WEBER Attending Unavailable PHYSICIANS, [facility] Consulting Yi SCOTTIE Vang Referring Unavailable Medications Current Medications Medication Drug Class(es) Dates Sig (Normalized) Sig (Original) [id number] 200 actuat albuterol 0.09 mg/actuat metered dose inhaler (4 sources) beta2-Adrenergic Agonist take 2 puff(s) by inhalation every six hours as needed for wheezing albuterol (PROVENTIL HFA;VENTOLIN HFA) 90 mcg/actuation inhaler Inhale 2 puffs every 6 (six) hours as needed for wheezing or shortness of breath. Active amLODIPine 5 mg oral tablet (4 sources) Dihydropyridine Calcium Channel Manasa take 1 tablet by mouth once daily as needed amLODIPine (NORVASC) 5 mg tablet Take 1 tablet (5 mg total) by mouth daily as needed. Active ARIPiprazole 10 mg oral tablet (6 sources) Atypical Antipsychotic Start: 12-14-2024 take 1 [...] about 10/06/24 atorvastatin 40 mg oral tablet (4 sources) HMG-CoA Reductase Inhibitor Start: 12-14-2024 take 1 tablet by mouth once daily atorvastatin (LIPITOR) 40 mg tablet Take 1 tablet (40 mg total) by mouth nightly. 15 tablet 1 12/14/2024 Active FLUoxetine 20 mg oral capsule (4 sources) Serotonin Reuptake Inhibitor Start: 12-14-2024 take 1 capsule by mouth in the morning FLUoxetine (PROzac) 20 mg capsule Take 1 capsule (20 mg total) by mouth in the morning. 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 15 tablet 1 12/14/2024 Active lisinopril 40 mg oral tablet (4 sources) Angiotensin Converting Enzyme Inhibitor take 1 tablet by mouth in the morning lisinopriL (PRINIVIL,ZESTRI L) 40 mg tablet Take 1 tablet (40 mg total) by mouth in the morning. Active metFORMIN hydrochloride 500 mg oral tablet (4 sources) Biguanide take 1 tablet by mouth in the morning, then take 1 tablet by mouth at bedtime metFORMIN (GLUCOPHAGE) 500 mg tablet Take 1 tablet (500 mg total) by mouth in the morning and 1 tablet (500 mg total) before bedtime. Active 24 hr nicotine 0.875 mg/hr transdermal system (4 sources) Cholinergic Nicotinic Agonist Start: 12-14-2024 apply 1 dose transdermal route every hour in the morning nicotine (NICODERM CQ) 21 mg/[address] 1 patch on the skin in the morning. 14 patch 12/14/2024 Active tiotropium 0.018 mg inhalation powder (4 sources) Anticholinergic take 1 capsule by inhalation once [...] Date Documented Date Episodic/Chronic Acute cerebrovascular disease (3 sources) Cerebrovascular accident; Translations: [Cerebral infarction, unspecified] Onset: 02-06-2025 02-06-2025 Chronic Acute cerebrovascular disease (1 source) Acute cerebrovascular disease Onset: 01-01-2025 Alcohol-related disorders (4 sources) Alcohol abuse; Translations: [Alcohol abuse, uncomplicated] Onset: 12-10-2024 12-10-2024 Chronic Essential hypertension (3 sources) Hypertensive disorder; Translations: [Essential (primary) hypertension] 09-05-2024 Chronic Genitourinary symptoms and ill-defined conditions (3 sources) Difficulty passing urine; Translations: [Other difficulties with micturition] 09-06-2024 Episodic Mood disorders (8 sources) Bipolar I disorder; Translations: [Bipolar disorder, unspecified] Onset: 09-07-2024 09-07-2024 Chronic Other and ill-defined cerebrovascular disease (2 sources) Cerebrovascular disease; Translations: [Other cerebrovascular vasospasm and vasoconstriction] 02-06-2025 Chronic Other and ill-defined cerebrovascular disease (1 source) Other cerebrovascular vasospasm and vasoconstriction; Translations: [Other cerebrovascular vasospasm and vasoconstriction] Onset: 02-06-2025 Chronic Residual codes; unclassified (1 source) Pain, unspecified; Translations: [Pain, unspecified] Onset: 01-03-2025 Episodic Spondylosis; intervertebral disc disorders; other back problems (3 sources) Chronic low back pain; Translations: [Chronic bilateral low back pain] 09-05-2024 Episodic Substance-related disorders (8 sources) Cannabis dependence; Translations: [Cannabis dependence, uncomplicated] Onset: 12-10-2024 12-10-2024 Chronic Unclassified (2 sources) Low back pain, unspecified; Translations: [Low back pain, unspecified] Onset: 09-05-2024 Unclassified (1 source) Psychiatric Evaluation Onset: 12-09-2024 Unclassified (1 source) Psych Onset: 12-09-2024 Past or Other Problems Problem Classification Problem Date Documented Da te Episodic/Chronic Suicide and intentional self-inflicted injury (10 sources) Suicidal thoughts; Translations: [Suicidal ideations] Onset: 09-07-2024 Resolved: 12-14-2024 09-06-2024 Episodic Results Test Name Value Interpretation Reference Range Facility BEDSIDE GLUCOSEon 12-14-2024 Glucose [Mass/Vol] 281 mg/dL High 65-99 [facility] Comment on above: Performed By: #### D QUINONEZ #### [facility] ([id number]) [address] [place] [address] BEDSIDE GLUCOSEon 12-13-2024 Glucose [Mass/Vol] 278 mg/dL High -[address] [place] [address] Comment on above: Performed By: #### D QUINONEZ #### [facility] ([id number]) [facility] [place] [address] VIR Glucose [Mass/Vol] 190 mg/dL High -[address] [place] [address] Comment on above: Performed By: #### D QUINONEZ #### [facility] ([id number]) [address] [place] [address], [place] [address] VIR Glucose [Mass/Vol] 326 mg/dL High -99 [facility] Comment on above: Performed By: #### D QUINONEZ #### [facility] ([id number]) [address] [place] [address], [place] [address] VIR Glucose [Mass/Vol] 265 mg/dL High -99 [facility] Comment on above: Performed By: #### D QUINONEZ #### [facility] ([id number]) [address] [place] [address], [place] [address] VIR BEDSIDE GLUCOSEon 12-12-2024 Glucose [Mass/Vol] 217 mg/dL High [address] [place] [address] Comment on above: Performed By: #### D QUINONEZ #### [facility] ([id number]) [address] [place] [address] [place] [address] VIR Glucose [Mass/Vol] 208 mg/dL High [address] [place] [address] Comment on above: Performed By: #### D QUINONEZ #### [facility] ([id number]) [address] [place] [address], [place] [address] VIR Glucose [Mass/Vol] 245 mg/dL High 65-99 [facility] Comment on above: Performed By: #### D QUINONEZ #### [facility] ([id number]) [address] [place] [address], [place] [address] VIR Glucose [Mass/Vol] 264 mg/dL High -[address] [place] [address] Comment on above: Performed By: #### U FEN #### [facility] ([id number]) [address] [facility] [place] [address] VIR BEDSIDE GLUCOSEon 12-11-2024 Glucose [Mass/Vol] 184 mg/dL High [address] [place] [address] Comment on above: Performed By: #### U FEN #### [facility] ([id number]) [address] [facility] [place] [address] VIR Glucose [Mass/Vol] 96 mg/dL Normal [address] [place] [address] Comment on above: Performed By: #### U FEN #### [facility] ([id number]) [address] [place] [address] VIR Glucose [Mass/Vol] 385 mg/dL High [address] [place] [address] Comment on above: Performed By: #### U FEN #### [facility] ([id number]) [address] [facility] [place] [address] VIR BEDSIDE GLUCOSE ???BEDG >^500 Critically high [address] [place] [address] Comment on above: Performed By: #### U FEN #### [facility] ([id number]) [address] [facility] [place] [address] VIR GLUCOSE RANDOM OR FASTINGon 12-11-2024 Glucose [Mass/Vol] 512 mg/dL Critically high [address] [place] [address] Comment on above: Performed By: #### U FEN #### [facility] ([id number]) [address] [facility] [place] [address] VIR LIPID PROFILEon 12-11-2024 Cholesterol [Mass/Vol] 239 mg/dL High 150-200 [facility] Comment on above: Order Comment: Fenta nyl screening cutoff = 5ng/ml This report is intended for use in clinical monitoring or management of patients. Performed By: #### U FEN #### [facility] ([id number]) [address] [facility] [place] [address] VIR Cholesterol in HDL [Mass/Vol] 31 mg/dL Low >39 [facility] Comment on above: Order Comment: Fenta nyl screening cutoff = 5ng/ml This report is intended for use in clinical monitoring or management of patients. Result Comment: HDL <40 mg/dL - High Risk HDL > or = 40mg/dL- Desirable HDL >60 mg/dL - Negative Risk Performed By: #### U FEN #### [facility] ([id number]) [address] [place] [address] VIR CHOLESTEROL:HDL 7.7 High 1.0-5.0 [facility] Comment on above: Order Comment: Fenta nyl screening cutoff = 5ng/ml This report is intended for use in clinical monitoring or management of patients. Performed By: #### U FEN #### [facility] ([id number]) [address] [place] [address] VIR Triglyceride [Mass/Vol] 452 mg/dL High 27-150 [facility] Comment on above: Order Comment: Fenta nyl screening cutoff = 5ng/ml This report is intended for use in clinical monitoring or management of patients. Performed By: #### U FEN #### [facility] ([id number]) [address] [place] [address] VIR VERY LOW LIPOPROTEIN 90 mg/dL High 0-30 [facility] Comment on above: Order Comment: Fenta nyl screening cutoff = 5ng/ml This report is intended for use in clinical monitoring or management of patients. Performed By: #### U FEN #### [facility] ([id number]) [facility] [place] [address] VIR RDLDL DIRECT LDLon Cholesterol in LDL [Mass/Vol] 138 mg/dL High <=130 [facility] Comment on above: Result Comment: LDL <100 mg/dL - Desirable LDL 130-159 mg/dL - Borderline High Risk LDL >160 mg/dL - High Risk Performed By: #### U FEN #### [facility] ([id number]) [facility] [place] [address] VIR ACETAMINOPHEN LEVELon 2024 Acetaminophen [Mass/Vol] ug/mL Low 10.0-30.0 [facility] Comment on above: Order Comment: Refer ence ranges are for therapeutic limits. Performed By: #### A CETA #### [facility] ([id number]) [address] [facility] [place] [address] VIR CBC WITH AUTO DIFFERENTIALon 12-09-2024 CELLAVISION DIFFERENTIAL TYPE MANUAL DIFFERENTIAL Normal [facility] Comment on above: Result Comment: This is an appended report. These results have been appended to a previously preliminary verified report. Performed By: #### C BCA #### [facility] ([id number]) [address] [facility] [place] [address] VIR CELLAVISION LYMPHOCYTES ABSOLUTE COUNT (10*3/UL) BY MANUAL COUNT 4.0 10*3/uL High 1.0-3.5 [facility] Comment on above: Result Comment: This is an appended report. These results have been appended to a previously preliminary verified report. Performed By: #### C BCA #### [facility] ([id number]) [address] [facility] [place] [address] VIR CELLAVISION LYMPHOCYTES RELATIVE PERCENT BY MANUAL COUNT 35 % Normal [facility] Comment on above: Result Comment: This is an appended report. These results have been appended to a previously preliminary verified report. Performed By: #### C BCA #### [facility] ([id number]) [address] [place] [address] VIR CELLAVISION MONOCYTES ABSOLUTE COUNT (10*3/UL) IN BLOOD BY MANUAL COUNT 0.9 10*3/uL Normal 0.0-0.9 [facility] Comment on above: Result Comment: This is an appended report. These results have been appended to a previously preliminary verified report. Performed By: #### C BCA #### [facility] ([id number]) [address] [facility] [place] [address] VIR CELLAVISION MONOCYTES RELATIVE PERCENT BY MANUAL COUNT 8 % Normal [facility] Comment on above: Result Comment: This is an appended report. These results have been appended to a previously preliminary verified report. Performed By: #### C BCA #### [facility] ([id number]) [address] [facility] [place] [address] VIR CELLAVISION NEUTROPHILS ABSOLUTE COUNT BY MANUAL COUNT 6.4 10*3/uL Normal 1.5-6.6 [facility] Comment on above: Result Comment: This is an appended report. These results have been appended to a previously preliminary verified report. Performed By: #### C BCA #### [facility] ([id number]) [address] [facility] [place] [address] VIR CELLAVISION NEUTROPHILS RELATIVE PERCENT BY MANUAL COUNT 57 % Normal [facility] Comment on above: Result Comment: This is an appended report. These results have been appended to a previously preliminary verified report. Performed By: #### C BCA #### [facility] ([id number]) [facility] [place] [address] VIR CELLAVISION NUCLEATED RED BLOOD CELLS IN BLOOD BY LIGHT MICROSCOPY 1 Normal [facility] Comment on above: Result Comment: This is an appended report. These results have been appended to a previously preliminary verified report. Performed By: #### C BCA #### [facility] ([id number]) [facility] [place] [address] VIR CELLAVISION RBC MORPHOLOGY Reviewed Normal [facility] Comment on above: Result Comment: This is an appended report. These results have been appended to a previously preliminary verified report. Performed By: #### C BCA #### [facility] ([id number]) [address] [facility] [place] [address] VIR Erythrocyte distribution width (RBC) [Ratio] 14.7 % Normal 11.5-15 [facility] Comment on above: Performed By: #### C BCA #### [facility] ([id number]) [address] [place] [address] VIR Hematocrit (Bld) [Volume fraction] 50.9 % High 39-50 [facility] Comment on above: Performed By: #### C BCA #### [facility] ([id number]) [address] [facility] [place] [address] VIR Hemoglobin (Bld) [Mass/Vol] 16.4 g/dL Normal 13-17 [facility] Comment on above: Performed By: #### C BCA #### [facility] ([id number]) [address] [facility] [place] [address] VIR MCH (RBC) [Entitic mass] 26.6 pg Low 27-34 [facility] Comment on above: Performed By: #### C BCA #### [facility] ([id number]) [address] [facility] [place] [address] VIR MCHC (RBC) [Mass/Vol] 32.2 g/dL Normal 32-36 [facility] Comment on above: Performed By: #### C BCA #### [facility] ([id number]) [address] [facility] [place] [address] VIR MCV (RBC) [Entitic vol] 83 fL Normal 80-100 [facility] Comment on above: Performed By: #### C BCA #### [facility] ([id number]) [address] [facility] [place] [address] VIR Platelet mean volume (Bld) [Entitic vol] 8.0 fL Normal 7-12 [facility] Comment on above: Performed By: #### C BCA #### [facility] ([id number]) [address] [facility] [place] [address] VIR Platelets (Bld) [#/Vol] 251 10*3/uL Normal 150-450 [facility] Comment on above: Performed By: #### C BCA #### [facility] ([id number]) [address] [facility] [place] [address] VIR RBC COUNT 6.15 X10E12/L High 4.1-5.7 [facility] Comment on above: Performed By: #### C BCA #### [facility] ([id number]) [address] [facility] [place] [address] VIR WBC (Bld) [#/Vol] 11.3 10*3/uL High 4-11 [facility] Comment on above: Performed By: #### C BCA #### [facility] ([id number]) [address] [facility] [place] [address] VIR COMPREHENSIVE METABOLIC PANE Nadir 12-09-2024 Albumin [Mass/Vol] 3.9 g/dL Normal 3.2-5.3 [facility] Comment on above: Performed By: #### C MP #### [facility] ([id number]) [address] [facility] [place] [address] VIR ALP [Catalytic activity/Vol] 95 U/L Normal 39-130 [facility] Comment on above: Performed By: #### C MP #### [facility] ([id number]) [facility] [place] [address] VIR ALT [Catalytic activity/Vol] 26 U/L Normal <=40 [facility] Comment on above: Performed By: #### C MP #### [facility] ([id number]) [facility] [place] [address] VIR Anion gap [Moles/Vol] 7 mmol/L Normal 5-15 [facility] Comment on above: Performed By: #### C MP #### [facility] ([id number]) [address] [facility] [place] [address] VIR AST [Catalytic activity/Vol] 16 U/L Normal <=41 [facility] Comment on above: Performed By: #### C MP #### [facility] ([id number]) [facility] [place] [address] VIR Bilirubin [Mass/Vol] 0.5 mg/dL Normal 0.3-1.2 [facility] Comment on above: Performed By: #### C MP #### [facility] ([id number]) [address] [facility] [place] [address] VIR Calcium [Mass/Vol] 9.4 mg/dL Normal 8.5-10.5 [facility] Comment on above: Performed By: #### C MP #### [facility] ([id number]) [address] [facility] [place] [address] VIR Chloride [Moles/Vol] 101 mmol/L Normal 98-109 [facility] Comment on above: Performed By: #### C MP #### [facility] ([id number]) [address] [facility] [place] [address] VIR CO2 [Moles/Vol] 28 mmol/L Normal 22-32 [facility] Comment on above: Performed By: #### C MP #### [facility] ([id number]) [address] [place] [address] VIR Creatinine [Mass/Vol] 1.38 mg/dL High 0.60-1.30 [facility] Comment on above: Result Comment: METH OD TRACEABLE TO IDMS STANDARD Performed By: #### C MP #### [facility] ([id number]) [address] [place] [address] VIR GFR/1.73 sq M.predicted among non-blacks MDRD (S/P/Bld) [Vol rate/Area] 62 mL/min/{1.73_m2} Normal >=60 [facility] Comment on above: Result Comment: Repo rted eGFR is based on the CKD-EPI 2020 equation that does not use a race coefficient. Performed By: #### C MP #### [facility] ([id number]) [address] [place] [address] VIR Glucose [Mass/Vol] 378 mg/dL High 65-99 [facility] Comment on above: Performed By: #### C MP #### [facility] ([id number]) [address] [facility] [place] [address] VIR Potassium [Moles/Vol] 3.6 mmol/L Normal 3.5-5.0 [facility] Comment on above: Performed By: #### C MP #### [facility] ([id number]) [address] [place] [address] VIR Protein [Mass/Vol] 7.0 g/dL Normal 6.0-8.0 [facility] Comment on above: Performed By: #### C MP #### [facility] ([id number]) [address] [place] [address] VIR Sodium [Moles/Vol] 136 mmol/L Normal 134-146 [facility] Comment on above: Performed By: #### C MP #### [facility] ([id number]) [address] [place] [address] VIR Urea nitrogen [Mass/Vol] 15 mg/dL Normal 5-23 [facility] Comment on above: Performed By: #### C MP #### [facility] ([id number]) [address] [place] [address] VIR DRUG SCREEN, URINEon 025 DRUG SCREEN, URINE DSU DRUG SCREEN, URINE Cancelled Normal [facility] AMPHETAMINE/METHAMP Positive Abnormal Negative [facility] Comment on above: Order Comment: Confi rmation available upon request. Result Comment: AMPH /METH screening cut off = 1000 ng/mL Performed By: #### D QUINONEZ #### [facility] ([id number]) [address] [place] [address] VIR BARBITURATES Negative Normal Negative [facility] Comment on above: Order Comment: Confi rmation available upon request. Result Comment: Amee iturates screening cut off value = 200 ng/mL Performed By: #### D QUINONEZ #### [facility] ([id number]) [address] [place] [address] VIR BENZODIAZEPINES Negative Normal Negative [facility] Comment on above: Order Comment: Confi rmation available upon request. Result Comment: Betito odiazepines screening cut off value = 200 ng/mL Performed By: #### D QUINONEZ #### [facility] ([id number]) [address] [place] [address] VIR CANNABINOIDS Positive Abnormal Negative [facility] Comment on above: Order Comment: Confi rmation available upon request. Result Comment: Amber abinoids/THC screening cut off value = 50 ng/mL Performed By: #### D QUINONEZ #### [facility] ([id number]) [address] [place] [address] VIR COCAINE METABOLITE Negative Normal Negative [facility] Comment on above: Order Comment: Confi rmation available upon request. Result Comment: Coca ine screening cut off value = 300 ng/mL Performed By: #### D QUINONEZ #### [facility] ([id number]) [address] [place] [address] VIR ECSTASY Negative Normal Negative [facility] Comment on above: Order Comment: Confi rmation available upon request. Result Comment: Ecst asy screening cut off value = 500 ng/mL Performed By: #### D QUINONEZ #### [facility] ([id number]) [address] [place] [address] VIR METHADONE Negative Normal Negative [facility] Comment on above: Order Comment: Confi rmation available upon request. Result Comment: Meth adone screening cut off value = 300 ng/mL. Performed By: #### D QUINONEZ #### [facility] ([id number]) [address] [place] [address] VIR OPIATES Negative Normal Negative [facility] Comment on above: Order Comment: Confi rmation available upon request. Result Comment: Opia zuri screening cut off value = 300 ng/mL This test is used for the detection of codeine, hydrocodone (>1000 ng/mL), morphine and hydromorphone (>900 ng/mL) in urine. Performed By: #### D QUINONEZ #### [facility] ([id number]) [address] [place] [address] VIR OXYCODONE Negative Normal Negative [facility] Comment on above: Order Comment: Confi rmation available upon request. Result Comment: Oxyc odone screening cut off value = 300 ng/mL This test is used for the detection of oxycodone and oxymorphone in urine. Performed By: #### D QUINONEZ #### [facility] ([id number]) [address] [place] [address] VIR PHENCYCLIDINE Negative Normal Negative [facility] Comment on above: Order Comment: Lexy lancaster available upon request. Result Comment: Phen cyclidine screening cut off value = 25 ng/mL Performed By: #### D QUINONEZ #### [facility] ([id number]) [facility] [place] [address] VIR ETHANOLon 12-09-2024 Ethanol [Mass/Vol] mg/dL Normal <=0.080 [facility] Comment on above: Result Comment: This report is intended for use in clinical monitoring or management of patients. Performed By: #### A LCO #### [facility] ([id number]) [address] [place] [address]39[address] VIR FENTANYL, URINE QUALITATIVEo n 12-09-2024 FENTANYL, URINE QUAL. Negative Normal Negative [facility] Comment on above: Order Comment: Fenta nyl screening cutoff = 5ng/ml This report is intended for use in clinical monitoring or management of patients. Performed By: #### U FEN #### [facility] ([id number]) [address] [place] [address] VIR HEMOGLOBIN A1Con 12-09-2024 Glucose [Mass/Vol] 309 mg/dL Normal [facility] Comment on above: Performed By: #### U FEN #### [facility] ([id number]) [address] [place] [address]21 VIR HbA1c (Bld) [Mass fraction] 12.4 % High 4.4-5.6 [facility] Comment on above: Result Comment: ADA Guidelines Result HgbA1c Normal : less than 5.7 % Prediabetes : 5.7 % to 6.4 % Diabetes : > 6.4 % Use with caution in patients with abnormal hemoglobin variants as the half-life of red blood cells and in vivo glycation rates are affected. Performed By: #### U FEN #### [facility] ([id number]) [address] [facility] [place] [address] VIR SALICYLATE LEVELon SALICYLATE <^2.5 Normal 2.0-25.0 [facility] Comment on above: Order Comment: Refer ence ranges are for therapeutic limits. Performed By: #### S ALI #### [facility] ([id number]) [address] [place] [address] VIR T4, FREEon 12-09-2024 Free T4 [Mass/Vol] 0.75 ng/dL Normal 0.61-1.60 [facility] Comment on above: Performed By: #### F T4 #### [facility] ([id number]) [address] [place] [address]18[address] VIR TSHon 12-09-2024 TSH 3.69 uIU/mL Normal 0.49-4.67 [facility] Comment on above: Performed By: #### T SH #### [facility] ([id number]) [address] [place] [address]5877 VIR URINALYSISon 12-09-2024 Bilirubin Ql (U) Negative Normal Negative [facility] Comment on above: Order Comment: Urine received without preservative. Delays in transport may affect results. Interpret with caution. A clinical correlation is recommended. Performed By: #### U A #### [facility] ([id number]) [address] [place] [address] VIR BLOOD/HGB Small Abnormal Negative [facility] Comment on above: Order Comment: Urine received without preservative. Delays in transport may affect results. Interpret with caution. A clinical correlation is recommended. Performed By: #### U A #### [facility] ([id number]) [address] [place] [address] 268[address] VIR Color (U) Yellow Normal Yellow, Colorless [facility] Comment on above: Order Comment: Urine received without preservative. Delays in transport may affect results. Interpret with caution. A clinical correlation is recommended. Performed By: #### U A #### [facility] ([id number]) [address] [place] [address] VIR Glucose Ql (U) >=1000 mg/dL Abnormal Negative, 250 mg/dL [facility] Comment on above: Order Comment: Urine received without preservative. Delays in transport may affect results. Interpret with caution. A clinical correlation is recommended. Performed By: #### U A #### [facility] ([id number]) [facility] [place] [address] VIR Ketones Ql (U) Negative Normal Negative [facility] Comment on above: Order Comment: Urine received without preservative. Delays in transport may affect results. Interpret with caution. A clinical correlation is recommended. Performed By: #### U A #### [facility] ([id number]) [facility] [place] [address] VIR Leukocyte esterase Test strip Ql (U) Negative Normal Negative [facility] Comment on above: Order Comment: Urine received without preservative. Delays in transport may affect results. Interpret with caution. A clinical correlation is recommended. Performed By: #### U A #### [facility] ([id number]) [address] [place] [address] VIR Nitrite Ql (U) Negative Normal Negative [facility] Comment on above: Order Comment: Urine received without preservative. Delays in transport may affect results. Interpret with caution. A clinical correlation is recommended. Performed By: #### U A #### [facility] ([id number]) [address] [place] [address]1502 VIR PH,URINE 6.0 Normal 5.0-8.5 [facility] Comment on above: Order Comment: Urine received without preservative. Delays in transport may affect results. Interpret with caution. A clinical correlation is recommended. Performed By: #### U A #### [facility] ([id number]) [facility] [place] [address] VIR Protein Ql (U) Negative Normal Negative [facility] Comment on above: Order Comment: Urine received without preservative. Delays in transport may affect results. Interpret with caution. A clinical correlation is recommended. Performed By: #### U A #### [facility] ([id number]) [address] [place] [address] VIR R.B.CELLS 1 Normal 0-5 [facility] Comment on above: Order Comment: Urine received without preservative. Delays in transport may affect results. Interpret with caution. A clinical correlation is recommended. Performed By: #### U A #### [facility] ([id number]) [address] [place] [address] VIR Specific gravity (U) [Rel density] 1.015 Normal 1.003-1.035 [facility] Comment on above: Order Comment: Urine received without preservative. Delays in transport may affect results. Interpret with caution. A clinical correlation is recommended. Performed By: #### U A #### [facility] ([id number]) [facility] [place] [address] VIR TURBIDITY Clear Normal Clear [facility] Comment on above: Order Comment: Urine received without preservative. Delays in transport may affect results. Interpret with caution. A clinical correlation is recommended. Performed By: #### U A #### [facility] ([id number]) [address] [place] [address] VIR UROBILINOGEN 0.2 eu/dL Normal 0.2 eu/dL, 1.0 eu/dL [facility] Comment on above: Order Comment: Urine received without preservative. Delays in transport may affect results. Interpret with caution. A clinical correlation is recommended. Performed By: #### U A #### [facility] ([id number]) [address] [place] [address] VIR W.B.CELLS 0 Normal 0-5 [facility] Comment on above: Order Comment: Urine received without preservative. Delays in transport may affect results. Interpret with caution. A clinical correlation is recommended. Performed By: #### U A #### [facility] ([id number]) [address] [place] [address] VIR ECG 12 lead ECGon 09-07-2024 ECG 12 lead ECG [facility] [place] [address] Electrocardiograph Report Signed Patient: Woody Hernandez MR#: [id number] : 1975 Acct:[id number] Age/Sex: 49 / M ADM Date: 09/07/24 Loc: Room: [address] [place] [address] Type: ADM IN Attending Dr: Anson Sutton [...] previous ECGs available Confirmed by Kody Ley ([id number]) on 09/07/2024 8:01:49 PM Referred By: Electronically Signed By: Kody Ley Transcribed By: MUS Signed By Kody Ley MD 09/07/242000 Normal [facility] Alanine aminotransferase [En zymatic activity/volume] in Serum or PlasmaOrdered By: Franklin Anand on 09-06-2024 ALT [Catalytic activity/Vol] Alanine aminotransferase [Enzymatic activity/volume] in Serum or Plasma 7-52 [facility] Albumin [Mass/volume] in Ser um or Plasma by Bromocresol green (BCG) dye binding methoOrdered By: Franklin Anand on 09-06-2024 Albumin BCG dye [Mass/Vol] Albumin [Mass/volume] in Serum or Plasma by Bromocresol green (BCG) dye binding metho 3.5-5.7 [facility] Alkaline phosphatase [Enzyma tic activity/volume] in Serum or PlasmaOrdered By: Franklin Anand on 09-06-2024 ALP [Catalytic activity/Vol] Alkaline phosphatase [Enzymatic activity/volume] in Serum or Plasma 34-104 [facility] Amphetamine Screen Ql (U)Ord ered By: PROVIDER TEMP on 09-06-2024 Amphetamines Ql (U) Amphetamines screen High Negativ e [facility] Appearance of UrineOrdered B y: Franklin Anand on 09-06-2024 Appearance (U) Urine appearance Clear [facility] Aspartate aminotransferase [ Enzymatic activity/volume] in Serum or PlasmaOrdered By: Franklin Anand on 09-06-2024 AST [Catalytic activity/Vol] Aspartate aminotransferase [Enzymatic activity/volume] in Serum or Plasma 13-39 [facility] Bacteria [Presence] in Urine by AutomatedOrdered By: Franklin Anand on 09-06-2024 Bacteria Auto Ql (U) Bacteria [Presence] in Urine by Automated None Seen [facility] Barbiturates [Presence] in U rine by Screen methodOrdered By: PROVIDER TEMP on 09-06-2024 Barbiturates Screen Ql (U) Barbiturates [Presence] in Urine by Screen method Negative [facility] Basophils Auto (Bld) [#/Vol] Ordered By: Franklin Anand on 09-06-2024 Basophils (Bld) [#/Vol] Automated basoph il count 0.0-0.2 [facility] Basophils/100 WBC Auto (Bld) Ordered By: Franklin Anand on 09-06-2024 Basophils/100 WBC (Bld) Automated basophil % . [facility] Benzodiazepines Screen Ql (U )Ordered By: PROVIDER TEMP on 09-06-2024 Benzodiazepines Ql (U) Benzodiazepines [Presence] in Urine by Screen method Negative [facility] Benzoylecgonine [Presence] i n Urine by Screen methodOrdered By: PROVIDER TEMP on 09-06-2024 Benzoylecgonine Screen Ql (U) Benzoylecgonine [Presence] in Urine by Screen method Negative [facility] Bilirubin Test strip Ql (U)O rdered By: Franklin Anand on 09-06-2024 Bilirubin Ql (U) Bilirubin.total [Presence] in Urine by Test strip Negative [facility] Bilirubin.total [Mass/volume ] in Serum or PlasmaOrdered By: Franklin Anand on 09-06-2024 Bilirubin [Mass/Vol] Bilirubin.total [Mass/volume] in Serum or Plasma 0.3-1.0 [facility] Calcium [Mass/volume] in Ser um or PlasmaOrdered By: Franklin Anand on 09-06-2024 Calcium [Mass/Vol] Calcium [Mass/volume ] in Serum or Plasma 8.6-10.3 [facility] Cannabinoids [Presence] in U rine by Screen methodOrdered By: KOURTNEY MARCELINO on 09-06-2024 Cannabinoids Screen Ql (U) Cannabinoids [Presence] in Urine by Screen method Negative [facility] Comment on above: These are unconfirme [...] l [Moles/volume] in Serum or Plasma 21.0-31.0 [facility] Chloride [Moles/volume] in S darrel or PlasmaOrdered By: Franklin Anand on 09-06-2024 Chloride [Moles/Vol] Chloride [Moles/volume] in Serum or Plasma 98-107 [facility] Cholesterol [Mass/volume] in Serum or PlasmaOrdered By: Anson Sutton on 09-06-2024 Cholesterol [Mass/Vol] Cholesterol [Mass/volume] in Serum or Plasma 140-200 [facility] Comment on above: Chol less than 200 m g/dl low riskChol 201-239 mg/dl borderline riskChol 240 mg/dl and greater high risk Cholesterol in HDL [Mass/vol ume] in Serum or PlasmaOrdered By: Anson Sutton on 09-06-2024 Cholesterol in HDL [Mass/Vol] Serum or plasma high density lipoprotein (HDL) cholesterol measurement 23-92 [facility] Comment on above: HDL CHOL ATP-III CLA SSIFICATION Cardiovascular RiskHDL > or equal to 60 mg/dL LOWHDL < 40 mg/dL HIGH Cholesterol in LDL Calc [Mas s/Vol]Ordered By: Anson Sutton on 09-06-2024 Cholesterol in LDL [Mass/Vol] Cholesterol in LDL [Mass/volume] in Serum or Plasma by calculation High 0-100 [facility] Comment on above: LDL ATP III CLASSIFI CATIONLDL less than 100 mg/dL OptimalLDL 100-129 mg/dL Near or above optimalLDL 130-159 mg/dL Borderline highLDL 160-189 mg/dL HighLDL greater than 189 mg/dL Very high Cholesterol in VLDL Calc [Ma ss/Vol]Ordered By: Anson Sutton on 09-06-2024 Cholesterol in VLDL [Mass/Vol] Cholesterol in VLDL [Mass/volume] in Serum or Plasma by calculation [facility] Color Auto (U)Ordered By: Alexis Anand on 09-06-2024 Color (U) Color of Urine by Auto Yellow [facility] Comprehensive Metabolic Pane nadir 09-06-2024 Albumin [Mass/Vol] 4.4 g/dL Normal 3.5-5.7 [facility] Comment on above: Performed By: #### C MP, ETOH, SCAN CBC #### [facility] [address] [place] [address] [place] Albumin/Globulin [Mass ratio] 1.5 {ratio} Normal [facility] Comment on above: Performed By: #### C MP, ETOH, SCAN CBC #### [facility] [address] [place] [address] [place] ALP [Catalytic activity/Vol] 64 U/L Normal 34-104 [facility] Comment on above: Performed By: #### C MP, ETOH, SCAN CBC #### [facility] [address] [place] [address] [place] ALT [Catalytic activity/Vol] 14 U/L Normal 7-52 [facility] Comment on above: Performed By: #### C MP, ETOH, SCAN CBC #### [facility] [address] [place] [id number] [place] Anion gap [Moles/Vol] 12.8 mmol/L Normal 6.0-15.0 [facility] Comment on above: Performed By: #### C MP, ETOH, SCAN CBC #### [facility] [address] [place] [id number] [place] AST [Catalytic activity/Vol] 18 U/L Normal 13-39 [facility] Comment on above: Performed By: #### C MP, ETOH, SCAN CBC #### [facility] [address] [place] [address] [place] Bilirubin [Mass/Vol] 0.7 mg/dL Normal 0.3-1.0 [facility] Comment on above: Performed By: #### C MP, ETOH, SCAN CBC #### [facility] [address] [place] [address] [place] Calcium [Mass/Vol] 9.3 mg/dL Normal 8.6-10.3 [facility] Comment on above: Performed By: #### C MP, ETOH, SCAN CBC #### [place] [address] [place] Chloride [Moles/Vol] 104 mmol/L Normal 98-107 [facility] Comment on above: Performed By: #### C MP, ETOH, SCAN CBC #### [place] [address] [place] CO2 [Moles/Vol] 28.1 mmol/L Normal 21.0-31.0 [facility] Comment on above: Performed By: #### C MP, ETOH, SCAN CBC #### [place] [address] [place] Creatinine [Mass/Vol] 1.20 mg/dL Normal 0.70-1.30 [facility] Comment on above: Performed By: #### C MP, ETOH, SCAN CBC #### [place] [address] [place] Creatinine Clr Calc Pharmacy 75.84 Normal [facility] Comment on above: Result Comment: PERF ORMED BY: [place] [address] PATHOLOGIST [employer] CAROLYN HECK M.D. Performed By: #### C MP, ETOH, SCAN CBC #### [place] [address] [place] GFR/1.73 sq M.predicted MDRD (S/P/Bld) [Vol rate/Area] mL/min/{1.73_m2} Normal [facility] Comment on above: Performed By: #### C MP, ETOH, SCAN CBC #### [address] Globulin (S) [Mass/Vol] 2.9 g/dL Normal [facility] Comment on above: Performed By: #### C MP, ETOH, SCAN CBC #### [address] Glucose [Mass/Vol] 97 mg/dL Significant change down 70-100 [facility] Comment on above: Result Comment: [facility] Glucose Reference Range is dependent on time and content of last meal. Glucose of more than 200 mg/dL in a nonstressed, ambulatory subject supports the diagnosis of Diabetes Mellitus. ADA recommended reference range Performed By: #### C MP, ETOH, SCAN CBC #### [address] Potassium [Moles/Vol] 3.9 mmol/L Normal 3.5-5.1 [facility] Comment on above: Performed By: #### C MP, ETOH, SCAN CBC #### [address] Protein [Mass/Vol] 7.3 g/dL Normal 6.4-8.9 [facility] Comment on above: Performed By: #### C MP, ETOH, SCAN CBC #### [address] Sodium [Moles/Vol] 141 mmol/L Normal 136-145 [facility] Comment on above: Performed By: #### C MP, ETOH, SCAN CBC #### [address] Urea nitrogen [Mass/Vol] 13 mg/dL Normal 7-25 [facility] Comment on above: Performed By: #### C MP, ETOH, SCAN CBC #### [place] [address] [place] Creatinine [Mass/volume] in Serum or PlasmaOrdered By: Franklin Anand on 09-06-2024 Creatinine [Mass/Vol] Creatinine [Mass/volume] in Serum or Plasma 0.70-1.30 [facility] Dipstick and Microscopicon 0 09-06-2024 Appearance (U) Clear Normal Clear [facility] Comment on above: Order Comment: Name Collection Type:: Clean-Voided Midstream Performed By: #### U RDS, ADDONUAPLUS #### [place] [address] [place] Bacteria,Urine None Seen Normal None Seen [facility] Comment on above: Order Comment: Name Collection Type:: Clean-Voided Midstream Performed By: #### U RDS, ADDONUAPLUS #### [place] [address] [place] Bilirubin,Urine Negative Normal Negative [facility] Comment on above: Order Comment: Name Collection Type:: Clean-Voided Midstream Performed By: #### U RDS, ADDONUAPLUS #### [address] Color (U) Yellow Normal Yellow [facility] Comment on above: Order Comment: Name Collection Type:: Clean-Voided Midstream Performed By: #### U RDS, ADDONUAPLUS #### [address] Glucose Ql (U) Normal Normal Normal [facility] Comment on above: Order Comment: Name Collection Type:: Clean-Voided Midstream Performed By: #### U RDS, ADDONUAPLUS #### [address] Hyaline Casts,Urine None Normal 0-8 [facility] Comment on above: Order Comment: Name Collection Type:: Clean-Voided Midstream Performed By: #### U RDS, ADDONUAPLUS #### [place] [address] [place] Ketones Ql (U) Negative Normal Negative [facility] Comment on above: Order Comment: Name Collection Type:: Clean-Voided Midstream Performed By: #### U RDS, ADDONUAPLUS #### [address] Leukocyte esterase Test strip Ql (U) Negative Normal Negative [facility] Comment on above: Order Comment: Name Collection Type:: Clean-Voided Midstream Performed By: #### U RDS, ADDONUAPLUS #### [address] Mucus,Urine 1+ Critically abnormal [facility] Comment on above: Order Comment: Name Collection Type:: Clean-Voided Midstream Result Comment: PERF ORMED BY: [place] [address] PATHOLOGIST [employer] CAROLYN HECK M.D. Performed By: #### U RDS, ADDONUAPLUS #### [place] [address] [place] Nitrite,Urine Negative Normal Negative [facility] Comment on above: Order Comment: Name Collection Type:: Clean-Voided Midstream Performed By: #### U RDS, ADDONUAPLUS #### [address] Occult Blood,Urine 2+ High Negative [facility] Comment on above: Order Comment: Name Collection Type:: Clean-Voided Midstream Result Comment: PERF ORMED BY: [place] [address] PATHOLOGIST [employer] CAROLYN HECK M.D. Performed By: #### U RDS, ADDONUAPLUS #### [address] pH (U) 5.5 [pH] Normal 5.0-9.0 [facility] Comment on above: Order Comment: Name Collection Type:: Clean-Voided Midstream Performed By: #### U RDS, ADDONUAPLUS #### [place] [address] [place] Protein (U) [Mass/Vol] 30 mg/dL High Negative [facility] Comment on above: Order Comment: Name Collection Type:: Clean-Voided Midstream Performed By: #### U RDS, ADDONUAPLUS #### [place] [address] [place] RBC,Urine Innumerable High 0-4 [facility] Comment on above: Order Comment: Name Collection Type:: Clean-Voided Midstream Performed By: #### U RDS, ADDONUAPLUS #### [address] Specificy Emery,Urine 1.030 Normal 1.001-1.030 [facility] Comment on above: Order Comment: Name Collection Type:: Clean-Voided Midstream Performed By: #### U RDS, ADDONUAPLUS #### [address] Urobilinogen,Urine Normal Normal Normal [facility] Comment on above: Order Comment: Name Collection Type:: Clean-Voided Midstream Performed By: #### U RDS, ADDONUAPLUS #### [address] WBC,Urine 10-19 High 0-4 [facility] Comment on above: Order Comment: Name Collection Type:: Clean-Voided Midstream Performed By: #### U RDS, ADDONUAPLUS #### [address] Drug Screen,Urineon 09-07-19 25 Amphetamine Screen,Urine Positive High Negative [facility] [facility] Comment on above: Performed By: #### U RDS, ADDONUAPLUS #### [address] Barbiturate Screen,Urine Negative Normal Negative [facility] Comment on above: Performed By: #### U RDS, ADDONUAPLUS #### [address] Benzodiazepines Screen,Urine Negative Normal Negative [facility] Comment on above: Performed By: #### U RDS, ADDONUAPLUS #### [address] Cannabinoid Screen,Urine Negative Normal Negative [facility] Comment on above: Result Comment: Thes e are unconfirmed results and should not be used for legal purposes. Drug Cut-Off Concentration: AMPH 1000 ng/mL AMEE 200 ng/mL BETITO 200 ng/mL COCM 300 ng/mL OP 300 ng/mL PCP 25 ng/mL THC 20 ng/mL PERFORMED BY: [place] [address] PATHOLOGIST [employer] CAROLYN HECK M.D. Performed By: #### U RDS, ADDONUAPLUS #### [facility] [address] Cocaine Screen,Urine Negative Normal Negative [facility] Comment on above: Performed By: #### U RDS, ADDONUAPLUS #### [facility] [address] Opiate Screen,Urine Negative Normal Negative [facility] Comment on above: Performed By: #### U RDS, ADDONUAPLUS #### [facility] [address] Phencyclidine Screen,Urine Negative Normal Negative [facility] Comment on above: Performed By: #### U RDS, ADDONUAPLUS #### [facility] [address] [place] [address] [place] Eosinophils Auto (Bld) [#/Vo l]Ordered By: Franklin Anand on 09-06-2024 Eosinophils (Bld) [#/Vol] Automated eosinophil count 0.0-0.45 [facility] Eosinophils/100 WBC Auto (Bl d)Ordered By: Franklin Anand on 09-06-2024 Eosinophils/100 WBC (Bld) Automated eosinophil % . [facility] Epithelial cells.squamous [# /area] in Urine sediment by Automated countOrdered By: KOURTNEY MARCELINO on 09-06-2024 Epithelial cells.squamous Auto (Urine sed) [#/Area] Epithelial cells.squamous [#/area] in Urine sediment by Automated count [facility] Erythrocyte distribution wid th Auto (RBC) [Ratio]Ordered By: Franklin Anand on 09-06-2024 Erythrocyte distribution width (RBC) [Ratio] Erythrocyte distribution width [Ratio] by Automated count High 12.0-14.8 [facility] Erythrocyte morphology findi ng [Identifier] in BloodOrdered By: Franklin Anand on 09-06-2024 RBC morphology finding Nom (Bld) RBC morphology Normal [facility] Erythrocytes [#/area] in Uri ne sediment by Automated countOrdered By: Franklin Anand on 09-06-2024 RBC Auto (Urine sed) [#/Area] Erythrocytes [#/area] in Urine sediment by Automated count High 0-4 [facility] Ethanol [Mass/volume] in Ser um or PlasmaOrdered By: Franklin Anand on 09-06-2024 Ethanol [Mass/Vol] Ethanol [Mass/volume ] in Serum or Plasma [facility] Comment on above: Test not performed Ethyl Alcohol Profileon Ethanol [Mass/Vol] mg/dL Normal [facility] Comment on above: Performed By: #### C MP, ETOH, SCAN CBC #### [facility] [address] Percent Ethanol Not performed Normal [facility] Comment on above: Result Comment: PERF ORMED BY: [place] [address] PATHOLOGIST [employer] CAROLYN HECK M.D. Performed By: #### C MP, ETOH, SCAN CBC #### [facility] [address] [place] [address] Globulin Calc (S) [Mass/Vol] Ordered By: Franklin Anand on 09-06-2024 Globulin (S) [Mass/Vol] Serum globulin measurement by calculation (mass/volume) [facility] Glucose [Mass/volume] in Ser um or PlasmaOrdered By: Franklin Anand on 09-06-2024 Glucose [Mass/Vol] Glucose [Mass/volume ] in Serum or Plasma Significant change down 70-100 [facility] Comment on above: Delta: 255 on [...] [Mass/volume] in Urine by Test strip Normal [facility] Hematocrit Auto (Bld) [Volum e fraction]Ordered By: Franklin Anand on 09-06-2024 Hematocrit (Bld) [Volume fraction] Hematocrit [Volume Fraction] of Blood by Automated count High 38.8-50.0 [facility] Hemoglobin Test strip Ql (U) Ordered By: Franklin Anand on 09-06-2024 Hemoglobin Ql (U) Hemoglobin [Presence ] in Urine by Test strip High Negative [facility] Hemoglobin [Mass/volume] in BloodOrdered By: Franklin Anand on 09-06-2024 Hemoglobin (Bld) [Mass/Vol] Hemoglobin [Mass/volume] in Blood High 13.0-17.0 [facility] Hyaline casts [#/area] in Ur ine sediment by Automated countOrdered By: Franklin Anand on 09-06-2024 Hyaline casts Auto (Urine sed) [#/Area] Hyaline casts [#/area] in Urine sediment by Automated count 0-8 [facility] Ketones Test strip Ql (U)Ord ered By: Franklin Anand on 09-06-2024 Ketones Ql (U) Ketones [Presence] i n Urine by Test strip Negative [facility] Leukocyte esterase [Presence ] in Urine by Test stripOrdered By: Franklin Anand on 09-06-2024 Leukocyte esterase Test strip Ql (U) Leukocyte esterase [Presence] in Urine by Test strip Negative [facility] Leukocytes [#/area] in Urine sediment by Automated countOrdered By: Franklin Anand on 09-06-2024 WBC Auto (Urine sed) [#/Area] Leukocytes [#/area] in Urine sediment by Automated count High 0-4 [facility] Leukocytes [#/volume] correc leeroy for nucleated erythrocytes in Blood by Automated counOrdered By: Franklin Anand on 09-06-2024 WBC corrected for nucl RBC Auto (Bld) [#/Vol] Leukocytes [#/volume] corrected for nucleated erythrocytes in Blood by Automated coun High 4.1-10.5 [facility] Lipid Panelon 09-06-2024 Cholesterol [Mass/Vol] 180 mg/dL Normal 140-200 [facility] Comment on above: Order Comment: Comme nt use ER blood Result Comment: Chol less than 200 mg/dl low risk Chol 201-239 mg/dl borderline risk Chol 240 mg/dl and greater high risk Performed By: #### B MP, CBC, LIPASE, HEPATIC #### [facility] [address] Cholesterol in HDL [Mass/Vol] 37 mg/dL Normal 23-92 [facility] Comment on above: Order Comment: Comme nt use ER blood Result Comment: HDL CHOL ATP-III CLASSIFICATION Cardiovascular Risk HDL > or equal to 60 mg/dL LOW HDL < 40 mg/dL HIGH Performed By: #### B MP, CBC, LIPASE, HEPATIC #### [facility] [address] Cholesterol.total/Cecilia sterol in HDL [Mass ratio] 4.9 {ratio} Normal <5.0 [facility] Comment on above: Order Comment: Comme nt use ER blood Performed By: #### B MP, CBC, LIPASE, HEPATIC #### [facility] [address] LDL Cholesterol,Calculated 111 mg/dL High 0-100 [facility] Comment on above: Order Comment: Comme nt use ER blood Result Comment: LDL ATP III CLASSIFICATION LDL less than 100 mg/dL Optimal LDL 100-129 mg/dL Near or above optimal LDL 130-159 mg/dL Borderline high LDL 160-189 mg/dL High LDL greater than 189 mg/dL Very high Performed By: #### B MP, CBC, LIPASE, HEPATIC #### [address] Triglyceride w/Reflex 162 mg/dL High 0-149 [facility] Comment on above: Order Comment: Comme nt use ER blood Result Comment: TRIG ATP III CLASSIFICATION TRIG less than 150 mg/dL Normal TRIG 150-199 mg/dL Borderline high TRIG 200-500 mg/dL High TRIG greater than 500 mg/dL Very high Standard traceable to the Center for Disease Conrtrol and Prevention (CDC) test method. Performed By: #### B MP, CBC, LIPASE, HEPATIC #### [facility] [address] [place] [id number] [facility] VLDL CHOLESTEROL 32 mg/dL Normal [facility] Comment on above: Order Comment: Comme nt use ER blood Performed By: #### B MP, CBC, LIPASE, HEPATIC #### [facility] [address] [place] [id number] [facility] Lymphocytes Auto (Bld) [#/Vo l]Ordered By: Franklin Anand on 09-06-2024 Lymphocytes (Bld) [#/Vol] Lymphocytes [#/volume] in Blood by Automated count 1.00-4.8 [facility] Lymphocytes/100 WBC Auto (Bl d)Ordered By: Franklin Anand on 09-06-2024 Lymphocytes/100 WBC (Bld) Lymphocytes/100 leukocytes in Blood by Automated count . [facility] MCH Auto (RBC) [Entitic mass ]Ordered By: Franklin Anand on 09-06-2024 MCH (RBC) [Entitic mass] MCH [Entitic mass] by Automated count Low 27.5-35.2 [facility] MCHC Auto (RBC) [Mass/Vol]Or dered By: Franklin Anand on 09-06-2024 MCHC (RBC) [Mass/Vol] MCHC [Mass/volume] by Automated count Low 32.5-35.6 [facility] MCV Auto (RBC) [Entitic vol] Ordered By: Franklin Anand on 09-06-2024 MCV (RBC) [Entitic vol] MCV [Entitic vol ume] by Automated count Low 83.5-101 [facility] Monocyte distribution width [Entitic volume] in Blood by AutomatedOrdered By: Franklin Anand on 09-06-2024 Monocyte distribution width Auto (Bld) [Entitic vol] Monocyte distribution width [Entitic volume] in Blood by Automated 0.00-20.00 [facility] Monocytes Auto (Bld) [#/Vol] Ordered By: Franklin Anand on 09-06-2024 Monocytes (Bld) [#/Vol] Automated blood monocyte count High 0.0-0.8 [facility] Monocytes/100 WBC Auto (Bld) Ordered By: Franklin Anand on 09-06-2024 Monocytes/100 WBC (Bld) Automated monocyte % . [facility] Mucus [Presence] in Urine by AutomatedOrdered By: Franklin Anand on 09-06-2024 Mucus Auto Ql (U) Mucus [Presence] in Urine by Automated Abnormal [facility] Neutrophils Auto (Bld) [#/Vo l]Ordered By: Franklin Anand on 09-06-2024 Neutrophils (Bld) [#/Vol] Neutrophils [#/volume] in Blood by Automated count 1.8-7.7 [facility] Neutrophils/100 WBC Auto (Bl d)Ordered By: Franklin Anand on 09-06-2024 Neutrophils/100 WBC (Bld) Automated neutrophil % . [facility] Nitrite Test strip Ql (U)Ord ered By: Franklin Anand on 09-06-2024 Nitrite Ql (U) Nitrite [Presence] i n Urine by Test strip Negative [facility] No Panel InformationOrdered By: Franklin Anand on 09-06-2024 Estimated GFR (CKD-EPI) > 60.0 mL/Min [facility] Creatinine Clearance (Chem 75.84 [facility] Nucleated erythrocytes [Pres ence] in Blood by Automated countOrdered By: Franklin Anand on 09-06-2024 Nucleated RBC Auto Ql (Bld) Nucleated erythrocytes [Presence] in Blood by Automated count 0-0.5 [facility] Opiates [Presence] in Urine by Screen methodOrdered By: PROVIDER TEMP on 09-06-2024 Opiates Screen Ql (U) Opiates [Presence] in Urine by Screen method Negative [facility] Phencyclidine Screen Ql (U)O rdered By: PROVIDER TEMP on 09-06-2024 Phencyclidine Ql (U) Phencyclidine [Presence] in Urine by Screen method Negative [facility] Platelet adequacy [Presence] in Blood by Light microscopyOrdered By: Franklin Anand on 09-06-2024 Platelets LM Ql (Bld) Platelet adequacy [Presence] in Blood by Light microscopy Normal [facility] Platelet mean volume Auto (B ld) [Entitic vol]Ordered By: Franklin Anand on 09-06-2024 Platelet mean volume (Bld) [Entitic vol] Platelet mean volume [Entitic volume] in Blood by Automated count 6.6-10.1 [facility] Platelet morphology finding [Identifier] in BloodOrdered By: Franklin Anand on 09-06-2024 Platelet morphology finding Nom (Bld) Platelet morphology finding [Identifier] in Blood Normal [facility] Platelets Auto (Bld) [#/Vol] Ordered By: Franklin Anand on 09-06-2024 Platelets (Bld) [#/Vol] Platelets [#/vol ume] in Blood by Automated count 150-450 [facility] Potassium [Moles/volume] in Serum or PlasmaOrdered By: Franklin Anand on 09-06-2024 Potassium [Moles/Vol] Potassium [Moles/volume] in Serum or Plasma 3.5-5.1 [facility] Protein Test strip (U) [Mass /Vol]Ordered By: Franklin Anand on 09-06-2024 Protein (U) [Mass/Vol] Protein [Mass/vol ume] in Urine by Test strip High Negative [facility] Protein [Mass/volume] in Ser um or PlasmaOrdered By: Franklin Anand on 09-06-2024 Protein [Mass/Vol] Protein [Mass/volume ] in Serum or Plasma 6.4-8.9 [facility] RBC Auto (Bld) [#/Vol]Ordere d By: Franklin Anand on 09-06-2024 RBC (Bld) [#/Vol] Erythrocytes [#/volume] in Blood by Automated count High 3.90-5.60 [facility] Scan and CBCon 09-06-2024 Basophils (Bld) [#/Vol] 0.1 10*3/uL Normal 0.0-0.2 [facility] Comment on above: Performed By: #### C MP, ETOH, SCAN CBC #### [facility] [address] [place] [address] [place] Basophils/100 WBC (Bld) 0.8 % Normal . [facility] Comment on above: Performed By: #### C MP, ETOH, SCAN CBC #### [facility] [address] [place] [id number] [place] Eosinophils (Bld) [#/Vol] 0.4 10*3/uL Normal 0.0-0.45 [facility] Comment on above: Performed By: #### C MP, ETOH, SCAN CBC #### [facility] [address] [place] [id number] [place] Eosinophils/100 WBC (Bld) 3.3 % Normal . [facility] Comment on above: Performed By: #### C MP, ETOH, SCAN CBC #### [address] Erythrocyte distribution width (RBC) [Ratio] 15.3 % High 12.0-14.8 [facility] Comment on above: Performed By: #### C MP, ETOH, SCAN CBC #### [address] Hematocrit (Bld) [Volume fraction] 53.5 % High 38.8-50.0 [facility] Comment on above: Performed By: #### C MP, ETOH, SCAN CBC #### [address] Hemoglobin (Bld) [Mass/Vol] 17.3 g/dL High 13.0-17.0 [facility] Comment on above: Performed By: #### C MP, ETOH, SCAN CBC #### [address] Lymphocytes (Bld) [#/Vol] 4.6 10*3/uL Normal 1.00-4.8 [facility] Comment on above: Performed By: #### C MP, ETOH, SCAN CBC #### [address] Lymphocytes/100 WBC (Bld) 41.5 % Normal . [facility] Comment on above: Performed By: #### C MP, ETOH, SCAN CBC #### [address] MCH (RBC) [Entitic mass] 26.8 pg Low 27.5-35.2 [facility] Comment on above: Performed By: #### C MP, ETOH, SCAN CBC #### [address] MCV (RBC) [Entitic vol] 83.1 fL Low 83.5-101 [facility] Comment on above: Performed By: #### C MP, ETOH, SCAN CBC #### [address] Mean Corpuscular HGB Conc 32.2 g/dL Low 32.5-35.6 [facility] Comment on above: Performed By: #### C MP, ETOH, SCAN CBC #### [place] [address] [place] Monocytes (Bld) [#/Vol] 0.9 10*3/uL High 0.0-0.8 [facility] Comment on above: Performed By: #### C MP, ETOH, SCAN CBC #### [place] [address] [place] Monocytes/100 WBC (Bld) 18.26 % Normal 0.00-20.00 [facility] Comment on above: Performed By: #### C MP, ETOH, SCAN CBC #### [place] [address] [place] Monocytes/100 WBC (Bld) 8.5 % Normal . [facility] Comment on above: Performed By: #### C MP, ETOH, SCAN CBC #### [place] [address] [place] Neutrophils (Bld) [#/Vol] 5.1 10*3/uL Normal 1.8-7.7 [facility] Comment on above: Performed By: #### C MP, ETOH, SCAN CBC #### [place] [address] [place] Neutrophils/100 WBC (Bld) 45.9 % Normal . [facility] Comment on above: Performed By: #### C MP, ETOH, SCAN CBC #### [place] [address] [place] NRBC% 0.3 /100{WBC} Normal 0-0.5 [facility] Comment on above: Performed By: #### C MP, ETOH, SCAN CBC #### [place] [address] [place] Platelet Estimate Normal Normal Normal [facility] Comment on above: Performed By: #### C MP, ETOH, SCAN CBC #### [address] Platelet mean volume (Bld) [Entitic vol] 8.3 fL Normal 6.6-10.1 [facility] Comment on above: Performed By: #### C MP, ETOH, SCAN CBC #### [address] Platelet Morphology Normal Normal Normal [facility] Comment on above: Result Comment: PERF ORMED BY: [place] [address] PATHOLOGIST [employer] CAROLYN HECK M.D. Performed By: #### C MP, ETOH, SCAN CBC #### [address] Platelets (Bld) [#/Vol] 270 10*3/uL Normal 150-450 [facility] Comment on above: Performed By: #### C MP, ETOH, SCAN CBC #### [address] RBC (Bld) [#/Vol] 6.45 10*6/uL High 3.90-5.60 [facility] Comment on above: Performed By: #### C MP, ETOH, SCAN CBC #### [address] RBC morphology finding Nom (Bld) Normal Normal Normal [facility] Comment on above: Performed By: #### C MP, ETOH, SCAN CBC #### [address] WBC (Bld) [#/Vol] 11.1 10*3/uL High 4.1-10.5 [facility] Comment on above: Performed By: #### C MP, ETOH, SCAN CBC #### [address] Serum or plasma albumin/glob ulin mass ratioOrdered By: Franklin Anand on 09-06-2024 Albumin/Globulin [Mass ratio] Serum or plasma albumin/globulin mass ratio [facility] Serum or plasma anion gap de terminationOrdered By: Franklin Anand on 09-06-2024 Anion gap [Moles/Vol] Serum or plasma an ion gap determination 6.0-15.0 [facility] Serum or plasma total choles terol/high density lipoprotein (HDL) cholesterol mass ratOrdered By: Anson Sutton on 09-06-2024 Cholesterol.total/Cecilia sterol in HDL [Mass ratio] Serum or plasma total cholesterol/high density lipoprotein (HDL) cholesterol mass rat <5.0 [facility] Sodium [Moles/volume] in Ser um or PlasmaOrdered By: Franklin Anand on 09-06-2024 Sodium [Moles/Vol] Sodium [Moles/volume ] in Serum or Plasma 136-145 [facility] Specific gravity Test strip (U) [Rel density]Ordered By: Franklin Anand on 09-06-2024 Specific gravity (U) [Rel density] Specific gravity of Urine by Test strip 1.001-1.030 [facility] Thyroid Stim Hormone w/Rflxo n 09-06-2024 Thyroid Stim Hormone w/Rflx 2.94 u[iU]/mL Normal 0.45-5.33 [facility] Comment on above: Order Comment: Comme nt use ER blood Performed By: #### B MP, CBC, LIPASE, HEPATIC #### [facility] [address] Thyrotropin [Units/volume] i n Serum or PlasmaOrdered By: Anson Sutton on 09-06-2024 TSH Qn Thyrotropin [Units/volume] in Serum or Plasma 0.45-5.33 [facility] Triglyceride [Mass/volume] i n Serum or PlasmaOrdered By: Anson Sutton on 09-06-2024 Triglyceride [Mass/Vol] Triglyceride [Mass/volume] in Serum or Plasma High 0-149 [facility] Comment on above: TRIG ATP III CLASSIF ICATIONTRIG less than 150 mg/dL NormalTRIG 150-199 mg/dL Borderline highTRIG 200-500 mg/dL High TRIG greater than 500 mg/dL Very highStandard traceable to the Center for Disease Conrtrol and Prevention (CDC) test method. Urea nitrogen [Mass/volume] in Serum or PlasmaOrdered By: Franklin Anand on 09-06-2024 Urea nitrogen [Mass/Vol] Urea nitrogen [Mass/volume] in Serum or Plasma 7-25 [facility] Urobilinogen Test strip (U) [Mass/Vol]Ordered By: Franklin Anand on 09-06-2024 Urobilinogen (U) [Mass/Vol] Urobilinogen [Mass/volume] in Urine by Test strip Normal [facility] Vitamin D 25 Hydroxy Totalon 09-06-2024 Vitamin D 25 Hydroxy Total 11.3 ng/mL Low 30-100 [facility] Comment on above: Order Comment: Comme nt use ER blood Result Comment: ETIENNE MIN D STATUS 25(OH)VITAMIN D RANGE (ng/mL) Deficient <20 Insufficient 20 to <30 Sufficient 30 to 100 Reference: Glenn Stoddard, Ronaldo MIR, et al. Evaluation,treatment, and prevention of vitamin D deficiency; an Endocrine Society clinical practice guideline. JCEM. 2010; 96(7):1911-30. PERFORMED BY: [place] [address] PATHOLOGIST [employer] CAROLYN HECK M.D. Performed By: #### B MP, CBC, LIPASE, HEPATIC #### [address] Vitamin D+Metabolites [Mass/ volume] in Serum or PlasmaOrdered By: Anson Sutton on 09-06-2024 Vitamin D+Metabolites [Mass/Vol] Vitamin D+Metabolites [Mass/volume] in Serum or Plasma Low 30-100 [facility] Comment on above: VITAMIN D STATUS [...] in Blood by Automated count High 4.1-10.5 [facility] pH Test strip (U)Ordered By: Franklin Anand on 09-06-2024 pH (U) pH of Urine by Test strip 5.0-9.0 [facility] Alanine aminotransferase [En zymatic activity/volume] in Serum or PlasmaOrdered By: Malia Matamoros on 09-05-2024 ALT [Catalytic activity/Vol] Alanine aminotransferase [Enzymatic activity/volume] in Serum or Plasma 752 [facility] Albumin [Mass/volume] in Ser um or Plasma by Bromocresol green (BCG) dye binding methoOrdered By: Malia Matamoros on 09-05-2024 Albumin BCG dye [Mass/Vol] Albumin [Mass/volume] in Serum or Plasma by Bromocresol green (BCG) dye binding metho 3.5-5.7 [facility] Alkaline phosphatase [Enzyma tic activity/volume] in Serum or PlasmaOrdered By: Malia Matamoros on 09-05-2024 ALP [Catalytic activity/Vol] Alkaline phosphatase [Enzymatic activity/volume] in Serum or Plasma 34-104 [facility] Aspartate aminotransferase [ Enzymatic activity/volume] in Serum or PlasmaOrdered By: Malia Matamoros on 09-05-2024 AST [Catalytic activity/Vol] Aspartate aminotransferase [Enzymatic activity/volume] in Serum or Plasma 13-39 [facility] Basic Metabolic Panelon Anion gap [Moles/Vol] 14.2 mmol/L Normal 6.0-15.0 [facility] Comment on above: Performed By: #### B MP, CBC, LIPASE, HEPATIC #### [facility] [address] [place] [address] [place] Calcium [Mass/Vol] 9.0 mg/dL Normal 8.6-10.3 [facility] Comment on above: Performed By: #### B MP, CBC, LIPASE, HEPATIC #### [facility] [address] [place] [id number] [place] Chloride [Moles/Vol] 103 mmol/L Normal 98-107 [facility] Comment on above: Performed By: #### B MP, CBC, LIPASE, HEPATIC #### [facility] [address] [place] [phone] [place] CO2 [Moles/Vol] 27.5 mmol/L Normal 21.0-31.0 [facility] Comment on above: Performed By: #### B MP, CBC, LIPASE, HEPATIC #### [facility] [address] Creatinine [Mass/Vol] 1.29 mg/dL Normal 0.70-1.30 [facility] Comment on above: Performed By: #### B MP, CBC, LIPASE, HEPATIC #### [address] Creatinine Clr Calc Pharmacy 70.24 Normal [facility] Comment on above: Performed By: #### B MP, CBC, LIPASE, HEPATIC #### [facility] [address] [place] [address] [place] GFR/1.73 sq M.predicted MDRD (S/P/Bld) [Vol rate/Area] mL/min/{1.73_m2} Normal [facility] Comment on above: Performed By: #### B MP, CBC, LIPASE, HEPATIC #### [address] Glucose [Mass/Vol] 255 mg/dL High 70-100 [facility] Comment on above: Result Comment: [facility] Glucose Reference Range is dependent on time and content of last meal. Glucose of more than 200 mg/dL in a nonstressed, ambulatory subject supports the diagnosis of Diabetes Mellitus. ADA recommended reference range Performed By: #### B MP, CBC, LIPASE, HEPATIC #### [address] Potassium [Moles/Vol] 3.7 mmol/L Normal 3.5-5.1 [facility] Comment on above: Performed By: #### B MP, CBC, LIPASE, HEPATIC #### [place] [address] [place] Sodium [Moles/Vol] 141 mmol/L Normal 136-145 [facility] Comment on above: Performed By: #### B MP, CBC, LIPASE, HEPATIC #### [address] Urea nitrogen [Mass/Vol] 17 mg/dL Normal 7-25 [facility] Comment on above: Performed By: #### B MP, CBC, LIPASE, HEPATIC #### [address] [place] [address] [facility] Basophils Auto (Bld) [#/Vol] Ordered By: Malia Matamoros on 09-05-2024 Basophils (Bld) [#/Vol] Automated basoph il count 0.0-0.2 [facility] Basophils/100 WBC Auto (Bld) Ordered By: Malia Matamoros on 09-05-2024 Basophils/100 WBC (Bld) Automated basophil % . [facility] Bilirubin.direct [Mass/volum e] in Serum or PlasmaOrdered By: Malia Matamoros on 09-05-2024 Bilirubin.direct [Mass/Vol] Bilirubin.direct [Mass/volume] in Serum or Plasma Low 0.03-0.18 [facility] Comment on above: If the DBIL is less than 0.1, IBIL is not able to becalculated. Bilirubin.total [Mass/volume ] in Serum or PlasmaOrdered By: Malia Matamoros on 09-05-2024 Bilirubin [Mass/Vol] Bilirubin.total [Mass/volume] in Serum or Plasma 0.3-1.0 [facility] Calcium [Mass/volume] in Ser um or PlasmaOrdered By: Malia Matamoros on 09-05-2024 Calcium [Mass/Vol] Calcium [Mass/volume ] in Serum or Plasma 8.6-10.3 [facility] Carbon dioxide, total [Moles /volume] in Serum or PlasmaOrdered By: Malia Matamoros on 09-05-2024 CO2 [Moles/Vol] Carbon dioxide, tota l [Moles/volume] in Serum or Plasma 21.0-31.0 [facility] Chloride [Moles/volume] in S darrel or PlasmaOrdered By: Malia Matamoros on 09-05-2024 Chloride [Moles/Vol] Chloride [Moles/volume] in Serum or Plasma 98-107 [facility] Complete Blood Count Auto Di ffon 09-05-2024 Basophils (Bld) [#/Vol] 0.1 10*3/uL Normal 0.0-0.2 [facility] Comment on above: Result Comment: PERF ORMED BY: [facility] [address] [facility] [facility] [place] [address] PATHOLOGIST STENCIL MAKER CAROLYN HECK M.D. Performed By: #### B MP, CBC, LIPASE, HEPATIC #### [address] Basophils/100 WBC (Bld) 1.1 % Normal . [facility] Comment on above: Performed By: #### B MP, CBC, LIPASE, HEPATIC #### [address] Eosinophils (Bld) [#/Vol] 0.2 10*3/uL Normal 0.0-0.45 [facility] Comment on above: Performed By: #### B MP, CBC, LIPASE, HEPATIC #### [address] Eosinophils/100 WBC (Bld) 1.8 % Normal . [facility] Comment on above: Performed By: #### B MP, CBC, LIPASE, HEPATIC #### [address] Erythrocyte distribution width (RBC) [Ratio] 15.5 % High 12.0-14.8 [facility] Comment on above: Performed By: #### B MP, CBC, LIPASE, HEPATIC #### [address] Hematocrit (Bld) [Volume fraction] 50.4 % High 38.8-50.0 [facility] Comment on above: Performed By: #### B MP, CBC, LIPASE, HEPATIC #### [address] Hemoglobin (Bld) [Mass/Vol] 16.4 g/dL Normal 13.0-17.0 [facility] Comment on above: Performed By: #### B MP, CBC, LIPASE, HEPATIC #### [address] Lymphocytes (Bld) [#/Vol] 3.2 10*3/uL Normal 1.00-4.8 [facility] Comment on above: Performed By: #### B MP, CBC, LIPASE, HEPATIC #### [address] [address] [place] Lymphocytes/100 WBC (Bld) 27.9 % Normal . [facility] Comment on above: Performed By: #### B MP, CBC, LIPASE, HEPATIC #### [address] MCH (RBC) [Entitic mass] 26.9 pg Low 27.5-35.2 [facility] Comment on above: Performed By: #### B MP, CBC, LIPASE, HEPATIC #### [address] MCV (RBC) [Entitic vol] 82.8 fL Low 83.5-101 [facility] Comment on above: Performed By: #### B MP, CBC, LIPASE, HEPATIC #### [address] Mean Corpuscular HGB Conc 32.5 g/dL Normal 32.5-35.6 [facility] Comment on above: Performed By: #### B MP, CBC, LIPASE, HEPATIC #### [address] Monocytes (Bld) [#/Vol] 0.9 10*3/uL High 0.0-0.8 [facility] Comment on above: Performed By: #### B MP, CBC, LIPASE, HEPATIC #### [address] Monocytes/100 WBC (Bld) 16.39 % Normal 0.00-20.00 [facility] Comment on above: Performed By: #### B MP, CBC, LIPASE, HEPATIC #### [address] Monocytes/100 WBC (Bld) 7.8 % Normal . [facility] Comment on above: Performed By: #### B MP, CBC, LIPASE, HEPATIC #### [address] Neutrophils (Bld) [#/Vol] 7.0 10*3/uL Normal 1.8-7.7 [facility] Comment on above: Performed By: #### B MP, CBC, LIPASE, HEPATIC #### [address] Neutrophils/100 WBC (Bld) 61.4 % Normal . [facility] Comment on above: Performed By: #### B MP, CBC, LIPASE, HEPATIC #### [address] NRBC% 0.1 /100{WBC} Normal 0-0.5 [facility] Comment on above: Performed By: #### B MP, CBC, LIPASE, HEPATIC #### [address] Platelet mean volume (Bld) [Entitic vol] 8.0 fL Normal 6.6-10.1 [facility] Comment on above: Performed By: #### B MP, CBC, LIPASE, HEPATIC #### [address] Platelets (Bld) [#/Vol] 237 10*3/uL Normal 150-450 [facility] Comment on above: Performed By: #### B MP, CBC, LIPASE, HEPATIC #### [address] RBC (Bld) [#/Vol] 6.09 10*6/uL High 3.90-5.60 [facility] Comment on above: Performed By: #### B MP, CBC, LIPASE, HEPATIC #### [address] WBC (Bld) [#/Vol] 11.4 10*3/uL High 4.1-10.5 [facility] Comment on above: Performed By: #### B MP, CBC, LIPASE, HEPATIC #### [address] Creatinine [Mass/volume] in Serum or PlasmaOrdered By: Malia Matamoros on 09-05-2024 Creatinine [Mass/Vol] Creatinine [Mass/volume] in Serum or Plasma 0.70-1.30 [facility] Eosinophils Auto (Bld) [#/Vo l]Ordered By: Malia Matamoros on 09-05-2024 Eosinophils (Bld) [#/Vol] Automated eosinophil count 0.0-0.45 [facility] Eosinophils/100 WBC Auto (Bl d)Ordered By: Malia Matamoros on 09-05-2024 Eosinophils/100 WBC (Bld) Automated eosinophil % . [facility] Erythrocyte distribution wid th Auto (RBC) [Ratio]Ordered By: Malia Matamoros on 09-05-2024 Erythrocyte distribution width (RBC) [Ratio] Erythrocyte distribution width [Ratio] by Automated count High 12.0-14.8 [facility] Globulin Calc (S) [Mass/Vol] Ordered By: Malia Matamoros on 09-05-2024 Globulin (S) [Mass/Vol] Serum globulin measurement by calculation (mass/volume) [facility] Glucose [Mass/volume] in Ser um or PlasmaOrdered By: Malia Matamoros on 09-05-2024 Glucose [Mass/Vol] Glucose [Mass/volume ] in Serum or Plasma High 70-100 [facility] Comment on above: ADA recommended refe rence rangeRandom Glucose Reference Range is dependent on time and content of last meal. Glucose of more than 200 mg/dL in a nonstressed, ambulatory subject supports the diagnosis of Diabetes Mellitus. Hematocrit Auto (Bld) [Volum e fraction]Ordered By: Malia Matamoros on 09-05-2024 Hematocrit (Bld) [Volume fraction] Hematocrit [Volume Fraction] of Blood by Automated count High 38.8-50.0 [facility] Hemoglobin [Mass/volume] in BloodOrdered By: Malia Matamoros on 09-05-2024 Hemoglobin (Bld) [Mass/Vol] Hemoglobin [Mass/volume] in Blood 13.0-17.0 [facility] Hepatic Panelon 09-05-2024 Albumin [Mass/Vol] 4.1 g/dL Normal 3.5-5.7 [facility] Comment on above: Performed By: #### B MP, CBC, LIPASE, HEPATIC #### [facility] [address] Albumin/Globulin [Mass ratio] 1.5 {ratio} Normal [facility] Comment on above: Performed By: #### B MP, CBC, LIPASE, HEPATIC #### [address] ALP [Catalytic activity/Vol] 62 U/L Normal 34-104 [facility] Comment on above: Performed By: #### B MP, CBC, LIPASE, HEPATIC #### [address] ALT [Catalytic activity/Vol] 13 U/L Normal 7-52 [facility] Comment on above: Performed By: #### B MP, CBC, LIPASE, HEPATIC #### [address] AST [Catalytic activity/Vol] 17 U/L Normal 13-39 [facility] Comment on above: Performed By: #### B MP, CBC, LIPASE, HEPATIC #### [address] Bilirubin [Mass/Vol] 0.3 mg/dL Normal 0.3-1.0 [facility] Comment on above: Performed By: #### B MP, CBC, LIPASE, HEPATIC #### [address] Bilirubin,Indirect 0.3 mg/dL Normal [facility] Comment on above: Performed By: #### B MP, CBC, LIPASE, HEPATIC #### [address] Bilirubin.indirect [Mass/Vol] 0.00 mg/dL Low 0.03-0.18 [facility] Comment on above: Result Comment: If t DBIL is less than 0.1, IBIL is not able to be calculated. Performed By: #### B MP, CBC, LIPASE, HEPATIC #### [address] Globulin (S) [Mass/Vol] 2.7 g/dL Normal [facility] Comment on above: Performed By: #### B MP, CBC, LIPASE, HEPATIC #### [address] Protein [Mass/Vol] 6.8 g/dL Normal 6.4-8.9 [facility] Comment on above: Performed By: #### B MP, CBC, LIPASE, HEPATIC #### [facility] [address] [place] [address] [place] Leukocytes [#/volume] correc leeroy for nucleated erythrocytes in Blood by Automated counOrdered By: Malia Matamoros on 09-05-2024 WBC corrected for nucl RBC Auto (Bld) [#/Vol] Leukocytes [#/volume] corrected for nucleated erythrocytes in Blood by Automated coun High 4.1-10.5 [facility] Lipaseon 09-05-2024 Lipase [Catalytic activity/Vol] 68.0 U/L Normal 11.0-82.0 [facility] Comment on above: Result Comment: PERF ORMED BY: [address] [place] [address] PATHOLOGIST STENCIL MAKER CAROLYN HECK M.D. Performed By: #### B MP, CBC, LIPASE, HEPATIC #### [facility] [address] Lipase [Enzymatic activity/v olume] in Serum or PlasmaOrdered By: Malia Matamoros on 09-05-2024 Lipase [Catalytic activity/Vol] Lipase [Enzymatic activity/volume] in Serum or Plasma 11.0-82.0 [facility] Lymphocytes Auto (Bld) [#/Vo l]Ordered By: Malia Matamoros on 09-05-2024 Lymphocytes (Bld) [#/Vol] Lymphocytes [#/volume] in Blood by Automated count 1.00-4.8 [facility] Lymphocytes/100 WBC Auto (Bl d)Ordered By: Malia Matamoros on 09-05-2024 Lymphocytes/100 WBC (Bld) Lymphocytes/100 leukocytes in Blood by Automated count . [facility] MCH Auto (RBC) [Entitic mass ]Ordered By: Malia Matamoros on 09-05-2024 MCH (RBC) [Entitic mass] MCH [Entitic mass] by Automated count Low 27.5-35.2 [facility] MCHC Auto (RBC) [Mass/Vol]Or dered By: Malia Matamoros on 09-05-2024 MCHC (RBC) [Mass/Vol] MCHC [Mass/volume] by Automated count 32.5-35.6 [facility] MCV Auto (RBC) [Entitic vol] Ordered By: Malia Matamoros on 09-05-2024 MCV (RBC) [Entitic vol] MCV [Entitic vol ume] by Automated count Low 83.5-101 [facility] Monocyte distribution width [Entitic volume] in Blood by AutomatedOrdered By: Malia Matamoros on 09-05-2024 Monocyte distribution width Auto (Bld) [Entitic vol] Monocyte distribution width [Entitic volume] in Blood by Automated 0.00-20.00 [facility] Monocytes Auto (Bld) [#/Vol] Ordered By: Malia Matamoros on 09-05-2024 Monocytes (Bld) [#/Vol] Automated blood monocyte count High 0.0-0.8 [facility] Monocytes/100 WBC Auto (Bld) Ordered By: Malia Matamoros on 09-05-2024 Monocytes/100 WBC (Bld) Automated monocyte % . [facility] Neutrophils Auto (Bld) [#/Vo l]Ordered By: Malia Matamoros on 09-05-2024 Neutrophils (Bld) [#/Vol] Neutrophils [#/volume] in Blood by Automated count 1.8-7.7 [facility] Neutrophils/100 WBC Auto (Bl d)Ordered By: Malia Matamoros on 09-05-2024 Neutrophils/100 WBC (Bld) Automated neutrophil % . [facility] No Panel InformationOrdered By: Malia Matamoros on 09-05-2024 Estimated GFR (CKD-EPI) > 60.0 mL/Min [facility] Creatinine Clearance (Chem 70.24 [facility] Nucleated erythrocytes [Pres ence] in Blood by Automated countOrdered By: Malia Matamoros on 09-05-2024 Nucleated RBC Auto Ql (Bld) Nucleated erythrocytes [Presence] in Blood by Automated count 0-0.5 [facility] Platelet mean volume Auto (B ld) [Entitic vol]Ordered By: Malia Matamoros on 09-05-2024 Platelet mean volume (Bld) [Entitic vol] Platelet mean volume [Entitic volume] in Blood by Automated count 6.6-10.1 [facility] Platelets Auto (Bld) [#/Vol] Ordered By: Malia Matamoros on 09-05-2024 Platelets (Bld) [#/Vol] Platelets [#/vol ume] in Blood by Automated count 150-450 [facility] Potassium [Moles/volume] in Serum or PlasmaOrdered By: Malia Matamoros on 09-05-2024 Potassium [Moles/Vol] Potassium [Moles/volume] in Serum or Plasma 3.5-5.1 [facility] Protein [Mass/volume] in Ser um or PlasmaOrdered By: Malia Matamoros on 09-05-2024 Protein [Mass/Vol] Protein [Mass/volume ] in Serum or Plasma 6.4-8.9 [facility] RBC Auto (Bld) [#/Vol]Ordere d By: Malia Matamoros on 09-05-2024 RBC (Bld) [#/Vol] Erythrocytes [#/volume] in Blood by Automated count High 3.90-5.60 [facility] Serum or plasma albumin/glob ulin mass ratioOrdered By: Malia Matamoros on 09-05-2024 Albumin/Globulin [Mass ratio] Serum or plasma albumin/globulin mass ratio [facility] Serum or plasma anion gap de terminationOrdered By: Malia Matamoros on 09-05-2024 Anion gap [Moles/Vol] Serum or plasma an ion gap determination 6.0-15.0 [facility] Serum or plasma non-glucuron idated bilirubin measurement (mass/volume)Ordered By: Malia Matamoros on 09-05-2024 Bilirubin.indirect [Mass/Vol] Serum or plasma non-glucuronidated bilirubin measurement (mass/volume) [facility] Sodium [Moles/volume] in Ser um or PlasmaOrdered By: Malia Matamoros on 09-05-2024 Sodium [Moles/Vol] Sodium [Moles/volume ] in Serum or Plasma 136-145 [facility] Urea nitrogen [Mass/volume] in Serum or PlasmaOrdered By: Malia Matamoros on 09-05-2024 Urea nitrogen [Mass/Vol] Urea nitrogen [Mass/volume] in Serum or Plasma 7-25 [facility] WBC Auto (Bld) [#/Vol]Ordere d By: Malia Matamoros on 09-05-2024 WBC (Bld) [#/Vol] Leukocytes [#/volume ] in Blood by Automated count High 4.1-10.5 [facility] Vital Signs Date Time Vital Sign Value Performing Clinician Haley isabella 09-09-2024 07:30-0500 Body temperature 98.2 [degF] Malia Matamoros MD Work Phone: [facility] 09-09-2024 07:30-0500 Diastolic blood pressure 109 mm[Hg] Malia Matamoros MD Work Phone: [facility] 09-09-2024 07:30-0500 Heart rate 70 /min Malia Matamoros MD Work Phone: [facility] 09-09-2024 07:30-0500 Respiratory rate 20 /min Malia Matamoros MD Work Phone: [facility] 09-09-2024 07:30-0500 SaO2% (BldA) [Mass fraction] 96 % Malia Matamoros MD Work Phone: [facility] 09-09-2024 07:30-0500 Systolic blood pressure 168 mm[Hg] Malia Matamoros MD Work Phone: [facility] 09-07-2024 13:54-0500 Body height 165.1 cm Malia Matamoros MD Work Phone: [facility] 09-07-2024 03:24-0500 Body weight 90.46 kg Malia Matamoros MD Work Phone: [facility] 09-07-2024 00:13-0500 Body temperature 98.6 [degF] Malia Matamoros MD Work Phone: [facility] 09-07-2024 00:13-0500 Diastolic blood pressure 84 mm[Hg] Malia Matamoros MD Work Phone: [facility] 09-07-2024 00:13-0500 Heart rate 63 /min Malia Matamoros MD Work Phone: [facility] 09-07-2024 00:13-0500 Respiratory rate 20 /min Malia Matamoros MD Work Phone: [facility] 09-07-2024 00:13-0500 SaO2% (BldA) [Mass fraction] 96 % Malia Matamoros MD Work Phone: [facility] 09-07-2024 00:13-0500 Systolic blood pressure 134 mm[Hg] Malia Matamoros MD Work Phone: [facility] 09-06-2024 16:10-0500 Body height 165.1 cm Malia Matamoros MD Work Phone: [facility] 09-06-2024 16:10-0500 Body weight 91.8 kg Malia Matamoros MD Work Phone: [facility] 09-06-2024 05:00-0500 Diastolic blood pressure 71 mm[Hg] Malia Matamoros MD Work Phone: [facility] 09-06-2024 05:00-0500 Heart rate 75 /min Malia Matamoros MD Work Phone: [facility] 09-06-2024 05:00-0500 Respiratory rate 18 /min Malia Matamoros MD Work Phone: [facility] 09-06-2024 05:00-0500 SaO2% (BldA) [Mass fraction] 97 % Malia Matamoros MD Work Phone: [facility] 09-05-2024 23:24-0500 Body temperature 98.7 [degF] Malia Matamoros MD Work Phone: [facility] 09-05-2024 23:22-0500 Body height 165.1 cm Malia Matamoros MD Work Phone: [facility] 09-05-2024 23:22-0500 Body weight 91 kg Malia Matamoros MD Work Phone: [facility] Encounters Encounter Date Encounter Type Care Provider Facility Start: 02-15-2025 End: 02-17-2025 Telephone encounter Makenna Kulkarni RN [facility] Start: 02-13-2025 End: 02-13-2025 Telephone encounter Sepideh Saleem CMA [facility] Start: 02-07-[address] [facility] Start: 02-06-2025 End: 02-06-2025 Orders Only Makenna Kulkarni RN [facility] Comment on above: Cerebrovascular acci dent (CVA), unspecified mechanism (CMS- HCC) (Primary Dx); Other cerebrovascular vasospasm and vasoconstriction Start: 02-02-2025 End: 02-05-2025 Emergency department patient visit [facility] Start: 01-03-[address] [facility] Start: 01-02-2025 End: 01-17-2025 Telephone encounter Makenna Kulkarni RN [facility] Start: 01-01-2025 End: 01-08-2025 Emergency department patient visit [facility] Start: 12-15-2024 End: 12-15-2024 Emergency department patient visit LYNN MANZO [facility] Start: 12-14-2024 End: 12-14-2024 Emergency department patient visit NÉSTOR MURRAY [facility] Start: 12-09-2024 End: 12-14-2024 Evaluation and management of inpatient MUNIRA Lang COMPA [facility] Start: 11-15-2024 End: 11-15-2024 Patient encounter procedure Leelee Jclayla [facility] Start: 09-13-2024 ambulatory PHYSICIAN [facility] Fac ility:[facility] Start: 09-07-2024 Non-patient / Non-visit Malia Matamoros MD Work Phone: [facility] Work Phone: Start: 09-07-2024 End: 09-09-2024 Evaluation and management of inpatient Malia Matamoros MD Work Phone: [facility] Work Phone: Start: 09-05-2024 End: 09-06-2024 Emergency department patient visit Malia Matamoros MD Work Phone: [facility] Work Phone: Plan of Treatment Date Care Activity Detail Author Start: 12-09-2025 Adult BMI Screening Adult BMI Screen ing [facility] Start: 12-09-2025 Tobacco Screening Tobacco Screening [facility] Start: 03-06-2025 Influenza vaccination Influenza Vacc ine [facility] Start: 02-13-2025 End: 02-13-2025 Patient encounter procedure 02/13/2025 4:00 PM EDT Office Visit [facility] [address] [address] Sarah Angulo, RAI-PRE PRESS MANAGER [address] [place] [address] [facility] Start: 02-06-2025 End: 02-06-2026 Wireless Telemetry (In Office) [facility] Work Phone: Comment on above: Expected: 02/06/2025 , Expires: 02/06/2026 Start: 09-09-2024 [facility] Start: 09-07-2024 Hospital admission [facility] Start: 09-07-2024 [facility] Start: 09-06-2024 [facility] Start: 2023 Administration of varicella zoster vaccine Zoster (Shingles) Vaccine (1 of 2) [facility] Start: 1992 DTaP,Tdap and Td Vac cines (1 - Tdap) DTaP,Tdap and Td Vaccines (1 - Tdap) [facility] Start: 1991 Adult BMI Follow Up Plan Adult BMI Follow Up Plan [facility] Start: 1991 Adult BMI Screening Adult BMI Screen ing [facility] Start: 1985 Depression Screening Depression Scre ening [facility] Start: 1985 Tobacco Screening Tobacco Screening [facility] Start: 1973 Tobacco Counseling Tobacco Counselin g [facility] Patient Education [facility] Work Phone: Patient referral [facility] Work Phone: Immunizations Immunization Date Immunization Notes Care Provider Fa deysi 09-08-2024 influenza, seasonal, injectable, preservative free Malia Matamoros MD Work Phone: [facility] 09-08-2024 influenza virus vaccine, unspecified formulation Makenna Kulkarni RN [facility] Payers Date Payer Category Payer Medicare [id number] 2024 Self-pay 2024 Medicare O [employer]ARE [id number] 2024 Private Health Insurance [id number] 2024 Medicaid MEDICAID [facility] [id number] 2024 Medicaid [id number] 1973 Unknown [id number] [id number]. 2.175 1973 Unknown [id number] 2.16.840.1.018966.3.579. 2.175 1973 Unknown [id number] 2.16.840.1.017187.3.579. 2.1285 1973 Unknown [id number] 2.16.840.1.258452.3.579. 2.1285 1973 Unknown [id number] 2.16.840.1.941984.3.579. 2.1285 1973 Unknown [id number] 2.16.840.1.582577.3.579. 2.1285 1973 Unknown [id number] 2.16.840.1.638713.3.579. 2.1285 1973 Unknown [id number] 2.16.840.1.905789.3.579. 2.1285 1973 Unknown [id number] 2.16.840.1.315696.3.579. 2.1285 1973 Unknown [id number] 2.16.840.1.688774.3.579. 2.1285 1973 Unknown [id number] 2.16.840.1.679321.3.579. 2.1285 1973 Unknown [id number] 2.16.840.1.550240.3.579. 2.1285 1973 Unknown [id number] 2.16.840.1.757006.3.579. 2.1285 1973 Unknown [id number] 2.16.840.1.635924.3.579. 2.1286 Unknown [id number] 2.16.840.1.397892.3.579. 2.531 Unknown [id number] 2.16.840.1.138975.3.579. 2.531 Unknown [id number] 2.16.840.1.737967.3.579. 2.531 Social History Date Type Detail Facility Start: 09-05-2024 End: 09-06-2024 Tobacco smoking status NHIS Smoker (finding) [facility] Start: 05-23-2024 End: 09-06-2024 Sex Male (finding) [facility] Start: 1975 Sex Assigned At Male F [facility] Start: 09-07-2024 Tobacco smoking stat [facility] Current Heavy tobacco smoker [facility] Tobacco smoking stat [facility] Tobacco smoking consumption unknown [facility] Start: 1975 Sex assigned at Not on file P [facility] Start: 12-09-2024 Gender identity Not on file [facility] Start: 12-09-2024 Tobacco smoking stat [facility] of tobacco use Cigarette Smoker P [facility] Start: 12-09-2024 Tobacco use and exposure Smokeless tobacco non-user [facility] Start: 12-10-2024 Alcoholic beverage intake Current drinker of alcohol (finding) [facility] Start: 12-09-2024 History of Social function [facility] Start: 12-09-2024 Alcohol Comment socially [facility] Goals Date Patient Goal Desired Activity /State Functional Status Date Assessment Result Facility 09-09-2024 Functional status Patient at Baseline [facility] Work Phone: Mental Status Date Assessment Result Facility 09-09-2024 Cognitive function Cognitive Sta tus Patient at Baseline [facility] Work Phone: Clinical Notes 09-06-2024 to 02-15-2025 Telephone Encounter - Makenna Kulkarni RN - 02/15/2025 8:59 AM EDTTelephone Encounter - Madeline Ibrahim CMA - 02/15/2025 8:59 AM EDTTelephone Encounter - Makenna Kulkarni RN - 02/15/2025 8:59 AM EDT Note Date & Type Note Facility 02-15-2025 Miscellaneous Notes Formattin g of this note might be different from the original. According to [employer] website, patient has not yet activated event monitor. It was delivered on 02/10. Please call and ask patient if they received it and if they are able to complete the monitoring. Called patient. Unavailable; vm box not set up. Will try again later. documented in this encounter [facility] 02-15-2025 Telephone encount er Note According to [employer] website, patient has not yet activated event monitor. It was delivered on 02/10. Please call and ask patient if they received it and if they are able to complete the monitoring. [facility] 02-15-2025 Telephone encount er Note Called patient. Unavailable; vm box not set up. Will try again later. [facility] 02-13-2025 Miscellaneous Notes Formattin g of this note might be different from the original. CALLED Thursday02/10/25 NO VOICEMAIL TO RESCHEDULE TODAY'S APPT AT 4PM WITH FRANKLYN. CALLED AGAIN AT 326PM NO VOICEMAIL UNABLE TO LEAVE MSG TO RESCHEDULE. SENT ATTEMPT TO CONTACT LETTER. documented in this encounter [facility] 02-13-2025 Telephone encount er Note CALLED Thursday02/10/25 NO VOICEMAIL TO RESCHEDULE TODAY'S APPT AT 4PM WITH FRANKLYN. CALLED AGAIN AT 326PM NO VOICEMAIL UNABLE TO LEAVE MSG TO RESCHEDULE. SENT ATTEMPT TO CONTACT LETTER. [facility] 01-02-2025 Miscellaneous Notes Formattin g of this note might be different from the original. Patient seen via telemedicine at [facility] with Dr. Ordaz. Patient needs 4-5 week follow up tele appt and then we will plan to do dsa with Dr. Vanessa after the appt. Please call to schedule. Called patient and no answer, mailbox is full Called patient an no answer, vm is still full Called patients brother and left VM documented in this encounter [facility] 01-02-2025 Telephone encount er Note Patient seen via telemedicine at [facility] with Dr. Ordaz. Patient needs 4-5 week follow up tele appt and then we will plan to do dsa with Dr. Vanessa after the appt. Please call to schedule. [facility] 01-02-2025 Telephone encount er Note Called patient and no answer, mailbox is full [facility] 01-02-2025 Telephone encount er Note Called patient an no answer, vm is still full Called patients brother and left VM [facility] 11-15-2024 History of Presen t illness Narrative Patient [facility] and received food on 11/15/24. [place] [facility] documented in this encounter [facility] 09-09-2024 Discharge summary Note Date/Time September 09, 2024 1:11 pm [facility] [address] [place], [place] [id number] Discharge Summary Signed Patient: Woody Hernandez MR#: [id number] 330 : 1975 Acct:[id number] Age/Sex: 49 / M Adm Date: 5 Loc: 1S Room: [address] [place] [address]: Anson Sutton MD Copies to: [...] cut himself. Patient has been visiting from [place]. Came here to visit about6 weeks ago. [...] Instructions: Important Contact Information You can call [facility] at [phone] any time day or night if you have emergent questions or question regarding discharge instructions. If at any time you are feeling an increase inyour psychiatric symptoms, call your physician or behavioral healthcare provider. If any time you have thoughts of harming yourself or others contact one of the following: Call 8 (available 26/01) Crisis Text Line (available 26/01) text 4HOPE to [phone] [facility] Hope Line (available 8 a.m. Midnight) call [phone] ([phone]) Regular Diet No Activity Restrictions Received Abilify Maintena 400mg Injection on 09/08/24. Next dose is due on 10/06/24. Instructions: Bipolar disorder - Discharge instructions, [facility] Inst[facility], Know your Meds Prescriptions: New aripiprazole 10 mg Tablet 10 mg PO DAILY 12 Days Qty: 12 0RF Abilify Maintena 400 mg suspension,extended rel recon 400 mg IM Q28D Qty: 1 0RF Rx Instructions: Due on or about 10/06/24 Follow Up: [facility] [Other] (Follow-up with the [facility] on Thursday at 9am. The [facility] accepts walk-ins. You will need your insurance information and proof of income. ) [facility] [Other] (Call for any medical needs) Exam Physical Exam Vital Signs: Temp Pulse Resp BP Pulse Ox O2 Del Method 98.2 F 70 20 168/109 H 96 Room Air 09/09/24 07:30 09/09/24 07:30 09/09/24 07:30 09/09/24 07:30 09/09/24 07:30 09/09/24 08:11 Documented By: Anson Sutton MD 09/09/24 1215 Signed By: <Electronically signed by Anson Sutton MD> 09/09/24 1411 [facility] Work Phone: 1(393) 235-110303-07-2025 [place] [address] Discharge Summary Signed Patient: Woody Hernandez MR#: [id number] 330 : 1975 Acct:[id number] Age/Sex: 49 / M Adm Date: 5 Loc: Room: [address] [place] [address]: Anson Sutton MD Copies to: [...] cut himself. Patient has been visiting from [place]. Came here to visit about6 weeks ago. [...] Instructions: Important Contact Information You can call [facility] at [phone] any timeday or night if you have emergent questions or question regarding discharge instructions. If at anytime you are feeling an increase inyour psychiatric symptoms, call your physician or behavioral healthcare provider. If any time you have thoughts of harming yourself or others contact one of the following: Call 8 (available 26/01) Crisis Text Line (available 26/01) text 4HOPE to [phone] [facility] (available 8 a.m. Midnight) call [phone] ([phone]) Regular Diet No Activity Restrictions Received Abilify Maintena 400mg Injection on 09/08/24. Next dose is due on 10/06/24. Instructions: Bipolar disorder - Discharge instructions, [facility] Instructions, Know your Meds Prescriptions: New aripiprazole 10 mg Tablet 10 mg PO DAILY 12 Days Qty: 12 0RF Abilify Maintena 400 mg suspension,extended rel recon 400 mg IM Q28D Qty: 1 0RF Rx Instructions: Due on or about 10/06/24 Follow Up: [facility] [Other] (Follow-up with the [facility] on Thursday at 9am. The [facility] accepts walk-ins. You will need your insurance information and proof of income. ) [facility] [Other] (Call for any medical needs) Exam Physical Exam Vital Signs: Temp Pulse Resp BP Pulse Ox O2 Del Method 98.2 F 70 20 168/109 H 96 Room Air 09/09/24 07:30 09/09/24 07:30 09/09/24 07:30 09/09/24 07:30 09/09/24 07:30 09/09/24 08:11 Documented By: Anson Sutton MD 09/09/24 1215 Signed By: 09/09/[address] [place], [place] 1632903-06-2025 Progress note Author Anson Sutton [facility] Note Date/Time September 08, 2024 12:5 0pm [facility] [address] [place] [address] Psychiatry Progress Note Signed Patient: Woody Hernandez MR#: [id number] 330 : 1975 Acct:[id number] Age/Sex: 49 / M Adm Date: 5 Loc: Room: [address] [place] [address] Type : ADM IN Attending Dr: Anson [...] alternatives explained Documented By: Anson Sutton MD 09/08/2422 Signed By: <Electronically signed by Anson Sutton MD> 09/08/24 7077 [facility] Work Phone: 1(947) 390-489003-06-2025 [place] [address] Psychiatry Progress Note Signed Patient: Woody Hernandez MR#: [id number] 330 : 1975 Acct:[id number] Age/Sex: 49 / M Adm Date: 5 Loc: 1S Room: [address] [place] [address] Type : ADM IN Attending Dr: Anson [...] MD 09/08/24 0927 Signed By: 09/08/24 1350 [facility]03-05-2025 History and physical note Author Anson Sutton [facility] Note Date/Time September 07, 2024 2:48 pm [facility] [address] [place] [address] Psychiatry H&P Signed Patient: Woody Hernandez MR#: [id number] 330 : 1975 Acct:[id number] Age/Sex: 49 / M Adm Date: 5 Loc: Room: [address] [place] [address] Type: ADM IN Attending Dr: Anson Sutton [...] cut himself. Patient has been visiting from [place]. Came here to visit about6 weeks ago. [...] this with the medical student as notedbellizzy. [facility] Medical History (Updated 09/07/24 @ 10:31 by Franklyn Coker) Bipolar 1 disorder HTN (hypertension) Social History Smoking Status: Heavy tobacco smoker Tobacco Type: cigarettes Substance Use Type: Unknown, Marijuana, Amphetamines and Methamphetamine Social History Comments: came to [place] 2 months ago to visit, is highly [...] Appearance Clear Urine pH 5.5 Ur Specific Emery 1.030 Urine Protein 30 H Urine Glucose [...] <Electronically signed by Anson Sutton MD> 09/07/24 2243 [facility] Work Phone: 1(519) 384-107903-05-2025 [place] [address] Psychiatry H&P Signed Patient: Woody Hernandez MR#: [id number] 330 : 1975 Acct:[id number] Age/Sex: 49 / M Adm Date: 5 Loc: Room: [address] [place] [address] Type: ADM IN Attending Dr: Anson Sutton [...] cut himself. Patient has been visiting from [place]. Came here to visit about6 weeks ago. [...] confirmed this withthe medical student as notedbellizzy. [facility] Medical History (Updated 09/07/24 @ 10:31 by Franklyn Coker) Bipolar 1 disorder HTN (hypertension) Social History Smoking Status: Heavy tobacco smoker Tobacco Type: cigarettes Substance Use Type: Unknown, Marijuana, Amphetamines and Methamphetamine Social History Comments: came to [place] 2 months ago to visit, is highly [...] Appearance Clear Urine pH 5.5 Ur Specific Emery 1.030 Urine Protein 30 H Urine Glucose [...] MD 09/07/24 0913 Signed By: 09/07/24 1548 [facility]03-05-2025 Evaluation note* Diagnosis Onset Date Resolution Status Admit Date Bipolar 1 disorder acute September 07, 2024 12:39am Suicidal ideation acute September 072024 12:39am [facility] Work Phone: [phone]) 851-182403-04-2025 Hospital Discharge instructions Additional Instructions Please return to emergency department for any new or worrisome symptoms including any numbness, weakness, tingling, worsening pain, difficulty urinating, chest pain, shortness of breath. Follow-up with your family physician within the next 3 to 5 days.[facility] Work Phone: Discharge summary Author Anson Sutton [facility] Note Date/Time September 09, 2024 1:11 pm [facility] [address] [place] [address] Discharge Summary Signed Patient: Woody Hernandez MR#: [id number] 330 : 1975 Acct:[id number] Age/Sex: 49 / M Adm Date: 5 Loc: 1S Room: 8J7402-[address]: Anson Sutton MD Copies to: [...] cut himself. Patient has been visiting from [place]. Came here to visit about6 weeks ago. [...] Instructions: Important Contact Information You can call [facility] at [phone] any time day or night if you have emergent questions or question regarding discharge instructions. If at any time you are feeling an increase inyour psychiatric symptoms, call your physician or behavioral healthcare provider. If any time you have thoughts of harming yourself or others contact one of the following: Call 88 (available 26/01) Crisis Text Line (available 26/01) text 4HOPE to [phone] [facility] Hope [facility] (available 8 a.m. Midnight) call [phone] ([phone]) Regular Diet No Activity Restrictions Received Abilify Maintena 400mg Injection on 09/08/24. Next dose is due on 10/06/24. Instructions: Bipolar disorder - Discharge instructions, [facility] Inst[facility], Know your Meds Prescriptions: New aripiprazole 10 mg Tablet 10 mg PO DAILY 12 Days Qty: 12 0RF Abilify Maintena 400 mg suspension,extended rel recon 400 mg IM Q28D Qty: 1 0RF Rx Instructions: Due on or about 10/06/24 Follow Up: [facility] [Other] (Follow-up with the [facility] on Thursday at 9am. The [facility] accepts walk-ins. You will need your insurance information and proof of income. ) [facility] [Other] (Call for any medical needs) Exam Physical Exam Vital Signs: Temp Pulse Resp BP Pulse Ox O2 Del Method 98.2 F 70 20 168/109 H 96 Room Air 09/09/24 07:30 09/09/24 07:30 09/09/24 07:30 09/09/24 07:30 09/09/24 07:30 09/09/24 08:11 Documented By: Anson Sutton MD 09/09/24 1215 Signed By: <Electronically signed by Anson Sutton MD> 09/09/24 1411 [facility] Work Phone: Evaluation noteNo assessment information available [facility] Work Phone: Evaluation note* Diagnosis Onset Date Resolution Status Admit Date Suicidal ideation acute September 072024 12:39am [facility] Work Phone: Evaluation note* Diagnosis Cerebrovascular accident (CVA), unspecified mechanism ([facility])- Primary Other cerebrovascular vasospasm and vasoconstriction documented [facility] Author Anson Sutton [facility] Note Date/Time September 07, 2024 2:48 pm [facility] [address] [place] [address] Psychiatry H&P Signed Patient: Woody Hernandez MR#: [id number] 330 : 1975 Acct:[id number] Age/Sex: 49 / M Adm Date: 5 Loc: Room: [address] [place] [address] Type: ADM IN Attending Dr: Anson Sutton [...] cut himself. Patient has been visiting from [place]. Came here to visit about6 weeks ago. [...] this with the medical student as notedbellizzy. [facility] Medical History (Updated 09/07/24 @ 10:31 by Franklyn Coker) Bipolar 1 disorder HTN (hypertension) Social History Smoking Status: Heavy tobacco smoker Tobacco Type: cigarettes Substance Use Type: Unknown, Marijuana, Amphetamines and Methamphetamine Social History Comments: came to [place] 2 months ago to visit, is highly [...] Appearance Clear Urine pH 5.5 Ur Specific Emery 1.030 Urine Protein 30 H Urine Glucose [...] explained Documented By: Anson Sutton MD 09/07/24 0916 Signed By: <Electronically signed by Anson Sutton MD> 09/07/24 5969 [facility] Work Phone: Hospital Discharge instructions Additional Instructions Important Contact Information You can call [facility] at [phone] any time day or night if you have emergent questions or question regarding discharge instructions. If at any time you are feeling an increase in your psychiatric symptoms, call your physician or behavioral healthcare provider. If any time you have thoughts of harming yourself or others contact one of the following: Call 8-8 (available 26/01) Crisis Text Line (available 26/01) text 4HOPE to [phone] [facility] Hope [facility] (available 8 a.m. Midnight) call [phone] ([phone]) Regular Diet No Activity Restrictions Received Abilify Maintena 400mg Injection on 09/08/24. Next dose is due on 10/06/24.[facility] Work Phone: InstructionsNot on filedocumented in this encounter [facility] on filedocumented in this encounter [facility]ructionsNot on filedocumented in this encounter [facility] on filedocumented in this encounter [facility] Author Anson Sutton [facility] Note Date/Time September 08, 2024 12:5 0pm [facility] [address] [place] [address] Psychiatry Progress Note Signed Patient: Woody Hernandez MR#: [id number] 330 : 1975 Acct:[id number] Age/Sex: 49 / M Adm Date: 5 Loc: Room: [address] [place] [address] Type : ADM IN Attending Dr: Anson [...] explained Documented By: Anson Sutton MD 09/08/24 0958 Signed By: <Electronically signed by Anson Sutton MD> 09/08/24 1350 [facility] Work Phone: Chief Complaint and Reason for Visit Chief Complaint Admit Date back pain September 05, 2024 11:1 7pm Chief Complaint Admit Date back pain September 05, 2024 11:1 7pm p September 07, 2024 12:3 9am Reason for Visit Admit Date Suicidal ideation September 07, 2024 12:3 9am Chief Complaint Admit Date back pain September 05, 2024 11:1 7pm [facility] September 07, 2024 12:3 9am [facility] September 07, 2024 9:13 am Reason for Visit Admit Date Bipolar 1 disorder September 07, 2024 12:3 9am Suicidal ideation September 07, 2024 12:3 9am Advance Directives Advance Directive Response Recorded Date/ Time Advance Directives No September 05 11:29pm Advance Directive Response Recorded Date/ Time Advance Directives No September 06 12:29am Date Activated Date Inactivated Comments 12/10/2024 2:21 PM 12/14/2024 12:13 PM Date Activated Date Inactivated Comments 12/10/2024 2:21 [...] this encounterNot on filedocumented as of this encounterNot on filedocumented as of this encounterNot on filedocumented as of this encounterNot on filedocumented as of this encounter (unrecognized sect ion and content) No Status Records FoundNo Status Records FoundNo Status Records FoundNo Status Records Found INFORMATION SOURCE (unrecogn ized section and content) DATE CREATED AUTHOR 12/03/2024 [facility] DATE CREATED AUTHOR AUTHOR'S ORGANIZ ATION 12/17/2024 [facility] DATE CREATED AUTHOR AUTHOR'S ORGANIZ ATION 02/09/2025 [facility] DATE CREATED AUTHOR AUTHOR'S ORGANIZ ATION 02/09/2025 [facility] FOR RECORDS PERTAINING TO PATIENTS [...] BE BASED ON THE PRIMARY CLINICAL RECORDS. [facility] [email or web address] [facility]. provides no warranty or guarantee of the accuracy or completeness of information in this document.
[2025-02-28 12:57] LABS: Lactate/Lactic Acid 0.7 mmol/L (0.4-2.0)
[2025-02-28 13:03] LABS: Alanine Aminotransferase 25 U/L (16-63); Albumin Globulin Ratio 0.9; Albumin Level 3.5 g/dL (3.4-5.0); Alkaline Phosphatase 87 U/L (46-116); Anion Gap 14.0; Aspartate Amino Transferase 17 U/L (15-37); Blood Urea Nitrogen 17.0 mg/dL (7.0-18.0); Calcium 8.7 mg/dL (8.5-10.1); Carbon Dioxide 25.2 mmol/L (21.0-32.0); Chloride 104 mmol/L (98-107); Estimated GFR (African America 51 (>=60 mL/min/1.73m^2); Estimated GFR (Non-African Ame 42 (>=60 mL/min/1.73m^2); Globulin 4.1 g/dL; Glucose 204 mg/dL (74-106); Lipase 33.0 U/L (16.0-77.0); Potassium 3.2 mmol/L (3.5-5.1); Sodium 140 mmol/L (136-145); Total Protein 7.6 g/dL (6.4-8.2)
--- NOTE | 2025-02-28 13:05 | CT_ITS ---
[address] [address] Patient Name: MARVIN SUAREZ MRN: [id number] date: 1975 Sex: M Assigned Patient Location: ER Current Patient Location: .MAIN Accession/Order Number: [id number] Exam Date: 02/28/2025 13:37 Report Date: 02/28/2025 14:16 At the request of: LEEANNA CAMARENA DO Procedure: CT angio abdomen pelvis CT angiogram of the chest abdomen and pelvis TECHNIQUE: Axial imaging with 2-D reconstruction. 100 cc of Visipaque 270The CT exam was performed using one or more the following dose reduction techniques: Automated exposure control, adjustment of the MA and/or Kv according to patient size, or use of the iterative reconstruction technique. History: Abdominal pain. Stage III kidney disease. Diabetic. Hypertension. COMPARISON: None THYROID: No significant thyroid abnormality identified. AIRWAY: Central airway is patent. ESOPHAGUS: Esophagus normal course and caliber. HEART: Heart is not enlarged. PERICARDIAL EFFUSION: None CORONARY ARTERY CALCIFICATION: None MEDIASTINUM: Nonenlarged mediastinal lymph nodes identified. HILAR REGION: No hilar mass or adenopathy is seen. THORACIC AORTA: 1 cm intraluminal abnormality of the distal portion of the aortic arch identified. Seen with axial image #37 Adjacent calcification present. May correlate with postsurgical changes. May represent mural thrombus. No aneurysm. No dissection. LUNG INTERSTITIUM: No infiltrate or congestion identified. PLEURAL EFFUSION No pleural effusion identified. PNEUMOTHORAX: No pneumothorax seen. LUNG NODULE: No lung nodules identified. CHEST WALL: No chest wall abnormality seen. The bony chest intact. LIVER: No hepatic mass or intrahepatic biliary ductal dilatation is identified. Hepatic steatosis GALLBLADDER: No gallbladder abnormalities identified. BILE DUCTS: No biliary duct dilatation identified. SPLEEN: Normal PANCREAS: Unremarkable ADRENAL GLANDS: The adrenal glands are unremarkable. KIDNEYS: Cystic changes. No nephrolithiasis. Mild dilatation of the left adrenal collecting system and ureter. No obstructing stone. ABDOMINAL AORTA: The abdominal aorta is normal. RETROPERITONEUM: No significant retroperitoneal abnormalities identified. STOMACH:Nondistended SMALL BOWEL: The small bowel loops are nondistended. APPENDIX: The appendix is normal. COLON: There is no colitis or diverticulitis. URINARY BLADDER: Nondistended REPRODUCTIVE STRUCTURES: The reproductive structures are unremarkable. FREE AIR: None FREE FLUID: None ABDOMINAL WALL: No subcutaneous soft tissue abnormality identified. INGUINAL HERNIA: None BONES:Degenerative change. Mild scoliosis CT/CT angio abdomen pelvis IMPRESSION: No thoracic or abdominal aortic aneurysm or dissection. 1 cm Filling defect identified distal portion of the aortic arch. This is near region of calcification. May correlate with region of mural thrombus. Correlate with prior surgery in this region. Consider short-term follow-up assessment. PRELIMINARY RESULTS: None given Impression dictated by: Mendez Wynn M.D. 02/28/2025 2:16 PM Dictation Location: [facility] Electronically authenticated by: [id number] Y Date: 02/28/2025 14:16
--- NOTE | 2025-02-28 13:05 | CT_ITS ---
[address] [address] Patient Name: MARVIN SUAREZ MRN: [id number] date: 1975 Sex: M Assigned Patient Location: ER Current Patient Location: .MAIN Accession/Order Number: [id number] Exam Date: 02/28/2025 13:37 Report Date: 02/28/2025 14:16 At the request of: LEEANNA CAMARENA DO Procedure: CT angio abdomen pelvis CT angiogram of the chest abdomen and pelvis TECHNIQUE: Axial imaging with 2-D reconstruction. 100 cc of Visipaque 270The CT exam was performed using one or more the following dose reduction techniques: Automated exposure control, adjustment of the MA and/or Kv according to patient size, or use of the iterative reconstruction technique. History: Abdominal pain. Stage III kidney disease. Diabetic. Hypertension. COMPARISON: None THYROID: No significant thyroid abnormality identified. AIRWAY: Central airway is patent. ESOPHAGUS: Esophagus normal course and caliber. HEART: Heart is not enlarged. PERICARDIAL EFFUSION: None CORONARY ARTERY CALCIFICATION: None MEDIASTINUM: Nonenlarged mediastinal lymph nodes identified. HILAR REGION: No hilar mass or adenopathy is seen. THORACIC AORTA: 1 cm intraluminal abnormality of the distal portion of the aortic arch identified. Seen with axial image #37 Adjacent calcification present. May correlate with postsurgical changes. May represent mural thrombus. No aneurysm. No dissection. LUNG INTERSTITIUM: No infiltrate or congestion identified. PLEURAL EFFUSION No pleural effusion identified. PNEUMOTHORAX: No pneumothorax seen. LUNG NODULE: No lung nodules identified. CHEST WALL: No chest wall abnormality seen. The bony chest intact. LIVER: No hepatic mass or intrahepatic biliary ductal dilatation is identified. Hepatic steatosis GALLBLADDER: No gallbladder abnormalities identified. BILE DUCTS: No biliary duct dilatation identified. SPLEEN: Normal PANCREAS: Unremarkable ADRENAL GLANDS: The adrenal glands are unremarkable. KIDNEYS: Cystic changes. No nephrolithiasis. Mild dilatation of the left adrenal collecting system and ureter. No obstructing stone. ABDOMINAL AORTA: The abdominal aorta is normal. RETROPERITONEUM: No significant retroperitoneal abnormalities identified. STOMACH:Nondistended SMALL BOWEL: The small bowel loops are nondistended. APPENDIX: The appendix is normal. COLON: There is no colitis or diverticulitis. URINARY BLADDER: Nondistended REPRODUCTIVE STRUCTURES: The reproductive structures are unremarkable. FREE AIR: None FREE FLUID: None ABDOMINAL WALL: No subcutaneous soft tissue abnormality identified. INGUINAL HERNIA: None BONES:Degenerative change. Mild scoliosis CT/CT angio chest IMPRESSION: No thoracic or abdominal aortic aneurysm or dissection. 1 cm Filling defect identified distal portion of the aortic arch. This is near region of calcification. May correlate with region of mural thrombus. Correlate with prior surgery in this region. Consider short-term follow-up assessment. PRELIMINARY RESULTS: None given Impression dictated by: Mendez Wynn M.D. 02/28/2025 2:16 PM Dictation Location: [place] [address] Electronically authenticated by: [id number] Y Date: 02/28/2025 14:16
[2025-02-28] MEDS: POTASSIUM CHLORIDE 10 MEQ ER TABLET 20 MEQ PO (14:46)
[2025-02-28] MEDS: HYDROCODONE/ACET 5-325 MG TABLET 1 TAB PO (14:46)
[2025-02-28] MEDS: ENOXAPARIN SODIUM 100 MG/ML SYRINGE 90 MG SUBQ ×2 (14:46→22:57)
--- NOTE | 2025-02-28 14:48 | CA_ITS ---
Patient Name: MARVIN SUAREZ MR#: [id number] : 1975 Exam Date: 02/28/2025 Ordering Doctor: HOMER WARD ECHOCARDIOGRAM REPORT PROCEDURE: CA ECHO LIMITED INDICATIONS: Descending aorta thrombus COMPARISON: None. DESCRIPTION: Limited ECHOCARDIOGRAM Real-time transthoracic echocardiography with 2D and M-mode performed. QUALITY: Technical quality was good. LEFT VENTRICLE: Normal chamber size. Mild concentric left ventricular hypertrophy. LV EF: Global left ventricular systolic function is hyperdynamic; visually estimate ejection fraction is 65 to 70%. No regional wall motion abnormalities. LEFT ATRIUM: Normal chamber size. RIGHT ATRIUM: Normal chamber size. RIGHT VENTRICLE: Normal chamber size. Normal right ventricular systolic function. TRICUSPID VALVE: Normal mobility and thickness. MITRAL VALVE: Normal mobility and thickness. AORTIC VALVE: Normal trileaflet appearance. Thickened aortic valve. Normal leaflet mobility. AORTIC ROOT: Normal diameter and appearance. PULMONIC VALVE: Normal thickness and mobility. PERICARDIUM: Trivial posterior pericardial effusion. IVC: Collapses with inspiration. Normal size. CONCLUSION: 1. Global left ventricular systolic function is hyperdynamic; visually estimated ejection fraction is 65 to 70% 2. Normal right ventricular size and systolic function 3. Mild left ventricular hypertrophy 4. Trivial posterior pericardial effusion 5. A limited echocardiogram was performed Adult Echocardiography Procedure Report Left Ventricle LVEDD (3.7 - 5.6 cm): 4.15 cm LVESD (2.2 - 4.0 cm): 2.43 cm LVIVS thickness (0.6 - 1.2 cm): 1.16 cm LVPW thickness (0.5 - 1.0 cm): 1.21 cm LVOT Diameter 2.08 cm Left Ventricular Ejection Fraction: 57.56 % Left Atrium LA Volume Index (2D A2C): 28.16 ml/m2 Left Atrium Systolic Dimension: 4.09 cm Mitral Valve Right Ventricle RV Internal Diastolic Dimension: 3.24 cm Aorta AO Root Diam: 3.16 cm Ascending Ao Diam: 3.35 cm Aortic Valve Tricuspid Valve Pulmonic Valve Right Atrium Right Atrium Systolic Pressure: 38.88 ml, 38.88 ml Dictated by: Robbie Riggins M.D. on 03/01/2025 at 12:49 Approved by: Robbie Riggins M.D. on 03/01/2025 at 12:54
--- NOTE | 2025-02-28 15:21 | PC.NURSE ---
Cardiology consult called and spoke to Marian with [facility] [[email or web address]]. Facesheet faxed. Marian with [facility] [[email or web address]] informed this RN that the window systems administrator is economic geographer today and will see the patient tomorrow. Dr. Talley made aware.
[2025-02-28 15:26] LABS: Glucose Urine UA NEGATIVE (NEGATIVE)
[2025-02-28 15:36] LABS: Cast Seen? NONE SEEN #/LPF (NONE SEEN); Crystals Seen? Seen #/HPF (None Seen); Urine Culture Indicated YES-FRMC
[2025-02-28 15:37] LABS: Cannabinoid Screen Urine POSITIVE (NEGATIVE); Methamphetamines Screen Urine NEGATIVE (NEGATIVE); Tricyclic Antidepressant Urine NEGATIVE (NEGATIVE)
--- NOTE | 2025-02-28 15:59 | ED_ITS ---
HPI HPI - General Adult General Chief complaint: Abdominal Pain Stated complaint: WEAKNESS Time Seen by Provider: 02/28/25 11:55 Source: patient Mode of arrival: ambulance Limitations: no limitations History of Present Illness HPI narrative: Patient is a 49-year-old male presenting to the emergency department for concerns of abdominal pain. Patient states the abdominal pain started appro ximately few days ago. He is quite a poor historian, cannot further characterize his pain. He denies any other associated symptoms such as nausea, vomiting, diarrhea, constipation, chest pain, shortness of breath, fevers, or chills. He denies recreational drug use. He denies previous cardiac history. Denies intra-abdominal surgeries. Related Data Previous Rx's ?Medication ?Instructions ?Recorded aspirin 81 mg tablet,delayed 162 mg (2 x 81 mg) PO QD 90 days 02/03/25 release #180 tabs atorvastatin 40 mg tablet 40 mg PO QHS 90 days #90 tab s 02/03/25 hydrochlorothiazide 25 mg tablet 25 mg PO QD 90 days # 90 tabs 02/03/25 losartan 50 mg tablet 50 mg PO DAILY 90 days #90 t abs 02/03/25 metformin 500 mg tablet 500 mg PO BID 90 days #180 t abs 02/03/25 Allergies Allergy/AdvReac Type Severity Reaction Status Date / Time No Known Drug Allergies Allergy Verified 02/28/25 11:49 Opioid HPI Opioid Management Most Recent Opioid Data: Last Pain Scale 10 Today, 11:53 Last Pain Intensity 0 01/02/25, 09:23 Last ORT Total Score 2 02/02/25, 13:43 Last ORT Risk Category Low Risk 02/02/25, 13:43 Ur Phencyclidine Scrn, (NEGATIVE) Negative Today, 12:15 Review of Systems ROS Status of ROS 10 or more systems reviewed and unremark able except as noted in history and below [facility] Medical History (Updated 02/28/25 @ 14:56 by Octaviano Croft DO) CVA (cerebrovascular accident) ?I63.9 - Cerebral infarction, unspecified (ICD-10) CRI (chronic renal insufficiency) ?N18.9 - Chronic kidney disease, unspecified (ICD-10) Acute hyperglycemia ?R73.9 - Hyperglycemia, unspecified (ICD-10) HLD (hyperlipidemia) ?E78.5 - Hyperlipidemia, unspecified (ICD-10) Type 2 diabetes mellitus ?E11.9 - Type 2 diabetes mellitus without complications (ICD-10) CKD (chronic kidney disease) stage 3, GFR 30-59 ml/min ?N18.30 - Chronic kidney disease, stage 3 unspecified (ICD-10) Diabetes ?E11.9 - Type 2 diabetes mellitus without complications (ICD-10) Schizophrenia ?F20.9 - Schizophrenia, unspecified (ICD-10) Smokes ?F17.200 - Nicotine dependence, unspecified, uncomplicated (ICD-10) Hypertension ?I10 - Essential (primary) hypertension (ICD-10) Social History (Updated 10/21/24 @ 23:59 by Rima Hahn) Within the past year, how often did you have a drink containing alcohol: never Score interpretation: A score less than 4 is consistent with normal alcohol consumption. Smoking status: Current every day smoker Non-prescribed substance use: cannabis (any form) Non-prescribed substance use details: smokes marijuana Previous occupational history: none Highest level of school completed/degree received: 10th grade Are you now , , , , never or living with a partner: never In a typical week, how many times do you talk on the telephone with family, friends, or neighbors: 3 or more times per week How often do you get together with friends or relatives: 3 or more times per week Little interest or pleasure in doing things: not at all Feeling down, depressed, or hopeless: not at all Feel stressed/tense/nervous/anxious/difficulty sleeping: not at all Do you think of yourself as: straight/heterosexual Gender Identity: male Exam Narrative Exam Narrative: CONSTITUTIONAL: Patient appears fatigued, laying in the stretcher comfortably, he is disheveled and malodorous SKIN: Was warm and dry. EYES: Sclerae white. No conjunctival pallor EARS, NOSE, THROAT: Moist oral mucosa. RESPIRATORY: Clear to auscultation bilaterally, no wheezes, crackles, or stridor, no use of accessory muscles CARDIOVASCULAR: Normal rate and regular rhythm. There is no S3, S4, murmur, rub. 2+ radial and DP pulses bilaterally GASTROINTESTINAL: Mild tenderness to palpation throughout the abdomen without focality. No rebound tenderness or guarding. MUSCULOSKELETAL: No peripheral edema. NEUROLOGIC: Patient is awake and alert. Moving all EXTR equally. Ambulates with a steady gait. Facies were symmetrical. Constitutional Vital Signs, click to edit/add: Last Vital Signs Temp 99.6 F 02/28/25 11:50 Pulse 71 02/28/25 15:58 Resp 19 02/28/25 15:47 BP 149/82 H 02/28/25 15:47 Pulse Ox 95 02/28/25 15:47 O2 Del Method Room Air 02/28/25 15:47 Course Vital Signs Vital signs: Vital Signs Blood Pressure 128/79 02/28/25 11:49 Temperature 99.6 F 02/28/25 11:50 Pulse Rate 71 02/28/25 15:58 Respiratory Rate 19 02/28/25 15:47 Blood Pressure 149/82 H 02/28/25 15:47 Pulse Oximetry 95 02/28/25 15:47 Oxygen Delivery Method Room Air 02/28/25 15:47 Medical Decision Making MDM Narrative Medical decision making narrative: Patient is a 49-year-old male presenting to the emergency department with 3-day history of generalized abdominal pain without any other associated symptoms. His vital signs are within normal limits. He is afebrile and hemodynamically stable. Examination as noted above. My differential diagnosis includes colitis, gastritis, atypical presentation for ACS, diverticulitis, or other intra-abdominal pathologies. Given that he is a smoker with vague abdominal pain and no other symptoms, I did consider AAA. Therefore, CTA of the chest/abdomen/pelvis was ordered to further investigate. IV was established and laboratory studies were obtained. He was given IV Zofran and IV morphine for symptomatic treatment. Laboratory studies were unremarkable other than an elevated initial and repeat 2-hour troponin of 141 at 145 respectively. Mild hyponatremia which was replaced with oral potassium chloride. Mild ANTOINE with a creatinine of 1.72. No leukocytosis or anemia. CTA of the chest/abdomen/pelvis independent reviewed and interpreted by myself and reviewed by radiology demonstrated 1 cm intraluminal mural thrombus at the d istal portion of the aortic arch. This is likely an incidental finding. There are no other acute pathologies identified. 12 Lead EKG: Normal sinus rhythm at a rate of 80. Normal axis. No ST segment elevations. QRS, [place], and QTc interval within normal limits. Unchanged compared to prior EKG from 02/02/2025. Final impression: normal sinus rhythm without evidence of acute myocardial ischemia On reevaluation, patient states he is still having abdominal pain. He was given a dose of oral [place] for further pain control. Unclear as to the exact etiology behind the patient's abdominal pain, however he does have an elevated troponin concerning for NSTEMI. He was treated with subcutaneous Lovenox. I did discuss the patient with Dr. Talley who accepted the patient to his service. FINAL IMPRESSION: #Acute NSTEMI #Acute abdominal pain DISPOSITION: Admitted to the hospital on telemetry CONDITION: Fair Medical Records Medical records reviewed: Yes I reviewed the patient's medical records Lab Data Lab results reviewed: Yes I reviewed the patient's lab results Labs: Lab Results 02/28/25 02/28/25 02/28/25 Range/Units 12:15 12:31 14:04 WBC 10.2 (4.0-11.0) 10^3/uL RBC 6.12 H (4.70-6.10) 10^6/uL Hgb 16.3 (14.0-18.0) g/dL Hct 51.7 (42.0-54.0) % MCV 84.5 (80.0-94.0) fL MCH 26.6 (25.9-34.0) pg MCHC 31.5 (29.9-35.2) g/dL RDW 13.8 (11.0-15.0) % Plt Count 237 (150-450) 10^3/uL MPV 9.5 (9.5-13.5) fL Neut % (Auto) 68.4 (43.0-75.0) % Lymph % (Auto) 16.7 L (20.5-60.0) % [place] % (Auto) 12.9 H (1.7-12.0) % Eos % (Auto) 1.0 (0.9-7.0) % Baso % (Auto) 0.5 (0.2-2.0) % Neut # (Auto) 7.0 H (1.4-6.5) 10^3/uL Lymph # (Auto) 1.7 (1.2-3.8) 10^3/uL [place] # (Auto) 1.3 H (0.3-0.8) 10^3/uL Eos # (Auto) 0.1 (0.0-0.7) 10^3/uL Baso # (Auto) 0.1 (0.0-0.1) 10^3/uL Abs Immat Gran (auto) 0.05 H (0.00-0.03) 10^3/uL Imm/Tot Granulo (auto) 0.5 (0.0-0.5) % Sodium 140 (136-145) mmol/L Potassium 3.2 L (3.5-5.1) mmol/L Chloride 104 (98-107) mmol/L Carbon Dioxide 25.2 (21.0-32.0) mmol/L Anion Gap 14.0 BUN 17.0 (7.0-18.0) mg/dL Creatinine 1.72 H (0.70-1.30) mg/dL Est GFR ( Amer) 51 L (>=60 mL/min/1.73m^2) Est GFR (Non-Af Amer) 42 L (>=60 mL/min/1.73m^2) BUN/Creatinine Ratio 9.9 Glucose 204 H (74-106) mg/dL Lactate 0.7 (0.4-2.0) mmol/L Calcium 8.7 (8.5-10.1) mg/dL Total Bilirubin 0.6 (0.2-1.0) mg/dL AST 17 (15-37) U/L ALT 25 (16-63) U/L Alkaline Phosphatase 87 (46-116) U/L Troponin I High Sens 141.0 H* 145.7 H* (4.0-76.1) pg/mL Total Protein 7.6 (6.4-8.2) g/dL Albumin 3.5 (3.4-5.0) g/dL Globulin 4.1 g/dL Albumin/Globulin Ratio 0.9 Lipase 33.0 (16.0-77.0) U/L Urine Color Yellow (YELLOW) Urine Clarity Cloudy A (CLEAR) Urine pH 5.5 (5.0-9.0) Ur Specific [place] >=1.030 A (1.005-1.025) Urine Protein 100 A (NEG/TRACE) mg/dL Urine Glucose (UA) Negative (NEGATIVE) mg/dL Urine Ketones 15 A (NEGATIVE) mg/dL Urine Occult Blood Large A (NEGATIVE) Urine Nitrite Negative (NEGATIVE) Urine Bilirubin Small A (NEGATIVE) Urine Urobilinogen 1.0 (0.2-1.0) EU/dL Ur Leukocyte Esterase Negative (NEGATIVE) Urine RBC 10-20 A (0-2) #/HPF Urine WBC 0-2 A (NONE SEEN) #/HPF Ur Squamous Epith Cells Rare (NONE/RARE) #/LPF Urine Crystals Seen A (None Seen) #/HPF Amorphous Sediment Few Urine Bacteria Large A (NONE SEEN) #/HPF Urine Casts None seen (NONE SEEN) #/LPF Urine Mucus None seen (NONE SEEN) Ur Culture Indicated? Yes-[facility] Urine Opiates Screen Negative (NEGATIVE) Ur Buprenorphine Scrn Negative (NEGATIVE) Ur Oxycodone Screen Negative (NEGATIVE) Urine Methadone Screen Negative (NEGATIVE) Ur Barbiturates Screen Negative (NEGATIVE) U Tricyclic Antidepress Negative (NEGATIVE) Ur Phencyclidine Scrn Negative (NEGATIVE) Ur Amphetamines Screen Negative (NEGATIVE) U Methamphetamines Scrn Negative (NEGATIVE) U Benzodiazepines Scrn Negative (NEGATIVE) Urine Cocaine Screen Negative (NEGATIVE) U Cannabinoids Screen Positive A (NEGATIVE) Imaging Data CT scan - abdomen: Attestation: I personally reviewed and interpreted this imaging study as follows: Radiologist's impression: ITS Impressions Chest X-Ray 02/28/25 12:20 IMPRESSION: No acute process. Impression dictated by: Mendez Wynn M.D. 02/28/2025 2:06 PM Dictation Location: [employer] Electronically authenticated by: [id number] Y Date: 02/28/2025 14:06 Abdomen/Pelvis CTA 02/28/25 13:05 IMPRESSION: No thoracic or abdominal aortic aneurysm or dissection. 1 cm Filling defect identified distal portion of the aortic arch. This is near region of calcification. May correlate with region of mural thrombus. Correlate with prior surgery in this region. Consider short-term follow-up assessment. PRELIMINARY RESULTS: None given Impression dictated by: Mendez Wynn M.D. 02/28/2025 2:16 PM Dictation Location: [employer] Electronically authenticated by: [id number] Y Date: 02/28/2025 14:16 Chest CTA 02/28/25 13:05 IMPRESSION: No thoracic or abdominal aortic aneurysm or dissection. 1 cm Filling defect identified distal portion of the aortic arch. This is near region of calcification. May correlate with region of mural thrombus. Correlate with prior surgery in this region. Consider short-term follow-up assessment. PRELIMINARY RESULTS: None given Impression dictated by: Mendez Wynn M.D. 02/28/2025 2:16 PM Dictation Location: [place] [id number] Electronically authenticated by: [id number] Y Date: 02/28/2025 14:16 ECG Data Attestation: I personally reviewed and interpreted this ECG as follows: Critical Care Time Critical Care Time Critical Care Time: Yes Total Critical Care Time: 30 Attestation: Due to a high probability of clinically significant, life threatening deterioration, the patient required my highest level of preparedness to intervene emergently and I personally spent this critical care time directly and personally managing the patient. This critical care time included obtaining a history; examining the patient; pulse oximetry; ordering and review of studies; arranging urgent treatment with development of a management plan; evaluation of patient's response to treatment; frequent reassessment; and, discussions with other providers. This critical care time was performed to assess and manage the high probability of imminent, life-threatening deterioration that could result in multi-organ failure. It was exclusive of separately billable procedures and treating other patients and teaching time. Discharge Plan Discharge Chief Complaint: Abdominal Pain Clinical Impression: Acute non-ST elevation myocardial infarction (NSTEMI), Abdominal pain Patient Disposition: Admitted As Inpatient Time of Disposition Decision: 14:55 Condition: Fair Discharge Date/Time: 02/28/25 15:32
[2025-02-28] MEDS: ASPIRIN 81 MG TABLET.DR PO (16:17)
[2025-02-28] MEDS: 0.9 % SODIUM CHLORIDE 1,000 ML 100 ML IV (16:17)
[2025-02-28] MEDS: SENNOSIDES/DOCUSATE SODIUM 1 TAB TABLET PO (16:37)
[2025-02-28] MEDS: DOCUSATE SODIUM 100 MG CAPSULE PO (16:37)
--- OUTSIDE RECORDS SUMMARY | 2025-02-28 16:55 | XMS_ITS | CCD ---
Author Organization [facility] Care Team Providers Care Executive Legal Secretary Name Role Phone Malia Matamoros MD Emergency Provider [phone] NO FAMILY, PHYSICIAN Primary Care Provider Malia Camacho MD Emergency Provider NO FAMILY, PHYSICIAN Primary Care Provider Franklin Villeda DO Emergency Provider [phone] Anson Sutton MD Admit Provider Anson Sutton [...] Unavailable SHANNAN WEBER Attending Unavailable PHYSICIANS, [facility] Consulting Yi SCOTTIE Vang Referring Unavailable Medications Current Medications Medication Drug Class(es) Dates Sig (Normalized) Sig (Original) [id number] 200 actuat albuterol 0.09 mg/actuat metered dose [...] 12-14-2024 Glucose [Mass/Vol] 281 mg/dL High 65-99 [facility] Comment on above: Performed By: #### D QUINONEZ #### [facility] ([id number]) [address] [place] [address] BEDSIDE GLUCOSEon 12-13-2024 Glucose [Mass/Vol] 278 mg/dL High -[address] [place] [address] Comment on above: Performed By: #### D QUINONEZ #### [facility] ([id number]) [facility] [place] [address] VIR Glucose [Mass/Vol] 190 mg/dL High -[address] [place] [address] Comment on above: Performed By: #### D QUINONEZ #### [facility] ([id number]) [address] [place] [address], [place] [address] VIR Glucose [Mass/Vol] 326 mg/dL High -99 [facility] Comment on above: Performed By: #### D QUINONEZ #### [facility] ([id number]) [address] [place] [address], [place] [address] VIR Glucose [Mass/Vol] 265 mg/dL High -99 [facility] Comment on above: Performed By: #### D QUINONEZ #### [facility] ([id number]) [address] [place] [address], [place] [address] VIR BEDSIDE GLUCOSEon 12-12-2024 Glucose [Mass/Vol] 217 mg/dL High [address] [place] [address] Comment on above: Performed By: #### D QUINONEZ #### [facility] ([id number]) [address] [place] [address] [place] [address] VIR Glucose [Mass/Vol] 208 mg/dL High [address] [place] [address] Comment on above: Performed By: #### D QUINONEZ #### [facility] ([id number]) [address] [place] [address], [place] [address] VIR Glucose [Mass/Vol] 245 mg/dL High 65-99 [facility] Comment on above: Performed By: #### D QUINONEZ #### [facility] ([id number]) [address] [place] [address], [place] [address] VIR Glucose [Mass/Vol] 264 mg/dL High -[address] [place] [address] Comment on above: Performed By: #### U FEN #### [facility] ([id number]) [address] [place] [place] [address] VIR BEDSIDE GLUCOSEon 12-11-2024 Glucose [Mass/Vol] 184 mg/dL High [address] [place] [address] Comment on above: Performed By: #### U FEN #### [facility] ([id number]) [address] [place] [place] [address] VIR Glucose [Mass/Vol] 96 mg/dL Normal [address] [place] [address] Comment on above: Performed By: #### U FEN #### [facility] ([id number]) [address] [facility] [place] [address] VIR Glucose [Mass/Vol] 385 mg/dL High [address] [place] [address] Comment on above: Performed By: #### U FEN #### [facility] ([id number]) [address] [facility] [place] [address] VIR BEDSIDE GLUCOSE ???BEDG >^500 Critically high [address] [place] [address] Comment on above: Performed By: #### U FEN #### [facility] ([id number]) [address] [facility] [place] [address] VIR GLUCOSE RANDOM OR FASTINGon 12-11-2024 Glucose [Mass/Vol] 512 mg/dL Critically high [address] [place] [address] Comment on above: Performed By: #### U FEN #### [facility] ([id number]) [address] [facility] [place] [address] VIR LIPID PROFILEon 12-11-2024 Cholesterol [Mass/Vol] 239 mg/dL High 150-200 [facility] Comment on above: Order Comment: Fenta nyl screening cutoff = 5ng/ml This report is intended for use in clinical monitoring or management of patients. Performed By: #### U FEN #### [facility] ([id number]) [address] [place] [place] [address] VIR Cholesterol in HDL [Mass/Vol] 31 mg/dL Low >39 [facility] Comment on above: Order Comment: Fenta nyl screening cutoff = 5ng/ml This report is intended for use in clinical monitoring or management of patients. Result Comment: HDL <40 mg/dL - High Risk HDL > or = 40mg/dL- Desirable HDL >60 mg/dL - Negative Risk Performed By: #### U FEN #### [facility] ([id number]) [address] [place] [address] VIR CHOLESTEROL:HDL 7.7 High 1.0-5.0 [facility] Comment on above: Order Comment: Fenta nyl screening cutoff = 5ng/ml This report is intended for use in clinical monitoring or management of patients. Performed By: #### U FEN #### [facility] ([id number]) [address] [place] [address] VIR Triglyceride [Mass/Vol] 452 mg/dL High 27-150 P [facility] Comment on above: Order Comment: Fenta nyl screening cutoff = 5ng/ml This report is intended for use in clinical monitoring or management of patients. Performed By: #### U FEN #### [facility] ([id number]) [address] [place] [address] VIR VERY LOW LIPOPROTEIN 90 mg/dL High 0-30 [facility] Comment on above: Order Comment: Fenta nyl screening cutoff = 5ng/ml This report is intended for use in clinical monitoring or management of patients. Performed By: #### U FEN #### [facility] ([id number]) [facility] [place] [address] VIR RDLDL DIRECT LDLon Cholesterol in LDL [Mass/Vol] 138 mg/dL High <=130 [facility] Comment on above: Result Comment: LDL <100 mg/dL - Desirable LDL 130-159 mg/dL - Borderline High Risk LDL >160 mg/dL - High Risk Performed By: #### U FEN #### [facility] ([id number]) [facility] [place] [address] VIR ACETAMINOPHEN LEVELon 2024 Acetaminophen [Mass/Vol] ug/mL Low 10.0-30.0 [facility] Comment on above: Order Comment: Refer ence ranges are for therapeutic limits. Performed By: #### A CETA #### [facility] ([id number]) [address] [place] [address] VIR CBC WITH AUTO DIFFERENTIALon 12-09-2024 CELLAVISION DIFFERENTIAL TYPE MANUAL DIFFERENTIAL Normal [facility] Comment on above: Result Comment: This is an appended report. These results have been appended to a previously preliminary verified report. Performed By: #### C BCA #### [facility] ([id number]) [address] [place] [address] VIR CELLAVISION LYMPHOCYTES ABSOLUTE COUNT (10*3/UL) BY MANUAL COUNT 4.0 10*3/uL High 1.0-3.5 [facility] Comment on above: Result Comment: This is an appended report. These results have been appended to a previously preliminary verified report. Performed By: #### C BCA #### [facility] ([id number]) [address] [place] [address] VIR CELLAVISION LYMPHOCYTES RELATIVE PERCENT BY MANUAL COUNT 35 % Normal [facility] Comment on above: Result Comment: This is an appended report. These results have been appended to a previously preliminary verified report. Performed By: #### C BCA #### [facility] ([id number]) [address] [place] [address] VIR CELLAVISION MONOCYTES ABSOLUTE COUNT (10*3/UL) IN BLOOD BY MANUAL COUNT 0.9 10*3/uL Normal 0.0-0.9 [facility] Comment on above: Result Comment: This is an appended report. These results have been appended to a previously preliminary verified report. Performed By: #### C BCA #### [facility] ([id number]) [address] [place] [address] VIR CELLAVISION MONOCYTES RELATIVE PERCENT BY MANUAL COUNT 8 % Normal [facility] Comment on above: Result Comment: This is an appended report. These results have been appended to a previously preliminary verified report. Performed By: #### C BCA #### [facility] ([id number]) [address] [place] [address] VIR CELLAVISION NEUTROPHILS ABSOLUTE COUNT BY MANUAL COUNT 6.4 10*3/uL Normal 1.5-6.6 [facility] Comment on above: Result Comment: This is an appended report. These results have been appended to a previously preliminary verified report. Performed By: #### C BCA #### [facility] ([id number]) [address] [place] [address] VIR CELLAVISION NEUTROPHILS RELATIVE PERCENT BY MANUAL COUNT 57 % Normal [facility] Comment on above: Result Comment: This is an appended report. These results have been appended to a previously preliminary verified report. Performed By: #### C BCA #### [facility] ([id number]) [facility] [place] [address] VIR CELLAVISION NUCLEATED RED BLOOD CELLS IN BLOOD BY LIGHT MICROSCOPY 1 Normal [facility] Comment on above: Result Comment: This is an appended report. These results have been appended to a previously preliminary verified report. Performed By: #### C BCA #### [facility] ([id number]) [facility] [place] [address] VIR CELLAVISION RBC MORPHOLOGY Reviewed Normal [facility] Comment on above: Result Comment: This is an appended report. These results have been appended to a previously preliminary verified report. Performed By: #### C BCA #### [facility] ([id number]) [address] [place] [address] VIR Erythrocyte distribution width (RBC) [Ratio] 14.7 % Normal 11.5-15 [facility] Comment on above: Performed By: #### C BCA #### [facility] ([id number]) [address] [place] [address] VIR Hematocrit (Bld) [Volume fraction] 50.9 % High 39-50 [facility] Comment on above: Performed By: #### C BCA #### [facility] ([id number]) [address] [place] [address] VIR Hemoglobin (Bld) [Mass/Vol] 16.4 g/dL Normal 13-17 [facility] Comment on above: Performed By: #### C BCA #### [facility] ([id number]) [address] [place] [address] VIR MCH (RBC) [Entitic mass] 26.6 pg Low 27-34 [facility] Comment on above: Performed By: #### C BCA #### [facility] ([id number]) [address] [place] [address] VIR MCHC (RBC) [Mass/Vol] 32.2 g/dL Normal 32-[address] [facility] Comment on above: Performed By: #### C BCA #### [facility] ([id number]) [address] [place] [address] VIR MCV (RBC) [Entitic vol] 83 fL Normal 80-100 [facility] Comment on above: Performed By: #### C BCA #### [facility] ([id number]) [address] [place] [address] VIR Platelet mean volume (Bld) [Entitic vol] 8.0 fL Normal 7-12 [facility] Comment on above: Performed By: #### C BCA #### [facility] ([id number]) [address] [place] [address] VIR Platelets (Bld) [#/Vol] 251 10*3/uL Normal 150-450 [facility] Comment on above: Performed By: #### C BCA #### [facility] ([id number]) [address] [place] [address] VIR RBC COUNT 6.15 X10E12/L High 4.1-5.7 [facility] Comment on above: Performed By: #### C BCA #### [facility] ([id number]) [address] [place] [address] VIR WBC (Bld) [#/Vol] 11.3 10*3/uL High 4-11 [facility] Comment on above: Performed By: #### C BCA #### [facility] ([id number]) [address] [place] [address] VIR COMPREHENSIVE METABOLIC PANE Nadir 12-09-2024 Albumin [Mass/Vol] 3.9 g/dL Normal 3.2-5.3 [facility] Comment on above: Performed By: #### C MP #### [facility] ([id number]) [address] [place] [address] VIR ALP [Catalytic activity/Vol] 95 U/L Normal 39-130 [facility] Comment on above: Performed By: #### C MP #### [facility] ([id number]) [facility] [place] [address] VIR ALT [Catalytic activity/Vol] 26 U/L Normal <=40 [facility] Comment on above: Performed By: #### C MP #### [facility] ([id number]) [facility] [place] [address] VIR Anion gap [Moles/Vol] 7 mmol/L Normal 5-[address] [facility] Comment on above: Performed By: #### C MP #### [facility] ([id number]) [address] [place] [address] VIR AST [Catalytic activity/Vol] 16 U/L Normal <=41 [facility] Comment on above: Performed By: #### C MP #### [facility] ([id number]) [facility] [place] [address] VIR Bilirubin [Mass/Vol] 0.5 mg/dL Normal 0.3-1.2 [facility] Comment on above: Performed By: #### C MP #### [facility] ([id number]) [address] [place] [address] VIR Calcium [Mass/Vol] 9.4 mg/dL Normal 8.5-10.5 [facility] Comment on above: Performed By: #### C MP #### [facility] ([id number]) [address] [place] [address] VIR Chloride [Moles/Vol] 101 mmol/L Normal 98-109 [facility] Comment on above: Performed By: #### C MP #### [facility] ([id number]) [address] [place] [address] VIR CO2 [Moles/Vol] 28 mmol/L Normal 22-32 [facility] Comment on above: Performed By: #### C MP #### [facility] ([id number]) [address] [place] [address] VIR Creatinine [Mass/Vol] 1.38 mg/dL High 0.60-1.[address] [facility] Comment on above: Result Comment: METH OD TRACEABLE TO IDMS STANDARD Performed By: #### C MP #### [facility] ([id number]) [address] [place] [address] VIR GFR/1.73 sq M.predicted among non-blacks MDRD (S/P/Bld) [Vol rate/Area] 62 mL/min/{1.73_m2} Normal >=60 [facility] Comment on above: Result Comment: Repo rted eGFR is based on the CKD-EPI 2020 equation that does not use a race coefficient. Performed By: #### C MP #### [facility] ([id number]) [address] [place] [address] VIR Glucose [Mass/Vol] 378 mg/dL High 65-99 [facility] Comment on above: Performed By: #### C MP #### [facility] ([id number]) [address] [place] [address] VIR Potassium [Moles/Vol] 3.6 mmol/L Normal 3.5-5.[address] [facility] Comment on above: Performed By: #### C MP #### [facility] ([id number]) [address] [place] [address] VIR Protein [Mass/Vol] 7.0 g/dL Normal 6.0-8.0 [facility] Comment on above: Performed By: #### C MP #### [facility] ([id number]) [address] [place] [address] VIR Sodium [Moles/Vol] 136 mmol/L Normal 134-146 [facility] Comment on above: Performed By: #### C MP #### [facility] ([id number]) [address] [place] [address] VIR Urea nitrogen [Mass/Vol] 15 mg/dL Normal 5-23 [facility] Comment on above: Performed By: #### C MP #### [facility] ([id number]) [address] [place] [address] VIR DRUG SCREEN, URINEon 025 DRUG SCREEN, URINE DSU DRUG SCREEN, URINE Cancelled Normal [facility] AMPHETAMINE/METHAMP Positive Abnormal Negative [facility] Comment on above: Order Comment: Confi rmation available upon request. Result Comment: AMPH /METH screening cut off = 1000 ng/mL Performed By: #### D QUINONEZ #### [facility] ([id number]) [address] [place] [address] VIR BARBITURATES Negative Normal Negative [facility] Comment on above: Order Comment: Confi rmation available upon request. Result Comment: Amee iturates screening cut off value = 200 ng/mL Performed By: #### D QUINONEZ #### [facility] ([id number]) [address] [place] [address] VIR BENZODIAZEPINES Negative Normal Negative [facility] Comment on above: Order Comment: Confi rmation available upon request. Result Comment: Betito odiazepines screening cut off value = 200 ng/mL Performed By: #### D QUINONEZ #### [facility] ([id number]) [address] [place] [address] VIR CANNABINOIDS Positive Abnormal Negative [facility] Comment on above: Order Comment: Confi rmation available upon request. Result Comment: Amber abinoids/THC screening cut off value = 50 ng/mL Performed By: #### D QUINONEZ #### [facility] ([id number]) [address] [place] [address] VIR COCAINE METABOLITE Negative Normal Negative [facility] Comment on above: Order Comment: Confi rmation available upon request. Result Comment: Coca ine screening cut off value = 300 ng/mL Performed By: #### D QUINONEZ #### [facility] ([id number]) [address] [place] [address] VIR ECSTASY Negative Normal Negative [facility] Comment on above: Order Comment: Confi rmation available upon request. Result Comment: Ecst asy screening cut off value = 500 ng/mL Performed By: #### D QUINONEZ #### [facility] ([id number]) [address] [place] [address] VIR METHADONE Negative Normal Negative [facility] Comment on above: Order Comment: Confi rmation available upon request. Result Comment: Meth adone screening cut off value = 300 ng/mL. Performed By: #### D QUINONEZ #### [facility] ([id number]) [address] [place] [address] VIR OPIATES Negative Normal Negative [facility] Comment on above: Order Comment: Confi rmation available upon request. Result Comment: Opia zuri screening cut off value = 300 ng/mL This test is used for the detection of codeine, hydrocodone (>1000 ng/mL), morphine and hydromorphone (>900 ng/mL) in urine. Performed By: #### D QUINONEZ #### [facility] ([id number]) [address] [place] [address] VIR OXYCODONE Negative Normal Negative [facility] Comment on above: Order Comment: Confi rmation available upon request. Result Comment: Oxyc odone screening cut off value = 300 ng/mL This test is used for the detection of oxycodone and oxymorphone in urine. Performed By: #### D QUINONEZ #### [facility] ([id number]) [address] [place] [address] VIR PHENCYCLIDINE Negative Normal Negative [facility] Comment on above: Order Comment: Lexy lancaster available upon request. Result Comment: Phen cyclidine screening cut off value = 25 ng/mL Performed By: #### D QUINONEZ #### [facility] ([id number]) [facility] [place] [address] VIR ETHANOLon 12-09-2024 Ethanol [Mass/Vol] mg/dL Normal <=0.080 [facility] Comment on above: Result Comment: This report is intended for use in clinical monitoring or management of patients. Performed By: #### A LCO #### [facility] ([id number]) [address] [place] [address] VIR FENTANYL, URINE QUALITATIVEo n 12-09-2024 FENTANYL, URINE QUAL. Negative Normal Negative [facility] Comment on above: Order Comment: Fenta nyl screening cutoff = 5ng/ml This report is intended for use in clinical monitoring or management of patients. Performed By: #### U FEN #### [facility] ([id number]) [address] [place] [address] VIR HEMOGLOBIN A1Con 12-09-2024 Glucose [Mass/Vol] 309 mg/dL Normal [facility] Comment on above: Performed By: #### U FEN #### [facility] ([id number]) [address] [place] [address] VIR HbA1c (Bld) [Mass fraction] 12.4 % High 4.4-5.6 [facility] Comment on above: Result Comment: ADA Guidelines Result HgbA1c Normal : less than 5.7 % Prediabetes : 5.7 % to 6.4 % Diabetes : > 6.4 % Use with caution in patients with abnormal hemoglobin variants as the half-life of red blood cells and in vivo glycation rates are affected. Performed By: #### U FEN #### [facility] ([id number]) [address] [place] [address] VIR SALICYLATE LEVELon SALICYLATE <^2.5 Normal 2.0-25.0 [facility] Comment on above: Order Comment: Refer ence ranges are for therapeutic limits. Performed By: #### S ALI #### [facility] ([id number]) [address] [place] [address] VIR T4, FREEon 12-09-2024 Free T4 [Mass/Vol] 0.75 ng/dL Normal 0.61-1.60 [facility] Comment on above: Performed By: #### F T4 #### [facility] ([id number]) [address] [place] [address] VIR TSHon 12-09-2024 TSH 3.69 uIU/mL Normal 0.49-4.67 [facility] Comment on above: Performed By: #### T SH #### [facility] ([id number]) [address] [place] [address] VIR URINALYSISon 12-09-2024 Bilirubin Ql (U) Negative Normal Negative [facility] Comment on above: Order Comment: Urine received without preservative. Delays in transport may affect results. Interpret with caution. A clinical correlation is recommended. Performed By: #### U A #### [facility] ([id number]) [address] [place] [address] VIR BLOOD/HGB Small Abnormal Negative [facility] Comment on above: Order Comment: Urine received without preservative. Delays in transport may affect results. Interpret with caution. A clinical correlation is recommended. Performed By: #### U A #### [facility] ([id number]) [address] [place] [address] VIR Color (U) Yellow Normal Yellow, Colorless [facility] Comment on above: Order Comment: Urine received without preservative. Delays in transport may affect results. Interpret with caution. A clinical correlation is recommended. Performed By: #### U A #### [facility] ([id number]) [address] [place] [address] VIR Glucose Ql (U) >=1000 mg/dL Abnormal Negative, 250 mg/dL [facility] Comment on above: Order Comment: Urine received without preservative. Delays in transport may affect results. Interpret with caution. A clinical correlation is recommended. Performed By: #### U A #### [facility] ([id number]) [facility] [place] [address] VIR Ketones Ql (U) Negative Normal Negative [facility] Comment on above: Order Comment: Urine received without preservative. Delays in transport may affect results. Interpret with caution. A clinical correlation is recommended. Performed By: #### U A #### [facility] ([id number]) [facility] [place] [address] VIR Leukocyte esterase Test strip Ql (U) Negative Normal Negative [facility] Comment on above: Order Comment: Urine received without preservative. Delays in transport may affect results. Interpret with caution. A clinical correlation is recommended. Performed By: #### U A #### [facility] ([id number]) [address] [place] [address] VIR Nitrite Ql (U) Negative Normal Negative [facility] Comment on above: Order Comment: Urine received without preservative. Delays in transport may affect results. Interpret with caution. A clinical correlation is recommended. Performed By: #### U A #### [facility] ([id number]) [address] [place] [address] VIR PH,URINE 6.0 Normal 5.0-8.5 [facility] Comment on above: Order Comment: Urine received without preservative. Delays in transport may affect results. Interpret with caution. A clinical correlation is recommended. Performed By: #### U A #### [facility] ([id number]) [facility] [place] [address] VIR Protein Ql (U) Negative Normal Negative [facility] Comment on above: Order Comment: Urine received without preservative. Delays in transport may affect results. Interpret with caution. A clinical correlation is recommended. Performed By: #### U A #### [facility] ([id number]) [address] [place] [address] VIR R.B.CELLS 1 Normal 0-5 [facility] Comment on above: Order Comment: Urine received without preservative. Delays in transport may affect results. Interpret with caution. A clinical correlation is recommended. Performed By: #### U A #### [facility] ([id number]) [address] [place] [address] VIR Specific gravity (U) [Rel density] 1.015 Normal 1.003-1.035 [facility] Comment on above: Order Comment: Urine received without preservative. Delays in transport may affect results. Interpret with caution. A clinical correlation is recommended. Performed By: #### U A #### [facility] ([id number]) [facility] [place] [address] VIR TURBIDITY Clear Normal Clear [facility] Comment on above: Order Comment: Urine received without preservative. Delays in transport may affect results. Interpret with caution. A clinical correlation is recommended. Performed By: #### U A #### [facility] ([id number]) [address] [place] [address] VIR UROBILINOGEN 0.2 eu/dL Normal 0.2 eu/dL, 1.0 eu/dL [facility] Comment on above: Order Comment: Urine received without preservative. Delays in transport may affect results. Interpret with caution. A clinical correlation is recommended. Performed By: #### U A #### [facility] ([id number]) [address] [place] [address] VIR W.B.CELLS 0 Normal 0-5 [facility] Comment on above: Order Comment: Urine received without preservative. Delays in transport may affect results. Interpret with caution. A clinical correlation is recommended. Performed By: #### U A #### [facility] ([id number]) [address] [place] [address] VIR ECG 12 lead ECGon 09-07-2024 [address] [facility] [address] Electrocardiograph Report Signed Patient: Woody Hernandez MR#: [id number] : 1975 Acct:[id number] Age/Sex: 49 / M ADM Date: 09/07/24 Loc: Room: [address] [place] [address] Type: ADM IN Attending Dr: Anson Sutton [...] previous ECGs available Confirmed by Kody Ley ([id number]) on 09/07/2024 8:01:49 PM Referred By: Electronically Signed By: Kody Ley Transcribed By: MUS Signed By Kody Ley MD 09/07/242000 Normal [facility] Alanine aminotransferase [En zymatic activity/volume] in Serum or PlasmaOrdered By: Franklin Anand on 09-06-2024 ALT [Catalytic activity/Vol] Alanine aminotransferase [Enzymatic activity/volume] in Serum or Plasma 7-52 [facility] Albumin [Mass/volume] in Ser um or Plasma by Bromocresol green (BCG) dye binding methoOrdered By: Franklin Anand on 09-06-2024 Albumin BCG dye [Mass/Vol] Albumin [Mass/volume] in Serum or Plasma by Bromocresol green (BCG) dye binding metho 3.5-5.7 [facility] Alkaline phosphatase [Enzyma tic activity/volume] in Serum or PlasmaOrdered By: Franklin Anand on 09-06-2024 ALP [Catalytic activity/Vol] Alkaline phosphatase [Enzymatic activity/volume] in Serum or Plasma 34-104 [facility] Amphetamine Screen Ql (U)Ord ered By: PROVIDER TEMP on 09-06-2024 Amphetamines Ql (U) Amphetamines screen High Negativ e [facility] Appearance of UrineOrdered B y: Franklin Anand on 09-06-2024 Appearance (U) Urine appearance Clear [facility] Aspartate aminotransferase [ Enzymatic activity/volume] in Serum or PlasmaOrdered By: Franklin Anand on 09-06-2024 AST [Catalytic activity/Vol] Aspartate aminotransferase [Enzymatic activity/volume] in Serum or Plasma 13-39 [facility] Bacteria [Presence] in Urine by AutomatedOrdered By: Franklin Anand on 09-06-2024 Bacteria Auto Ql (U) Bacteria [Presence] in Urine by Automated None Seen [facility] Barbiturates [Presence] in U rine by Screen methodOrdered By: PROVIDER TEMP on 09-06-2024 Barbiturates Screen Ql (U) Barbiturates [Presence] in Urine by Screen method Negative [facility] Basophils Auto (Bld) [#/Vol] Ordered By: Franklin Anand on 09-06-2024 Basophils (Bld) [#/Vol] Automated basoph il count 0.0-0.2 [facility] Basophils/100 WBC Auto (Bld) Ordered By: Franklin Anand on 09-06-2024 Basophils/100 WBC (Bld) Automated basophil % . [facility] Benzodiazepines Screen Ql (U )Ordered By: PROVIDER TEMP on 09-06-2024 Benzodiazepines Ql (U) Benzodiazepines [Presence] in Urine by Screen method Negative [facility] Benzoylecgonine [Presence] i n Urine by Screen methodOrdered By: PROVIDER TEMP on 09-06-2024 Benzoylecgonine Screen Ql (U) Benzoylecgonine [Presence] in Urine by Screen method Negative [facility] Bilirubin Test strip Ql (U)O rdered By: Franklin Anand on 09-06-2024 Bilirubin Ql (U) Bilirubin.total [Presence] in Urine by Test strip Negative [facility] Bilirubin.total [Mass/volume ] in Serum or PlasmaOrdered By: Franklin Anand on 09-06-2024 Bilirubin [Mass/Vol] Bilirubin.total [Mass/volume] in Serum or Plasma 0.3-1.0 [facility] Calcium [Mass/volume] in Ser um or PlasmaOrdered By: Franklin Anand on 09-06-2024 Calcium [Mass/Vol] Calcium [Mass/volume ] in Serum or Plasma 8.6-10.3 [facility] Cannabinoids [Presence] in U rine by Screen methodOrdered By: KOURTNEY MARCELINO on 09-06-2024 Cannabinoids Screen Ql (U) Cannabinoids [Presence] in Urine by Screen method Negative [facility] Comment on above: These are unconfirme [...] l [Moles/volume] in Serum or Plasma 21.0-31.0 [facility] Chloride [Moles/volume] in S darrel or PlasmaOrdered By: Franklin Anand on 09-06-2024 Chloride [Moles/Vol] Chloride [Moles/volume] in Serum or Plasma 98-107 [facility] Cholesterol [Mass/volume] in Serum or PlasmaOrdered By: Anson Sutton on 09-06-2024 Cholesterol [Mass/Vol] Cholesterol [Mass/volume] in Serum or Plasma 140-200 [facility] Comment on above: Chol less than 200 m g/dl low riskChol 201-239 mg/dl borderline riskChol 240 mg/dl and greater high risk Cholesterol in HDL [Mass/vol ume] in Serum or PlasmaOrdered By: Anson Sutton on 09-06-2024 Cholesterol in HDL [Mass/Vol] Serum or plasma high density lipoprotein (HDL) cholesterol measurement 23-92 [facility] Comment on above: HDL CHOL ATP-III CLA SSIFICATION Cardiovascular RiskHDL > or equal to 60 mg/dL LOWHDL < 40 mg/dL HIGH Cholesterol in LDL Calc [Mas s/Vol]Ordered By: Anson Sutton on 09-06-2024 Cholesterol in LDL [Mass/Vol] Cholesterol in LDL [Mass/volume] in Serum or Plasma by calculation High 0-100 [facility] Comment on above: LDL ATP III CLASSIFI CATIONLDL less than 100 mg/dL OptimalLDL 100-129 mg/dL Near or above optimalLDL 130-159 mg/dL Borderline highLDL 160-189 mg/dL HighLDL greater than 189 mg/dL Very high Cholesterol in VLDL Calc [Ma ss/Vol]Ordered By: Anson Sutton on 09-06-2024 Cholesterol in VLDL [Mass/Vol] Cholesterol in VLDL [Mass/volume] in Serum or Plasma by calculation [facility] Color Auto (U)Ordered By: Alexis Anand on 09-06-2024 Color (U) Color of Urine by Auto Yellow [facility] Comprehensive Metabolic Pane nadir 09-06-2024 Albumin [Mass/Vol] 4.4 g/dL Normal 3.5-5.7 [facility] Comment on above: Performed By: #### C MP, ETOH, SCAN CBC #### [facility] [address] [place] [address] [place] Albumin/Globulin [Mass ratio] 1.5 {ratio} Normal [facility] Comment on above: Performed By: #### C MP, ETOH, SCAN CBC #### [facility] [address] [place] [address] [place] ALP [Catalytic activity/Vol] 64 U/L Normal 34-104 [facility] Comment on above: Performed By: #### C MP, ETOH, SCAN CBC #### [facility] [address] [place] [address] [place] ALT [Catalytic activity/Vol] 14 U/L Normal 7-52 [facility] Comment on above: Performed By: #### C MP, ETOH, SCAN CBC #### [facility] [address] [place] [id number] [place] Anion gap [Moles/Vol] 12.8 mmol/L Normal 6.0-15.0 [facility] Comment on above: Performed By: #### C MP, ETOH, SCAN CBC #### [facility] [address] [place] [id number] [place] AST [Catalytic activity/Vol] 18 U/L Normal 13-39 [facility] Comment on above: Performed By: #### C MP, ETOH, SCAN CBC #### [facility] [address] [place] [address] [place] Bilirubin [Mass/Vol] 0.7 mg/dL Normal 0.3-1.0 [facility] Comment on above: Performed By: #### C MP, ETOH, SCAN CBC #### [facility] [address] [place] [address] [place] Calcium [Mass/Vol] 9.3 mg/dL Normal 8.6-10.3 [facility] Comment on above: Performed By: #### C MP, ETOH, SCAN CBC #### [place] [address] [place] Chloride [Moles/Vol] 104 mmol/L Normal 98-107 [facility] Comment on above: Performed By: #### C MP, ETOH, SCAN CBC #### [place] [address] [place] CO2 [Moles/Vol] 28.1 mmol/L Normal 21.0-31.0 [facility] Comment on above: Performed By: #### C MP, ETOH, SCAN CBC #### [place] [address] [place] Creatinine [Mass/Vol] 1.20 mg/dL Normal 0.70-1.30 [facility] Comment on above: Performed By: #### C MP, ETOH, SCAN CBC #### [place] [address] [place] Creatinine Clr Calc Pharmacy 75.84 Normal [facility] Comment on above: Result Comment: PERF ORMED BY: [place] [address] PATHOLOGIST SERVICE AND REPAIR SUPERVISOR CAROLYN HECK M.D. Performed By: #### C MP, ETOH, SCAN CBC #### [place] [address] [place] GFR/1.73 sq M.predicted MDRD (S/P/Bld) [Vol rate/Area] mL/min/{1.73_m2} Normal [facility] Comment on above: Performed By: #### C MP, ETOH, SCAN CBC #### [address] Globulin (S) [Mass/Vol] 2.9 g/dL Normal [facility] Comment on above: Performed By: #### C MP, ETOH, SCAN CBC #### [address] Glucose [Mass/Vol] 97 mg/dL Significant change down 70-100 [facility] Comment on above: Result Comment: [facility] Glucose Reference Range is dependent on time and content of last meal. Glucose of more than 200 mg/dL in a nonstressed, ambulatory subject supports the diagnosis of Diabetes Mellitus. ADA recommended reference range Performed By: #### C MP, ETOH, SCAN CBC #### [address] Potassium [Moles/Vol] 3.9 mmol/L Normal 3.5-5.1 [facility] Comment on above: Performed By: #### C MP, ETOH, SCAN CBC #### [address] Protein [Mass/Vol] 7.3 g/dL Normal 6.4-8.9 [facility] Comment on above: Performed By: #### C MP, ETOH, SCAN CBC #### [address] Sodium [Moles/Vol] 141 mmol/L Normal 136-145 [facility] Comment on above: Performed By: #### C MP, ETOH, SCAN CBC #### [address] Urea nitrogen [Mass/Vol] 13 mg/dL Normal 7-25 [facility] Comment on above: Performed By: #### C MP, ETOH, SCAN CBC #### [place] [address] [place] Creatinine [Mass/volume] in Serum or PlasmaOrdered By: Franklin Anand on 09-06-2024 Creatinine [Mass/Vol] Creatinine [Mass/volume] in Serum or Plasma 0.70-1.30 [facility] Dipstick and Microscopicon 0 09-06-2024 Appearance (U) Clear Normal Clear [facility] Comment on above: Order Comment: Name Collection Type:: Clean-Voided Midstream Performed By: #### U RDS, ADDONUAPLUS #### [place] [address] [place] Bacteria,Urine None Seen Normal None Seen [facility] Comment on above: Order Comment: Name Collection Type:: Clean-Voided Midstream Performed By: #### U RDS, ADDONUAPLUS #### [place] [address] [place] Bilirubin,Urine Negative Normal Negative [facility] Comment on above: Order Comment: Name Collection Type:: Clean-Voided Midstream Performed By: #### U RDS, ADDONUAPLUS #### [address] Color (U) Yellow Normal Yellow [facility] Comment on above: Order Comment: Name Collection Type:: Clean-Voided Midstream Performed By: #### U RDS, ADDONUAPLUS #### [address] Glucose Ql (U) Normal Normal Normal [facility] Comment on above: Order Comment: Name Collection Type:: Clean-Voided Midstream Performed By: #### U RDS, ADDONUAPLUS #### [address] Hyaline Casts,Urine None Normal 0-8 [facility] Comment on above: Order Comment: Name Collection Type:: Clean-Voided Midstream Performed By: #### U RDS, ADDONUAPLUS #### [place] [address] [place] Ketones Ql (U) Negative Normal Negative [facility] Comment on above: Order Comment: Name Collection Type:: Clean-Voided Midstream Performed By: #### U RDS, ADDONUAPLUS #### [address] Leukocyte esterase Test strip Ql (U) Negative Normal Negative [facility] Comment on above: Order Comment: Name Collection Type:: Clean-Voided Midstream Performed By: #### U RDS, ADDONUAPLUS #### [address] Mucus,Urine 1+ Critically abnormal [facility] Comment on above: Order Comment: Name Collection Type:: Clean-Voided Midstream Result Comment: PERF ORMED BY: [place] [address] PATHOLOGIST SERVICE AND REPAIR SUPERVISOR CAROLYN HECK M.D. Performed By: #### U RDS, ADDONUAPLUS #### [place] [address] [place] Nitrite,Urine Negative Normal Negative [facility] Comment on above: Order Comment: Name Collection Type:: Clean-Voided Midstream Performed By: #### U RDS, ADDONUAPLUS #### [address] Occult Blood,Urine 2+ High Negative [facility] Comment on above: Order Comment: Name Collection Type:: Clean-Voided Midstream Result Comment: PERF ORMED BY: [place] [address] PATHOLOGIST SERVICE AND REPAIR SUPERVISOR CAROLYN HECK M.D. Performed By: #### U RDS, ADDONUAPLUS #### [address] pH (U) 5.5 [pH] Normal 5.0-9.0 [facility] Comment on above: Order Comment: Name Collection Type:: Clean-Voided Midstream Performed By: #### U RDS, ADDONUAPLUS #### [place] [address] [place] Protein (U) [Mass/Vol] 30 mg/dL High Negative [facility] Comment on above: Order Comment: Name Collection Type:: Clean-Voided Midstream Performed By: #### U RDS, ADDONUAPLUS #### [place] [address] [place] RBC,Urine Innumerable High 0-4 [facility] Comment on above: Order Comment: Name Collection Type:: Clean-Voided Midstream Performed By: #### U RDS, ADDONUAPLUS #### [address] Specificy [place],Urine 1.030 Normal 1.001-1.030 [facility] Comment on above: Order Comment: Name Collection Type:: Clean-Voided Midstream Performed By: #### U RDS, ADDONUAPLUS #### [address] Urobilinogen,Urine Normal Normal Normal [facility] Comment on above: Order Comment: Name Collection Type:: Clean-Voided Midstream Performed By: #### U RDS, ADDONUAPLUS #### [address] WBC,Urine 10-19 High 0-4 [facility] Comment on above: Order Comment: Name Collection Type:: Clean-Voided Midstream Performed By: #### U RDS, ADDONUAPLUS #### [address] Drug Screen,Urineon 09-07-19 25 Amphetamine Screen,Urine Positive High Negative [facility] Comment on above: Performed By: #### U RDS, ADDONUAPLUS #### [address] Barbiturate Screen,Urine Negative Normal Negative [facility] Comment on above: Performed By: #### U RDS, ADDONUAPLUS #### [address] Benzodiazepines Screen,Urine Negative Normal Negative [facility] Comment on above: Performed By: #### U RDS, ADDONUAPLUS #### [address] Cannabinoid Screen,Urine Negative Normal Negative [facility] Comment on above: Result Comment: Thes e are unconfirmed results and should not be used for legal purposes. Drug Cut-Off Concentration: AMPH 1000 ng/mL AMEE 200 ng/mL BETITO 200 ng/mL COCM 300 ng/mL OP 300 ng/mL PCP 25 ng/mL THC 20 ng/mL PERFORMED BY: [place] [address] PATHOLOGIST SERVICE AND REPAIR SUPERVISOR CAROLYN HECK M.D. Performed By: #### U RDS, ADDONUAPLUS #### [facility] [address] Cocaine Screen,Urine Negative Normal Negative [facility] Comment on above: Performed By: #### U RDS, ADDONUAPLUS #### [facility] [address] Opiate Screen,Urine Negative Normal Negative [facility] Comment on above: Performed By: #### U RDS, ADDONUAPLUS #### [facility] [address] Phencyclidine Screen,Urine Negative Normal Negative [facility] Comment on above: Performed By: #### U RDS, ADDONUAPLUS #### [facility] [address] [place] [address] [place] Eosinophils Auto (Bld) [#/Vo l]Ordered By: Franklin Anand on 09-06-2024 Eosinophils (Bld) [#/Vol] Automated eosinophil count 0.0-0.45 [facility] Eosinophils/100 WBC Auto (Bl d)Ordered By: Franklin Anand on 09-06-2024 Eosinophils/100 WBC (Bld) Automated eosinophil % . [facility] Epithelial cells.squamous [# /area] in Urine sediment by Automated countOrdered By: KOURTNEY MARCELINO on 09-06-2024 Epithelial cells.squamous Auto (Urine sed) [#/Area] Epithelial cells.squamous [#/area] in Urine sediment by Automated count [facility] Erythrocyte distribution wid th Auto (RBC) [Ratio]Ordered By: Franklin Anand on 09-06-2024 Erythrocyte distribution width (RBC) [Ratio] Erythrocyte distribution width [Ratio] by Automated count High 12.0-14.8 [facility] Erythrocyte morphology findi ng [Identifier] in BloodOrdered By: Franklin Anand on 09-06-2024 RBC morphology finding Nom (Bld) RBC morphology Normal [facility] Erythrocytes [#/area] in Uri ne sediment by Automated countOrdered By: Franklin Anand on 09-06-2024 RBC Auto (Urine sed) [#/Area] Erythrocytes [#/area] in Urine sediment by Automated count High 0-4 [facility] Ethanol [Mass/volume] in Ser um or PlasmaOrdered By: Franklin Anand on 09-06-2024 Ethanol [Mass/Vol] Ethanol [Mass/volume ] in Serum or Plasma [facility] Comment on above: Test not performed Ethyl Alcohol Profileon Ethanol [Mass/Vol] mg/dL Normal [facility] Comment on above: Performed By: #### C MP, ETOH, SCAN CBC #### [facility] [address] Percent Ethanol Not performed Normal [facility] Comment on above: Result Comment: PERF ORMED BY: [place] [address] PATHOLOGIST SERVICE AND REPAIR SUPERVISOR CAROLYN HECK M.D. Performed By: #### C MP, ETOH, SCAN CBC #### [facility] [address] [place] [address] Globulin Calc (S) [Mass/Vol] Ordered By: Franklin Anand on 09-06-2024 Globulin (S) [Mass/Vol] Serum globulin measurement by calculation (mass/volume) [facility] Glucose [Mass/volume] in Ser um or PlasmaOrdered By: Franklin Anand on 09-06-2024 Glucose [Mass/Vol] Glucose [Mass/volume ] in Serum or Plasma Significant change down 70-100 [facility] Comment on above: Delta: 255 on [...] [Mass/volume] in Urine by Test strip Normal [facility] Hematocrit Auto (Bld) [Volum e fraction]Ordered By: Franklin Anand on 09-06-2024 Hematocrit (Bld) [Volume fraction] Hematocrit [Volume Fraction] of Blood by Automated count High 38.8-50.0 [facility] Hemoglobin Test strip Ql (U) Ordered By: Franklin Anand on 09-06-2024 Hemoglobin Ql (U) Hemoglobin [Presence ] in Urine by Test strip High Negative [facility] Hemoglobin [Mass/volume] in BloodOrdered By: Franklin Anand on 09-06-2024 Hemoglobin (Bld) [Mass/Vol] Hemoglobin [Mass/volume] in Blood High 13.0-17.0 [facility] Hyaline casts [#/area] in Ur ine sediment by Automated countOrdered By: Franklin Anand on 09-06-2024 Hyaline casts Auto (Urine sed) [#/Area] Hyaline casts [#/area] in Urine sediment by Automated count 0-8 [facility] Ketones Test strip Ql (U)Ord ered By: Franklin Anand on 09-06-2024 Ketones Ql (U) Ketones [Presence] i n Urine by Test strip Negative [facility] Leukocyte esterase [Presence ] in Urine by Test stripOrdered By: Franklin Anand on 09-06-2024 Leukocyte esterase Test strip Ql (U) Leukocyte esterase [Presence] in Urine by Test strip Negative [facility] Leukocytes [#/area] in Urine sediment by Automated countOrdered By: Franklin Anand on 09-06-2024 WBC Auto (Urine sed) [#/Area] Leukocytes [#/area] in Urine sediment by Automated count High 0-4 [facility] Leukocytes [#/volume] correc leeroy for nucleated erythrocytes in Blood by Automated counOrdered By: Franklin Anand on 09-06-2024 WBC corrected for nucl RBC Auto (Bld) [#/Vol] Leukocytes [#/volume] corrected for nucleated erythrocytes in Blood by Automated coun High 4.1-10.5 [facility] Lipid Panelon 09-06-2024 Cholesterol [Mass/Vol] 180 mg/dL Normal 140-200 [facility] Comment on above: Order Comment: Comme nt use ER blood Result Comment: Chol less than 200 mg/dl low risk Chol 201-239 mg/dl borderline risk Chol 240 mg/dl and greater high risk Performed By: #### B MP, CBC, LIPASE, HEPATIC #### [facility] [address] Cholesterol in HDL [Mass/Vol] 37 mg/dL Normal 23-92 [facility] Comment on above: Order Comment: Comme nt use ER blood Result Comment: HDL CHOL ATP-III CLASSIFICATION Cardiovascular Risk HDL > or equal to 60 mg/dL LOW HDL < 40 mg/dL HIGH Performed By: #### B MP, CBC, LIPASE, HEPATIC #### [facility] [address] Cholesterol.total/Cecilia sterol in HDL [Mass ratio] 4.9 {ratio} Normal <5.0 [facility] Comment on above: Order Comment: Comme nt use ER blood Performed By: #### B MP, CBC, LIPASE, HEPATIC #### [facility] [address] LDL Cholesterol,Calculated 111 mg/dL High 0-100 [facility] Comment on above: Order Comment: Comme nt use ER blood Result Comment: LDL ATP III CLASSIFICATION LDL less than 100 mg/dL Optimal LDL 100-129 mg/dL Near or above optimal LDL 130-159 mg/dL Borderline high LDL 160-189 mg/dL High LDL greater than 189 mg/dL Very high Performed By: #### B MP, CBC, LIPASE, HEPATIC #### [address] Triglyceride w/Reflex 162 mg/dL High 0-149 [facility] Comment on above: Order Comment: Comme nt use ER blood Result Comment: TRIG ATP III CLASSIFICATION TRIG less than 150 mg/dL Normal TRIG 150-199 mg/dL Borderline high TRIG 200-500 mg/dL High TRIG greater than 500 mg/dL Very high Standard traceable to the Center for Disease Conrtrol and Prevention (CDC) test method. Performed By: #### B MP, CBC, LIPASE, HEPATIC #### [facility] [address] [place] [id number] [facility] VLDL CHOLESTEROL 32 mg/dL Normal [facility] Comment on above: Order Comment: Comme nt use ER blood Performed By: #### B MP, CBC, LIPASE, HEPATIC #### [facility] [address] [place] [id number] [facility] Lymphocytes Auto (Bld) [#/Vo l]Ordered By: Franklin Anand on 09-06-2024 Lymphocytes (Bld) [#/Vol] Lymphocytes [#/volume] in Blood by Automated count 1.00-4.8 [facility] Lymphocytes/100 WBC Auto (Bl d)Ordered By: Franklin Anand on 09-06-2024 Lymphocytes/100 WBC (Bld) Lymphocytes/100 leukocytes in Blood by Automated count . [facility] MCH Auto (RBC) [Entitic mass ]Ordered By: Franklin Anand on 09-06-2024 MCH (RBC) [Entitic mass] MCH [Entitic mass] by Automated count Low 27.5-35.2 [facility] MCHC Auto (RBC) [Mass/Vol]Or dered By: Franklin Anand on 09-06-2024 MCHC (RBC) [Mass/Vol] MCHC [Mass/volume] by Automated count Low 32.5-35.6 [facility] MCV Auto (RBC) [Entitic vol] Ordered By: Franklin Anand on 09-06-2024 MCV (RBC) [Entitic vol] MCV [Entitic vol ume] by Automated count Low 83.5-101 [facility] Monocyte distribution width [Entitic volume] in Blood by AutomatedOrdered By: Franklin Anadn on 09-06-2024 Monocyte distribution width Auto (Bld) [Entitic vol] Monocyte distribution width [Entitic volume] in Blood by Automated 0.00-20.00 [facility] Monocytes Auto (Bld) [#/Vol] Ordered By: Franklin Anand on 09-06-2024 Monocytes (Bld) [#/Vol] Automated blood monocyte count High 0.0-0.8 [facility] Monocytes/100 WBC Auto (Bld) Ordered By: Franklin Anand on 09-06-2024 Monocytes/100 WBC (Bld) Automated monocyte % . [facility] Mucus [Presence] in Urine by AutomatedOrdered By: Franklin Anand on 09-06-2024 Mucus Auto Ql (U) Mucus [Presence] in Urine by Automated Abnormal [facility] Neutrophils Auto (Bld) [#/Vo l]Ordered By: Franklin Anand on 09-06-2024 Neutrophils (Bld) [#/Vol] Neutrophils [#/volume] in Blood by Automated count 1.8-7.7 [facility] Neutrophils/100 WBC Auto (Bl d)Ordered By: Franklin Anand on 09-06-2024 Neutrophils/100 WBC (Bld) Automated neutrophil % . [facility] Nitrite Test strip Ql (U)Ord ered By: Franklin Anand on 09-06-2024 Nitrite Ql (U) Nitrite [Presence] i n Urine by Test strip Negative [facility] No Panel InformationOrdered By: Franklin Anand on 09-06-2024 Estimated GFR (CKD-EPI) > 60.0 mL/Min [facility] Creatinine Clearance (Chem 75.84 [facility] Nucleated erythrocytes [Pres ence] in Blood by Automated countOrdered By: Franklin Anand on 09-06-2024 Nucleated RBC Auto Ql (Bld) Nucleated erythrocytes [Presence] in Blood by Automated count 0-0.5 [facility] Opiates [Presence] in Urine by Screen methodOrdered By: PROVIDER TEMP on 09-06-2024 Opiates Screen Ql (U) Opiates [Presence] in Urine by Screen method Negative [facility] Phencyclidine Screen Ql (U)O rdered By: PROVIDER TEMP on 09-06-2024 Phencyclidine Ql (U) Phencyclidine [Presence] in Urine by Screen method Negative [facility] Platelet adequacy [Presence] in Blood by Light microscopyOrdered By: Franklin Anand on 09-06-2024 Platelets LM Ql (Bld) Platelet adequacy [Presence] in Blood by Light microscopy Normal [facility] Platelet mean volume Auto (B ld) [Entitic vol]Ordered By: Franklin Anand on 09-06-2024 Platelet mean volume (Bld) [Entitic vol] Platelet mean volume [Entitic volume] in Blood by Automated count 6.6-10.1 [facility] Platelet morphology finding [Identifier] in BloodOrdered By: Franklin Anand on 09-06-2024 Platelet morphology finding Nom (Bld) Platelet morphology finding [Identifier] in Blood Normal [facility] Platelets Auto (Bld) [#/Vol] Ordered By: Franklin Anand on 09-06-2024 Platelets (Bld) [#/Vol] Platelets [#/vol ume] in Blood by Automated count 150-450 [facility] Potassium [Moles/volume] in Serum or PlasmaOrdered By: Franklin Anand on 09-06-2024 Potassium [Moles/Vol] Potassium [Moles/volume] in Serum or Plasma 3.5-5.1 [facility] Protein Test strip (U) [Mass /Vol]Ordered By: Franklin Anand on 09-06-2024 Protein (U) [Mass/Vol] Protein [Mass/vol ume] in Urine by Test strip High Negative [facility] Protein [Mass/volume] in Ser um or PlasmaOrdered By: Franklin Anand on 09-06-2024 Protein [Mass/Vol] Protein [Mass/volume ] in Serum or Plasma 6.4-8.9 [facility] RBC Auto (Bld) [#/Vol]Ordere d By: Franklin Anand on 09-06-2024 RBC (Bld) [#/Vol] Erythrocytes [#/volume] in Blood by Automated count High 3.90-5.60 [facility] Scan and CBCon 09-06-2024 Basophils (Bld) [#/Vol] 0.1 10*3/uL Normal 0.0-0.2 [facility] Comment on above: Performed By: #### C MP, ETOH, SCAN CBC #### [facility] [address] [place] [address] [place] Basophils/100 WBC (Bld) 0.8 % Normal . Adi spencer [facility] Comment on above: Performed By: #### C MP, ETOH, SCAN CBC #### [facility] [address] [place] [id number] [place] Eosinophils (Bld) [#/Vol] 0.4 10*3/uL Normal 0.0-0.45 [facility] Comment on above: Performed By: #### C MP, ETOH, SCAN CBC #### [facility] [address] [place] [id number] [place] Eosinophils/100 WBC (Bld) 3.3 % Normal . [facility] Comment on above: Performed By: #### C MP, ETOH, SCAN CBC #### [address] Erythrocyte distribution width (RBC) [Ratio] 15.3 % High 12.0-14.8 [facility] Comment on above: Performed By: #### C MP, ETOH, SCAN CBC #### [address] Hematocrit (Bld) [Volume fraction] 53.5 % High 38.8-50.0 [facility] Comment on above: Performed By: #### C MP, ETOH, SCAN CBC #### [address] Hemoglobin (Bld) [Mass/Vol] 17.3 g/dL High 13.0-17.0 [facility] Comment on above: Performed By: #### C MP, ETOH, SCAN CBC #### [address] Lymphocytes (Bld) [#/Vol] 4.6 10*3/uL Normal 1.00-4.8 [facility] Comment on above: Performed By: #### C MP, ETOH, SCAN CBC #### [address] Lymphocytes/100 WBC (Bld) 41.5 % Normal . [facility] Comment on above: Performed By: #### C MP, ETOH, SCAN CBC #### [address] MCH (RBC) [Entitic mass] 26.8 pg Low 27.5-35.2 [facility] Comment on above: Performed By: #### C MP, ETOH, SCAN CBC #### [address] MCV (RBC) [Entitic vol] 83.1 fL Low 83.5-101 [facility] Comment on above: Performed By: #### C MP, ETOH, SCAN CBC #### [address] Mean Corpuscular HGB Conc 32.2 g/dL Low 32.5-35.6 [facility] Comment on above: Performed By: #### C MP, ETOH, SCAN CBC #### [place] [address] [place] Monocytes (Bld) [#/Vol] 0.9 10*3/uL High 0.0-0.8 [facility] Comment on above: Performed By: #### C MP, ETOH, SCAN CBC #### [place] [address] [place] Monocytes/100 WBC (Bld) 18.26 % Normal 0.00-20.00 [facility] Comment on above: Performed By: #### C MP, ETOH, SCAN CBC #### [place] [address] [place] Monocytes/100 WBC (Bld) 8.5 % Normal . [facility] Comment on above: Performed By: #### C MP, ETOH, SCAN CBC #### [place] [address] [place] Neutrophils (Bld) [#/Vol] 5.1 10*3/uL Normal 1.8-7.7 [facility] Comment on above: Performed By: #### C MP, ETOH, SCAN CBC #### [place] [address] [place] Neutrophils/100 WBC (Bld) 45.9 % Normal . [facility] Comment on above: Performed By: #### C MP, ETOH, SCAN CBC #### [place] [address] [place] NRBC% 0.3 /100{WBC} Normal 0-0.5 [facility] Comment on above: Performed By: #### C MP, ETOH, SCAN CBC #### [place] [address] [place] Platelet Estimate Normal Normal Normal [facility] Comment on above: Performed By: #### C MP, ETOH, SCAN CBC #### [address] Platelet mean volume (Bld) [Entitic vol] 8.3 fL Normal 6.6-10.1 [facility] Comment on above: Performed By: #### C MP, ETOH, SCAN CBC #### [address] Platelet Morphology Normal Normal Normal [facility] Comment on above: Result Comment: PERF ORMED BY: [place] [address] PATHOLOGIST SERVICE AND REPAIR SUPERVISOR CAROLYN HECK M.D. Performed By: #### C MP, ETOH, SCAN CBC #### [address] Platelets (Bld) [#/Vol] 270 10*3/uL Normal 150-450 [facility] Comment on above: Performed By: #### C MP, ETOH, SCAN CBC #### [address] RBC (Bld) [#/Vol] 6.45 10*6/uL High 3.90-5.60 [facility] Comment on above: Performed By: #### C MP, ETOH, SCAN CBC #### [address] RBC morphology finding Nom (Bld) Normal Normal Normal [facility] Comment on above: Performed By: #### C MP, ETOH, SCAN CBC #### [address] WBC (Bld) [#/Vol] 11.1 10*3/uL High 4.1-10.5 [facility] Comment on above: Performed By: #### C MP, ETOH, SCAN CBC #### [address] Serum or plasma albumin/glob ulin mass ratioOrdered By: Franklin Anand on 09-06-2024 Albumin/Globulin [Mass ratio] Serum or plasma albumin/globulin mass ratio [facility] Serum or plasma anion gap de terminationOrdered By: Franklin Anand on 09-06-2024 Anion gap [Moles/Vol] Serum or plasma an ion gap determination 6.0-15.0 [facility] Serum or plasma total choles terol/high density lipoprotein (HDL) cholesterol mass ratOrdered By: Anson Sutton on 09-06-2024 Cholesterol.total/Cecilia sterol in HDL [Mass ratio] Serum or plasma total cholesterol/high density lipoprotein (HDL) cholesterol mass rat <5.0 [facility] Sodium [Moles/volume] in Ser um or PlasmaOrdered By: Franklin Anand on 09-06-2024 Sodium [Moles/Vol] Sodium [Moles/volume ] in Serum or Plasma 136-145 [facility] Specific gravity Test strip (U) [Rel density]Ordered By: Franklin Anand on 09-06-2024 Specific gravity (U) [Rel density] Specific gravity of Urine by Test strip 1.001-1.030 [facility] Thyroid Stim Hormone w/Rflxo n 09-06-2024 Thyroid Stim Hormone w/Rflx 2.94 u[iU]/mL Normal 0.45-5.33 [facility] Comment on above: Order Comment: Comme nt use ER blood Performed By: #### B MP, CBC, LIPASE, HEPATIC #### [facility] [address] Thyrotropin [Units/volume] i n Serum or PlasmaOrdered By: Anson Sutton on 09-06-2024 TSH Qn Thyrotropin [Units/volume] in Serum or Plasma 0.45-5.33 [facility] Triglyceride [Mass/volume] i n Serum or PlasmaOrdered By: Anson Sutton on 09-06-2024 Triglyceride [Mass/Vol] Triglyceride [Mass/volume] in Serum or Plasma High 0-149 [facility] Comment on above: TRIG ATP III CLASSIF ICATIONTRIG less than 150 mg/dL NormalTRIG 150-199 mg/dL Borderline highTRIG 200-500 mg/dL High TRIG greater than 500 mg/dL Very highStandard traceable to the Center for Disease Conrtrol and Prevention (CDC) test method. Urea nitrogen [Mass/volume] in Serum or PlasmaOrdered By: Franklin Anand on 09-06-2024 Urea nitrogen [Mass/Vol] Urea nitrogen [Mass/volume] in Serum or Plasma 7-25 [facility] Urobilinogen Test strip (U) [Mass/Vol]Ordered By: Franklin Anand on 09-06-2024 Urobilinogen (U) [Mass/Vol] Urobilinogen [Mass/volume] in Urine by Test strip Normal [facility] Vitamin D 25 Hydroxy Totalon 09-06-2024 Vitamin D 25 Hydroxy Total 11.3 ng/mL Low 30-100 [facility] Comment on above: Order Comment: Comme nt use ER blood Result Comment: ETIENNE MIN D STATUS 25(OH)VITAMIN D RANGE (ng/mL) Deficient <20 Insufficient 20 to <30 Sufficient 30 to 100 Reference: Glenn Stoddard, Ronaldo MIR, et al. Evaluation,treatment, and prevention of vitamin D deficiency; an Endocrine Society clinical practice guideline. JCEM. 2010; 96(7):1911-30. PERFORMED BY: [place] [address] PATHOLOGIST SERVICE AND REPAIR SUPERVISOR CAROLYN HECK M.D. Performed By: #### B MP, CBC, LIPASE, HEPATIC #### [address] Vitamin D+Metabolites [Mass/ volume] in Serum or PlasmaOrdered By: Anson Sutton on 09-06-2024 Vitamin D+Metabolites [Mass/Vol] Vitamin D+Metabolites [Mass/volume] in Serum or Plasma Low 30-100 [facility] Comment on above: VITAMIN D STATUS [...] in Blood by Automated count High 4.1-10.5 [facility] pH Test strip (U)Ordered By: Franklin Anand on 09-06-2024 pH (U) pH of Urine by Test strip 5.0-9.0 [facility] Alanine aminotransferase [En zymatic activity/volume] in Serum or PlasmaOrdered By: Malia Matamoros on 09-05-2024 ALT [Catalytic activity/Vol] Alanine aminotransferase [Enzymatic activity/volume] in Serum or Plasma 752 [facility] Albumin [Mass/volume] in Ser um or Plasma by Bromocresol green (BCG) dye binding methoOrdered By: Malia Matamoros on 09-05-2024 Albumin BCG dye [Mass/Vol] Albumin [Mass/volume] in Serum or Plasma by Bromocresol green (BCG) dye binding metho 3.5-5.7 [facility] Alkaline phosphatase [Enzyma tic activity/volume] in Serum or PlasmaOrdered By: Malia Matamoros on 09-05-2024 ALP [Catalytic activity/Vol] Alkaline phosphatase [Enzymatic activity/volume] in Serum or Plasma 34-104 [facility] Aspartate aminotransferase [ Enzymatic activity/volume] in Serum or PlasmaOrdered By: Malia Matamoros on 09-05-2024 AST [Catalytic activity/Vol] Aspartate aminotransferase [Enzymatic activity/volume] in Serum or Plasma 13-39 [facility] Basic Metabolic Panelon Anion gap [Moles/Vol] 14.2 mmol/L Normal 6.0-15.0 [facility] Comment on above: Performed By: #### B MP, CBC, LIPASE, HEPATIC #### [facility] [address] [place] [address] [place] Calcium [Mass/Vol] 9.0 mg/dL Normal 8.6-10.3 [facility] Comment on above: Performed By: #### B MP, CBC, LIPASE, HEPATIC #### [facility] [address] [place] [id number] [place] Chloride [Moles/Vol] 103 mmol/L Normal 98-107 [facility] Comment on above: Performed By: #### B MP, CBC, LIPASE, HEPATIC #### [facility] [address] [place] [id number] [place] CO2 [Moles/Vol] 27.5 mmol/L Normal 21.0-31.0 [facility] Comment on above: Performed By: #### B MP, CBC, LIPASE, HEPATIC #### [facility] [address] Creatinine [Mass/Vol] 1.29 mg/dL Normal 0.70-1.30 [facility] Comment on above: Performed By: #### B MP, CBC, LIPASE, HEPATIC #### [address] Creatinine Clr Calc Pharmacy 70.24 Normal [facility] Comment on above: Performed By: #### B MP, CBC, LIPASE, HEPATIC #### [facility] [address] [place] [address] [place] GFR/1.73 sq M.predicted MDRD (S/P/Bld) [Vol rate/Area] mL/min/{1.73_m2} Normal [facility] Comment on above: Performed By: #### B MP, CBC, LIPASE, HEPATIC #### [address] Glucose [Mass/Vol] 255 mg/dL High 70-100 [facility] Comment on above: Result Comment: [facility] Glucose Reference Range is dependent on time and content of last meal. Glucose of more than 200 mg/dL in a nonstressed, ambulatory subject supports the diagnosis of Diabetes Mellitus. ADA recommended reference range Performed By: #### B MP, CBC, LIPASE, HEPATIC #### [address] Potassium [Moles/Vol] 3.7 mmol/L Normal 3.5-5.1 [facility] Comment on above: Performed By: #### B MP, CBC, LIPASE, HEPATIC #### [place] [address] [place] Sodium [Moles/Vol] 141 mmol/L Normal 136-145 [facility] Comment on above: Performed By: #### B MP, CBC, LIPASE, HEPATIC #### [address] Urea nitrogen [Mass/Vol] 17 mg/dL Normal 7-25 [facility] Comment on above: Performed By: #### B MP, CBC, LIPASE, HEPATIC #### [address] [address] [facility] Basophils Auto (Bld) [#/Vol] Ordered By: Malia Matamoros on 09-05-2024 Basophils (Bld) [#/Vol] Automated basoph il count 0.0-0.2 [facility] Basophils/100 WBC Auto (Bld) Ordered By: Malia Matamoros on 09-05-2024 Basophils/100 WBC (Bld) Automated basophil % . [facility] Bilirubin.direct [Mass/volum e] in Serum or PlasmaOrdered By: Malia Matamoros on 09-05-2024 Bilirubin.direct [Mass/Vol] Bilirubin.direct [Mass/volume] in Serum or Plasma Low 0.03-0.18 [facility] Comment on above: If the DBIL is less than 0.1, IBIL is not able to becalculated. Bilirubin.total [Mass/volume ] in Serum or PlasmaOrdered By: Malia Matamoros on 09-05-2024 Bilirubin [Mass/Vol] Bilirubin.total [Mass/volume] in Serum or Plasma 0.3-1.0 [facility] Calcium [Mass/volume] in Ser um or PlasmaOrdered By: Malia Matamoros on 09-05-2024 Calcium [Mass/Vol] Calcium [Mass/volume ] in Serum or Plasma 8.6-10.3 [facility] Carbon dioxide, total [Moles /volume] in Serum or PlasmaOrdered By: Malia Matamoros on 09-05-2024 CO2 [Moles/Vol] Carbon dioxide, tota l [Moles/volume] in Serum or Plasma 21.0-31.0 [facility] Chloride [Moles/volume] in S darrel or PlasmaOrdered By: Malia Matamoros on 09-05-2024 Chloride [Moles/Vol] Chloride [Moles/volume] in Serum or Plasma 98-107 [facility] Complete Blood Count Auto Di ffon 09-05-2024 Basophils (Bld) [#/Vol] 0.1 10*3/uL Normal 0.0-0.2 [facility] Comment on above: Result Comment: PERF ORMED BY: [facility] [address] [facility] [place] [address] PATHOLOGIST SERVICE AND REPAIR SUPERVISOR CAROLYN HECK M.D. Performed By: #### B MP, CBC, LIPASE, HEPATIC #### [address] Basophils/100 WBC (Bld) 1.1 % Normal . T johanna [facility] Comment on above: Performed By: #### B MP, CBC, LIPASE, HEPATIC #### [address] Eosinophils (Bld) [#/Vol] 0.2 10*3/uL Normal 0.0-0.45 [facility] Comment on above: Performed By: #### B MP, CBC, LIPASE, HEPATIC #### [address] Eosinophils/100 WBC (Bld) 1.8 % Normal . [facility] Comment on above: Performed By: #### B MP, CBC, LIPASE, HEPATIC #### [address] Erythrocyte distribution width (RBC) [Ratio] 15.5 % High 12.0-14.8 [facility] Comment on above: Performed By: #### B MP, CBC, LIPASE, HEPATIC #### [address] Hematocrit (Bld) [Volume fraction] 50.4 % High 38.8-50.0 [facility] Comment on above: Performed By: #### B MP, CBC, LIPASE, HEPATIC #### [address] Hemoglobin (Bld) [Mass/Vol] 16.4 g/dL Normal 13.0-17.0 [facility] Comment on above: Performed By: #### B MP, CBC, LIPASE, HEPATIC #### [address] Lymphocytes (Bld) [#/Vol] 3.2 10*3/uL Normal 1.00-4.8 [facility] Comment on above: Performed By: #### B MP, CBC, LIPASE, HEPATIC #### [address] [address] [place] Lymphocytes/100 WBC (Bld) 27.9 % Normal . [facility] Comment on above: Performed By: #### B MP, CBC, LIPASE, HEPATIC #### [address] MCH (RBC) [Entitic mass] 26.9 pg Low 27.5-35.2 [facility] Comment on above: Performed By: #### B MP, CBC, LIPASE, HEPATIC #### [address] MCV (RBC) [Entitic vol] 82.8 fL Low 83.5-101 [facility] Comment on above: Performed By: #### B MP, CBC, LIPASE, HEPATIC #### [address] Mean Corpuscular HGB Conc 32.5 g/dL Normal 32.5-35.6 [facility] Comment on above: Performed By: #### B MP, CBC, LIPASE, HEPATIC #### [address] Monocytes (Bld) [#/Vol] 0.9 10*3/uL High 0.0-0.8 [facility] Comment on above: Performed By: #### B MP, CBC, LIPASE, HEPATIC #### [address] Monocytes/100 WBC (Bld) 16.39 % Normal 0.00-20.00 [facility] Comment on above: Performed By: #### B MP, CBC, LIPASE, HEPATIC #### [address] Monocytes/100 WBC (Bld) 7.8 % Normal . [facility] Comment on above: Performed By: #### B MP, CBC, LIPASE, HEPATIC #### [address] Neutrophils (Bld) [#/Vol] 7.0 10*3/uL Normal 1.8-7.7 [facility] Comment on above: Performed By: #### B MP, CBC, LIPASE, HEPATIC #### [address] Neutrophils/100 WBC (Bld) 61.4 % Normal . [facility] Comment on above: Performed By: #### B MP, CBC, LIPASE, HEPATIC #### [address] NRBC% 0.1 /100{WBC} Normal 0-0.5 [facility] Comment on above: Performed By: #### B MP, CBC, LIPASE, HEPATIC #### [address] Platelet mean volume (Bld) [Entitic vol] 8.0 fL Normal 6.6-10.1 [facility] Comment on above: Performed By: #### B MP, CBC, LIPASE, HEPATIC #### [address] Platelets (Bld) [#/Vol] 237 10*3/uL Normal 150-450 [facility] Comment on above: Performed By: #### B MP, CBC, LIPASE, HEPATIC #### [address] RBC (Bld) [#/Vol] 6.09 10*6/uL High 3.90-5.60 [facility] Comment on above: Performed By: #### B MP, CBC, LIPASE, HEPATIC #### [address] WBC (Bld) [#/Vol] 11.4 10*3/uL High 4.1-10.5 [facility] Comment on above: Performed By: #### B MP, CBC, LIPASE, HEPATIC #### [address] Creatinine [Mass/volume] in Serum or PlasmaOrdered By: Malia Matamoros on 09-05-2024 Creatinine [Mass/Vol] Creatinine [Mass/volume] in Serum or Plasma 0.70-1.30 [facility] Eosinophils Auto (Bld) [#/Vo l]Ordered By: Malia Matamoros on 09-05-2024 Eosinophils (Bld) [#/Vol] Automated eosinophil count 0.0-0.45 [facility] Eosinophils/100 WBC Auto (Bl d)Ordered By: Malia Matamoros on 09-05-2024 Eosinophils/100 WBC (Bld) Automated eosinophil % . [facility] Erythrocyte distribution wid th Auto (RBC) [Ratio]Ordered By: Malia Matamoros on 09-05-2024 Erythrocyte distribution width (RBC) [Ratio] Erythrocyte distribution width [Ratio] by Automated count High 12.0-14.8 [facility] Globulin Calc (S) [Mass/Vol] Ordered By: Malia Matamoros on 09-05-2024 Globulin (S) [Mass/Vol] Serum globulin measurement by calculation (mass/volume) [facility] Glucose [Mass/volume] in Ser um or PlasmaOrdered By: Malia Matamoros on 09-05-2024 Glucose [Mass/Vol] Glucose [Mass/volume ] in Serum or Plasma High 70-100 [facility] Comment on above: ADA recommended refe rence rangeRandom Glucose Reference Range is dependent on time and content of last meal. Glucose of more than 200 mg/dL in a nonstressed, ambulatory subject supports the diagnosis of Diabetes Mellitus. Hematocrit Auto (Bld) [Volum e fraction]Ordered By: Malia Matamoros on 09-05-2024 Hematocrit (Bld) [Volume fraction] Hematocrit [Volume Fraction] of Blood by Automated count High 38.8-50.0 [facility] Hemoglobin [Mass/volume] in BloodOrdered By: Malia Matamoros on 09-05-2024 Hemoglobin (Bld) [Mass/Vol] Hemoglobin [Mass/volume] in Blood 13.0-17.0 [facility] Hepatic Panelon 09-05-2024 Albumin [Mass/Vol] 4.1 g/dL Normal 3.5-5.7 [facility] Comment on above: Performed By: #### B MP, CBC, LIPASE, HEPATIC #### [facility] [address] Albumin/Globulin [Mass ratio] 1.5 {ratio} Normal [facility] Comment on above: Performed By: #### B MP, CBC, LIPASE, HEPATIC #### [address] ALP [Catalytic activity/Vol] 62 U/L Normal 34-104 [facility] Comment on above: Performed By: #### B MP, CBC, LIPASE, HEPATIC #### [address] ALT [Catalytic activity/Vol] 13 U/L Normal 7-52 [facility] Comment on above: Performed By: #### B MP, CBC, LIPASE, HEPATIC #### [address] AST [Catalytic activity/Vol] 17 U/L Normal 13-39 [facility] Comment on above: Performed By: #### B MP, CBC, LIPASE, HEPATIC #### [address] Bilirubin [Mass/Vol] 0.3 mg/dL Normal 0.3-1.0 [facility] Comment on above: Performed By: #### B MP, CBC, LIPASE, HEPATIC #### [address] Bilirubin,Indirect 0.3 mg/dL Normal [facility] Comment on above: Performed By: #### B MP, CBC, LIPASE, HEPATIC #### [address] Bilirubin.indirect [Mass/Vol] 0.00 mg/dL Low 0.03-0.18 [facility] Comment on above: Result Comment: If t DBIL is less than 0.1, IBIL is not able to be calculated. Performed By: #### B MP, CBC, LIPASE, HEPATIC #### [address] Globulin (S) [Mass/Vol] 2.7 g/dL Normal T [facility] Comment on above: Performed By: #### B MP, CBC, LIPASE, HEPATIC #### [address] Protein [Mass/Vol] 6.8 g/dL Normal 6.4-8.9 [facility] Comment on above: Performed By: #### B MP, CBC, LIPASE, HEPATIC #### [facility] [address] [place] [address] [place] Leukocytes [#/volume] correc leeroy for nucleated erythrocytes in Blood by Automated counOrdered By: Malia Matamoros on 09-05-2024 WBC corrected for nucl RBC Auto (Bld) [#/Vol] Leukocytes [#/volume] corrected for nucleated erythrocytes in Blood by Automated coun High 4.1-10.5 [facility] Lipaseon 09-05-2024 Lipase [Catalytic activity/Vol] 68.0 U/L Normal 11.0-82.0 [facility] Comment on above: Result Comment: PERF ORMED BY: [address] [place] [address] PATHOLOGIST SERVICE AND REPAIR SUPERVISOR CAROLYN HECK M.D. Performed By: #### B MP, CBC, LIPASE, HEPATIC #### [facility] [address] Lipase [Enzymatic activity/v olume] in Serum or PlasmaOrdered By: Malia Matamoros on 09-05-2024 Lipase [Catalytic activity/Vol] Lipase [Enzymatic activity/volume] in Serum or Plasma 11.0-82.0 [facility] Lymphocytes Auto (Bld) [#/Vo l]Ordered By: Malia Matamoros on 09-05-2024 Lymphocytes (Bld) [#/Vol] Lymphocytes [#/volume] in Blood by Automated count 1.00-4.8 [facility] Lymphocytes/100 WBC Auto (Bl d)Ordered By: Malia Matamoros on 09-05-2024 Lymphocytes/100 WBC (Bld) Lymphocytes/100 leukocytes in Blood by Automated count . [facility] MCH Auto (RBC) [Entitic mass ]Ordered By: Malia Matamoros on 09-05-2024 MCH (RBC) [Entitic mass] MCH [Entitic mass] by Automated count Low 27.5-35.2 [facility] MCHC Auto (RBC) [Mass/Vol]Or dered By: Malia Matamoros on 09-05-2024 MCHC (RBC) [Mass/Vol] MCHC [Mass/volume] by Automated count 32.5-35.6 [facility] MCV Auto (RBC) [Entitic vol] Ordered By: Malia Matamoros on 09-05-2024 MCV (RBC) [Entitic vol] MCV [Entitic vol ume] by Automated count Low 83.5-101 [facility] Monocyte distribution width [Entitic volume] in Blood by AutomatedOrdered By: Malia Matamoros on 09-05-2024 Monocyte distribution width Auto (Bld) [Entitic vol] Monocyte distribution width [Entitic volume] in Blood by Automated 0.00-20.00 [facility] Monocytes Auto (Bld) [#/Vol] Ordered By: Malia Matamoros on 09-05-2024 Monocytes (Bld) [#/Vol] Automated blood monocyte count High 0.0-0.8 [facility] Monocytes/100 WBC Auto (Bld) Ordered By: Malia Matamoros on 09-05-2024 Monocytes/100 WBC (Bld) Automated monocyte % . [facility] Neutrophils Auto (Bld) [#/Vo l]Ordered By: Malia Matamoros on 09-05-2024 Neutrophils (Bld) [#/Vol] Neutrophils [#/volume] in Blood by Automated count 1.8-7.7 [facility] Neutrophils/100 WBC Auto (Bl d)Ordered By: Malia Matamoros on 09-05-2024 Neutrophils/100 WBC (Bld) Automated neutrophil % . [facility] No Panel InformationOrdered By: Malia Matamoros on 09-05-2024 Estimated GFR (CKD-EPI) > 60.0 mL/Min [facility] Creatinine Clearance (Chem 70.24 [facility] Nucleated erythrocytes [Pres ence] in Blood by Automated countOrdered By: Malia Matamoros on 09-05-2024 Nucleated RBC Auto Ql (Bld) Nucleated erythrocytes [Presence] in Blood by Automated count 0-0.5 [facility] Platelet mean volume Auto (B ld) [Entitic vol]Ordered By: Malia Matamoros on 09-05-2024 Platelet mean volume (Bld) [Entitic vol] Platelet mean volume [Entitic volume] in Blood by Automated count 6.6-10.1 [facility] Platelets Auto (Bld) [#/Vol] Ordered By: Malia Matamoros on 09-05-2024 Platelets (Bld) [#/Vol] Platelets [#/vol ume] in Blood by Automated count 150-450 [facility] Potassium [Moles/volume] in Serum or PlasmaOrdered By: Malia Matamoros on 09-05-2024 Potassium [Moles/Vol] Potassium [Moles/volume] in Serum or Plasma 3.5-5.1 [facility] Protein [Mass/volume] in Ser um or PlasmaOrdered By: Malia Matamoros on 09-05-2024 Protein [Mass/Vol] Protein [Mass/volume ] in Serum or Plasma 6.4-8.9 [facility] RBC Auto (Bld) [#/Vol]Ordere d By: Malia Matamoros on 09-05-2024 RBC (Bld) [#/Vol] Erythrocytes [#/volume] in Blood by Automated count High 3.90-5.60 [facility] Serum or plasma albumin/glob ulin mass ratioOrdered By: Malia Matamoros on 09-05-2024 Albumin/Globulin [Mass ratio] Serum or plasma albumin/globulin mass ratio [facility] Serum or plasma anion gap de terminationOrdered By: Malia Matamoros on 09-05-2024 Anion gap [Moles/Vol] Serum or plasma an ion gap determination 6.0-15.0 [facility] Serum or plasma non-glucuron idated bilirubin measurement (mass/volume)Ordered By: Malia Matamoros on 09-05-2024 Bilirubin.indirect [Mass/Vol] Serum or plasma non-glucuronidated bilirubin measurement (mass/volume) [facility] Sodium [Moles/volume] in Ser um or PlasmaOrdered By: Malia Matamoros on 09-05-2024 Sodium [Moles/Vol] Sodium [Moles/volume ] in Serum or Plasma 136-145 [facility] Urea nitrogen [Mass/volume] in Serum or PlasmaOrdered By: Malia Matamoros on 09-05-2024 Urea nitrogen [Mass/Vol] Urea nitrogen [Mass/volume] in Serum or Plasma 7-25 [facility] WBC Auto (Bld) [#/Vol]Ordere d By: Malia Matamoros on 09-05-2024 WBC (Bld) [#/Vol] Leukocytes [#/volume ] in Blood by Automated count High 4.1-10.5 [facility] Vital Signs Date Time Vital Sign Value Performing Clinician Haley isabella 09-09-2024 07:30-0500 Body temperature 98.2 [degF] Malia Matamoros MD Work Phone: [facility] 09-09-2024 07:30-0500 Diastolic blood pressure 109 mm[Hg] Malia Matamoros MD Work Phone: [facility] 09-09-2024 07:30-0500 Heart rate 70 /min Malia Matamoros MD Work Phone: [facility] 09-09-2024 07:30-0500 Respiratory rate 20 /min Malia Matamoros MD Work Phone: [facility] 09-09-2024 07:30-0500 SaO2% (BldA) [Mass fraction] 96 % Malia Matamoros MD Work Phone: [facility] 09-09-2024 07:30-0500 Systolic blood pressure 168 mm[Hg] Malia Matamoros MD Work Phone: [facility] 09-07-2024 13:54-0500 Body height 165.1 cm Malia Matamoros MD Work Phone: [facility] 09-07-2024 03:24-0500 Body weight 90.46 kg Malia Matamoros MD Work Phone: [facility] 09-07-2024 00:13-0500 Body temperature 98.6 [degF] Malia Matamoros MD Work Phone: [facility] 09-07-2024 00:13-0500 Diastolic blood pressure 84 mm[Hg] Malia Matamoros MD Work Phone: [facility] 09-07-2024 00:13-0500 Heart rate 63 /min Malia Matamoros MD Work Phone: [facility] 09-07-2024 00:13-0500 Respiratory rate 20 /min Malia Matamoros MD Work Phone: [facility] 09-07-2024 00:13-0500 SaO2% (BldA) [Mass fraction] 96 % Malia Matamoros MD Work Phone: [facility] 09-07-2024 00:13-0500 Systolic blood pressure 134 mm[Hg] Malia Matamoros MD Work Phone: [facility] 09-06-2024 16:10-0500 Body height 165.1 cm Malia Matamoros MD Work Phone: [facility] 09-06-2024 16:10-0500 Body weight 91.8 kg Malia Matamoros MD Work Phone: [facility] 09-06-2024 05:00-0500 Diastolic blood pressure 71 mm[Hg] Malia Matamoros MD Work Phone: [facility] 09-06-2024 05:00-0500 Heart rate 75 /min Malia Matamoros MD Work Phone: [facility] 09-06-2024 05:00-0500 Respiratory rate 18 /min Malia Matamoros MD Work Phone: [facility] 09-06-2024 05:00-0500 SaO2% (BldA) [Mass fraction] 97 % Malia Matamoros MD Work Phone: [facility] 09-05-2024 23:24-0500 Body temperature 98.7 [degF] Malia Matamoros MD Work Phone: [facility] 09-05-2024 23:22-0500 Body height 165.1 cm Malia Matamoros MD Work Phone: [facility] 09-05-2024 23:22-0500 Body weight 91 kg Malia Matamoros MD Work Phone: [facility] Encounters Encounter Date Encounter Type Care Provider Facility Start: 02-15-2025 End: 02-17-2025 Telephone encounter Makenna Kulkarni RN [facility] Start: 02-13-2025 End: 02-13-2025 Telephone encounter Sepideh Saleem CMA [facility] Start: 02-07-2025 ambulatory [facility] Start: 02-06-2025 End: 02-06-2025 Orders Only Makenna Kulkarni RN [facility] Comment on above: Cerebrovascular acci dent (CVA), unspecified mechanism (CMS- HCC) (Primary Dx); Other cerebrovascular vasospasm and vasoconstriction Start: 02-02-2025 End: 02-05-2025 Emergency department patient visit [facility] Start: 01-03-2025 ambulatory [facility] Start: 01-02-2025 End: 01-17-2025 Telephone encounter Makenna Kulkarni RN [facility] Start: 01-01-2025 End: 01-08-2025 Emergency department patient visit [facility] Start: 12-15-2024 End: 12-15-2024 Emergency department patient visit LYNN MANZO [facility] Start: 12-14-2024 End: 12-14-2024 Emergency department patient visit NÉSTOR MURRAY [facility] Start: 12-09-2024 End: 12-14-2024 Evaluation and management of inpatient MUNIRA Lang COMPA [facility] Start: 11-15-2024 End: 11-15-2024 Patient encounter procedure Leelee Jclayla [facility] Start: 09-13-2024 ambulatory PHYSICIAN [facility] Fac ility:[facility] Start: 09-07-2024 Non-patient / Non-visit Malia Matamoros MD Work Phone: [facility] Work Phone: Start: 09-07-2024 End: 09-09-2024 Evaluation and management of inpatient Malia Matamoros MD Work Phone: [facility] Work Phone: Start: 09-05-2024 End: 09-06-2024 Emergency department patient visit Malia Matamoros MD Work Phone: [facility] Work Phone: Plan of Treatment Date Care Activity Detail Author Start: 12-09-2025 Adult BMI Screening [facility] Screen [facility] Start: 12-09-2025 Tobacco Screening Tobacco Screening [facility] Start: 03-06-2025 Influenza vaccination Influenza Vacc ine [facility] Start: 02-13-2025 End: 02-13-2025 Patient encounter procedure 02/13/2025 4:00 PM EDT Office Visit [facility] [address] [place] [address] Sarah Angulo, RAI-VAULT CUSTODIAN [address] [place] [address] [facility] Start: 02-06-2025 End: 02-06-2026 Wireless Telemetry (In Office) [facility] Work Phone: Comment on above: Expected: 02/06/2025 , Expires: 02/06/2026 Start: 09-09-2024 [facility] Start: 09-07-2024 Hospital admission [facility] Start: 09-07-2024 [facility] Start: 09-06-2024 [facility] Start: 2023 Administration of varicella zoster vaccine Zoster (Shingles) Vaccine (1 of 2) [facility] Start: 1992 DTaP,Tdap and Td Vac cines (1 - Tdap) DTaP,Tdap and Td Vaccines (1 - Tdap) [facility] Start: 1991 Adult BMI Follow Up Plan Adult BMI Follow Up Plan [facility] Start: 1991 Adult BMI Screening Adult BMI Screen ing [facility] Start: 1985 Depression Screening Depression Scre ening [facility] Start: 1985 Tobacco Screening Tobacco Screening [facility] Start: 1973 Tobacco Counseling Tobacco Counselin g [facility] Patient Education [facility] Work Phone: Patient referral [facility] Work Phone: Immunizations Immunization Date Immunization Notes Care Provider Fa deysi 09-08-2024 influenza, seasonal, injectable, preservative free Malia Matamoros MD Work Phone: [facility] 09-08-2024 influenza virus vaccine, unspecified formulation Makenna Kulkarni RN [facility] Payers Date Payer Category Payer Medicare [id number] 2024 Self-pay 2024 Medicare O [employer]ARE [id number] 2024 Private Health Insurance [id number] 2024 Medicaid MEDICAID [facility] [id number] 2024 Medicaid [id number] 1973 Unknown [id number] 2.16.840.1.629077.3.579. 2.175 1973 Unknown [id number] 2.16.840.1.618873.3.579. 2.175 1973 Unknown [id number] 2.16.840.1.035019.3.579. 2.1285 1973 Unknown [id number] 2.16.840.1.447283.3.579. 2.1285 1973 Unknown [id number] 2.16.840.1.003464.3.579. 2.1285 1973 Unknown [id number] 2.16.840.1.965823.3.579. 2.1285 1973 Unknown [id number] 2.16.840.1.546411.3.579. 2.1285 1973 Unknown [id number] 2.16.840.1.728901.3.579. 2.1285 1973 Unknown [id number] 2.16.840.1.729269.3.579. 2.1285 1973 Unknown [id number] 2.16.840.1.282406.3.579. 2.1285 1973 Unknown [id number] 2.16.840.1.580351.3.579. 2.1285 1973 Unknown [id number] 2.16.840.1.313112.3.579. 2.1285 1973 Unknown [id number] 2.16.840.1.626550.3.579. 2.1285 1973 Unknown [id number] 2.16.840.1.786895.3.579. 2.1286 Unknown [id number] 2.16.840.1.970243.3.579. 2.531 Unknown [id number] 2.16.840.1.104571.3.579. 2.531 Unknown [id number] 2.16.840.1.714884.3.579. 2.531 Social History Date Type Detail Facility Start: 09-05-2024 End: 09-06-2024 Tobacco smoking status NHIS Smoker (finding) [facility] Start: 05-23-2024 End: 09-06-2024 Sex Male (finding) [facility] Start: 1975 Sex Assigned At Male F [facility] Start: 09-07-2024 Tobacco smoking stat [facility] Current Heavy tobacco smoker [facility] Tobacco smoking stat [facility] Tobacco smoking consumption unknown [facility] Start: 1975 Sex assigned at Not on file P [facility] Start: 12-09-2024 Gender identity Not on file [facility] Start: 12-09-2024 Tobacco smoking stat [facility] Smokes tobacco daily [facility] History of tobacco use Cigarette Smoker P [facility] Start: 12-09-2024 Tobacco use and exposure Smokeless tobacco non-user [facility] Start: 12-10-2024 Alcoholic beverage intake Current drinker of alcohol (finding) [facility] Start: 12-09-2024 History of Social function [facility] Start: 12-09-[address] [facility] Goals Date Patient Goal Desired Activity /State Functional Status Date Assessment Result Facility 09-09-2024 Functional status Patient at [facility] Work Phone: Mental Status Date Assessment Result Facility 09-09-2024 Cognitive function Cognitive Sta tus Patient at Baseline [facility] Work Phone: Clinical Notes 09-06-2024 to 02-15-2025 [...] try again later. documented in this encounter [facility] 02-15-2025 Telephone encount er Note According to [employer] website, patient has not yet activated event monitor. It was delivered on 02/10. Please call and ask patient if they received it and if they are able to complete the monitoring. [facility] 02-15-2025 Telephone encount er Note Called patient. Unavailable; vm box not set up. Will try again later. [facility] 02-13-2025 Miscellaneous Notes Formattin g of this note might be different from the original. CALLED Thursday02/10/25 NO VOICEMAIL TO RESCHEDULE TODAY'S APPT AT 4PM WITH FRANKLYN. CALLED AGAIN AT 326PM NO VOICEMAIL UNABLE TO LEAVE MSG TO RESCHEDULE. SENT ATTEMPT TO CONTACT LETTER. documented in this encounter [facility] 02-13-2025 Telephone encount er Note CALLED Thursday02/10/25 NO VOICEMAIL TO RESCHEDULE TODAY'S APPT AT 4PM WITH FRANKLYN. CALLED AGAIN AT 326PM NO VOICEMAIL UNABLE TO LEAVE MSG TO RESCHEDULE. SENT ATTEMPT TO CONTACT LETTER. [facility] 01-02-2025 Miscellaneous Notes Formattin g of this note might be different from the original. Patient seen via telemedicine at [facility] with Dr. Ordaz. Patient needs 4-5 week follow up tele appt and then we will plan to do dsa with Dr. Vanessa after the appt. Please call to schedule. Called patient and no answer, mailbox is full Called patient an no answer, vm is still full Called patients brother and left VM documented in this encounter [facility] 01-02-2025 Telephone encount er Note Patient seen via telemedicine at [facility] with Dr. Ordaz. Patient needs 4-5 week follow up tele appt and then we will plan to do dsa with Dr. Vanessa after the appt. Please call to schedule. [facility] 01-02-2025 Telephone encount er Note Called patient and no answer, mailbox is full [facility] 01-02-2025 Telephone encount er Note Called patient an no answer, vm is still full Called patients brother and left VM [facility] 11-15-2024 History of Presen t illness Narrative Patient visited the [facility] and received food on 11/15/24. [facility] documented in this encounter [facility] 09-09-2024 Discharge summary Note Date/Time September 09, 2024 1:11 pm [facility] [address] [place], [place] [id number] Discharge Summary Signed Patient: Woody Hernandez MR#: [id number] 330 : 1975 Acct:[id number] Age/Sex: 49 / M Adm Date: 5 Loc: 1S Room: [address] [place] [address]: Anson Sutton MD Copies to: [...] cut himself. Patient has been visiting from [place]. Came here to visit about6 weeks ago. [...] Instructions: Important Contact Information You can call [facility] at [phone] any time day or night if you have emergent questions or question regarding discharge instructions. If at any time you are feeling an increase inyour psychiatric symptoms, call your physician or behavioral healthcare provider. If any time you have thoughts of harming yourself or others contact one of the following: Call 8 (available 26/01) Crisis Text Line (available 26/01) text 4HOPE to [phone] [facility] (available 8 a.m. Midnight) call [phone] ([phone]) Regular Diet No Activity Restrictions Received Abilify Maintena 400mg Injection on 09/08/24. Next dose is due on 10/06/24. Instructions: Bipolar disorder - Discharge instructions, [facility] Inst[facility], Know your Meds Prescriptions: New aripiprazole 10 mg Tablet 10 mg PO DAILY 12 Days Qty: 12 0RF Abilify Maintena 400 mg suspension,extended rel recon 400 mg IM Q28D Qty: 1 0RF Rx Instructions: Due on or about 10/06/24 Follow Up: [facility] [Other] (Follow-up with the [facility] on Thursday at 9am. The [facility] accepts walk-ins. You will need your insurance information and proof of income. ) [facility] [Other] (Call for any medical needs) Exam Physical Exam Vital Signs: Temp Pulse Resp BP Pulse Ox O2 Del Method 98.2 F 70 20 168/109 H 96 Room Air 09/09/24 07:30 09/09/24 07:30 09/09/24 07:30 09/09/24 07:30 09/09/24 07:30 09/09/24 08:11 Documented By: Anson Sutton MD 09/09/24 1215 Signed By: <Electronically signed by Anson Sutton MD> 09/09/24 1411 [facility] Work Phone: [phone] 234-241403-07-2025 [place] [address] Discharge Summary Signed Patient: Woody Hernandez MR#: [id number] 330 : 1975 Acct:[id number] Age/Sex: 49 / M Adm Date: 5 Loc: Room: [address] [place] [address]: Anson Sutton MD Copies to: [...] cut himself. Patient has been visiting from [place]. Came here to visit about6 weeks ago. [...] Instructions: Important Contact Information You can call [facility] at [phone] any timeday or night if you have emergent questions or question regarding discharge instructions. If at anytime you are feeling an increase inyour psychiatric symptoms, call your physician or behavioral healthcare provider. If any time you have thoughts of harming yourself or others contact one of the following: Call 8 (available 26/01) Crisis Text Line (available 26/01) text 4HOPE to [phone] [facility] (available 8 a.m. Midnight) call [phone] ([phone]) Regular Diet No Activity Restrictions Received Abilify Maintena 400mg Injection on 09/08/24. Next dose is due on 10/06/24. Instructions: Bipolar disorder - Discharge instructions, [facility] Instructions, Know your Meds Prescriptions: New aripiprazole 10 mg Tablet 10 mg PO DAILY 12 Days Qty: 12 0RF Abilify Maintena 400 mg suspension,extended rel recon 400 mg IM Q28D Qty: 1 0RF Rx Instructions: Due on or about 10/06/24 Follow Up: [facility] [Other] (Follow-up with the [facility] on Thursday at 9am. The [facility] accepts walk-ins. You will need your insurance information and proof of income. ) [facility] [Other] (Call for any medical needs) Exam Physical Exam Vital Signs: Temp Pulse Resp BP Pulse Ox O2 Del Method 98.2 F 70 20 168/109 H 96 Room Air 09/09/24 07:30 09/09/24 07:30 09/09/24 07:30 09/09/24 07:30 09/09/24 07:30 09/09/24 08:11 Documented By: Anson Sutton MD 09/09/24 1215 Signed By: 09/09/[address] [place], [place] 6142303-06-2025 Progress note Author Anson Sutton [facility] Note Date/Time September 08, 2024 12:5 0pm [facility] [address] [place] [address] Psychiatry Progress Note Signed Patient: Woody Hernandez MR#: [id number] 330 : 1975 Acct:[id number] Age/Sex: 49 / M Adm Date: 5 Loc: Room: [address] [place] [address] Type : ADM IN Attending Dr: Anson [...] alternatives explained Documented By: Anson Sutton MD 09/08/2449 Signed By: <Electronically signed by Anson Sutton MD> 09/08/24 7989 [facility] Work Phone: 1(918) 353-202703-06-2025 [place] [address] Psychiatry Progress Note Signed Patient: Woody Hernandez MR#: [id number] 330 : 1975 Acct:[id number] Age/Sex: 49 / M Adm Date: 5 Loc: 1S Room: [address] [place] [address] Type : ADM IN Attending Dr: Anson [...] MD 09/08/24 0927 Signed By: 09/08/24 1350 [facility]03-05-2025 History and physical note Author nAson Sutton [facility] Note Date/Time September 07, 2024 2:48 pm [facility] [address] [place] [address] Psychiatry H&P Signed Patient: Woody Hernandez MR#: [id number] 330 : 1975 Acct:[id number] Age/Sex: 49 / M Adm Date: 5 Loc: Room: [address] [place] [address] Type: ADM IN Attending Dr: Anson Sutton [...] cut himself. Patient has been visiting from [place]. Came here to visit about6 weeks ago. [...] with the medical student as notedbellizzy. [facility] Medical History (Updated 09/07/24 @ 10:31 by Franklyn Coker) Bipolar 1 disorder HTN (hypertension) Social History Smoking Status: Heavy tobacco smoker Tobacco Type: cigarettes Substance Use Type: Unknown, Marijuana, Amphetamines and Methamphetamine Social History Comments: came to [place] 2 months ago to visit, is highly [...] Appearance Clear Urine pH 5.5 Ur Specific [place] 1.030 Urine Protein 30 H Urine Glucose [...] <Electronically signed by Anson Sutton MD> 09/07/24 1137 [facility] Work Phone: 1(577) 976-396803-05-2025 [place] [address] Psychiatry H&P Signed Patient: Woody Hernandez MR#: [id number] 330 : 1975 Acct:[id number] Age/Sex: 49 / M Adm Date: 5 Loc: Room: [address] [place] [address] Type: ADM IN Attending Dr: Anson Sutton [...] cut himself. Patient has been visiting from [place]. Came here to visit about6 weeks ago. [...] this withthe medical student as notedbellizzy. [facility] Medical History (Updated 09/07/24 @ 10:31 by Franklyn Coker) Bipolar 1 disorder HTN (hypertension) Social History Smoking Status: Heavy tobacco smoker Tobacco Type: cigarettes Substance Use Type: Unknown, Marijuana, Amphetamines and Methamphetamine Social History Comments: came to [place] 2 months ago to visit, is highly [...] Appearance Clear Urine pH 5.5 Ur Specific [place] 1.030 Urine Protein 30 H Urine Glucose [...] MD 09/07/24 0913 Signed By: 09/07/24 1548 [facility]03-05-2025 Evaluation note* Diagnosis Onset Date Resolution Status Admit Date Bipolar 1 disorder acute September 07, 2024 12:39am Suicidal ideation acute September 072024 12:39am [facility] Work Phone: 1(267) 827-881103-04-2025 Hospital Discharge instructions Additional Instructions Please return to emergency department for any new or worrisome symptoms including any numbness, weakness, tingling, worsening pain, difficulty urinating, chest pain, shortness of breath. Follow-up with your family physician within the next 3 to 5 days.[facility] Work Phone: Discharge summary Author Anson Sutton [facility] Note Date/Time September 09, 2024 1:11 pm [facility] [address] [place] [address] Discharge Summary Signed Patient: Woody Hernandez MR#: [id number] 330 : 1975 Acct:[id number] Age/Sex: 49 / M Adm Date: 5 Loc: 1S Room: 0E6926-[address]: Anson Sutton MD Copies to: [...] cut himself. Patient has been visiting from [place]. Came here to visit about6 weeks ago. [...] Instructions: Important Contact Information You can call [facility] at [phone] any time day or night if you have emergent questions or question regarding discharge instructions. If at any time you are feeling an increase inyour psychiatric symptoms, call your physician or behavioral healthcare provider. If any time you have thoughts of harming yourself or others contact one of the following: Call 88 (available 26/01) Crisis Text Line (available 26/01) text 4HOPE to [phone] [facility] Hope Line (available 8 a.m. Midnight) call [phone] ([phone]) Regular Diet No Activity Restrictions Received Abilify Maintena 400mg Injection on 09/08/24. Next dose is due on 10/06/24. Instructions: Bipolar disorder - Discharge instructions, [facility], Know your Meds Prescriptions: New aripiprazole 10 mg Tablet 10 mg PO DAILY 12 Days Qty: 12 0RF Abilify Maintena 400 mg suspension,extended rel recon 400 mg IM Q28D Qty: 1 0RF Rx Instructions: Due on or about 10/06/24 Follow Up: [facility] [Other] (Follow-up with the [facility] on Thursday at 9am. The [facility] accepts walk-ins. You will need your insurance information and proof of income. ) [facility] [Other] (Call for any medical needs) Exam Physical Exam Vital Signs: Temp Pulse Resp BP Pulse Ox O2 Del Method 98.2 F 70 20 168/109 H 96 Room Air 09/09/24 07:30 09/09/24 07:30 09/09/24 07:30 09/09/24 07:30 09/09/24 07:30 09/09/24 08:11 Documented By: Anson Sutton MD 09/09/24 1215 Signed By: <Electronically signed by Anson Sutton MD> 09/09/24 1411 [facility] Work Phone: Evaluation noteNo assessment information available [facility] Work Phone: Evaluation note* Diagnosis Onset Date Resolution Status Admit Date Suicidal ideation acute September 072024 12:39am [facility] Work Phone: Evaluation note* Diagnosis Cerebrovascular accident (CVA), unspecified mechanism ([facility])- Primary Other cerebrovascular vasospasm and vasoconstriction documented [facility] Author Anson Sutton [facility] Note Date/Time September 07, 2024 2:48 pm [facility] [address] [place] [address] Psychiatry H&P Signed Patient: Woody Hernandez MR#: [id number] 330 : 1975 Acct:[id number] Age/Sex: 49 / M Adm Date: 5 Loc: Room: [address] [place] [address] Type: ADM IN Attending Dr: Anson Sutton [...] cut himself. Patient has been visiting from [place]. Came here to visit about6 weeks ago. [...] with the medical student as notedbellizzy. [facility] Medical History (Updated 09/07/24 @ 10:31 by Franklyn Coker) Bipolar 1 disorder HTN (hypertension) Social History Smoking Status: Heavy tobacco smoker Tobacco Type: cigarettes Substance Use Type: Unknown, Marijuana, Amphetamines and Methamphetamine Social History Comments: came to [place] 2 months ago to visit, is highly [...] Appearance Clear Urine pH 5.5 Ur Specific [place] 1.030 Urine Protein 30 H Urine Glucose [...] explained Documented By: Anson Sutton MD 09/07/24 0990 Signed By: <Electronically signed by Anson Sutton MD> 09/07/24 5507 [facility] Work Phone: Hospital Discharge instructions Additional Instructions Important Contact Information You can call [facility] at [phone] any time day or night if you have emergent questions or question regarding discharge instructions. If at any time you are feeling an increase in your psychiatric symptoms, call your physician or behavioral healthcare provider. If any time you have thoughts of harming yourself or others contact one of the following: Call 8-8 (available 26/01) Crisis Text Line (available 26/01) text 4HOPE to [phone] [facility] Hope Line (available 8 a.m. Midnight) call [phone] ([phone]) Regular Diet No Activity Restrictions Received Abilify Maintena 400mg Injection on 09/08/24. Next dose is due on 10/06/24.[facility] Work Phone: InstructionsNot on filedocumented in this encounter [facility] on filedocumented in this encounter [facility]ructionsNot on filedocumented in this encounter [facility]ructionsNot on filedocumented in this encounter [facility] Author Anson Sutton [facility] Note Date/Time September 08, 2024 12:5 0pm [facility] [address] [place] [address] Psychiatry Progress Note Signed Patient: Woody Hernandez MR#: [id number] 330 : 1975 Acct:[id number] Age/Sex: 49 / M Adm Date: 5 Loc: Room: [address] [place] [address] Type : ADM IN Attending Dr: Anson [...] explained Documented By: Anson Sutton MD 09/08/24 0918 Signed By: <Electronically signed by Anson Sutton MD> 09/08/24 1350 [facility] Work Phone: Chief Complaint and Reason for Visit Chief Complaint Admit Date back pain September 05, 2024 11:1 7pm Chief Complaint Admit Date back pain September 05, 2024 11:1 7pm p September 07, 2024 12:3 9am Reason for Visit Admit Date Suicidal ideation September 07, 2024 12:3 9am Chief Complaint Admit Date back pain September 05, 2024 11:1 7pm [facility] September 07, 2024 12:3 9am [facility] September 07, 2024 9:13 am [...] Care Provider Active Start: September 07, 2024 rFanklin Anand DO Emergency Provider Active Sta rt: [...] and content) DATE CREATED AUTHOR 12/03/2024 [facility] DATE CREATED AUTHOR AUTHOR'S ORGANIZ ATION 12/17/2024 [facility] DATE CREATED AUTHOR AUTHOR'S ORGANIZ ATION 02/09/2025 [facility] DATE CREATED AUTHOR AUTHOR'S ORGANIZ ATION 02/09/2025 [facility]ORDS PERTAINING [...] BE BASED ON THE PRIMARY CLINICAL RECORDS. [facility]. provides no warranty or guarantee of the accuracy or completeness of information in this document.
--- NOTE | 2025-02-28 21:09 | CT_ITS ---
[address] [address] Patient Name: MARVIN SUAREZ MRN: [id number] date: 1975 Sex: M Assigned Patient Location: [place] Current Patient Location: [place] Accession/Order Number: [id number] Exam Date: 02/28/2025 23:42 Report Date: 03/01/2025 08:27 At the request of: HOMER WARD MD Procedure: CT head/brain wo con CT head/brain wo con 03/01/2025 12:06 AM SIGNS AND SYMPTOMS: ^Recent stroke, r/o bleed before start anti coag TECHNIQUE:Multi-detector CT axial slices of the brain were obtained without IV contrast. CT was performed with one or more of the following dose reduction techniques: Automated exposure control, adjustment of the mA and/or kV according to patient size, or use of iterative reconstruction technique. COMPARISON: 02/02/2025 FINDINGS: There is no shift of the midline structures, acute intracranial bleeding, mass effects, or evidence of acute ischemia. Developing gliosis and encephalomalacia is noted left occipital lobe consistent with a subacute to remote infarct. Remote lacunar infarcts are noted in the left deep gan nuclei. The ventricular system is normal in size. The brainstem and the cerebellum are unremarkable. The visualized intraorbital contents and the infratemporal soft tissues show no acute abnormality. Mucosal thickening is noted in the maxillary sinuses and ethmoid air cells. The osseous structures in the skull base and the calvarium show no abnormality. CT/CT head/brain wo con IMPRESSION: No acute intracranial pathology. Developing gliosis and encephalomalacia is noted left occipital lobe consistent with a subacute to remote infarct. Remote lacunar infarcts are noted in the left deep gan nuclei. Impression dictated by: Ramirez Coleman M.D. 03/01/2025 8:27 AM Dictation Location: [place] [address] Electronically authenticated by: [id number] Y Date: 03/01/2025 08:27
[2025-02-28] MEDS: ATORVASTATIN CALCIUM 40 MG TABLET 80 MG PO (21:45)
[2025-02-28] MEDS: METOPROLOL TARTRATE 25 MG TABLET PO (21:45)
[2025-02-28] MEDS: ACETAMINOPHEN 325 MG TABLET 650 MG PO (22:57)
[2025-03-01] VITALS (19 sets, daily range): BP systolic 117–132; BP diastolic 73–89; PULSE 55–71; TEMP 36.5–36.8; O2SAT 88–99
--- NOTE | 2025-03-01 05:12 | RESP.RT ---
Titrated to 2 lpm
[2025-03-01 06:19] LABS: Hematocrit 49.3 % (42.0-54.0); Hemoglobin 15.3 g/dL (14.0-18.0); Immature Granulocytes Abs Auto 0.02 10^3/uL (0.00-0.03); Immature Granulocytes Pct Auto 0.2 % (0.0-0.5); Lymphocytes Absolute Auto 2.7 10^3/uL (1.2-3.8); Mean Corpuscular HGB Conc 31.0 g/dL (29.9-35.2); Mean Corpuscular Hemoglobin 26.7 pg (25.9-34.0); Mean Corpuscular Volume 86.2 fL (80.0-94.0); Platelet Count 226 10^3/uL (150-450); Red Blood Count 5.72 10^6/uL (4.70-6.10); White Blood Count 8.4 10^3/uL (4.0-11.0)
[2025-03-01 06:32] LABS: Alanine Aminotransferase 20 U/L (16-63); Albumin Globulin Ratio 0.7; Albumin Level 2.8 g/dL (3.4-5.0); Alkaline Phosphatase 74 U/L (46-116); Anion Gap 11.3; Aspartate Amino Transferase 17 U/L (15-37); Blood Urea Nitrogen 16.0 mg/dL (7.0-18.0); Calcium 8.2 mg/dL (8.5-10.1); Carbon Dioxide 27.2 mmol/L (21.0-32.0); Chloride 107 mmol/L (98-107); Estimated GFR (African America >60 (>=60 mL/min/1.73m^2); Estimated GFR (Non-African Ame 52 (>=60 mL/min/1.73m^2); Globulin 3.9 g/dL; Glucose 131 mg/dL (74-106); Magnesium 1.7 mg/dL (1.8-2.4); Potassium 3.5 mmol/L (3.5-5.1); Sodium 142 mmol/L (136-145); Total Protein 6.7 g/dL (6.4-8.2)
[2025-03-01 06:39] LABS: Creatine Kinase 285 U/L (39-308)
--- NOTE | 2025-03-01 07:00 | ECG_ITS ---
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
--- NOTE | 2025-03-01 08:49 | P.HP_ITS ---
HPI H&P: HPI History of Present Illness Chief complaint: NSTEMI ABDOMINAL PAIN Narrative: Mr. Hernandez is a 49-year-old gentleman with known history of hypertension, diabetes, CKD and stroke. Patient came to the emergency room with abdominal pain. No nausea or vomiting. No fever or chills. No diarrhea. He was found to have hypokalemia and filling defect at the distal aortic arch suspicious for blood clot. Patient also was found to have elevated troponin. No chest pain. No shortness of breath. No prior history of heart disease. Opioid HPI Opioid Management Most Recent Pain and Opioid Data: Last Pain Scale 0 02/28/25, 22:57 Last Pain Intensity 0 01/02/25, 09:23 Last Pain Assessment 02/28/25, 16:00 Last ORT Total Score 7 02/28/25, 15:39 Last ORT Risk Category Moderate Risk 02/28/25, 15:39 Ur Phencyclidine Scrn, (NEGATIVE) Negative , 12:15 Review of Systems ROS Status of ROS 10 or more systems reviewed and unremark able except as noted in history and below PFSH PFS Medical History (Updated 03/01/25 @ 08:51 by Eva Talley MD) CVA (cerebrovascular accident) ?I63.9 - Cerebral infarction, unspecified (ICD-10) CRI (chronic renal insufficiency) ?N18.9 - Chronic kidney disease, unspecified (ICD-10) Acute hyperglycemia ?R73.9 - Hyperglycemia, unspecified (ICD-10) HLD (hyperlipidemia) ?E78.5 - Hyperlipidemia, unspecified (ICD-10) Type 2 diabetes mellitus ?E11.9 - Type 2 diabetes mellitus without complications (ICD-10) CKD (chronic kidney disease) stage 3, GFR 30-59 ml/min ?N18.30 - Chronic kidney disease, stage 3 unspecified (ICD-10) Diabetes ?E11.9 - Type 2 diabetes mellitus without complications (ICD-10) Schizophrenia ?F20.9 - Schizophrenia, unspecified (ICD-10) Smokes ?F17.200 - Nicotine dependence, unspecified, uncomplicated (ICD-10) Hypertension ?I10 - Essential (primary) hypertension (ICD-10) Social History (Updated 10/21/24 @ 23:59 by Rima Hahn) Within the past year, how often did you have a drink containing alcohol: never Score interpretation: A score less than 4 is consistent with normal alcohol consumption. Smoking status: Current every day smoker Non-prescribed substance use: cannabis (any form) Non-prescribed substance use details: smokes marijuana Previous occupational history: none Highest level of school completed/degree received: 9th grade Are you now , , , , never or living with a partner: never In a typical week, how many times do you talk on the telephone with family, friends, or neighbors: 3 or more times per week How often do you get together with friends or relatives: 3 or more times per week Little interest or pleasure in doing things: not at all Feeling down, depressed, or hopeless: not at all Feel stressed/tense/nervous/anxious/difficulty sleeping: not at all Do you think of yourself as: straight/heterosexual Gender Identity: male Meds Home Medications and Allergies Home Medications ?Medication ?Instructions ?Recorded ?Confirmed ?Type aspirin 81 mg tablet,delayed 162 mg (2 x 81 mg) PO QD 90 days 02/03/25 02/28/25 Rx release #180 tabs atorvastatin 40 mg tablet 40 mg PO QHS 90 days #90 tab s 02/03/25 02/28/25 Rx hydrochlorothiazide 25 mg tablet 25 mg PO QD 90 days # 90 tabs 02/03/25 02/28/25 Rx losartan 50 mg tablet 50 mg PO DAILY 90 days #90 t abs 02/03/25 02/28/25 Rx metformin 500 mg tablet 500 mg PO BID 90 days #180 t abs 02/03/25 02/28/25 Rx Allergies Allergy/AdvReac Type Severity Reaction Status Date / Time No Known Drug Allergies Allergy Verified 02/28/25 11:49 Exam Narrative Exam Narrative: [pt is awake and alert. oriented to place, time and person, central obesity HEENT: [place] conjunctiva and NL buccal mucosa Neck: Supple, no tenderness Endocrine: No Thyromegaly. Vascular: No JVD or carotid bruit. Lymphatic: No cervical lymphadenopathy. Chest: CTA no DTP. Heart RRR, no extra sound or murmur. Abd: Soft, no tenderness, no rebound and no rigidity. Increase abd girth therefore clinically I could not exclude the possibility of intra abd mass or organomegaly. LE: No cyanosis or clubbing, no varices or edema. Neuro: Awake, alert and oriented. Slurred speech as well as right arm numbing sensation from previous stroke. No acute neurological symptoms as per patient. Able to lift up his left arm and legs against gravity and resistance. []] Constitutional Vital Signs, click to edit/add: Last Vital Signs Temp 98.0 F 03/01/25 07:49 Pulse 58 L 03/01/25 08:00 Resp 18 03/01/25 07:49 BP 117/84 03/01/25 07:49 Pulse Ox 97 03/01/25 07:49 O2 Del Method Room Air 03/01/25 07:49 O2 Flow Rate 3 03/01/25 05:05 Results Labs Labs: Short CBC 02/28/25 03/01/25 Range/Units 12:31 05:50 WBC 10.2 8.4 (4.0-11.0) 10^3/uL Hgb 16.3 15.3 (14.0-18.0) g/dL Hct 51.7 49.3 (42.0-54.0) % Plt Count 237 226 (150-450) 10^3/uL BMP 02/28/25 03/01/25 12:31 05:50 Sodium 140 142 Potassium 3.2 L 3.5 Chloride 104 107 Carbon Dioxide 25.2 27.2 BUN 17.0 16.0 Creatinine 1.72 H 1.43 H Glucose 204 H 131 H Calcium 8.7 8.2 L Cardiac Enzymes 03/01/25 Range/Units 05:50 Total Creatine Kinase 285 (39-308) U/L Liver Function 02/28/25 03/01/25 Range/Units 12:31 05:50 Total Bilirubin 0.6 0.5 (0.2-1.0) mg/dL AST 17 17 (15-37) U/L ALT 25 20 (16-63) U/L Alkaline Phosphatase 87 74 (46-116) U/L Albumin 3.5 2.8 L (3.4-5.0) g/dL Urine 02/28/25 Range/Units 12:15 Urine Color Yellow (YELLOW) Urine Clarity Cloudy A (CLEAR) Urine pH 5.5 (5.0-9.0) Ur Specific [place] >=1.030 A (1.005-1.025) Urine Protein 100 A (NEG/TRACE) mg/dL Urine Glucose (UA) Negative (NEGATIVE) mg/dL Assessment and Plan Assessment and Plan (1) Acute non-ST elevation myocardial infarction (NSTEMI): (2) Hypomagnesemia: (3) Old cerebrovascular accident (CVA) without late effect: (4) Encephalomalacia: (5) Thrombus: (6) CKD (chronic kidney disease): (7) Marijuana abuse: (8) Hypokalemia: Plan NSTEMI No active chest pain. No ST elevation or depression. Troponin elevation with slow rise and increasing delta. Patient has multiple risk factors for CAD including hypertension, diabetes and tobacco addiction Likely patient has CAD. I started patient on Lopressor 25 twice daily. I started patient on Lovenox 1 mg/g twice a day as well as aspirin. Had recent echo showed normal ejection fraction. Cardiac consultation for the possible need of a cardiac cath. 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 I started patient on Lovenox 1 mg twice a day pending cardiology evaluation recommendation. Recent stroke for which patient was discharged on aspirin. Now patient has encephalomalacia and gliosis Knowing now that he has blood clot at the aortic arch I suspect that his recent stroke could be embolic in nature I would recommend to start patient on full dose anticoagulation in addition to aspirin. For now Lovenox 1 mg/kg subcu injection twice a day in case cardiology recommends cath. Subsequently, the patient will be switched to oral anticoagulant. Hypokalemia and hypomagnesemia Potassium and magnesium supplementation CKD, near baseline stage III Tobacco addiction and marijuana use. Patient smokes half a pack daily. Previously patient tested positive for meth Counseling and education about smoking and using drugs explaining risk. Diabetes. Previous A1c is 8.2. Resume metformin [address] completion. Microscopic hematuria. Recommend repeat UA at PCP in 2 weeks and if patient continues to have microscopic materia would recommend urology referral to proceed with additional urological testing which may include but not limited to cystoscopy, IVP or dedicated CT kidney rule out underlying malignancy. To be arranged by PCP. Chronic medical conditions not listed above, incidental findings seen on labs and imaging. These would need to be addressed. Could be addressed when time and condition are appropriate. Could be addressed in the outpatient setting by PCP collaboration with other needed outpatient providers.
[2025-03-01] MEDS: ASPIRIN 81 MG TABLET.DR PO (08:53)
[2025-03-01] MEDS: ENOXAPARIN SODIUM 100 MG/ML SYRINGE 90 MG SUBQ ×2 (08:54→22:52)
[2025-03-01] MEDS: MAGNESIUM SULFATE/D5W 1 GM/100 ML PREMIX IV (08:57)
[2025-03-01] MEDS: POTASSIUM CHLORIDE 10 MEQ ER TABLET 20 MEQ PO (08:58)
--- NOTE | 2025-03-01 10:43 | PC.NURSE ---
metoprolol held due to patients heart rate being in 50's/60's. Dr. Talley notified
--- NOTE | 2025-03-01 12:59 | P.CACN_ITS ---
History of Present Illness History of Present Illness Consult date: 03/01/25 Requesting physician: Eva Talley Chief complaint: NSTEMI ABDOMINAL PAIN Narrative: Per H&P: Mr. Hernandez is a 49-year-old gentleman with known history of hypertension, diabetes, CKD and stroke. Patient came to the emergency room with abdominal pain. No nausea or vomiting. No fever or chills. No diarrhea. He was found to have hypokalemia and filling defect at the distal aortic arch suspicious for blood clot. Patient also was found to have elevated troponin. No chest pain. No shortness of breath. No prior history of heart disease. On discussion with the patient, it appears that he has had 2 separate strokes in the past 1 to 2 months. He categorically denies any chest pain during this time. He denies exertional shortness of breath. He has had no orthopnea, paroxysmal, dyspnea, or lower extremity edema. He denies palpitations. He has had no lightheadedness or dizziness. He denies syncope. Review of Systems ROS Status of ROS 10 or more systems reviewed and unremark able except as noted in history and below [facility] Medical History (Updated 03/01/25 @ 13:03 by Robbie Riggins MD) CVA (cerebrovascular accident) ?I63.9 - Cerebral infarction, unspecified (ICD-10) CRI (chronic renal insufficiency) ?N18.9 - Chronic kidney disease, unspecified (ICD-10) Acute hyperglycemia ?R73.9 - Hyperglycemia, unspecified (ICD-10) HLD (hyperlipidemia) ?E78.5 - Hyperlipidemia, unspecified (ICD-10) Type 2 diabetes mellitus ?E11.9 - Type 2 diabetes mellitus without complications (ICD-10) CKD (chronic kidney disease) stage 3, GFR 30-59 ml/min ?N18.30 - Chronic kidney disease, stage 3 unspecified (ICD-10) Diabetes ?E11.9 - Type 2 diabetes mellitus without complications (ICD-10) Schizophrenia ?F20.9 - Schizophrenia, unspecified (ICD-10) Smokes ?F17.200 - Nicotine dependence, unspecified, uncomplicated (ICD-10) Hypertension ?I10 - Essential (primary) hypertension (ICD-10) Social History (Updated 10/21/24 @ 23:59 by Rima Hahn) Within the past year, how often did you have a drink containing alcohol: never Score interpretation: A score less than 4 is consistent with normal alcohol consumption. Smoking status: Current every day smoker Non-prescribed substance use: cannabis (any form) Non-prescribed substance use details: smokes marijuana Previous occupational history: none Highest level of school completed/degree received: 9th grade Are you now , , , , never or living with a partner: never In a typical week, how many times do you talk on the telephone with family, friends, or neighbors: 3 or more times per week How often do you get together with friends or relatives: 3 or more times per week Little interest or pleasure in doing things: not at all Feeling down, depressed, or hopeless: not at all Feel stressed/tense/nervous/anxious/difficulty sleeping: not at all Do you think of yourself as: straight/heterosexual Gender Identity: male Meds Home Medications and Allergies Home Medications ?Medication ?Instructions ?Recorded ?Confirmed ?Type aspirin 81 mg tablet,delayed 162 mg (2 x 81 mg) PO QD 90 days 02/03/25 02/28/25 Rx release #180 tabs atorvastatin 40 mg tablet 40 mg PO QHS 90 days #90 tab s 02/03/25 02/28/25 Rx hydrochlorothiazide 25 mg tablet 25 mg PO QD 90 days # 90 tabs 02/03/25 02/28/25 Rx losartan 50 mg tablet 50 mg PO DAILY 90 days #90 t abs 02/03/25 02/28/25 Rx metformin 500 mg tablet 500 mg PO BID 90 days #180 t abs 02/03/25 02/28/25 Rx Allergies Allergy/AdvReac Type Severity Reaction Status Date / Time No Known Drug Allergies Allergy Verified 02/28/25 11:49 Exam Constitutional Vital Signs, click to edit/add: Last Vital Signs Temp 98.0 F 03/01/25 07:49 Pulse 66 03/01/25 12:00 Resp 18 03/01/25 07:49 BP 117/84 03/01/25 07:49 Pulse Ox 96 03/01/25 10:11 O2 Del Method Nasal Cannula 03/01/25 10:11 O2 Flow Rate 2 03/01/25 10:11 Common normals: no apparent distress Exam limitations: other limitations (Speech appears somewhat impaired) General appearance: cooperative and comfortable HENMT Common normals: normocephalic Neck & C-Spine Common normals: full ROM Chest Common normals: inspection of chest normal Respiratory Common normals: normal respiratory effort Effort & inspection: able to speak in complete sentences Auscultation: clear to auscultation bilaterally Cardio Common normals: no JVD Palpation: normal PMI Rate: regular rate Rhythm: regular rhythm Heart sounds: S1 normal and S2 normal GI Common normals: Normal to inspection, nondistended, normoactive bowel sounds present Extremity Common normals: normal to inspection Neuro Other: Weakness of the right upper extremity Results Labs and Meds Lab results: Cardiac Enzymes 02/28/25 03/01/25 Range/Units 12:31 05:50 AST 17 17 (15-37) U/L CBC 03/01/25 Range/Units 05:50 WBC 8.4 (4.0-11.0) 10^3/uL RBC 5.72 (4.70-6.10) 10^6/uL Hgb 15.3 (14.0-18.0) g/dL Hct 49.3 (42.0-54.0) % Plt Count 226 (150-450) 10^3/uL Neut # (Auto) 4.0 (1.4-6.5) 10^3/uL Lymph # (Auto) 2.7 (1.2-3.8) 10^3/uL [place] # (Auto) 1.4 H (0.3-0.8) 10^3/uL Eos # (Auto) 0.2 (0.0-0.7) 10^3/uL Baso # (Auto) 0.0 (0.0-0.1) 10^3/uL Comprehensive Metabolic Panel 02/28/25 03/01/25 Range/Units 12:31 05:50 Sodium 140 142 (136-145) mmol/L Potassium 3.2 L 3.5 (3.5-5.1) mmol/L Chloride 104 107 (98-107) mmol/L Carbon Dioxide 25.2 27.2 (21.0-32.0) mmol/L BUN 17.0 16.0 (7.0-18.0) mg/dL Creatinine 1.72 H 1.43 H (0.70-1.30) mg/dL Glucose 204 H 131 H (74-106) mg/dL Calcium 8.7 8.2 L (8.5-10.1) mg/dL AST 17 17 (15-37) U/L ALT 25 20 (16-63) U/L Alkaline Phosphatase 87 74 (46-116) U/L Total Protein 7.6 6.7 (6.4-8.2) g/dL Albumin 3.5 2.8 L (3.4-5.0) g/dL Intake and Output 02/28/25 03/01/25 03/01/25 23:59 07:59 15:59 Intake Total 1200 / 1200 100 / 100 Balance 1200 / 1200 100 / 100 Intake: Oral 200 / 200 IV 1000 / 1000 100 / 100 0.9 % Sodium Chloride 1,000 ml 1000 / 1000 @ 100 mls/hr IV .Q10H JOSE LUIS Rx#: [id number] Magnesium Sulfate/D5w 1 gm In 100 / 100 100 ml @ 200 mls/hr IV ONCE ONE Rx#:[id number] Other: # Voids 2 HsTrop 141, 145, 151, 158 Lipid profile: Triglycerides significantly elevated at 975, cholesterol 286, LDL 131 Urine analysis suggest possible urinary tract infection and blood in the urine Drug screen is positive for cannabinoids CT scan of the chest and abdomen: No coronary artery calcification There is a 1 cm filling defect seen in the distal aortic arch close to calcification Maybe mural thrombus CT scan of the brain shows gliosis and encephalomalacia Imaging and Cardiology Echo: image reviewed (Global ventricular systolic function is hyperdynamic; ejection fraction 65 to 70%No regional wall motion abnormalitiesMild to moderate left ventricular hypertrophyTrivial posterior pericardial effusion) EKG Interpretation EKG: sinus rhythm (Sinus bradycardia 56 beats minute, no significant ST-T wave abnormalities) Assessment and Plan Assessment and Plan (1) Elevated troponin level not due myocardial infarction: Assessment and Plan: Symptoms: No chest pain Investigations: No ischemic EKG changes, no wall motion abnormalities on echocardiogram, no reduced ejection fraction This troponin elevation is likely an acute myocardial injury potentially related to recent cerebrovascular accident +/- UTI and does not represent an acute coronary syndrome (2) Hypomagnesemia: (3) Old cerebrovascular accident (CVA) without late effect: Assessment and Plan: Recurrent CVA (4) Encephalomalacia: (5) Thrombus: Assessment and Plan: Report of the CT scan suggest a 1 cm filling defect seen in the distal aortic arch close to calcification; this may be signal artifact related to calcification Given his description of recurrent cerebrovascular accident, this finding is concerning and may be related to his strokes (6) CKD (chronic kidney disease): (7) Marijuana abuse: (8) Hypokalemia: Plan 1. Routine labs, urine culture and treat infection as appropriate 2. Continue aspirin, and a statin for presumed vascular disease 3. In the absence of symptoms or signs of ischemia, the elevated HsTrop does not represent an acute coronary syndrome; anticoagulation is not indicated for a cardiac cause. Cardiac catheterization is not indicated. 4. The suspected aortic thrombus requires further investigation; would recommend a transesophageal echocardiogram +/- a cardiac MRI to evaluate the filling defect 5. Consult with neurology regarding the safety of anticoagulation given his recent stroke; if acceptable from their standpoint, I do agree with anticoagulation given the suspected aortic thrombus and the risk for recurrent stroke 6. Further investigations and treatment for the patient's recurrent stroke deferred to neurology and the primary team 7. Treat non cardiac comorbidities as clinically appropriate Thank you for the consultation
--- NOTE | 2025-03-01 13:07 | P.CACN_ITS ---
History of Present Illness History of Present Illness Chief complaint: NSTEMI ABDOMINAL PAIN [facility] Medical History (Updated 03/01/25 @ 13:03 by Robbie Riggins MD) CVA (cerebrovascular accident) ?I63.9 - Cerebral infarction, unspecified (ICD-10) CRI (chronic renal insufficiency) ?N18.9 - Chronic kidney disease, unspecified (ICD-10) Acute hyperglycemia ?R73.9 - Hyperglycemia, unspecified (ICD-10) HLD (hyperlipidemia) ?E78.5 - Hyperlipidemia, unspecified (ICD-10) Type 2 diabetes mellitus ?E11.9 - Type 2 diabetes mellitus without complications (ICD-10) CKD (chronic kidney disease) stage 3, GFR 30-59 ml/min ?N18.30 - Chronic kidney disease, stage 3 unspecified (ICD-10) Diabetes ?E11.9 - Type 2 diabetes mellitus without complications (ICD-10) Schizophrenia ?F20.9 - Schizophrenia, unspecified (ICD-10) Smokes ?F17.200 - Nicotine dependence, unspecified, uncomplicated (ICD-10) Hypertension ?I10 - Essential (primary) hypertension (ICD-10) Social History (Updated 10/21/24 @ 23:59 by Rima Hahn) Within the past year, how often did you have a drink containing alcohol: never Score interpretation: A score less than 4 is consistent with normal alcohol consumption. Smoking status: Current every day smoker Non-prescribed substance use: cannabis (any form) Non-prescribed substance use details: smokes marijuana Previous occupational history: none Highest level of school completed/degree received: 9th grade Are you now , , , , never or living with a partner: never In a typical week, how many times do you talk on the telephone with family, friends, or neighbors: 3 or more times per week How often do you get together with friends or relatives: 3 or more times per week Little interest or pleasure in doing things: not at all Feeling down, depressed, or hopeless: not at all Feel stressed/tense/nervous/anxious/difficulty sleeping: not at all Do you think of yourself as: straight/heterosexual Gender Identity: male Meds Home Medications and Allergies Home Medications ?Medication ?Instructions ?Recorded ?Confirmed ?Type aspirin 81 mg tablet,delayed 162 mg (2 x 81 mg) PO QD 90 days 02/03/25 02/28/25 Rx release #180 tabs atorvastatin 40 mg tablet 40 mg PO QHS 90 days #90 tab s 02/03/25 02/28/25 Rx hydrochlorothiazide 25 mg tablet 25 mg PO QD 90 days # 90 tabs 02/03/25 02/28/25 Rx losartan 50 mg tablet 50 mg PO DAILY 90 days #90 t abs 02/03/25 02/28/25 Rx metformin 500 mg tablet 500 mg PO BID 90 days #180 t abs 02/03/25 02/28/25 Rx Allergies Allergy/AdvReac Type Severity Reaction Status Date / Time No Known Drug Allergies Allergy Verified 02/28/25 11:49 Exam Constitutional Vital Signs, click to edit/add: Last Vital Signs Temp 98.0 F 03/01/25 07:49 Pulse 66 03/01/25 12:00 Resp 18 03/01/25 07:49 BP 117/84 03/01/25 07:49 Pulse Ox 96 03/01/25 10:11 O2 Del Method Nasal Cannula 03/01/25 10:11 O2 Flow Rate 2 03/01/25 10:11 Results Labs and Meds Lab results: Cardiac Enzymes 03/01/25 Range/Units 05:50 AST 17 (15-37) U/L CBC 03/01/25 Range/Units 05:50 WBC 8.4 (4.0-11.0) 10^3/uL RBC 5.72 (4.70-6.10) 10^6/uL Hgb 15.3 (14.0-18.0) g/dL Hct 49.3 (42.0-54.0) % Plt Count 226 (150-450) 10^3/uL Neut # (Auto) 4.0 (1.4-6.5) 10^3/uL Lymph # (Auto) 2.7 (1.2-3.8) 10^3/uL [place] # (Auto) 1.4 H (0.3-0.8) 10^3/uL Eos # (Auto) 0.2 (0.0-0.7) 10^3/uL Baso # (Auto) 0.0 (0.0-0.1) 10^3/uL Comprehensive Metabolic Panel 03/01/25 Range/Units 05:50 Sodium 142 (136-145) mmol/L Potassium 3.5 (3.5-5.1) mmol/L Chloride 107 (98-107) mmol/L Carbon Dioxide 27.2 (21.0-32.0) mmol/L BUN 16.0 (7.0-18.0) mg/dL Creatinine 1.43 H (0.70-1.30) mg/dL Glucose 131 H (74-106) mg/dL Calcium 8.2 L (8.5-10.1) mg/dL AST 17 (15-37) U/L ALT 20 (16-63) U/L Alkaline Phosphatase 74 (46-116) U/L Total Protein 6.7 (6.4-8.2) g/dL Albumin 2.8 L (3.4-5.0) g/dL Intake and Output 02/28/25 03/01/25 03/01/25 23:59 07:59 15:59 Intake Total 1200 / 1200 100 / 100 Balance 1200 / 1200 100 / 100 Intake: Oral 200 / 200 IV 1000 / 1000 100 / 100 0.9 % Sodium Chloride 1,000 ml 1000 / 1000 @ 100 mls/hr IV .Q10H JOSE LUIS Rx#: [id number] Magnesium Sulfate/D5w 1 gm In 100 / 100 100 ml @ 200 mls/hr IV ONCE ONE Rx#:[id number] Other: # Voids 2 Assessment and Plan Assessment and Plan (1) Elevated troponin level not due myocardial infarction: Assessment and Plan: Symptoms: No chest pain Investigations: No ischemic EKG changes, no wall motion abnormalities on echocardiogram, no reduced ejection fraction This troponin elevation is likely an acute myocardial injury potentially related to recent cerebrovascular accident and does not represent an acute coronary syndrome (2) Hypomagnesemia: (3) Old cerebrovascular accident (CVA) without late effect: (4) Encephalomalacia: (5) Thrombus: Assessment and Plan: Report of the CT scan suggest a 1 cm filling defect seen in the distal aortic arch close to calcification; this may be signal artifact related to calcification Given his recent stroke, it is reasonable to anticoagulate the patient and monitor for signs of bleeding (6) CKD (chronic kidney disease): (7) Marijuana abuse: (8) Hypokalemia:
--- NOTE | 2025-03-01 13:23 | SWNOTE1 ---
SW met with pt to discuss dc needs. Pt lives at home with his brother. Pt voiced he was doing well at home and getting around just fine. He has not had any falls recently, per patient. He does use his rollator and walks to store to get his food. SW did ask about home health services. Pt voiced they came in one time and that was it. Pt voiced he has no other services coming in and does not anticipate any discharge needs at this time. SW to follow as needed.
--- NOTE | 2025-03-01 13:30 | SWNOTE1 ---
Important Message from [employer] reviewed and discussed with patient. Pt. verbalized understanding and signed the form. Original given to patient and copy placed in patient?s chart.
[2025-03-01] MEDS: SENNOSIDES/DOCUSATE SODIUM 1 TAB TABLET PO (13:40)
[2025-03-01] MEDS: DOCUSATE SODIUM 100 MG CAPSULE PO (13:40)
--- NOTE | 2025-03-01 15:39 | PC.NURSE ---
Dr. Talley aware of NO URINE OUTPUT yet for this shift. no orders received at this time
[2025-03-01] MEDS: ATORVASTATIN CALCIUM 40 MG TABLET 80 MG PO (22:53)
[2025-03-01] MEDS: METOPROLOL TARTRATE 25 MG TABLET PO (22:53)
[2025-03-02] VITALS (23 sets, daily range): BP systolic 118–166; BP diastolic 75–99; PULSE 54–78; TEMP 36.7–37.1; O2SAT 90–94
[2025-03-02] MEDS: METOPROLOL TARTRATE 25 MG TABLET PO (08:00)
[2025-03-02] MEDS: ASPIRIN 81 MG TABLET.DR PO (08:00)
[2025-03-02] MEDS: ENOXAPARIN SODIUM 100 MG/ML SYRINGE 90 MG SUBQ ×2 (08:00→21:52)
--- NOTE | 2025-03-02 09:30 | CM.NOTE ---
Rounds made with Dr. Talley, discussed with pt possible discharge today. Dr. Talley will reach out to Dr. Riggins to clarify if cardiac MRI and TONIO would be outpatient work-up.
--- NOTE | 2025-03-02 11:15 | CM.NOTE ---
Rafy jacobo sent to Dr. Talley with Dr. Horton telephone number to reach out regarding pt's case.
--- NOTE | 2025-03-02 12:02 | PM.PN ---
Progress Note: Subjective Subjective Interval history: No new symptoms. Patient feels fine. Exam Narrative Exam Narrative: [pt is awake and alert. oriented to place, time and person, central obesity HEENT: [place] conjunctiva and NL buccal mucosa Neck: Supple, no tenderness Endocrine: No Thyromegaly. Vascular: No JVD or carotid bruit. Lymphatic: No cervical lymphadenopathy. Chest: CTA no DTP. Heart RRR, no extra sound or murmur. Abd: Soft, no tenderness, no rebound and no rigidity. Increase abd girth therefore clinically I could not exclude the possibility of intra abd mass or organomegaly. LE: No cyanosis or clubbing, no varices or edema. Neuro: Awake, alert and oriented. Slurred speech as well as right arm numbing sensation from previous stroke. No acute neurological symptoms as per patient. Able to lift up his left arm and legs against gravity and resistance. []] Constitutional Vital Signs, click to edit/add: Last Vital Signs Temp 98.1 F 03/02/25 10:46 Pulse 57 L 03/02/25 10:46 Resp 20 03/02/25 10:46 BP 138/89 03/02/25 10:46 Pulse Ox 94 L 03/02/25 11:14 O2 Del Method Room Air 03/02/25 11:14 O2 Flow Rate 2 03/01/25 10:11 Progress Note: A&P Assessment and Plan (1) Elevated troponin level not due myocardial infarction: (2) Hypomagnesemia: (3) Old cerebrovascular accident (CVA) without late effect: (4) Encephalomalacia: (5) Thrombus: (6) CKD (chronic kidney disease): (7) Marijuana abuse: (8) Hypokalemia: Plan NSTEMI No active chest pain. No ST elevation or depression. Troponin elevation with slow rise and increasing delta. Patient has multiple risk factors for CAD including hypertension, diabetes and tobacco addiction No clinical evidence of active angina or ACS however patient Likely patient has CAD. I started patient on Lopressor 25 twice daily. I started patient on Lovenox 1 mg/g twice a day as well as aspirin. Had recent echo showed normal ejection fraction. Cardiac consultation for the possible need of a cardiac cath. Patient was seen and evaluated by Dr. Riggins. Please refer to his note for details I called in this morning to discuss this further. Specifically regarding the timing of ischemic evaluation. He stated that there is no indication for urgent ischemic evaluation. He recommended the patient to follow-up in the outpatient setting within the next few weeks and he will arrange for an elective evaluation. 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 I started patient on Lovenox 1 mg twice a day pending cardiology evaluation recommendation. Patient was seen by Dr Riggins. Please refer to his note for details I called in this morning to discuss this further. He stated that there is no urgent indication for TONIO. He recommended to order cardiac MRI to confirm evidence of blood clot of the aortic arch Meanwhile continue anticoagulation Recent stroke for which patient was discharged on aspirin. Now patient has encephalomalacia and gliosis Knowing now that he has blood clot at the aortic arch I suspect that his recent stroke could be embolic in nature I would recommend to start patient on full dose anticoagulation in addition to aspirin. For now Lovenox 1 mg/kg subcu injection twice a day Subsequently, the patient will be switched to oral anticoagulant. I will request neurology consultation given his recent stroke to see if anticoagulation is indicated for him and if it is safe for him given his recent stroke Hypokalemia and hypomagnesemia Potassium and magnesium supplementation CKD, near baseline stage III Tobacco addiction and marijuana use. Patient smokes half a pack daily. Previously patient tested positive for meth Counseling and education about smoking and using drugs explaining risk. Diabetes. Previous A1c is 8.2. Resume metformin [address] completion[address] A1c is above 8. Added Januvia. I we will cancel Januvia and would add GP L1 on discharge. Not available here at [place]. Microscopic hematuria. Recommend repeat UA at PCP in 2 weeks and if patient continues to have microscopic materia would recommend urology referral to proceed with additional urological testing which may include but not limited to cystoscopy, IVP or dedicated CT kidney rule out underlying malignancy. To be arranged by PCP. Chronic medical conditions not listed above, incidental findings seen on labs and imaging. These would need to be addressed. Could be addressed when time and condition are appropriate. Could be addressed in the outpatient setting by PCP collaboration with other needed outpatient providers.
--- NOTE | 2025-03-02 12:05 | CM.NOTE ---
Clarified with radiology regarding cardiac MRI if could be performed at [place]. [facility] is unable to do cardiac MRI, updated Dr. Talley.
[2025-03-02] MEDS: SITAGLIPTIN PHOSPHATE 50 MG TABLET PO (12:21)
[2025-03-02] MEDS: MAGNESIUM SULFATE IN WATER 2 GM/50 ML PREMIX IV (12:22)
[2025-03-02] MEDS: POTASSIUM CHLORIDE 10 MEQ ER TABLET 20 MEQ PO (12:22)
[2025-03-02] MEDS: METFORMIN HCL 500 MG TABLET PO (17:39)
[2025-03-02] MEDS: ATORVASTATIN CALCIUM 40 MG TABLET 80 MG PO (21:52)
[2025-03-03] VITALS (11 sets, daily range): BP systolic 124–147; BP diastolic 90–98; PULSE 61–74; TEMP 36.6–36.8; O2SAT 90–95
[2025-03-03] MEDS: METFORMIN HCL 500 MG TABLET PO (08:23)
[2025-03-03] MEDS: ASPIRIN 81 MG TABLET.DR PO (08:23)
[2025-03-03] MEDS: SITAGLIPTIN PHOSPHATE 50 MG TABLET PO (08:23)
[2025-03-03] MEDS: RIVAROXABAN 10 MG TABLET 20 MG PO (08:23)
[2025-03-03] MEDS: METOPROLOL SUCCINATE 25 MG TAB.ER.24H PO (08:24)
--- NOTE | 2025-03-03 09:10 | CM.NOTE ---
Rounds made with Dr. Talley, discussed with pt discharge to home today. Pt will have f/u appt with cardiology, neurology, and PCP. Dr. Talley discussed importance of f/u appointments. Dr. Talley explained to pt neurology attempted to reach him several times for his f/u appointments and pt never answered phone or returned calls. Pt verbalizes importance of f/u appointments.
--- NOTE | 2025-03-03 09:19 | PC.NURSE ---
Spoke with Jazmin from [facility] who called to check on different patient on floor. Asked if she was going to see pt (Woody) States she was with [facility] not tele [facility] but was aware that Jacqueline(from tele stroke team) had already talked to Hospitalist Mayank yesterday regarding recommendations for Mr Hernandez. Informed that [facility] never saw pt on camera, and Jazmin reiterated the order was for recommendations, and that Jacqueline had talked to Mayank regarding their recommendations. Jazmin asked if pt was having any additional neuro/stroke issues, and so she was informed by this nurse that Mr Hernandez was not having any new neuro Sx since admission. Jazmin informs this nurse that if any additional Sx start to please notify them. Informed Jazmin that pt was to be discharged today.
--- NOTE | 2025-03-03 11:29 | P.DS_ITS ---
DS: Providers Provider Date of admission: 02/28/25 15:32 Primary care physician: Non-Staff Physician, Consults: 02/28/25 14:48 Consult to Cardiology Routine Reason for consultation: NSTEMI and descending aorta thrombus recommendation and management 03/02/25 11:56 Consult to TeleNeurology Routine Reason for consultation: Is pt candidate and is it safe to start anticoagulation. CVA DS: Diagnosis Discharge Diagnosis (1) Elevated troponin level not due myocardial infarction: (2) Hypomagnesemia: (3) Old cerebrovascular accident (CVA) without late effect: (4) Encephalomalacia: (5) Thrombus: (6) CKD (chronic kidney disease): (7) Marijuana abuse: (8) Hypokalemia: Plan As listed above, below and others that are not listed DS: Summary Hospital Course Hospital Course: Mr. Hernandez is a 49-year-old gentleman who came in with abdominal discomfort. He had CT chest and abdomen in the emergency room department. He was found to have the following NSTEMI No active chest pain. No ST elevation or depression. Troponin elevation with slow rise and increasing delta. Patient has multiple risk factors for CAD including hypertension, diabetes and tobacco addiction No clinical evidence of active angina or ACS however patient Likely patient has CAD. I started patient on Lopressor 25 twice daily. I started patient on Lovenox 1 mg/g twice a day as well as aspirin. Had recent echo showed normal ejection fraction. Cardiac consultation for the possible need of a cardiac cath. Patient was seen and evaluated by Dr. Riggins. Please refer to his note for details I called him yesterday and discussed cardiovascular status further with him.. Specifically regarding the timing of ischemic evaluation. He stated that there is no indication for urgent ischemic evaluation. He recommended the patient to follow-up in the outpatient setting within the next few weeks and he will arrange for an elective evaluation. 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 This is in the descending portion of the aortic arch and less likely to have caused stroke however patient likely had thrown embolization into his cerebral circulation prior to this I started patient on Lovenox 1 mg twice a day pending cardiology evaluation recommendation. Patient was seen by Dr Riggins. Please refer to his note for details I called him yesterday morning to discuss this further. He stated that there is no urgent indication for TONIO. He recommended to order cardiac MRI to confirm evidence of blood clot of the aortic arch. Unfortunately cardiac MRI could not be done here at [facility]. Meanwhile continue anticoagulation Alodize Machine Operator recommended to follow-up with him in office within 1 to 2 weeks and he will arrange for an outpatient TONIO or cardiac MRI in [place]. Meanwhile we will arrange for patient to have a 30-day Holter monitor to exclude paroxysmal A-fib causing him to have cerebral and other organ embolization. Recent stroke for which patient was discharged on aspirin. Now patient has encephalomalacia and gliosis Knowing now that he has blood clot at the aortic arch I suspect that his recent stroke could be embolic in nature. Furthermore, previous brain imaging showed strokes in multiple locations highly suggestive of embolic phenomena. I would recommend to start patient on full dose anticoagulation in addition to aspirin. For now Lovenox 1 mg/kg subcu injection twice a day I discussed this case with teleneuro team given his stroke within the last 45 days. Teleneuro team stated that there is no absolute contraindication to initiate anticoagulation. 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 We will arrange for patient to have a Holter monitor for 30 days to rule out paroxysmal A-fib causing him to throw embolization into his aorta and subsequently to brain and other organs I will switch patient to oral anticoagulation based on cardiology and neurology recommendation. Previous reported history of left MCA 6 mm aneurysmal dilatation. I spoke with neurology team about this. Neurology team stated that they had called the patient about the 12 times since his recent stroke trying to get him to follow-up with them and arrange for neurosurgery evaluation. Patient never picked up the phone. Risk of embolic stroke given his multiple watershed infarction seen on brain imaging and confirmed filling defect in the aortic arch outweighs the potential risk of the bleed at this time. Noncompliance about medical care. I talked to patient about his noncompliance to follow-up with the specialist in the outpatient setting. Neurology team had attempted to call him the 12 times but the patient never picked up the phone. Patient promised to follow-up with outpatient providers as instructed. He stated that his brother or one of his buddies will drive him. He understood the significance of this. Hypokalemia and hypomagnesemia Potassium and magnesium supplementation CKD, near baseline stage III Tobacco addiction and marijuana use. Patient smokes half a pack daily. Previously patient tested positive for meth Counseling and education about smoking and using drugs explaining risk. Diabetes. Previous A1c is 8.2. Resume metformin [address] completion. A1c is above 8. Added Januvia. I we will cancel Januvia and would add GP L1 on discharge. Not available here at [facility]. Microscopic hematuria. Recommend repeat UA at PCP in 2 weeks and if patient continues to have microscopic materia would recommend urology referral to proceed with additional urological testing which may include but not limited to cystoscopy, IVP or dedicated CT kidney rule out underlying malignancy. To be arranged by PCP. Chronic medical conditions not listed above, incidental findings seen on labs and imaging. These would need to be addressed. Could be addressed when time and condition are appropriate. Could be addressed in the outpatient setting by PCP collaboration with other needed outpatient providers. Patient has multiple complex medical issues as listed above and others that are not listed. All appear to be stable. I do not have any clear or strong clinical justification to extend inpatient hospitalization. Patient however will require close and frequent monitoring as well as additional work-up, inv estigation and therapeutic intervention that could take place from this point on post discharge. That is to prevent relapse, decompensation, rehospitalization and other medical implications. I instructed patient to ask her primary care doctor to obtain [facility] record entirely to address abnormalities seen on labs and imaging that I have and have not addressed during this hospitalization, follow-up on pending blood work, imaging and pathology is if available and to follow-up on needed medical care in the outpatient setting. Time Spent with Patient Time attestation: Total time spent providing and/or coordinating discharge services: Time spent: greater than 30 minutes Exam Constitutional Vital Signs, click to edit/add: Last Vital Signs Temp 98.2 F 03/03/25 08:00 Pulse 74 03/03/25 10:17 Resp 20 03/03/25 08:00 BP 147/98 H 03/03/25 08:00 Pulse Ox 95 03/03/25 11:23 O2 Del Method Room Air 03/03/25 11:23 O2 Flow Rate 2 03/01/25 10:11 Discharge Plan Discharge Disposition: Home, Self-Care Condition: Fair Discharge Medications: New metoprolol succinate 25 mg Tablet Extended Release 24 Hr 25 mg PO QD Qty: 30 2RF dapagliflozin propanediol [Farxiga] 10 mg tablet 10 mg PO DAILY Qty: 30 2RF Xarelto 20 mg tablet 20 mg PO DAILY Qty: 30 1RF Rx Instructions: must administer with evening meal Continued atorvastatin 40 mg Tablet 40 mg PO QHS 90 Days Qty: 90 3RF hydrochlorothiazide 25 mg Tablet 25 mg PO QD 90 Days Qty: 90 0RF aspirin 81 mg Tablet,Delayed Release (Dr/Ec) 162 mg PO QD 90 Days Qty: 180 3RF metformin 500 mg tablet 500 mg PO BID 90 Days Qty: 180 0RF Changed losartan 50 mg tablet 25 mg PO DAILY 90 Days Qty: 90 0RF Print Language: Upper Sorbian Patient Instructions: Urinary Tract Infection in Men (DC), Abdominal Pain (DC) Activity Restrictions/Additional Instructions: I may not have addressed or treated all of your medical illnesses or the abnormal blood work or imaging studies during this hospitalization. Please ask your primary care provider to obtain [facility] records entirely to follow up on all of the abnormal physical, laboratory, and imaging findings that I have not addressed. Please return back to the emergency room or seek medical attention if your symptoms worsen or return. It is very important and significant that you follow-up with heart and the pain specialists. You have had multiple strokes already. You have an aneurysm in the brain that potentially could rupture. You may have blockage in your heart that would need further investigation. This may put you at risk having a heart attack if not addressed with the heart doctor. It is very important for you to follow-up with primary care doctor, neurologist ( the brain specialist ) and the hydraulic and plumbing installer ( edi specialist ) It is very important for you not to smoke cigarette anymore. Please cut down on smoking over the next few weeks and quit by end of March. It is very important for you not to use any street drugs as a previously done Check your blood sugar 3 times a day before meals. Document these numbers on a blood glucose log and bring them with you to your follow-up appointment with your primary care doctor. Communicate with your primary care doctor or medical authorization specialist if your blood sugar is under 100 or above 300 on 2 consecutive checks. Communicate with your primary care doctor or medical authorization specialist if you have any questions about your diabetes medications. Signs of a low blood sugar include sweating, racing heart, dizziness and/or weakness. Check your blood sugar if you have any of the symptoms. Discharging you from [facility] does not mean that your medical care ends here and now. You may still need additional monitoring, work up, investigation, and treatment plan to be handled from this point on by out patient providers including your primary care provider and specialists. For any medication question, please contact your retail pharmacist or your primary care provider. Thank you. Forms: Portal Instructions Follow Up Appointments: [facility] @ [facility]. Mar @1:40 phone [phone] ext #[phone].
--- NOTE | 2025-03-03 12:30 | CM.NOTE ---
Dr. Talley sent tiger txt for patient to have 30 day event monitor. Entered order and notified cardiopulmonary.
--- NOTE | 2025-03-03 12:44 | SWNOTE1 ---
Pt does not have a ride home. [facility] called trips and they will be here between 3-3:30. SW notified pt's nurse.
--- NOTE | 2025-03-03 14:11 | SWNOTE1 ---
SW called [facility] and pt is not able to use [facility] unless they have HH services. [facility] called [facility] to see if they are accepting new patients. The nurse stated to go online and complete form and submit it. She stated that management will review, but they left for the weekend and will not be able to review until Thursday. Once it is reviewed they will contact pt if they can accept and get appointment scheduled. SW to complete online.
--- NOTE | 2025-03-03 14:14 | SWNOTE1 ---
[facility] called [facility] to attempt to get follow up scheduled. [facility] spoke to the therapy assistant. She stated the stroke doctor has to review the new clinical information that has been faxed. The stroke doctor will then determine if pt needs to have a follow up with Neurology. IF follow up appointment is needed, they will call the patient to schedule. She does voice it is documented they attempted to schedule follow up last time, but pt did not answer. [facility] did let her know that the physician has expressed the importance of follow ups to pt. [facility] did fax dc summary, progress notes, and imaging to [facility].
--- NOTE | 2025-03-03 14:25 | SWNOTE1 ---
[facility] completed [employer] online new patient form for patient. [facility] advised patient that he may get a call from [facility] to be a new patient there and he may get a call from [facility] for follow up. He voiced understanding.
--- NOTE | 2025-03-08 13:57 | CM.DCFOLLOWU ---
1st attempt, went to voicemail, mailbox full 03/08/25
--- NOTE | 2025-03-10 10:56 | CM.DCFOLLOWU ---
2nd attempt 03/10/25, went to voicemail, mailbox full.
== END 2025-03-03 15:43 | disposition home or self-care (01) | DRG 301 ==
LOC: ER 14:56 → MS 15:35
PROVIDERS: Admitting Provider Internal Medicine; Emergency Provider Student in an Organized Health Care Education/Training Program; Visit Provider Internal Medicine
DX: I74.11 Embolism and thrombosis of thoracic aorta (principal); R10.84 Generalized abdominal pain; E11.22 Type 2 diabetes mellitus with diabetic chronic kidney disease; Z79.84 Long term (current) use of oral hypoglycemic drugs; I12.9 Hypertensive chronic kidney disease with stage 1 through stage 4 chronic kidney disease, or unspecified chronic kidney disease; N18.30 Chronic kidney disease, stage 3 unspecified; E87.6 Hypokalemia; E78.5 Hyperlipidemia, unspecified; F20.9 Schizophrenia, unspecified; Z79.82 Long term (current) use of aspirin; E66.89 Other obesity not elsewhere classified; I69.328 Other speech and language deficits following cerebral infarction; I69.398 Other sequelae of cerebral infarction; E83.42 Hypomagnesemia; G93.89 Other specified disorders of brain; F12.10 Cannabis abuse, uncomplicated; F17.210 Nicotine dependence, cigarettes, uncomplicated; R31.29 Other microscopic hematuria; I25.10 Atherosclerotic heart disease of native coronary artery without angina pectoris; Z91.199 Patient's noncompliance with other medical treatment and regimen due to unspecified reason; Z68.32 Body mass index [BMI] 32.0-32.9, adult; R79.89 Other specified abnormal findings of blood chemistry
CPT/HCPCS: 36415; 70450; 71046; 71275; 74174; 80053; 80307; 81001; 82550; 83605; 83690; 83735; 84100; 84484; 85025; 87086; 93005; 93270; 93308; 94761; 96372; 96374; 96375; 99285; J1650; J2270; J2405; J3475; Q9966